=== PATIENT | male | born 1960 | race Caucasian/White ===

== ENCOUNTER 2021-11-18 07:06 | Emergency (ER) | payer OTHER, SELFPAY ==
[2021-11-18] VITALS (17 sets, daily range): BP systolic 103–132; BP diastolic 66–97; PULSE 75–128; RESP 18–28; TEMP 36.2–36.5; O2SAT 92–100; BMI 21.5
--- NOTE | 2021-11-18 07:19 | XR_ITS ---
WS: [id number] XR chest 1V portable [id number] REASON FOR EXAM: SOB, cough FINDINGS: There is nearly complete opacification of the left hemithorax. The mediastinal structures are shifted to the right indicating the opacification is pleural fluid and /or mass. The left mainstem bronchus is not readily identifiable. No history of recent thoracotomy with lung resection. XR/XR chest 1V portable [id number] IMPRESSION: Complete opacification of the left hemithorax with mass effect rather than atel ectasis. This indicates large volume of pleural fluid and/or mass. The left theo st was unremarkable 09/16/2017. 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
--- NOTE | 2021-11-18 07:20 | ED_ITS ---
Documented by User: LEOPOLDO Gilmore 11/18/21 13:59 HPI - SOB/Dyspnea General: Chief Complaint: Shortness of Breath/Dyspnea Stated Complaint: SOB Time Seen by Provider: 11/18/21 07:11 Source: patient and family Mode of arrival: ambulatory Limitations: no limitations History of Present Illness: HPI Narrative: Patient is a nice 61-year-old male who presents to ED today along with his for concerns of cough and shortness of breath. Patient states symptoms began approximately 3-4 weeks ago when he began having chest congestion and a productive cough. He states his symptoms never fully went away and is now having a dry non-productive cough. He is not having any fevers. No other URI symptoms. No sick contacts. Patient was seen at the walk-in clinic approximately 8 days ago and placed on prednisone and an albuterol inhaler but states this has not helped his symptoms. He has no underlying known lung problems. Patient is not a smoker. He states shortness of breath is present at rest but worse with any form of exertion. He is not really having any chest pain or chest discomfort. No hemoptysis. MD elicited complaint: shortness of breath and cough Onset (ago): week(s) Exacerbating factors: exertion Relieving factors: nothing Associated symptoms: Reports abdominal pain (intermittent; chronic x 25 years; no change today); Deny chest congestion, chest pain, dizziness, extremity pain, fever(s), hemoptysis, lightheadedness, nausea, orthopnea, palpitations, syncope or vomiting Related Data: Home oxygen amount: none Review of Systems Const: Denies: fever(s), chills, body aches, fatigue or malaise Eyes: Denies: change in vision or blurry vision ENMT: Denies: throat pain, odynophagia, ear or mastoid pain, nasal discharge, nasal congestion, post nasal drip or sinus pain Card: Reports: dyspnea on exertion; Denies: chest pain, palpitations, irregular heart rhythm, edema, swelling of feet/ankles, lightheadedness, syncope, pre-syncope, orthopnea, leg pain with e xertion or acrocyanosis Resp: Reports: dyspnea and non-productive cough; Denies: wheezing, hemoptysis or chest congestion GI: Reports: abdominal pain (intermittent; chronic x 25 years; no change today); Denies: nausea, vomiting or diarrhea : Denies: flank pain, dysuria or hematuria Musc: Denies: neck pain, back pain, extremity pain or joint pain Skin/Breast: Denies: rash Neuro: Denies: headache(s) or dizziness PFS ED PFSH: Medical History (Updated 11/18/21 @ 15:09 by Allen Booth DO) No significant past medical history Surgical History (Updated 11/18/21 @ 15:09 by Allen Booth DO) No significant past surgical history Social History Smoking and tobacco status: never smoked Alcohol intake: never Physical Exam Const: COMMON NORMALS: no acute distress, patient oriented x3, no limitations, alert and well nourished GENERAL APPEARANCE: cooperative ORIENTATION/CONSCIOUSNESS: Yes awake, Yes oriented to person, Yes oriented to place and Yes oriented to time HENMT: COMMON NORMALS: normocephalic, atraumatic, Normal nasal mucous membranes and turbinates present, moist oral mucous membranes and oropharynx normal HEAD & SCALP: normal to inspection, normocephalic and atraumatic FACE & SINUS: normal facial exam NOSE: Normal nasal mucous membranes and turbinates present Neck/C-Spine: COMMON NORMALS: full ROM and no lymphadenopathy GENERAL: Yes normal visual inspection, No anterior neck swelling and No submandibular swelling Chest: COMMONS NORMALS: normal inspection of the chest and normal palpation of entire chest wall Resp: COMMON NORMALS: normal respiratory effort AUSCULTATION: rhonchi and diminished lung sounds Cardio: COMMON NORMALS: regular rhythm RATE: tachycardic (mild ) RHYTHM: regular rhythm GI: COMMON NORMALS: Normal to inspection, nondistended, normoactive bowel sounds present and Soft to palpation PALPATION: Yes Soft to palpation : COMMON NORMALS: Yes no CVA tenderness BLADDER/KIDNEY EXAM: Yes no CVA tenderness Back/Pelvis: COMMON NORMALS: no CVA tenderness Extremity: COMMON NORMALS: normal to inspection, capillary refill normal, no joint enlargement, no clubbing, cyanosis or edema, no calf tenderness and no pedal edema Neuro: GURPREET COMA SCALE: document GCS findings Gurpreet coma scale total score: COMMON NORMALS: patient oriented x3 SENSORIUM/ORIENTATION: Yes alert, Yes oriented to person, Yes oriented to place and Yes oriented to time Skin: COMMON NORMALS: no rashes or lesions noted GENERAL SKIN EXAM: no rashes or lesions noted Course Vital Signs: Vital signs: Vital Signs Temperature 97.2 F L 11/18/21 13:16 Pulse Rate 81 11/18/21 14:41 Respiratory Rate 18 11/18/21 13:32 Blood Pressure 128/71 11/18/21 14:41 Pulse Oximetry 98 11/18/21 14:41 MDM - SOB/Dyspnea Medical Decision Making Care was transferred to Dr. Booth following results of his CXR due to the acuity of patient. Lab Data : 11/18/21 07:32 11/18/21 07:32 Labs/Radiology: Radiology Impressions Chest/Abdomen/Pelvis CT 11/18/21 08:43 IMPRESSION: Very large pleural effusion mass effect shifting the mediastinal structures to the right. Near complete atelectasis of the left lung with small amount of aerated lung in the left upper lobe. Abnormal pleura in the lower left hemithorax as above which is nonspecific and could be the result of the pleural effusion or the cause of the pleural effusion, neoplastic or inflammatory. IMPRESSION: No acute abdominal or abnormality. Laboratory Results WBC 7.4 10^3/uL (4.0-10.0) 11/18/21 07:32 RBC 4.32 10^6/uL (4.1-5.3) 11/18/21 07:32 Hgb 13.1 g/dL (11.7-16.6) 11/18/21 07:32 Hct 39.2 % (42.0-52.0) L 11/18/21 07:32 MCV 90.7 fl (80-94) 11/18/21 07:32 MCH 30.3 pg (28.0-34.0) 11/18/21 07:32 MCHC 33.4 g/dL (30.0-36.0) 11/18/21 07:32 RDW 11.9 % (12.1-15.1) L 11/18/21 07:32 Plt Count 402 10^3/cmm (130-400) H 11/18/21 07:32 MPV 9.0 fL (7.4-10.4) 11/18/21 07:32 Neut % (Auto) 70.6 % 11/18/21 07:32 Lymph % (Auto) 13.4 % 11/18/21 07:32 [place] % (Auto) 14.0 % 11/18/21 07:32 Eos % (Auto) 1.6 % 11/18/21 07:32 Baso % (Auto) 0.1 % 11/18/21 07:32 Neut # (Auto) 5.25 10^3/uL (1.8-7.7) 11/18/21 07:32 Lymph # (Auto) 1.0 10^3/uL (0.8-4.8) 11/18/21 07:32 [place] # (Auto) 1.0 10^3/uL (0.2-0.9) H 11/18/21 07:32 Eos # (Auto) 0.1 10^3/uL (0.0-0.8) 11/18/21 07:32 Baso # (Auto) 0.0 10^3/uL (0.0-0.1) 11/18/21 07:32 Nucleated RBC % (auto) 0 % 11/18/21 07:32 Nucleated RBCs # 0.0 /100WBC 11/18/21 07:32 PT 14.10 SECONDS (12.1-14.9) 11/18/21 07:38 INR 1.06 (0.8-1.2) 11/18/21 07:38 Specimen Type Arterial 11/18/21 07:54 Sample Site Brachial, left 11/18/21 07:54 ABG pH 7.49 (7.35-7.45) H 11/18/21 07:54 ABG pCO2 28.7 mmHg (35-45) L 11/18/21 07:54 ABG pO2 71.8 mmHg (80.0-100.0) L 11/18/21 07:54 ABG HCO3 22.0 mmol/L (22-26) 11/18/21 07:54 ABG O2 Saturation 95.2 11/18/21 07:54 ABG Base Excess -0.2 mmol/L (-2.0-2.0) 11/18/21 07:54 Magdaleno Test N/a 11/18/21 07:54 A-a O2 Gradient 5.4 mmHg (5-10) 11/18/21 07:54 Hematocrit 40.7 % (42-52) L 11/18/21 07:54 Hgb O2 Saturation 93.3 % (95-100) L 11/18/21 07:54 Carboxyhemoglobin 1.3 %THgb (0.4-20.1) 11/18/21 07:54 Methemoglobin 0.7 % (0.4-1.5) 11/18/21 07:54 Total Hemoglobin 13.3 g/dL (14-18) L 11/18/21 07:54 Sodium 134.0 mmol/L (131-143) 11/18/21 07:54 Potassium 4.0 mmol/L (3.5-5.0) 11/18/21 07:54 Glucose 106.0 mg/dL (70-115) 11/18/21 07:54 Ionized Calcium 1.2 mmol/L (1.1-1.4) 11/18/21 07:54 O2 Delivery Device Room air 11/18/21 07:54 FiO2 21.0 % 11/18/21 07:54 Data Analysis Assistant ID Ed 11/18/21 07:54 Sodium 133 mmol/L (136-145) L 11/18/21 07:32 Potassium 4.1 mmol/L (3.5-5.1) 11/18/21 07:32 Chloride 98 mmol/L (98-107) 11/18/21 07:32 Carbon Dioxide 20 mmol/L (22-29) L 11/18/21 07:32 Anion Gap 19.1 (5-19) H 11/18/21 07:32 BUN 20 mg/dL (8-23) 11/18/21 07:32 Creatinine 0.8 mg/dL (0.7-1.2) 11/18/21 07:32 GFR Calculation 98.0 mL/min (90-130) 11/18/21 07:32 Glucose 114 mg/dL (65-115) 11/18/21 07:32 Calculated Osmolality 279 mOsm/kg (285-295) L 11/18/21 07:32 Lactic Acid 1.9 mmol/L (0.5-2.2) 11/18/21 07:07 Calcium 8.8 mg/dL (8.5-10.5) 11/18/21 07:32 Total Bilirubin 0.5 mg/dL (0.15-1.2) 11/18/21 07:32 AST 14 U/L (0-40) 11/18/21 07:32 ALT 31 U/L (0-41) 11/18/21 07:32 Alkaline Phosphatase 104 IU/L (40-130) 11/18/21 07:32 Troponin T Baseline 11 ng/L (0-15) 11/18/21 07:32 Troponin T 120 Minute 10.48 ng/L (0-15) 11/18/21 09:45 Delta Troponin T -0.52 ABS# (0-10) L 11/18/21 09:45 Total Protein 6.5 g/dL (6.6-8.7) L 11/18/21 07:32 Albumin 3.7 g/dL (3.5-5.2) 11/18/21 07:32 Globulin 2.8 g/dL (1.3-4.6) 11/18/21 07:32 Procalcitonin 0.05 ng/mL (0-0.5) 11/18/21 07:32 Discharge Plan Discharge Patient Disposition: Home Clinical Impression: Pleural effusion on left Condition: Stable Prescriptions: No Action prednisone 10 mg tablet 30 mg PO DAILY 5 Days Qty: 15 0RF albuterol sulfate [Ventolin HFA] 90 mcg/actuation HFA aerosol inhaler 2 puff inhalation Q6H PRN (Reason: shortness of breath or wheezing) Qty: 8.5 0RF Discharge Orders: Discharge ED (Routine); Ordered 11/18/21 Ordered By: Allen Booth Referrals: Kyleigh Leone FNP [Primary Care Provider] - Patient Instructions: Opioid Safety Activity Restrictions/Additional Instructions: helpdesk manager will make arrangements for you to follow-up with Dr. Pastor in his office within the next few days. 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 Comprehensive Documented by User: Allen Booth DO 11/18/21 15:12 HPI - SOB/Dyspnea General: Chief Complaint: Shortness of Breath/Dyspnea Stated Complaint: SOB Time Seen by Provider: 11/18/21 07:11 [facility] ED PFSH: Medical History (Updated 11/18/21 @ 15:09 by Allen Booth DO) No significant past medical history Surgical History (Updated 11/18/21 @ 15:09 by Allen Booth DO) No significant past surgical history Social History Smoking and tobacco status: never smoked Alcohol intake: never Physical Exam Const: COMMON NORMALS: no acute distress GENERAL APPEARANCE: cooperative and comfortable ORIENTATION/CONSCIOUSNESS: Yes awake, Yes oriented to person, Yes oriented to place and Yes oriented to time HENMT: COMMON NORMALS: normocephalic and atraumatic HEAD & SCALP: normocephalic and atraumatic Eye: COMMON NORMALS: Equal, round and reactive pupils present, EOMs intact bilaterally, conjunctivae normal and no scleral icterus CONJUNCTIVA: Yes conjunctivae normal PUPIL: Yes Equal, round and reactive pupils present Neck/C-Spine: COMMON NORMALS: no lymphadenopathy and no JVD Lymph: LYMPHATIC: no lymphadenopathy noted and no lymphedema noted Resp: COMMON NORMALS: normal respiratory effort, No retractions and No use of accessory muscles AUSCULTATION: bronchial breath sounds on the left and other (Egophony noted on exam) PERCUSSION: dullness Upper: left, Mid: left and Lower: left Cardio: COMMON NORMALS: no JVD, regular rate, regular rhythm and No murmurs present (Cardio) RATE: regular rate RHYTHM: regular rhythm GI: COMMON NORMALS: Soft to palpation and No hepatosplenomegaly present AUSCULTATION: Yes normoactive bowel sounds PALPATION: Yes Soft to palpation, No Tenderness to palpation present (GI), No Guarding due to palpation present (GI) and Yes No hepatosplenomegaly present Extremity: COMMON NORMALS: normal to inspection, capillary refill normal, no clubbing, cyanosis or edema, no calf tenderness and no pedal edema Neuro: SENSORIUM/ORIENTATION: Yes oriented to person, Yes oriented to place and Yes oriented to time Skin: COMMON NORMALS: no rashes or lesions noted GENERAL SKIN EXAM: no rashes or lesions noted Course Vital Signs: Vital signs: Vital Signs Temperature 97.2 F L 11/18/21 13:16 Pulse Rate 81 11/18/21 14:41 Respiratory Rate 18 11/18/21 13:32 Blood Pressure 128/71 11/18/21 14:41 Pulse Oximetry 98 11/18/21 14:41 MDM - SOB/Dyspnea Medical Decision Making Care was transferred to Dr. Booth following results of his CXR due to the acuity of patient. Discussed with Dr. Velazco and 1100 cc removed by thoracentesis under ultrasound guidance by him in the emergency room. Patient tolerated the procedure well. He did have some coughing post film does not show any pneumothorax. Pleural fluid. From the left hemithorax was bloody in nature and sent for routine evaluation including cultures and cell counts. Remains a very large amount of fluid on the post thoracentesis film. Discussed with Dr. Turpin he will see the patient later this week may consider placement in outpatients of a pleural drain. Discussed with the patient to call his office and make appointment within the next 1 to 2 days. Medical Records I reviewed the patient's medical records. Lab Data I reviewed the patient's lab results. : 11/18/21 07:32 11/18/21 07:32 Labs/Radiology: Radiology Impressions Chest/Abdomen/Pelvis CT 11/18/21 08:43 IMPRESSION: Very large pleural effusion mass effect shifting the mediastinal structures to the right. Near complete atelectasis of the left lung with small amount of aerated lung in the left upper lobe. Abnormal pleura in the lower left hemithorax as above which is nonspecific and could be the result of the pleural effusion or the cause of the pleural effusion, neoplastic or inflammatory. IMPRESSION: No acute abdominal or abnormality. Laboratory Results WBC 7.4 10^3/uL (4.0-10.0) 11/18/21 07:32 RBC 4.32 10^6/uL (4.1-5.3) 11/18/21 07:32 Hgb 13.1 g/dL (11.7-16.6) 11/18/21 07:32 Hct 39.2 % (42.0-52.0) L 11/18/21 07:32 MCV 90.7 fl (80-94) 11/18/21 07:32 MCH 30.3 pg (28.0-34.0) 11/18/21 07:32 MCHC 33.4 g/dL (30.0-36.0) 11/18/21 07:32 RDW 11.9 % (12.1-15.1) L 11/18/21 07:32 Plt Count 402 10^3/cmm (130-400) H 11/18/21 07:32 MPV 9.0 fL (7.4-10.4) 11/18/21 07:32 Neut % (Auto) 70.6 % 11/18/21 07:32 Lymph % (Auto) 13.4 % 11/18/21 07:32 [place] % (Auto) 14.0 % 11/18/21 07:32 Eos % (Auto) 1.6 % 11/18/21 07:32 Baso % (Auto) 0.1 % 11/18/21 07:32 Neut # (Auto) 5.25 10^3/uL (1.8-7.7) 11/18/21 07:32 Lymph # (Auto) 1.0 10^3/uL (0.8-4.8) 11/18/21 07:32 [place] # (Auto) 1.0 10^3/uL (0.2-0.9) H 11/18/21 07:32 Eos # (Auto) 0.1 10^3/uL (0.0-0.8) 11/18/21 07:32 Baso # (Auto) 0.0 10^3/uL (0.0-0.1) 11/18/21 07:32 Nucleated RBC % (auto) 0 % 11/18/21 07: Nucleated RBCs # 0.0 /100WBC 11/18/21 07:32 PT 14.10 SECONDS (12.1-14.9) 11/18/21 07:38 INR 1.06 (0.8-1.2) 11/18/21 07:38 Specimen Type Arterial 11/18/21 07:54 Sample Site Brachial, left 11/18/21 07:54 ABG pH 7.49 (7.35-7.45) H 11/18/21 07:54 ABG pCO2 28.7 mmHg (35-45) L 11/18/21 07:54 ABG pO2 71.8 mmHg (80.0-100.0) L 11/18/21 07:54 ABG HCO3 22.0 mmol/L (22-26) 11/18/21 07:54 ABG O2 Saturation 95.2 11/18/21 07:54 ABG Base Excess -0.2 mmol/L (-2.0-2.0) 11/18/21 07:54 Magdaleno Test N/a 11/18/21 07:54 A-a O2 Gradient 5.4 mmHg (5-10) 11/18/21 07:54 Hematocrit 40.7 % (42-52) L 11/18/21 07:54 Hgb O2 Saturation 93.3 % (95-100) L 11/18/21 07:54 Carboxyhemoglobin 1.3 %THgb (0.4-20.1) 11/18/21 07:54 Methemoglobin 0.7 % (0.4-1.5) 11/18/21 07:54 Total Hemoglobin 13.3 g/dL (14-18) L 11/18/21 07:54 Sodium 134.0 mmol/L (131-143) 11/18/21 07:54 Potassium 4.0 mmol/L (3.5-5.0) 11/18/21 07:54 Glucose 106.0 mg/dL (70-115) 11/18/21 07:54 Ionized Calcium 1.2 mmol/L (1.1-1.4) 11/18/21 07:54 O2 Delivery Device Room air 11/18/21 07:54 FiO2 21.0 % 11/18/21 07:54 Data Analysis Assistant ID Ed 11/18/21 07:54 Sodium 133 mmol/L (136-145) L 11/18/21 07:32 Potassium 4.1 mmol/L (3.5-5.1) 11/18/21 07:32 Chloride 98 mmol/L (98-107) 11/18/21 07:32 Carbon Dioxide 20 mmol/L (22-29) L 11/18/21 07:32 Anion Gap 19.1 (5-19) H 11/18/21 07:32 BUN 20 mg/dL (8-23) 11/18/21 07:32 Creatinine 0.8 mg/dL (0.7-1.2) 11/18/21 07:32 GFR Calculation 98.0 mL/min (90-130) 11/18/21 07:32 Glucose 114 mg/dL (65-115) 11/18/21 07:32 Calculated Osmolality 279 mOsm/kg (285-295) L 11/18/21 07:32 Lactic Acid 1.9 mmol/L (0.5-2.2) 11/18/21 07:07 Calcium 8.8 mg/dL (8.5-10.5) 11/18/21 07:32 Total Bilirubin 0.5 mg/dL (0.15-1.2) 11/18/21 07:32 AST 14 U/L (0-40) 11/18/21 07:32 ALT 31 U/L (0-41) 11/18/21 07:32 Alkaline Phosphatase 104 IU/L (40-130) 11/18/21 07:32 Troponin T Baseline 11 ng/L (0-15) 11/18/21 07:32 Troponin T 120 Minute 10.48 ng/L (0-15) 11/18/21 09:45 Delta Troponin T -0.52 ABS# (0-10) L 11/18/21 09:45 Total Protein 6.5 g/dL (6.6-8.7) L 11/18/21 07:32 Albumin 3.7 g/dL (3.5-5.2) 11/18/21 07:32 Globulin 2.8 g/dL (1.3-4.6) 11/18/21 07:32 Procalcitonin 0.05 ng/mL (0-0.5) 11/18/21 07:32 Discharge Plan Discharge Patient Disposition: Home Clinical Impression: Pleural effusion on left Condition: Stable Prescriptions: No Action prednisone 10 mg tablet 30 mg PO DAILY 5 Days Qty: 15 0RF albuterol sulfate [Ventolin HFA] 90 mcg/actuation HFA aerosol inhaler 2 puff inhalation Q6H PRN (Reason: shortness of breath or wheezing) Qty: 8.5 0RF Discharge Orders: Discharge ED (Routine); Ordered 11/18/21 Ordered By: Allen Booth Referrals: Kyleigh Leone FNP [Primary Care Provider] - Patient Instructions: Opioid Safety Activity Restrictions/Additional Instructions: helpdesk manager will make arrangements for you to follow-up with Dr. Pastor in his office within the next few days. 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 Comprehensive
--- NOTE | 2021-11-18 07:42 | ECG_ITS ---
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 Measurements Intervals [place] Rate: 95 P: 61 NC: 129 QRS: 65 QRSD: 85 T: 47 QT: 334 QTc: 420 Interpretive Statements SINUS RHYTHM LOW QRS VOLTAGE IN PRECORDIAL LEADS [QRS DEFLECTION < 1.0 mV IN CHEST LEADS] Compared to ECG 09/16/2017 21:12:44 Low QRS voltage now present Electronically Signed On 11-18-2021 21:05:52 CDT by Douglas Willoughby M.D. [id number]
[2021-11-18 07:48] LABS: Basophils % 0.1 %; Eosinophils # 0.1 10^3/uL (0.0-0.8); Eosinophils % 1.6 %; Hematocrit 39.2 % (42.0-52.0); Hemoglobin 13.1 g/dL (11.7-16.6); Lymphocytes % 13.4 %; Mean Corpuscular HGB Conc 33.4 g/dL (30.0-36.0); Mean Corpuscular Hemoglobin 30.3 pg (28.0-34.0); Mean Corpuscular Volume 90.7 fl (80-94); Neutrophils # 5.25 10^3/uL (1.8-7.7); Neutrophils % 70.6 %; Nucleated Red Blood Cells % 0 %; Platelet Count 402 10^3/cmm (130-400); Red Blood Count 4.32 10^6/uL (4.1-5.3); Red Cell Distribution Width 11.9 % (12.1-15.1); White Blood Count 7.4 10^3/uL (4.0-10.0)
[2021-11-18 08:04] LABS: ABG PCO2 28.7 mmHg (35-45); ABG PH Result 7.49 (7.35-7.45); Alveolar-Arterial Oxygen Gradi 5.4 mmHg (5-10); Arterial Blood Gas Hematocrit 40.7 % (42-52); Base Excess ABG -0.2 mmol/L (-2.0-2.0); Blood Gas Sample Type Arterial; Carboxyhemoglobin 1.3 %THgb (0.4-20.1); HGB O2 Sat 93.3 % (95-100); Ionized Calcium Level - ABG 1.2 mmol/L (1.1-1.4); Methemoglobin 0.7 % (0.4-1.5); Oxygen Saturation ABG 95.2; PO2 ABG 71.8 mmHg (80.0-100.0); Total Hemoglobin 13.3 g/dL (14-18)
[2021-11-18 08:05] LABS: Blood Gas Operator Identificat ED; Blood Gas Sample Site Brachial, left; Oxygen Device ROOM AIR
[2021-11-18 08:07] LABS: Alanine Aminotransferase 31 U/L (0-41); Albumin Level 3.7 g/dL (3.5-5.2); Alkaline Phosphatase 104 IU/L (40-130); Anion Gap 19.1 (5-19); Aspartate Amino Transferase 14 U/L (0-40); Blood Urea Nitrogen 20 mg/dL (8-23); Calcium 8.8 mg/dL (8.5-10.5); Carbon Dioxide 20 mmol/L (22-29); Chloride 98 mmol/L (98-107); Globulin 2.8 g/dL (1.3-4.6); Glucose 114 mg/dL (65-115); Osmolality Calculated 279 mOsm/kg (285-295); Potassium 4.1 mmol/L (3.5-5.1); Sodium 133 mmol/L (136-145); Total Bilirubin 0.5 mg/dL (0.15-1.2); Total Protein 6.5 g/dL (6.6-8.7); Troponin(5th) Baseline 11 ng/L (0-15)
[2021-11-18 08:12] LABS: Lactic Sepsis W/Reflex 1.9 mmol/L (0.5-2.2)
[2021-11-18 08:14] LABS: Procalcitonin 0.05 ng/mL (0-0.5)
[2021-11-18] MEDS: ondansetron 2 mg/ML SDV 2 mL 4 MG IVP (08:21)
[2021-11-18] MEDS: morphine 4 mg/mL SDV 1 mL IVP (08:34)
[2021-11-18] MEDS: promethazine 25 mg/mL SDV 1 mL IM (08:43)
--- NOTE | 2021-11-18 08:43 | CT_ITS ---
WS: [id number] CT angio chest w abd pel w con REASON FOR EXAM: pleurel effusion, left chest mass, abd pain TECHNIQUE: Coronal and sagittal 2-D and MIP reformations. IV CONTRAST ADMINISTERED: 95 mL of Omnipaque 350 TOTAL EXAM DLP: 1309.[address] scans at [facility] use at least one of these dose optimization techniques: automat ed exposure control; mA and/or kV adjustment per patient size (includes targeted exams where dose is matched to clinical indication); or iterative reconstruction. FINDINGS: CHEST: Mediastinal structures are shifted significantly to the right. Thoracic aorta pulmonary arteries are unremarkable. No mediastinal adenopathy or mass identified. No hilar adenopathy or mass. Calcified granulomatous disease in the right hemithorax with a large calcified granuloma in the anter ior right upper lobe. The left lung is nearly completely collapsed with only a small portion of the right upper lobe contai arya air. The left mainstem bronchus and left upper and lower lobe bronchi are patent. No mass is rashel ntified in the collapsed lung. There is thickening and enhancement with subtle areas of nodularity in the posterior and medial pleur a in the lower left hemithorax. There is degenerative disc disease in the thoracic spine with disc space narrowing and anterior osteo phytic spurring. No focal vertebral body lesion. No rib lesions identified. ABDOMEN: Lucency along the portal veins compatible with lymphatic congestion, nonspecific but likely related t o increased thoracic duct pressure from the large left pleural effusion. No focal liver lesion. Splee n is unremarkable. Pancreas is unremarkable. No abnormality gallbladder. Kidneys and adrenal glands are within normal limits. No abdominal mass or adenopathy. No free fluid or focal fluid collection. No bowel abnormality. Normal appendix not identified however no findings of inflammation. No focal bony abnormality of the lumbar spine. Mild degenerative disc changes. PELVIS: No free fluid or focal fluid collection. No mass or adenopathy. Enlargement of the prostate gland with multiple ill-defined areas of enhancement in the central lower zone. No significant bony abnormality of the pelvis. CT/CT angio chest w abd pel w con IMPRESSION: Very large pleural effusion mass effect shifting the mediastinal structures to the right. Near complete atelectasis of the left lung with small amount of aera rasheeda lung in the left upper lobe. Abnormal pleura in the lower left hemithorax as above which is nonspecific and could be the result of the pleural effusion or the cause of the pleural effusio n, neoplastic or inflammatory. IMPRESSION: No acute abdominal or abnormality.
[2021-11-18] MEDS: iohexol 350 mg/mL 100 mL Btl IV (09:12)
--- NOTE | 2021-11-18 09:42 | ECG_ITS ---
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 Measurements Intervals [place] Rate: 77 P: 60 VA: 142 QRS: 65 QRSD: 89 T: 51 QT: 379 QTc: 429 Interpretive Statements SINUS RHYTHM LOW QRS VOLTAGE IN PRECORDIAL LEADS [QRS DEFLECTION < 1.0 mV IN CHEST LEADS] Compared to ECG 11/18/2021 06:54:10 No significant changes Electronically Signed On 11-18-2021 21:14:20 CDT by Douglas Willoughby M.D. [id number]
--- NOTE | 2021-11-18 09:59 | US_ITS ---
WS: [id number] ULTRASOUND-GUIDED THORACENTESIS CLINICAL INFORMATION: Large left pleurel effusion COMPARISON: None. PROCEDURE: Informed consent: The risks, benefits, and alternatives of the procedure were discussed with the willa ent. Verbal and written consent was obtained. Timeout: A timeout was performed to confirm the correct patient, procedure, and site. Site: LEFT Preparation: A suitable skin site was identified. The patient was prepped and draped in usual sterile fashion. Lidocaine 1% was used for local anesthesia. Catheter: 4 Spanish One-Step catheter. Fluid Volume: 1100 ml Color: Bloody dark red Fluid sent to the laboratory for requested diagnostic tests Complications: Portable radiograph demonstrates no evidence of pneumothorax. Mediastinal shift appear s improved. Improved aeration LEFT upper lobe US/US thoracentesis [id number] IMPRESSION: Uncomplicated ultrasound-guided thoracentesis.
[2021-11-18 10:19] LABS: Troponin 5 2HR 10.48 ng/L (0-15)
[2021-11-18 10:54] LABS: Troponin 5 2HR Delta -0.52 ABS# (0-10)
[2021-11-18 12:29] LABS: INR 1.06 (0.8-1.2)
[2021-11-18] MEDS: morphine 4 mg/mL SDV 1 mL 2 MG IVP (13:32)
--- NOTE | 2021-11-18 13:42 | ECG_ITS ---
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 Measurements Intervals [place] Rate: P: AR: QRS: QRSD: T: QT: QTc: Interpretive Statements SINUS RHYTHM Compared to ECG 11/18/2021 08:35:12 Sinus rhythm no longer present Electronically Signed On 11-18-2021 21:13:34 CDT by Douglas Willoughby M.D. [id number]
--- NOTE | 2021-11-18 14:24 | XR_ITS ---
WS: [id number] CHEST XRAY TECHNIQUE: Portable chest. CLINICAL INFORMATION: post thoracentesis COMPARISON: November 18, 2021 FINDINGS: Heart: Normal cardiac silhouette. Lungs: No pneumothorax post thoracentesis. Decrease in density of the large LEFT pleural effusion wit h improved aeration the LEFT upper lobe. Improved LEFT to RIGHT mediastinal shift. RIGHT lung is unch anged. Bones: Normal visualized bony structures. XR/XR chest 1V portable [id number] IMPRESSION: 1. Decreased density of the large LEFT pleural effusion post thoracentesis wit h improved aeration LEFT upper lobe. 2. No pneumothorax. 3. Improved LEFT RIGHT mediastinal shift.
[2021-11-18 15:10] LABS: Troponin 5 6HR 8.84 ng/L (0-15)
[2021-11-18 15:18] LABS: Body Fluid WBC 2463 /uL; Monocytes # Body Fluid 1.833
[2021-11-18 16:09] LABS: Troponin 5 6HR Delta -2.16 ng/L (0-12)
[2021-11-18 16:28] LABS: Albumin Body Fluid 3.5 g/dL; Amylase Body Fluid 471 U/L; Cholesterol Body Fluid 103 mg/dL (0-200); Fluid Alkaline Phos. 37 IU/L; LDH Body Fluid 651 U/L; Triglycerides Body Fluid 24 mg/dL (0-150); Uric Acid Body Fluid 5 mg/dL
[2021-11-18 16:33] LABS: Body Fluid Specific Gravity 1.015
[2021-11-18 17:09] LABS: Apprearance, Body Fluid BLOODY; Color, Body Fluid RED
--- NOTE | 2021-11-19 17:00 | DCPLANNER ---
Addendum entered by Preethi Thomas 12/05/21 09:12: Patient had a follow up appointment scheduled with Dr. Pastor at [facility] - patient did attend appointment. Original Note: barber or beauty shop manager had message to schedule a followup appointment for patient with Dr. Pastor, at [facility]. barber or beauty shop manager called [facility], spoke with Serina Busch, gave clinic patients information. A follow up appointment was scheduled for November at 12:[address] Pastor. barber or beauty shop manager called patient to confirm that he was aware of appointment.
[2021-11-20 00:49] LABS: Total Protein Pleural Fluid 4.6 g/dL
== END 2021-11-18 15:59 | disposition home or self-care (01) ==
PROVIDERS: Physician Assistant; Emergency Provider Family Medicine; PCP Nurse Practitioner
DX: J90 Pleural effusion, not elsewhere classified (principal)
CPT/HCPCS: 32555; 36600; 71045; 71275; 74177; 80051; 80053; 80500; 82042; 82150; 82330; 82465; 82805; 82945; 83605; 83615; 83986; 84075; 84145; 84157; 84315; 84478; 84484; 84560; 85025; 85610; 87015; 87040; 87070; 87075; 87102; 87116; 87205; 87206; 87801; 88108; 88305; 89050; 93005; 96372; 96374; 96375; 96376; 99284; J2270; J2405; J2550; Q9967

== ENCOUNTER 2021-11-19 20:06 | Inpatient (IN) | payer OTHER, SELFPAY ==
[2021-11-19 20:13] VITALS: BP 122/87; PULSE 125; RESP 18; TEMP 36.7; O2SAT 91; BMI 21.5
--- NOTE | 2021-11-19 20:15 | W.ED.SOB ---
HPI - SOB/Dyspnea General: Chief Complaint: Shortness of Breath/Dyspnea Stated Complaint: SOB\ Slight Chest Pain Time Seen by Provider: 11/19/21 20:14 History of Present Illness: HPI Narrative: Mr. Ramos is a 61-year-old gentleman without significant medical history with exception of recently discovered pleural effusion who presents emergency department due to shortness of breath. He began having symptoms a few weeks ago that were gradual in onset. He initially saw his PCP and was diagnosed with bronchitis and prescribed treatment however symptoms continued. He presented to the emergency department on 11/18 and had thoracentesis though no clear explanation for accumulation of fluid was noted. Approximately 1100 cc of fluid was drained and he initially had improvement. However, starting today he began to have more shortness of breath and decreased exercise tolerance. Additionally he has had fast heart rate. Denies infectious symptoms or other significant changes in health. Intensity of symptoms is moderate. Course has worsened. No other specific changes in health, exacerbating, or alleviating factors identified. Pertinent past history: other Onset (ago): hour(s) Timing: progressively worsening Exacerbating factors: lying flat and exertion Known history of: other Review of Systems General: Reports: 10 or more systems reviewed and unremarkable except in HPI and below PFSH ED PFSH: Medical History Pleural effusion on left Recurrent pleural effusion on left Surgical History No significant past surgical history Family History Mother Stroke Other CAD (coronary artery disease) Social History Smoking and tobacco status: never smoked Alcohol intake: never Lives independently: Yes Household members: spouse Marital status: Physical Exam Const: COMMON NORMALS: alert GENERAL APPEARANCE: cooperative and well developed HENMT: COMMON NORMALS: normocephalic and atraumatic HEAD & SCALP: normocephalic and atraumatic Eye: COMMON NORMALS: conjunctivae normal CONJUNCTIVA: Yes conjunctivae normal SCLERA: sclerae normal Neck/C-Spine: COMMON NORMALS: supple GENERAL: Yes trachea midline Resp: EFFORT & INSPECTION: Yes able to speak in complete sentences and Yes tachypneic AUSCULTATION: breath sounds absent on th left (base to mid) Cardio: COMMON NORMALS: regular rhythm RATE: tachycardic RHYTHM: regular rhythm GI: COMMON NORMALS: Soft to palpation PALPATION: Yes Soft to palpation and No Tenderness to palpation present (GI) PERCUSSION: normal to percussion Extremity: GENERAL: Yes normal exam except as noted and No edema Neuro: COMMON NORMALS: moves all extremities SENSORIUM/ORIENTATION: Yes alert and No Orientation impaired Psych: COMMON NORMALS: mental status grossly normal and Normal thought process present THOUGHT PROCESS: Normal thought process present Course ED course: - Patient was seen and evaluated by me at bedside - Patient placed on cardiac monitors, IV access obtained - Initial evaluation notable for exam as above - Labs and xrays personally interpreted by me - Fluids given - Labs notable for no leukocytosis, hemoglobin 9.7 which is decreased for baseline likely secondary to recent procedures. No acute electrolyte abnormalities explain symptoms - Imaging notable for large left effusion mildly more similar to prior. - Discussed case with pulmonology on-call. Based on provided history and physical examination of the patient I do not believe that the patient needs emergent ED performed thoracentesis however I also do not believe that the patient is satisfactory for outpatient follow-up as scheduled. Pulmonology recommends admission for further management with possible repeat IR versus pulmonology performed procedure. - Upon serial reexamination after treatment the patient was similar - Based on patient history, evaluation, labs, and imaging as interpreted the most likely cause of the patient's condition is recurrent large left effusion of uncertain etiology - The results of ED evaluation were discussed with the patient including plan for admission due to requirement for level of care not available if discharged to prevent significant worsening/deterioration. - Hospitalist service contacted and agreed with the patient. - Patient was admitted without further deterioration or significant events. Note: Click bubbles or prepopulated quinn in note writing are used for assistance with data collection and billing and are inherently more limited than narrative and other text portions of this note. Please use narrative for additional clinical history and defer to narrative/free test for any case of contradictory information. If information appears in only free text or click bubble it should be considered present or absent as reported. Please contact note typewriter assembly and parts inspector for clarifications of clinical information or contradictory information. MDM is a brief summary, contradictory or erroneous seeming information should be clarified and full note should be reviewed. Vital Signs: Vital signs: Vital Signs Temperature 98.2 F 11/23/21 14:01 Pulse Rate 83 11/23/21 14:01 Respiratory Rate 16 11/23/21 14:01 Blood Pressure 91/46 11/23/21 14:01 Pulse Oximetry 96 11/23/21 14:01 MDM - SOB/Dyspnea Medical Decision Making 61-year-old gentleman with recent diagnosis of pleural effusion status post 1100 cc drainage resenting with recurrence of initial presenting symptoms including shortness of breath and dyspnea with exertion with decreased exercise tolerance. Requiring 2 L of oxygen for oxygen saturation 89 to 90% on room air with significant worsening on exertion. No indication for thoracentesis in the emergency room. After discussion with pulmonology patient admitted for further management. Medical Records I reviewed the patient's medical records. Lab Data I reviewed the patient's lab results. : 11/23/21 04:05 11/23/21 04:05 Labs/Radiology: Radiology Impressions Chest CT 11/20/21 16:58 IMPRESSION: 1. Large left lower lobe pleural effusion decreased in volume since prior 2. Pleural base mass anteromedial aspect of the left upper lobe 3. Chest tube is present in the left lower left lung. 4. Calcified granulomas anterior right upper lobe and mediastinum. Abdomen CT 11/21/21 13:10 IMPRESSION: 1. Left lower lobe atelectasis versus infiltrate with a small left pneumothorax and pleural effusion in which a chest tube is seen, incompletely visualized. 2. Emphysematous changes. 3. Negative for acute inflammatory process in the abdomen and pelvis. Chest X-Ray 11/22/21 05:41 IMPRESSION: Improving small left pleural effusion with persistent increased interstitial markings and airspace opacities in the left lung. No pneumothorax. Laboratory Results WBC 9.4 10^3/uL (4.0-10.0) 11/19/21 20:38 RBC 3.92 10^6/uL (4.1-5.3) L 11/19/21 20:38 Hgb 12.1 g/dL (11.7-16.6) 11/19/21 20:38 Hct 36.3 % (42.0-52.0) L 11/19/21 20:38 MCV 92.6 fl (80-94) 11/19/21 20:38 MCH 30.9 pg (28.0-34.0) 11/19/21 20: MCHC 33.3 g/dL (30.0-36.0) 11/19/21 20: RDW 12.1 % (12.1-15.1) 11/19/21 20: Plt Count 375 10^3/cmm (130-400) 11/19/21 20: MPV 9.1 fL (7.4-10.4) 11/19/21: Neut % (Auto) 77.6 % 11/19/21 20: Lymph % (Auto) 9.9 % 11/19/21 20: [place] % (Auto) 11.6 % 11/19/21: Eos % (Auto) 0.6 % 11/19/21: Baso % (Auto) 0.1 % 11/19/21: Neut # (Auto) 7.25 10^3/uL (1.8-7.7) 11/19/21: Lymph # (Auto) 0.9 10^3/uL (0.8-4.8) 11/19/21 20: [place] # (Auto) 1.1 10^3/uL (0.2-0.9) H 11/19/21: Eos # (Auto) 0.1 10^3/uL (0.0-0.8) 11/19/21: Baso # (Auto) 0.0 10^3/uL (0.0-0.1) 11/19/21: Nucleated RBC % (auto) 0 % 11/19/21: Nucleated RBCs # 0.0 /100WBC 11/19/21 20: Sodium 134 mmol/L (136-145) L 11/19/21 20: Potassium 4.5 mmol/L (3.5-5.1) 11/19/21: Chloride 97 mmol/L (98-107) L 11/19/21: Carbon Dioxide 25 mmol/L (22-29) 11/19/21 20: Anion Gap 16.5 (5-19) 11/19/21 20: BUN 22 mg/dL (8-23) 11/19/21: Creatinine 1.0 mg/dL (0.7-1.2) 11/19/21 20:38 GFR Calculation 75.7 mL/min (90-130) L 11/19/21 20:38 Glucose 123 mg/dL (65-115) H 11/19/21 20:38 Calculated Osmolality 283 mOsm/kg (285-295) L 11/19/21 20:38 Calcium 9.0 mg/dL (8.5-10.5) 11/19/21 20:38 Total Bilirubin 0.5 mg/dL (0.15-1.2) 11/19/21 20:38 AST 17 U/L (0-40) 11/19/21 20:38 ALT 25 U/L (0-41) 11/19/21 20:38 Alkaline Phosphatase 93 IU/L (40-130) 11/19/21 20:38 Troponin T Baseline 16 ng/L (0-15) H 11/19/21 20:38 Troponin T 120 Minute 13.70 ng/L (0-15) 11/19/21 22:08 Delta Troponin T -2.30 ABS# (0-10) L 11/19/21 22:08 C-Reactive Protein 53.1 mg/L (0.0-4.9) H 11/19/21 20:38 NT-Pro-B Natriuret Pep 64 pg/mL (0-125) 11/19/21 20:38 Total Protein 5.8 g/dL (6.6-8.7) L 11/19/21 20:38 Albumin 3.9 g/dL (3.5-5.2) 11/19/21 20:38 Globulin 1.9 g/dL (1.3-4.6) 11/19/21 20:38 Procalcitonin 0.10 ng/mL (0-0.5) 11/19/21 20:38 EKG Data EKG 1: I personally reviewed and interpreted this EKG as follows: EKG Interpretation Date: 11/19/21 EKG interpretation time: 20:25 Interpretation: Twelve-lead EKG shows a regular rhythm at a rate of 120. MT interval 117, QRS duration 90, QTc 361. Normal axis. Interpretation: Sinus tachycardia. Discharge Plan Discharge Patient Disposition: Admitted As Inpatient Admit Provider: Gt Damian Clinical Impression: Pleural effusion on left, Hypoxemia, Tachycardia Condition: Stable Discharge Diet: Regular Discharge Activity: Resume usual activity Coding Level of Care Code ED Universal Grinder Operator for Papi Fwjimena Exam Comprehensive
--- NOTE | 2021-11-19 20:32 | ECG_ITS ---
[facility] Test Date: 2021-11-19 Pat Name: Shahab Ramos Department: Room: Gender: Male Corporate Development Intern: : 1960 Requested By: Edi Everett Order Number: [id number] Jean MD: Douglas Willoughby M.D. Measurements Intervals [place] Rate: 120 P: 63 OR: 117 QRS: 59 QRSD: 90 T: 52 QT: 289 QTc: 410 Interpretive Statements SINUS TACHYCARDIA WITH SHORT OR INTERVAL Compared to ECG 11/18/2021 12:33:58 Short OR interval now present Sinus rhythm no longer present Electronically Signed On 11-19-2021 22:20:14 CDT by Douglas Willoughby M.D. [id number]
--- NOTE | 2021-11-19 20:32 | XRR_ITS ---
PROCEDURE INFORMATION: Exam: XR Chest Exam date and time: 11/19/2021 8:32 PM Age: 61 years old Clinical indication: Shortness of breath; Additional info: SOB, tachycardia TECHNIQUE: Imaging protocol: XR of the chest. Views: 1 view. COMPARISON: CR XR chest 1V portable [id number] 11/18/2021 1:33 PM FINDINGS: Lungs: Please see pleural spaces section. Pleural spaces: Large left pleural effusion, similar to slightly increased from prior study. Some residual aeration of the left lung apex noted. No pneumothorax. Heart/Mediastinum: No cardiomegaly. Bones/joints: Unremarkable. XR/XR chest 1V portable [id number] IMPRESSION: Redemonstrated large left pleural effusion, similar to slightly increased from prior study. Some residual aeration of the left lung apex is noted.
[2021-11-19 20:48] LABS: Basophils % 0.1 %; Eosinophils # 0.1 10^3/uL (0.0-0.8); Eosinophils % 0.6 %; Hematocrit 36.3 % (42.0-52.0); Hemoglobin 12.1 g/dL (11.7-16.6); Lymphocytes # 0.9 10^3/uL (0.8-4.8); Lymphocytes % 9.9 %; Mean Corpuscular HGB Conc 33.3 g/dL (30.0-36.0); Mean Corpuscular Hemoglobin 30.9 pg (28.0-34.0); Mean Corpuscular Volume 92.6 fl (80-94); Mean Platelet Volume 9.1 fL (7.4-10.4); Monocytes # 1.1 10^3/uL (0.2-0.9); Monocytes % 11.6 %; Neutrophils # 7.25 10^3/uL (1.8-7.7); Neutrophils % 77.6 %; Nucleated Red Blood Cells % 0 %; Platelet Count 375 10^3/cmm (130-400); Red Blood Count 3.92 10^6/uL (4.1-5.3); Red Cell Distribution Width 12.1 % (12.1-15.1); White Blood Count 9.4 10^3/uL (4.0-10.0)
[2021-11-19 21:22] LABS: Troponin(5th) Baseline 16 ng/L (0-15)
[2021-11-19 21:32] LABS: NT Pro B Type Natriuretic Pept 64 pg/mL (0-125)
[2021-11-19 21:43] LABS: Alanine Aminotransferase 25 U/L (0-41); Albumin Level 3.9 g/dL (3.5-5.2); Alkaline Phosphatase 93 IU/L (40-130); Anion Gap 16.5 (5-19); Aspartate Amino Transferase 17 U/L (0-40); Blood Urea Nitrogen 22 mg/dL (8-23); C Reactive Protein 53.1 mg/L (0.0-4.9); Carbon Dioxide 25 mmol/L (22-29); Chloride 97 mmol/L (98-107); Globulin 1.9 g/dL (1.3-4.6); Glomerular Filtration Rate 75.7 mL/min (90-130); Glucose 123 mg/dL (65-115); Osmolality Calculated 283 mOsm/kg (285-295); Potassium 4.5 mmol/L (3.5-5.1); Sodium 134 mmol/L (136-145); Total Bilirubin 0.5 mg/dL (0.15-1.2); Total Protein 5.8 g/dL (6.6-8.7)
[2021-11-19] MEDS: lactated ringers 500 ML 999 ML IV (21:45)
[2021-11-19 22:21] VITALS: BP 111/80; PULSE 90; RESP 22; O2SAT 98
[2021-11-19 23:06] VITALS: BP 109/76; PULSE 104; RESP 34; O2SAT 96
[2021-11-19 23:15] VITALS: BP 109/76; PULSE 100; RESP 25; O2SAT 98
[2021-11-19 23:30] VITALS: BP 117/74; PULSE 105; RESP 26; O2SAT 97
[2021-11-19 23:41] VITALS: BMI 23.2
[2021-11-19 23:45] VITALS: BP 119/72; PULSE 94; RESP 24; O2SAT 97
[2021-11-20] VITALS (49 sets, daily range): BP systolic 86–111; BP diastolic 46–82; PULSE 69–96; RESP 17–36; TEMP 36.6–37.3; O2SAT 91–99
--- NOTE | 2021-11-20 00:14 | XRR_ITS ---
PROCEDURE INFORMATION: Exam: XR Chest Exam date and time: 11/20/2021 12:14 AM Age: 61 years old Clinical indication: Device placement; Patient HX: Check S/P left side chest tube. 2 liters of dark red colored fluid aspirated. ; Additional info: Chest tube placement TECHNIQUE: Imaging protocol: XR of the chest. Views: 1 view. COMPARISON: CR (CHEST, ) 11/19/2021 7:38 PM FINDINGS: Tubes, catheters and devices: Interval placement of left chest tube. Lungs: Slight increased aeration of the left upper lobe with significant decreased depression of the left hemithorax consistent with drainage of pleural fluid. Continued significant opacification of the left hemithorax consistent with large pleural fluid collection with possible associated atelectasis and or pneumonia and or mass. Pleural spaces: See Lungs finding. Heart/Mediastinum: Unremarkable. No cardiomegaly. Bones/joints: Moderate thoracic spondylosis. XR/XR chest 1V portable [id number] IMPRESSION: 1. Interval placement of left chest tube. 2. Slight increased aeration of the left upper lobe with significant decreased depression of the left hemithorax consistent with drainage of pleural fluid. 3. Continued significant opacification of the left hemithorax consistent with large pleural fluid collection with possible associated atelectasis and or pneumonia and or mass.
--- NOTE | 2021-11-20 00:31 | P.HP_ITS ---
Providers/Chief Complaint Admitting Physician: Gt Damian Primary Care Provider: Kyleigh Leone APN Chief Complaint: SOB\ Slight Chest Pain History of Present Illness Pleasant 61-year-old gentleman who underwent thoracentesis yesterday due to large left-sided pleural effusion with removal of 1100 mL of bloody dark red fluid, after initially presenting due to several weeks of shortness of breath, cough (for several months, initially several days of yellow productive sputum, then no longer productive, cough sometimes triggered by deep inspiration), left side back pain, epigastric and left upper quadrant pain. Chemistries, Gram stain and culture and cytology were obtained from the fluid. pH 8, WBC 2463, RBC 266, LDH 651, albumin 3.5, serum albumin 3.9, amylase 471, cholesterol 103, triglycerides 24. He returned to ER today again due to persistence of dyspnea, dyspnea with exertion and transfers. On reevaluation with x-ray demonstrated again to have large left pleural effusion similar to slightly increased from prior study. Gram stain from 11/18 with many RBC, rare WBC, no organisms. No pathology report so far, but cytology sample noted as received. Review of Systems Const: Denies: fever(s), chills, body aches or malaise Eyes: Denies: change in vision or eye redness ENMT: Denies: throat pain, oral sores or ear or mastoid pain Card: Reports: chest pain; Denies: edema, pre-syncope or dyspnea on exertion Resp: Reports: dyspnea, non-productive cough and pain on inspiration; Denies: productive cough, change in phlegm color or hemoptysis GI: Reports: abdominal pain (chronic upper and LUQ); Denies: nausea, vomiting, diarrhea, constipation, hematochezia or melena : Denies: flank pain, difficulty urinating, urinary frequency or hematuria Musc: Denies: back pain, joint swelling or joint redness Skin/Breast: Denies: rash, sores or new lesions Neuro: Denies: headache(s), numbness in extremities, weakness in extremities, dizziness, confusion or seizure-like activity Endo: Denies: polyuria or polydipsia Roberto/Lymph: Denies: easy bleeding or purpura All/Imm: Denies: urticaria, throat swelling or tongue swelling Medications/Allergies Home Medications Medication Instructions Recorded Confirmed Last Taken Type calcium cmb 1 tab PO DAILY 11/19/21 11/19/21 Unknown History [id number] 120 mg-1,000 unit-10 mg tablet (Vitamin D-3 with Aloe) Allergies Allergy/AdvReac Type Severity Reaction Status Date / Time No Known Allergies Allergy Verified 11/19/21 20:39 PFSH Acute PFSH: Medical History (Updated 11/20/21 @ 00:35 by Gt Damian MD) Pleural effusion on left Recurrent pleural effusion on left Surgical History No significant past surgical history Family History (Updated 11/20/21 @ 00:36 by Gt Damian MD) Mother Stroke Other CAD (coronary artery disease) Social History Smoking and tobacco status: never smoked Alcohol intake: never Substance/Drug Use: never Lives independently: Yes Household members: spouse Marital status: Vitals/I&O/Wt Last Vital Signs Temp 98.1 F 11/19/21 20:13 Pulse 90 11/19/21 22:21 Resp 22 H 11/19/21 22:21 BP 111/80 11/19/21 22:21 Pulse Ox 98 11/19/21 22:21 Weight last 48 hrs Weight 73.346 kg Weight 68.039 kg Physical Exam Narrative: at bedside Const: COMMON NORMALS: patient oriented x3 and alert ORIENTATION/CONSCIOUSNESS: Yes awake HENMT: COMMON NORMALS: oropharynx normal Neck/C-Spine: COMMON NORMALS: no JVD Resp: COMMON NORMALS: normal respiratory effort and clear to auscultation bilaterally AUSCULTATION: breath sounds absent on th left (lower-mid lung) Cardio: COMMON NORMALS: no JVD, regular rhythm, S1 normal heart sound present, S2 normal heart sound present and No murmurs present (Cardio) RHYTHM: regular rhythm HEART SOUNDS: S1 normal heart sound present and S2 normal heart sound present GI: COMMON NORMALS: Normal to inspection, nondistended, normoactive bowel sounds present, Soft to palpation and non-tender PALPATION: Yes Soft to palpation Extremity: COMMON NORMALS: no joint enlargement and no pedal edema Neuro: COMMON NORMALS: patient oriented x3 and moves all extremities Skin: COMMON NORMALS: no rashes or lesions noted GENERAL SKIN EXAM: no rashes or lesions noted Data : 11/19/21 20:38 11/19/21 20:38 A&P Assessment and plan (1) Recurrent pleural effusion on left: Recurrent large left pleural effusion, similar to slightly larger compared to yesterday at which time had 1100 mL of bloody dark red fluid removed. No suggestion of empyema. No signs of sepsis. Keeps having pleuritic discomfort, dry cough, left lower back, left upper quadrant pain. Getting easily dyspneic with transfers and exertion. Concern for possible mild mediastinal shift on imaging. Started on 2 L nasal cannula oxygen in ER. Due to his symptoms and recurrence of effusion is being currently assessed by pulmonology with consideration possible placement of pigtail catheter for gradual drainage of effusion. Gram stain from yesterday without organisms, with large amount of RBC, some WBC. Elevated LDH, no suggestion of empyema otherwise. I do not see protein, but albumin gradient less than 1.2. Cytology had been requested, noted as received. Pending. Monitor oxygenation and hemodynamics. Follow-up any additional pulmonary re commendations. For now empiric vanc + zosyn until cultures back. Status: Acute Attestations Medical Necessity Statement*: Admission of over 2 midnights is antipitated for assessment and management of recurrent large pleural effusion of unclear etiology with respiratory symptoms, need for oxygen, concern for mediastinal shift. Coding Level of Care Code Acute Coil Connector for Papi Barrios Diagnoses Recurrent pleural effusion on left J90
--- NOTE | 2021-11-20 00:41 | PM.ACPR ---
Procedure/Consent Time out: Time Out Performed: Yes Consent: Additional Consent Information: taken from patient and placed in chart Procedure Narrative: Name of the procedure: Left-sided chest tube placement under ultrasound guidance and thoracentesis Indication: large left pleural effusion Hemothorax Manager English(s): Ten Escobarr Consent: Signed by patient.? Placed in chart Anesthesia: 15 cc 1% lidocaine without epinephrine Description of the procedure: An ultrasound was performed and a moderate to large left-sided pleural effusion was identified.? A safe fluid pocket was identified with the ultrasound guidance and marked.? The skin, subcutaneous tissue and the pleura was anesthetized with 1% lidocaine.? Needle was advanced till flash back was noted.? 10 cc dark bloody fluid was noted.? Using Seldinger technique the chest tube was put in. The chest tube was secured with suture and transparent dressing.? 2000 cc of dark bloody-colored fluid was obtained. Samples were not sent today as they were sent yesterday by IR Complications: None. Ultrasound guidance used: Yes EBL: 5-10 cc Complications: None; patient tolerated procedure well PCXR: Placement of a small left chest tube at base of left pleural space with improvement of basilar left hemothorax Acute Procedures Epistaxis Control: Time out performed: Yes
--- NOTE | 2021-11-20 01:05 | PC.NURSE ---
2309 Pt received from ER placed on bedside monitor 2310 Dr. Merrill at bedside US in use Inserted 14 arabic Chest tube to Left lobe tolerated well drained 2liters of bloody fluid labeled sent to lab Pt tolerated procedure well CT clamped dsg placed per Dr. Merrill 2330 CXR done reviewed at bedside per Dr. Merrill will not connect to H2O seal will keep clamped tonight reasses tomorrow and connect to drain 2345 at bedside updated on condition all questions answered
[2021-11-20 01:12] LABS: Body Fluid Polynuclear #Cells 1.454; Body Fluid WBC 3028 /uL; Monocytes # Body Fluid 1.574
[2021-11-20 01:15] LABS: Apprearance, Body Fluid BLOODY; Color, Body Fluid RED
[2021-11-20 01:20] LABS: Hematocrit Body Fluid 10.1 %
[2021-11-20 01:21] LABS: PATH Referral YES
[2021-11-20 01:25] LABS: Albumin Body Fluid 3.5 g/dL; Creatinine Body Fluid 0.95 (0.7-1.2)
[2021-11-20 01:26] LABS: LDH Pleural Fluid 662 U/L; Total Protein Pleural Fluid 4.7 g/dL; Triglycerides, Pleural Fluid 29 mg/dL
[2021-11-20] MEDS: piperacillin-tazobactam 3.375 GM in sodium chloride 0.9% (plus) 50 ML IV ×3 (02:08→18:42)
[2021-11-20 03:48] LABS: Troponin 5 6HR 15.04 ng/L (0-15)
[2021-11-20 03:58] LABS: Troponin 5 6HR Delta -0.96 ng/L (0-12)
[2021-11-20] MEDS: vancomycin 1,250 MG/250 ML PIGGYBACK 250 MG IV ×2 (06:02→17:32)
--- NOTE | 2021-11-20 08:10 | P.PN_ITS ---
Subjective Subjective: Patient was seen and examined this morning, shortness of breath has slightly improved, LT pigtail catheter In place, is complaining of slight pain at the site of pigtail insertion when he moves. Currently saturating well on 2 L oxygen through nasal cannula. His other vitals and labs have been reviewed. Medications: Medication Review Details: Generic Name Dose Route Start Last Admin Trade Name Rishabh PRN Reason Stop Dose Admin Piperacillin Sod/T azobactam 50 mls @ 12.5 mls /hr 11/20/21 02:00 11/20/21 14:20 Sod 3.375 gm/ So dium Chloride IV Infused Q8H [facility] Infusion Protocol Vancomycin/PEG/NAD A/Lysine/Water 1,250 mg in 250 m ls @ 250 mls/hr 11/20/21 06:00 11/20/21 07:21 Vancocin IV Infused Q12H [facility] Infusion Vitals/I&O/Wt Last Vital Signs Temp 98.8 F 11/20/21 04:00 Pulse 70 11/20/21 05:58 Resp 20 H 11/20/21 04:00 BP 91/50 11/20/21 04:00 Pulse Ox 95 11/20/21 02:15 11/19/21 11/20/21 11/20/21 22:59 06:59 14:59 Intake Total 670 / 670 250 / 250 Output Total 0 / 0 Balance 670 / 670 250 / 250 Weight last 48 hrs Weight 73.028 kg Weight 73.346 kg Weight 68.039 kg Physical Exam Const: COMMON NORMALS: patient oriented x3 HENMT: COMMON NORMALS: normocephalic and atraumatic HEAD & SCALP: normocephalic and atraumatic Chest: CHEST: Yes Symmetrical chest wall rise Resp: EFFORT & INSPECTION: Yes symmetric chest movement OTHER: Diminished air entry in the left lung field, rt lung field is clear Cardio: COMMON NORMALS: regular rate, regular rhythm, S1 normal heart sound present, S2 normal heart sound present, No gallops present (Cardio), No murmurs present (Cardio), No rub (Cardio) and Peripheral pulses 2+ throughout RATE: regular rate RHYTHM: regular rhythm HEART SOUNDS: S1 normal heart sound present and S2 normal heart sound present PERIPHERAL PULSES: Peripheral pulses 2+ throughout GI: COMMON NORMALS: Normal to inspection, nondistended, normoactive bowel sounds present, Soft to palpation, non-tender, No hepatosplenomegaly present and no masses AUSCULTATION: Yes normoactive bowel sounds PALPATION: Yes Soft to palpation and Yes No hepatosplenomegaly present RECTAL EXAM: Yes deferred Extremity: COMMON NORMALS: no clubbing, cyanosis or edema and no pedal edema Neuro: COMMON NORMALS: patient oriented x3 Data : 11/19/21 20:38 11/19/21 20:38 A&P Assessment and plan (1) Recurrent pleural effusion on left: 61 year old male with no significant past medical history came to emergency room on 11/19 for worsening dyspnea.? #Large left pleural effusion: Status post thoracentesis on 11/18 : With removal of 1100 cc bloody dark red exudative fluid . Lymphocytic predominance, pleural fluid: Analysis: pH 8, WBC 2463 RBC 266 , LDH : 651 , albumin 3.5, amylase; 3.9 , cholesterol 103 triglyceride: 24. Pleural fluid cytology: Consistent with chronic inflammation. Patient came back on with worsening shortness of breath, worsening left- sided effusion S/p placement of 14 Irish pigtail catheter by supervisor laboratory animal facility. S/p 2 LS hemorrhagic effusion. Pathology will do cell block on the repeat sample. Currently patient has been connected to underwater seal and has drained additional 2ls since morning. Serial chest x-ray has shown decreasing left lung pleural effusion. Patient is currently empirically on vancomycin and Zosyn. Repeat CT chest: Pleural base mass anteromedial aspect of the left upper lobe.Large left lower lobe pleural effusion decreased in volume since prior.Calcified granulomas anterior right upper lobe and mediastinum.. Status: Acute Attestations Medical Necessity Statement*: Patient is to be in hospital for management of symptomatic left-sided large pleural effusion. Time Spent in Patient Care: Greater than 35 minutes (>than 50% of time spe nt in counselling and/or direct pt care on unit) . Critical Care Time: 40 Other Attestations: The high probability of a clinically significant, sudden or life threatening deterioration of the patient's [] system(s) required my full and direct attention, intervention and personal management. The critical care time is as shown. This time is in addition to time spent performing any reported procedures but includes the following: [x] Data and vital sign review and interpretation [x] Patient assessment, examination and intervention [x] Documentation [x] Medication orders and management Coding Level of Care Code Acute Project Designer for Chg Fwd Exam Detailed Diagnoses Recurrent pleural effusion on left J90
--- NOTE | 2021-11-20 11:21 | PC.NURSE ---
Orders to place CT to suction. [place] container changed prior to placing on suction. 20cm suction in place at this time. 6333 dark red sanguinous output in old chamber. Pt tolerated well. Instructed to call staff if pain noted. Pt verbalizes understanding. Will monitor.
--- NOTE | 2021-11-20 12:09 | PC.CHAP ---
Pastoral Care Encounter/Spiritual Assessment Type of Contact [] Declined tax credit leasing consultant visit [] Patient/Family/Request visit [] Outpatient visit [] Follow-up visit [] Physician referral [] Code/Alert [x] Routine visit [] Staff referral [] Actively dying [] Patient sleeping [] Family support [] [] Out of room [] Palliative care [] [] Receiving care in room [] Pre-surgical visit [] Trauma [] Long length of stay [x] ICU visit [] Other: Relational/Emotional Strength [] Patient feels connected with others/family/visitors/staff [] Distress [] Loneliness/isolation [] Abandonment Spirituality of Patient [] Person of Jamila [] Attends Hinduism of their Jamila [] Believes in Prayer [] Reads Bible or Jainism materials [] There are Spiritual issues to be addressed Licensed Practical Nurse Instructor Interventions [x] Prayer [x] Active listening [x] Non-anxious presence [x] Spiritual/emotional support [] Crisis/trauma care [] Spiritual counseling [] Bereavement support [] Provided bereavement packet [] Provided Bible/devotional materials [] Provided toy/stuffed animal, coloring book to patient or family member [] Provided Communion [] Anointing/[place] [] Salvation [x] Completed spiritual assessment [] Other: Impact on Illness or Injury [] Angry [] Fearful [] Anxious [] Often cries [] Exhaustion [] Unable to work [] Unable to attend zoroastrianism [] Unable to walk/stand [] Unable to read [] Unable to drive [] Unable to eat/drink [] Unable to sleep [] Unable to be with family [] Patient intubated [] Other: Summary very gentle man.. feeling much better today... Time spent with patient 5 min
--- NOTE | 2021-11-20 12:45 | PM.CONSULT ---
Providers/Reason For Consult Consulting Physician/Specialty*: Ten Merrill MD / Pulmonary Critical Care Reason for Consult*: Large left pleural effusion with mediastinal shift towards the right Requesting Physician: Edi Everett MD Attending Physician: Davidson Long MD Primary Care Provider: Kyleigh Leone APN History of Present Illness History of Present Illness Shahab Ramos is a 61 year old male with no significant past medical history came to emergency room on 11/19 for worsening dyspnea. Yesterday 11/18 he came to emergency room for dyspnea started few weeks ago, gradual in onset, worsening and has seen his PCP on 11/10/2021, diagnosed with bronchitis and received antibiotics but they did not help. Chest x-ray 11/18/[address] showed complete opacification of left hemithorax with mass-effect rather than atelectasis (previous available chest x-ray 09/16/2017 was unremarkable) he underwent thoracentesis about 1100 cc bloody fluid was tapped which was lymphocyte predominant exudate. Cytology reported chronic inflammation and no malignancy identified. Post thoracentesis chest x-ray showed improvement in left upper lobe aeration with significant residual left pleural effusion but as patient felt good and so was discharged home with follow-up appointment in 3 days at pulmonary clinic with me. But patient return to emergency room the next day on 11/19/2021 as he felt that his breathing is getting worse. In the emergency room he was on 2 L nasal cannula saturating 98%, not in acute respiratory distress but definitely uncomfortable. Imaging showed slight worsening of left pleural effusion. I was consulted for large left pleural effusion and worsening dyspnea. I placed a 14 Serbian pigtail and drained 2 L dark maroon-colored fluid went to suction bottles and sent for cell block, fluid analysis, cultures. Connected to underwater seal and collected additional 2285 dark red sanguinous blood. Repeat chest x-ray showed decreasing volume of left pleural effusion and interstitial densities seen throughout the left lung. Patient reported a significant improvement in his dyspnea. Patient denied any history of smoking or family history of lung cancer. Denied any fevers, chills, leg swelling Review of Systems General: Reports: 10 or more systems reviewed and unremarkable except in HPI and below Medications/Allergies Home Medications Medication Instructions Recorded Confirmed Last Taken Type calcium cmb 1 tab PO DAILY 11/19/21 11/19/21 Unknown History [id number] 120 mg-1,000 unit-10 mg tablet (Vitamin D-3 with Aloe) Allergies Allergy/AdvReac Type Severity Reaction Status Date / Time No Known Allergies Allergy Verified 11/19/21 20:39 Current Medications Generic Name Dose Route Start Last Admin Trade Name Rishabh PRN Reason Stop Dose Admin Piperacillin Sod/Tazobactam 50 mls @ 12.5 mls/hr 11/20/21 02:00 11/20/21 09:41 Sod 3.375 gm/ Sodium Chloride IV 12.5 mls/hr Q8H [facility] Administration Protocol Vancomycin/PEG/NADA/Lysine/Water 1,250 mg in 250 mls @ 250 mls/hr 11/20/21 06:00 11/20/21 07:21 Vancocin IV Infused Q12H [facility] Infusion PFSH Acute PFSH: Medical History Pleural effusion on left Recurrent pleural effusion on left Surgical History No significant past surgical history Family History Mother Stroke Other CAD (coronary artery disease) Social History Smoking and tobacco status: never smoked Alcohol intake: never Lives independently: Yes Household members: spouse Marital status: Vitals/I&O/Wt Last Vital Signs Temp 97.8 F 11/20/21 08:00 Pulse 90 11/20/21 12:00 Resp 26 H 11/20/21 12:00 BP 90/46 11/20/21 12:00 Pulse Ox 94 11/20/21 09:00 11/19/21 11/20/21 11/20/21 22:59 06:59 14:59 Intake Total 670 / 670 490 / 490 Output Total 0 / 0 Balance 670 / 670 490 / 490 Weight last 48 hrs Weight 161 lb Weight 161 lb 11.2 oz Weight 150 lb Physical Exam Narrative: General: alert, NAD HEENT: conj clear, EOMI, PERRL, mmm, Neck: supple, no meningismus Heme: no cervical LAP Pulmonary: Significantly reduced breath sounds on left side, right side normal breath sounds Cardiovascular: rrr, nl s1s2, no mrg Abdomen: soft, nt, nd, no r/g, bs+ Extremities: pulses +, no edema, no c/c : no CVA tenderness Skin: intact, no rash MSK: no back or neck pain Neurologic: grossly intact Data : 11/19/21 20:38 11/19/21 20:38 Other Labs: Radiology Impressions Chest X-Ray 11/20/21 13:34 IMPRESSION: 1. Left lung pleural effusion showing decreased volume since prior. 2. Chest tube is seen in the left lower lobe. 3. Interstitial densities seen throughout the left lung. 4. The right lung is clear Laboratory Results WBC 9.4 10^3/uL (4.0-10.0) 11/19/21 20:38 RBC 3.92 10^6/uL (4.1-5.3) L 11/19/21 20:38 Hgb 12.1 g/dL (11.7-16.6) 11/19/21 20:38 Hct 36.3 % (42.0-52.0) L 11/19/21 20:38 MCV 92.6 fl (80-94) 11/19/21 20:38 MCH 30.9 pg (28.0-34.0) 11/19/21 20:38 MCHC 33.3 g/dL (30.0-36.0) 11/19/21 20:38 RDW 12.1 % (12.1-15.1) 11/19/21 20:38 Plt Count 375 10^3/cmm (130-400) 11/19/21 20:38 MPV 9.1 fL (7.4-10.4) 11/19/21 20:38 Neut % (Auto) 77.6 % 11/19/21 20:38 Lymph % (Auto) 9.9 % 11/19/21 20:38 [place] % (Auto) 11.6 % 11/19/21 20:38 Eos % (Auto) 0.6 % 11/19/21 20:38 Baso % (Auto) 0.1 % 11/19/21 20:38 Neut # (Auto) 7.25 10^3/uL (1.8-7.7) 11/19/21 20:38 Lymph # (Auto) 0.9 10^3/uL (0.8-4.8) 11/19/21 20:38 [place] # (Auto) 1.1 10^3/uL (0.2-0.9) H 11/19/21 20:38 Eos # (Auto) 0.1 10^3/uL (0.0-0.8) 11/19/21 20:38 Baso # (Auto) 0.0 10^3/uL (0.0-0.1) 11/19/21 20:38 Nucleated RBC % (auto) 0 % 11/19/21 20:38 Nucleated RBCs # 0.0 /100WBC 11/19/21 20:38 Differential Comment Yes 11/19/21 23:30 Sodium 134 mmol/L (136-145) L 11/19/21 20:38 Potassium 4.5 mmol/L (3.5-5.1) 11/19/21 20:38 Chloride 97 mmol/L (98-107) L 11/19/21 20:38 Carbon Dioxide 25 mmol/L (22-29) 11/19/21 20:38 Anion Gap 16.5 (5-19) 11/19/21 20:38 BUN 22 mg/dL (8-23) 11/19/21 20:38 Creatinine 1.0 mg/dL (0.7-1.2) 11/19/21 20:38 GFR Calculation 75.7 mL/min (90-130) L 11/19/21 20:38 Glucose 123 mg/dL (65-115) H 11/19/21 20:38 Calculated Osmolality 283 mOsm/kg (285-295) L 11/19/21 20:38 Calcium 9.0 mg/dL (8.5-10.5) 11/19/21 20:38 Total Bilirubin 0.5 mg/dL (0.15-1.2) 11/19/21 20:38 AST 17 U/L (0-40) 11/19/21 20:38 ALT 25 U/L (0-41) 11/19/21 20:38 Alkaline Phosphatase 93 IU/L (40-130) 11/19/21 20:38 Troponin T Baseline 16 ng/L (0-15) H 11/19/21 20:38 Troponin T 120 Minute 13.70 ng/L (0-15) 11/19/21 22:08 Delta Troponin T -2.30 ABS# (0-10) L 11/19/21 22:08 Troponin T Hi Sens 6Hr 15.04 ng/L (0-15) H 11/20/21 02:27 Troponin T Hi Sens 6Hr Delta -0.96 ng/L (0-12) L 11/20/21 02:27 C-Reactive Protein 53.1 mg/L (0.0-4.9) H 11/19/21 20:38 NT-Pro-B Natriuret Pep 64 pg/mL (0-125) 11/19/21 20:38 Total Protein 5.8 g/dL (6.6-8.7) L 11/19/21 20:38 Albumin 3.9 g/dL (3.5-5.2) 11/19/21 20:38 Globulin 1.9 g/dL (1.3-4.6) 11/19/21 20:38 Procalcitonin 0.10 ng/mL (0-0.5) 11/19/21 20:38 Fluid Color Red 11/19/21 23:30 Fluid Appearance Bloody 11/19/21 23:30 Fluid WBC 3028 /uL 11/19/21 23:30 Fluid RBC 1056.000 10^3/uL 11/19/21 23:30 Fluid Hematocrit 10.1 % 11/19/21 23:30 Fld Polynuclear WBCs # 1.454 11/19/21 23:30 Fld Polynuclear WBCs % 48.000 % 11/19/21 23:30 Fl Mononucl WBCs #(Auto) 1.574 11/19/21 23:30 Fl Mononuclear % Auto 52.000 % 11/19/21 23:30 Fluid Albumin 3.5 g/dL 11/19/21 23:30 Fluid Creatinine 0.95 (0.7-1.2) 11/19/21 23:30 Pleural pH 8.00 (6.5-7.5) H 11/19/21 23:30 Pleural Total Protein 4.7 g/dL 11/19/21 23:30 Pleural LDH 662 U/L 11/19/21 23:30 Pleural Glucose 4.0 mg/dL 11/19/21 23:30 Pleural Amylase 438.0 U/L 11/19/21 23:30 Pleural Triglycerides 29 mg/dL 11/19/21 23:30 Micro: Microbiology 11/19/21 23:30 Gram Stain - Final Pleural Fluid A&P Assessment and plan (1) Recurrent pleural effusion on left: Status: Acute Plan #Large left pleural effusion with mediastinal shift to the right -Denied any history of trauma or anticoagulation; denied history of smoking -S/p thoracentesis 11/18/2021-1100 cc bloody dark red fluid removed;-lymphocytic predominant exudative fluid; pH 8, WBC 2463, RBC 266, LDH 651, albumin 3.5, serum albumin 3.9, amylase 471, cholesterol 103, triglycerides 24; cytology reported chronic inflammation -Return to hospital 11/19/2021 night-s/p 14 Serbian pigtail and drained-2000 cc bloody dark red fluid-48% neutrophils-cultures pending;Requested pathology to do cell block on the latest sample and check for malignancy -Continue vancomycin/Zosyn until final cultures are available as hemothorax can be source of infection -Today 11/20/2021-connected to underwater seal and drained additional 2285 cc bloody fluid (total~5.5 L over 3 days)-chest x-ray showed decreased left lung pleural effusion but interstitial densities seen throughout the left lung -Also I will obtain CT chest (now that we drain close to 5.5 L over 3 days and left lung expanded) to check for any suspicious underlying malignancy -I will follow up after CT chest to check for trapped lung or other lesions and will instill TPA accordingly decide on discontinuation of pigtail thereafter Medical condition explained to the patient and his at bedside. They verbalized understanding and agreed with the plan and plan of care Recommendations conveyed to hospitalist, RN, RT taking care of the patient Consult Attestations Medical Necessity Statement: Large left pleural effusion s/p pigtail insertion Time Spent in Patient Care: Greater than 35 minutes (>than 50% of time spent in counselling and/or direct pt care on unit). Critical Care Time: The high probability of a clinically significant, sudden or life threatening deterioration of the patient's [pulmonary] system(s) required my full and direct attention, intervention and personal management. The critical care time is as shown. This time is in addition to time spent performing any reported procedures but includes the following: [x] Data and vital sign review and interpretation [x] Patient assessment, examination and intervention [x] Documentation [x] Medication orders and management Critical Care Time (min): 70 Coding Level of Care Code New Pt Acute Mess Cook for Chg Fwd Patient Type New History Comprehensive Exam Comprehensive Medical Decision Making High Complexity Diagnoses Recurrent pleural effusion on left J90 Time Spent (min) 70
--- NOTE | 2021-11-20 13:34 | XRR_ITS ---
PROCEDURE INFORMATION: Exam: XR Chest Exam date and time: 11/20/2021 1:34 PM Age: 61 years old Clinical indication: Device placement; Chest tube TECHNIQUE: Imaging protocol: XR of the chest. Views: 1 view. COMPARISON: CR (CHEST, ) 11/20/2021 12:19 AM FINDINGS: Tubes, catheters and devices: A pigtail catheter chest tube is seen in the left lower lobe. Lungs: Interstitial densities seen throughout the left lung with sparing of the left lung apex. Pleural spaces: Decreased volume is seen in left lung pleural effusion. No pneumothorax. Heart/Mediastinum: Unremarkable. No cardiomegaly. Bones/joints: Unremarkable. XR/XR chest 1V portable [id number] IMPRESSION: 1. Left lung pleural effusion showing decreased volume since prior. 2. Chest tube is seen in the left lower lobe. 3. Interstitial densities seen throughout the left lung. 4. The right lung is clear
--- NOTE | 2021-11-20 16:58 | CTR_ITS ---
PROCEDURE INFORMATION: Exam: CT Chest Without Contrast; Diagnostic Exam date and time: 11/20/2021 4:58 PM Age: 61 years old Clinical indication: Shortness of breath; Prior surgery; Additional info: Post thoracentesis to assess underlying left lung pathology TECHNIQUE: Imaging protocol: Diagnostic computed tomography of the chest without contrast. Radiation optimization: All CT scans at this facility use at least one of these dose optimization techniques: automated exposure control; mA and/or kV adjustment per patient size (includes targeted exams where dose is matched to clinical indication); or iterative reconstruction. COMPARISON: CT angio chest w abd pel w con 11/18/2021 9:14 AM RADIATION DOSE METRICS: Total DLP (mGy-cm): 456.01 FINDINGS: Tubes, catheters and devices: A chest tube is in place in the left lower lobe. Lungs: The right lung is now well expanded. The left upper lobe shows a mass lesion in the medial aspect of the left lung apex measuring 16 mm x 27 mm. This finding was obscured by effusion on prior exam and may reflect a pleural based mass lesion. There is a calcified granuloma in the anterior aspect of the right upper lobe measuring 8 mm. The previously seen hyperexpansion of the left lung has now decreased. Pleural spaces: Unremarkable. No pneumothorax. There is a large left lower lobe pleural effusion. The volume of the effusion has decreased significantly since prior examination. Heart: There was a previous midline shift of the heart toward the right side. This has now reduced. No cardiomegaly. No pericardial effusion. Aorta: Unremarkable. No aortic aneurysm. Lymph nodes: Calcified lymph nodes are seen in the precarinal region and in the right hilum . These nodes it measures 7 mm and 3 mm respectively. No enlarged lymph nodes. 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 No acute fracture. Soft tissues: Unremarkable. CT/CT chest wo con [id number] IMPRESSION: 1. Large left lower lobe pleural effusion decreased in volume since prior 2. Pleural base mass anteromedial aspect of the left upper lobe 3. Chest tube is present in the left lower left lung. 4. Calcified granulomas anterior right upper lobe and mediastinum.
--- NOTE | 2021-11-20 18:36 | PC.NURSE ---
PT resting in bed. CT clamped at this time. Spoke with Dr. Merrill, will put orders in for TPA to be instilled and then clamped for 2 hours then connected to 20cm suction. Pt doing well, breathing easy. Will monitor.
[2021-11-20] MEDS: acetaminophen 325 mg Tablet 650 MG PO (20:02)
[2021-11-20] MEDS: morphine 4 mg/mL SDV 1 mL 2 MG IVP (22:05)
[2021-11-21] VITALS (69 sets, daily range): BP systolic 64–131; BP diastolic 36–81; PULSE 55–93; RESP 15–35; TEMP 35.9–38.8; O2SAT 91–100
[2021-11-21] MEDS: sodium chloride 0.9% 500 ML 999 ML IV ×2 (01:27→04:18)
[2021-11-21] MEDS: piperacillin-tazobactam 3.375 GM in sodium chloride 0.9% (plus) 50 ML IV ×3 (01:31→17:29)
[2021-11-21 01:38] LABS: Basophils % 0.1 %; Eosinophils # 0.2 10^3/uL (0.0-0.8); Eosinophils % 2.2 %; Hematocrit 29.9 % (42.0-52.0); Hemoglobin 9.7 g/dL (11.7-16.6); Lymphocytes # 1.2 10^3/uL (0.8-4.8); Lymphocytes % 14.1 %; Mean Corpuscular HGB Conc 32.4 g/dL (30.0-36.0); Mean Corpuscular Hemoglobin 30.2 pg (28.0-34.0); Mean Corpuscular Volume 93.1 fl (80-94); Mean Platelet Volume 9.2 fL (7.4-10.4); Monocytes # 0.9 10^3/uL (0.2-0.9); Monocytes % 9.8 %; Neutrophils # 6.39 10^3/uL (1.8-7.7); Neutrophils % 73.3 %; Nucleated Red Blood Cells % 0 %; Platelet Count 283 10^3/cmm (130-400); Red Blood Count 3.21 10^6/uL (4.1-5.3); White Blood Count 8.7 10^3/uL (4.0-10.0)
[2021-11-21 01:57] LABS: Alanine Aminotransferase 18 U/L (0-41); Albumin Level 2.9 g/dL (3.5-5.2); Alkaline Phosphatase 75 IU/L (40-130); Anion Gap 12.3 (5-19); Aspartate Amino Transferase 10 U/L (0-40); Blood Urea Nitrogen 16 mg/dL (8-23); Calcium 7.9 mg/dL (8.5-10.5); Carbon Dioxide 26 mmol/L (22-29); Chloride 102 mmol/L (98-107); Creatinine Clr Calc Pharmacy 87.8839; Globulin 1.3 g/dL (1.3-4.6); Glomerular Filtration Rate 85.5 mL/min (90-130); Glucose 142 mg/dL (65-115); Osmolality Calculated 286 mOsm/kg (285-295); Potassium 4.3 mmol/L (3.5-5.1); Sodium 136 mmol/L (136-145); Total Bilirubin 0.4 mg/dL (0.15-1.2); Total Protein 4.2 g/dL (6.6-8.7)
[2021-11-21 02:03] LABS: Thyroid Stimulating Hormone 4.26 uIU/mL (0.27-4.20)
[2021-11-21] MEDS: vancomycin 1,250 MG/250 ML PIGGYBACK 250 MG IV ×2 (05:13→17:18)
[2021-11-21] MEDS: morphine 4 mg/mL SDV 1 mL 2 MG IVP ×2 (05:30→13:21)
[2021-11-21 05:35] LABS: Hemoglobin 9.1 g/dL (11.7-16.6)
--- NOTE | 2021-11-21 06:43 | PC.NURSE ---
0615 Dr. Medel at bedside updated on current labs Pt Alert oriented Levophed gtt at 6 mcg/min see orders [id number] Reported off to oncoming shifts VSS stable on Levophed 6mcg/min
--- NOTE | 2021-11-21 07:06 | W.PM.EVENTAC ---
Event Note Event Note: Bloody output noted from pigtail catheter, with 1690 mL output charted, bloody in appearance. Rechecked hemoglobin, first decreased down to 9.7, and currently down to 9.1. Overnight also became hypotensive, gave him x2 500 mL boluses and he was started on Levophed. Requesting 1 unit PRBC transfusion for him, and have requested follow-up hemoglobin levels q4h. Overnight noted also spiked fever 101.9. Requested blood culture. He is already on empiric antibiotics with Zosyn, vancomycin. Continue. Pleural fluid cultures pending.
--- NOTE | 2021-11-21 07:15 | XR_ITS ---
WS: [id number] XR chest 1V portable [id number] REASON FOR EXAM: left pneumothorax FINDINGS: Small bore chest tube overlies the left lower lateral chest. Large amount of pleural fluid has been r emoved however residual pleural fluid in atelectasis remain in the left lower hemithorax. No pneumoth orax. The right chest remains clear. The chest is stable compared to the previous examination 11/20/2021 1:44 PM. XR/XR chest 1V portable [id number] IMPRESSION: Stable abnormal chest as above.
[2021-11-21] MEDS: ondansetron 2 mg/ML SDV 2 mL 4 MG IVP ×2 (08:55→12:29)
[2021-11-21 09:19] LABS: Carcinoembryonic Antigen 23.6 ng/mL (0.0-4.7)
[2021-11-21 09:20] LABS: Cancer Antigen 19 9 1.07 U/mL (0-35); Prostate Specific Antigen Scr 2.25 ng/mL (0-4)
[2021-11-21 10:18] LABS: Tumor Marker Alpha Fetoprotein 3.7 ng/mL (0-8.3)
--- NOTE | 2021-11-21 10:33 | PC.NURSE ---
See vital sign flowsheet for TAR
[2021-11-21] MEDS: sodium chloride 0.9% 250 ML 125 ML IV (12:32)
--- NOTE | 2021-11-21 13:10 | CTR_ITS ---
PROCEDURE INFORMATION: Exam: CT Abdomen With Contrast Exam date and time: 11/21/2021 1:40 PM Age: 61 years old Clinical indication: Abdominal tenderness; Additional info: Abdominal pain TECHNIQUE: Imaging protocol: Computed tomography images of the abdomen with intravenous contrast. Radiation optimization: All CT scans at this facility use at least one of these dose optimization techniques: automated exposure control; mA and/or kV adjustment per patient size (includes targeted exams where dose is matched to clinical indication); or iterative reconstruction. Contrast material: OMNI 300; Contrast volume: 95 ml; Contrast route: INTRAVENOUS (IV); COMPARISON: CT angio chest w abd pel w con 11/18/2021 9:14 AM RADIATION DOSE METRICS: Total DLP (mGy-cm): 468.1 FINDINGS: Lungs: Emphysematous changes. Pleural space: Left lower lobe atelectasis versus infiltrate with a small left pneumothorax and pleural effusion in which a chest tube is seen, incompletely visualized. Liver: Normal. No mass. Gallbladder and bile ducts: Normal. No calcified stones. No ductal dilation. Pancreas: Normal. No ductal dilation. Spleen: Normal. No splenomegaly. Adrenals: Normal. No mass. Kidneys and ureters: Normal. No hydronephrosis. Stomach and bowel: Visualized stomach and bowel are unremarkable. No obstruction. No mucosal thickening. Intraperitoneal space: Unremarkable. No free air. No significant fluid collection. Lymph nodes: Unremarkable. No enlarged lymph nodes. Vasculature: Unremarkable. No abdominal aortic aneurysm. Bones/joints: Unremarkable. No acute fracture. No dislocation. Soft tissues: Unremarkable. CT/CT abdomen w con* [id number] IMPRESSION: 1. Left lower lobe atelectasis versus infiltrate with a small left pneumothorax and pleural effusion in which a chest tube is seen, incompletely visualized. 2. Emphysematous changes. 3. Negative for acute inflammatory process in the abdomen and pelvis.
[2021-11-21] MEDS: iohexol 300 mg/mL 100 mL Btl IV (13:44)
[2021-11-21 14:27] LABS: Basophils % 0.2 %; Eosinophils % 0.2 %; Hemoglobin 10.5 g/dL (11.7-16.6); Lymphocytes # 0.4 10^3/uL (0.8-4.8); Lymphocytes % 4.3 %; Mean Corpuscular HGB Conc 32.8 g/dL (30.0-36.0); Mean Corpuscular Hemoglobin 30.9 pg (28.0-34.0); Mean Corpuscular Volume 94.1 fl (80-94); Mean Platelet Volume 9.5 fL (7.4-10.4); Monocytes # 0.7 10^3/uL (0.2-0.9); Monocytes % 7.6 %; Neutrophils # 7.97 10^3/uL (1.8-7.7); Neutrophils % 87.4 %; Nucleated Red Blood Cells % 0 %; Platelet Count 282 10^3/cmm (130-400); Red Cell Distribution Width 12.1 % (12.1-15.1); White Blood Count 9.1 10^3/uL (4.0-10.0)
--- NOTE | 2021-11-21 16:10 | P.PN_ITS ---
Subjective Subjective: Patient was seen and examined this morning, overnight patient was febrile, hypotensive , requiring 1 unit PRBC transfusion , fluid boluses, as well as transiently on Levophed. S/P 1 dose intrapleural TPA-drained Today he was complaining of severe epigastric abdominal pain, he has history of epigastric abdominal pain for a long time in the, but today it was slightly worse, not relieved by sitting on the side of the bed. He says that he usually gets this kind of pain when he is constipated. CT abdomen and pelvis with contrast: Showed no acute abdominal pathology. Medications: Medication Review Details: Generic Name Dose Route Start Last Admin Trade Name Freq PRN Reason Stop Dose Admin Piperacillin Sod/T azobactam 50 mls @ 12.5 mls /hr 11/20/21 02:00 11/20/21 14:20 Sod 3.375 gm/ So dium Chloride IV Infused Q8H [facility] Infusion Protocol Vancomycin/PEG/NAD A/Lysine/Water 1,250 mg in 250 m ls @ 250 mls/hr 11/20/21 06:00 11/20/21 07:21 Vancocin IV Infused Q12H [facility] Infusion Vitals/I&O/Wt Last Vital Signs Temp 98.1 F 11/21/21 11:34 Pulse 77 11/21/21 16:00 Resp 16 11/21/21 16:00 BP 102/68 11/21/21 16:00 Pulse Ox 97 11/21/21 16:00 11/21/21 11/21/21 11/21/21 06:59 14:59 22:59 Intake Total 1650 / 3310 1226.963 / 1226.963 Output Total 890 / 3015 [birth year] Balance 760 / 295 1226.963 / 1226.963 -1960 / -733.037 Weight last 48 hrs Weight 72.575 kg Weight 73.028 kg Weight 73.346 kg Weight 68.039 kg Physical Exam Const: COMMON NORMALS: patient oriented x3 HENMT: COMMON NORMALS: normocephalic and atraumatic HEAD & SCALP: normocephalic and atraumatic Chest: CHEST: Yes Symmetrical chest wall rise Resp: COMMON NORMALS: normal respiratory effort, No retractions, No use of accessory muscles and clear to auscultation bilaterally EFFORT & INSPECTION: Yes symmetric chest movement AUSCULTATION: clear to auscultation bilaterally OTHER: Diminished air entry in the left lung field, rt lung field is clear Cardio: COMMON NORMALS: regular rate, regular rhythm, S1 normal heart sound present, S2 normal heart sound present, No gallops present (Cardio), No murmurs present (Cardio), No rub (Cardio) and Peripheral pulses 2+ throughout RATE: regular rate RHYTHM: regular rhythm HEART SOUNDS: S1 normal heart sound present and S2 normal heart sound present PERIPHERAL PULSES: Peripheral pulses 2+ throughout GI: COMMON NORMALS: Normal to inspection, nondistended, normoactive bowel sounds present, Soft to palpation, non-tender, No hepatosplenomegaly present and no masses AUSCULTATION: Yes normoactive bowel sounds PALPATION: Yes Soft t o palpation and Yes No hepatosplenomegaly present RECTAL EXAM: Yes deferred Extremity: COMMON NORMALS: no clubbing, cyanosis or edema and no pedal edema Neuro: COMMON NORMALS: patient oriented x3 Data : 11/21/21 17:40 11/21/21 01:15 Micro: Microbiology 11/19/21 23:30 Gram Stain - Final Pleural Fluid Body Fluid Culture - Preliminary 11/21/21 05:27 Blood Culture - Preliminary Blood SPECIMEN COLLECTED 11/21/21 05:26 Blood Culture - Preliminary Blood SPECIMEN COLLECTED A&P Assessment and plan (1) Recurrent pleural effusion on left: 61 year old male with no significant past medical history came to emergency room on 11/19 for worsening dyspnea.? #Large left pleural effusion: Status post thoracentesis on 11/18 : With removal of 1100 cc bloody dark red exudative fluid . Lymphocytic predominance, pleural fluid: Analysis: pH 8, WBC 2463 RBC 266 , LDH : 651 , albumin 3.5, amylase; 3.9 , cholesterol 103 triglyceride: 24. Pleural fluid cytology: Large hyperchromatic atypical cells identified with prominent nucleoli. Pathology will do cell block on the repeat sample. Patient came back on with worsening shortness of breath, worsening left- sided effusion S/p placement of 14 Bengali pigtail catheter by commercial or institutional cleaner. S/p 10 LS hemorrhagic effusion. Currently patient has been connected to underwater seal. Serial chest x-ray has shown decreasing left lung pleural effusion. Patient is currently empirically on vancomycin and Zosyn. Repeat CT chest: Pleural base mass anteromedial aspect of the left upper lobe.Large left lower lobe pleural effusion decreased in volume since prior.Calcified granulomas anterior right upper lobe and mediastinum. #Shock likely hypovolemic shock due to blood loss, possibly complicated by sepsis due to pneumonia. Overnight patient was febrile: With T-max of 101.9 Follow blood culture Pleural fluid culture S/p 1 unit PRBC overnight, Transiently on Levophed. S/p IV fluid bolus. Currently maintaining MAP greater than 65 Continue empirically Vanco and Zosyn Monitor H&H # Pleural base mass anteromedial aspect of the left upper lobe. Likely mesothelioma: Patient denies any asbestos exposure, in the past Age appropriate malignancy screening Recent colonoscopy in the past has been normal Pulmonary follow-up as an outpatient CEA: 23..6 #Chronic epigastric abdominal pain: Possible gastritis, possible constipation CT abdomen with contrast : No acute intra-abdominal pathology Currently on Protonix and laxatives #Enlargement of the prostate gland with multiple ill-defined areas of enhancement in the central lower zone. PSA is normal # Small left pneumothorax: Likely trapped lung. Patient is currently saturating well on minimal supplemental oxygen requirement. Pigtail catheter in place We will continue to monitor for now #CODE STATUS: Full code #DVT prophylaxis: On SCDs Status: Acute Attestations Medical Necessity Statement*: Patient is to be in hospital for management of above defined problems. Time Spent in Patient Care: Greater than 35 minutes (>than 50% of time spent in counselling and/or direct pt care on unit) . Critical Care Time: 40 Other Attestations: The high probability of a clinically significant, sudden or life threatening deterioration of the patient's [] system(s) required my full and direct attention, intervention and personal management. The critical care time is as shown. This time is in addition to time spent performing any reported procedures but includes the following: [x] Data and vital sign review and interpretation [x] Patient assessment, examination and intervention [x] Documentation [x] Medication orders and management Coding Level of Care Code Acute Mechanic for Papi Fwd Exam Detailed Diagnoses Recurrent pleural effusion on left J90
--- NOTE | 2021-11-21 16:17 | PM.PN ---
Subjective Subjective: -Patient seen at bedside today morning -Complaining of epigastric pain on and off which has been there for several years but has been worse since yesterday and relieved by nausea and vomiting -Reported that his appetite has gone down and lost about 5 pounds months and yesterday was the first day he had a decent meal (although he ate 50% of his breakfast and 25% of his lunch) -Yesterday evening received 10 cc TPA and after that overnight about 1800 cc dark red fluid and since morning about 1900 cc dark red color fluid; no air bubbles noted in the chamber -Blood pressure dropped requiring Levophed and hemoglobin dropped from 12 on admission to 9 and received 1 unit transfusion-posttransfusion Hb 10.5 -CT abdomen pelvis was performed to evaluate for abdominal pain-we did not show any acute inflammatory process -Given left pleural-based mass on CT chest-when asked history about exposure to asbestos, patient reported entire life-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; reported doing colonoscopy as part of his healthcare check a few years ago which was negative - -Other labs and imaging reviewed Medications: Medication Review Details: Generic Name Dose Route Start Last Admin Trade Name Freq PRN Reason Stop Dose Admin Piperacillin Sod/T azobactam 50 mls @ 12.5 mls /hr 11/20/21 02:00 11/20/21 14:20 Sod 3.375 gm/ So dium Chloride IV Infused Q8H [facility] Infusion Protocol Vancomycin/PEG/NAD A/Lysine/Water 1,250 mg in 250 m ls @ 250 mls/hr 11/20/21 06:00 11/20/21 07:21 Vancocin IV Infused Q12H [facility] Infusion Vitals/I&O/Wt Last Vital Signs Temp 98.1 F 11/21/21 11:34 Pulse 77 11/21/21 16:00 Resp 16 11/21/21 16:00 BP 102/68 11/21/21 16:00 Pulse Ox 97 11/21/21 16:00 11/21/21 11/21/21 11/21/21 06:59 14:59 22:59 Intake Total 1650 / 3310 1226.963 / 1226.963 Output Total 890 / 3015 1961 / 1961 Balance 760 / 295 1226.963 / 1226.963 -1960 / -733.037 Weight last 48 hrs Weight 160 lb Weight 161 lb Weight 161 lb 11.2 oz Weight 150 lb Physical Exam Narrative: General: alert, NAD HEENT: conj clear, EOMI, PERRL, mmm, Neck: supple, no meningismus Heme: no cervical LAP Pulmonary: Improving breath sounds on left side, right side normal breath sounds Cardiovascular: rrr, nl s1s2, no mrg Abdomen: Epigastric tenderness soft, nt, nd, no r/g, bs+ Extremities: pulses +, no edema, no c/c : no CVA tenderness Skin: intact, no rash MSK: no back or neck pain Neurologic: grossly intact Data : 11/21/21 14:06 11/21/21 01:15 Other Labs: Radiology Impressions Chest CT 11/20/21 16:58 IMPRESSION: 1. Large left lower lobe pleural effusion decreased in volume since prior 2. Pleural base mass anteromedial aspect of the left upper lobe 3. Chest tube is present in the left lower left lung. 4. Calcified granulomas anterior right upper lobe and mediastinum. Chest X-Ray 11/21/21 07:15 IMPRESSION: Stable abnormal chest as above. Abdomen CT 11/21/21 13:10 IMPRESSION: 1. Left lower lobe atelectasis versus infiltrate with a small left pneumothorax and pleural effusion in which a chest tube is seen, incompletely visualized. 2. Emphysematous changes. 3. Negative for acute inflammatory process in the abdomen and pelvis. Laboratory Results WBC 9.1 10^3/uL (4.0-10.0) 11/21/21 14:06 RBC 3.40 10^6/uL (4.1-5.3) L 11/21/21 14:06 Hgb 10.5 g/dL (11.7-16.6) L 11/21/21 14:06 Hgb Cancelled 11/21/21 14:06 Hct 32.0 % (42.0-52.0) L 11/21/21 14:06 MCV 94.1 fl (80-94) H 11/21/21 14:06 MCH 30.9 pg (28.0-34.0) 11/21/21 14:06 MCHC 32.8 g/dL (30.0-36.0) 11/21/21 14:06 RDW 12.1 % (12.1-15.1) 11/21/21 14:06 Plt Count 282 10^3/cmm (130-400) 11/21/21 14:06 MPV 9.5 fL (7.4-10.4) 11/21/21 14:06 Neut % (Auto) 87.4 % 11/21/21 14:06 Lymph % (Auto) 4.3 % 11/21/21 14:06 Sullivan % (Auto) 7.6 % 11/21/21 14:06 Eos % (Auto) 0.2 % 11/21/21 14:06 Baso % (Auto) 0.2 % 11/21/21 14:06 Neut # (Auto) 7.97 10^3/uL (1.8-7.7) H 11/21/21 14:06 Lymph # (Auto) 0.4 10^3/uL (0.8-4.8) L 11/21/21 14:06 Sullivan # (Auto) 0.7 10^3/uL (0.2-0.9) 11/21/21 14:06 Eos # (Auto) 0.0 10^3/uL (0.0-0.8) 11/21/21 14:06 Baso # (Auto) 0.0 10^3/uL (0.0-0.1) 11/21/21 14:06 Nucleated RBC % (auto) 0 % 11/21/21 14:06 Nucleated RBCs # 0.0 /100WBC 11/21/21 14:06 Differential Comment Yes 11/19/21 23:30 Sodium 136 mmol/L (136-145) 11/21/21 01:15 Potassium 4.3 mmol/L (3.5-5.1) 11/21/21 01:15 Chloride 102 mmol/L (98-107) 11/21/21 01:15 Carbon Dioxide 26 mmol/L (22-29) 11/21/21 01:15 Anion Gap 12.3 (5-19) 11/21/21 01:15 BUN 16 mg/dL (8-23) 11/21/21 01:15 Creatinine 0.9 mg/dL (0.7-1.2) 11/21/21 01:15 GFR Calculation 85.5 mL/min (90-130) L 11/21/21 01:15 Glucose 142 mg/dL (65-115) H 11/21/21 01:15 Calculated Osmolality 286 mOsm/kg (285-295) 11/21/21 01:15 Calcium 7.9 mg/dL (8.5-10.5) L 11/21/21 01:15 Total Bilirubin 0.4 mg/dL (0.15-1.2) 11/21/21 01:15 AST 10 U/L (0-40) 11/21/21 01:15 ALT 18 U/L (0-41) 11/21/21 01:15 Alkaline Phosphatase 75 IU/L (40-130) 11/21/21 01:15 Troponin T Baseline 16 ng/L (0-15) H 11/19/21 20:38 Troponin T 120 Minute 13.70 ng/L (0-15) 11/19/21 22:08 Delta Troponin T -2.30 ABS# (0-10) L 11/19/21 22:08 Troponin T Hi Sens 6Hr 15.04 ng/L (0-15) H 11/20/21 02:27 Troponin T Hi Sens 6Hr Delta -0.96 ng/L (0-12) L 11/20/21 02:27 C-Reactive Protein 53.1 mg/L (0.0-4.9) H 11/19/21 20:38 NT-Pro-B Natriuret Pep 64 pg/mL (0-125) 11/19/21 20:38 Total Protein 4.2 g/dL (6.6-8.7) L 11/21/21 01:15 Albumin 2.9 g/dL (3.5-5.2) L 11/21/21 01:15 Globulin 1.3 g/dL (1.3-4.6) 11/21/21 01:15 Tumor Marker AFP 3.7 ng/mL (0-8.3) 11/21/21 01:15 Carcinoembryonic Ag 23.6 ng/mL (0.0-4.7) H 11/21/21 01:15 CA 19-9 Antigen 1.07 U/mL (0-35) 11/21/21 01:15 PSA Screen 2.25 ng/mL (0-4) 11/21/21 01:15 Procalcitonin 0.10 ng/mL (0-0.5) 11/19/21 20:38 TSH 4.26 uIU/mL (0.27-4.20) H 11/21/21 01:15 Fluid Color Red 11/19/21 23:30 Fluid Appearance Bloody 11/19/21 23:30 Fluid WBC 3028 /uL 11/19/21 23:30 Fluid RBC 1056.000 10^3/uL 11/19/21 23:30 Fluid Hematocrit 10.1 % 11/19/21 23:30 Fld Polynuclear WBCs # 1.454 11/19/21 23:30 Fld Polynuclear WBCs % 48.000 % 11/19/21 23:30 Fl Mononucl WBCs #(Auto) 1.574 11/19/21 23:30 Fl Mononuclear % Auto 52.000 % 11/19/21 23:30 Fluid Albumin 3.5 g/dL 11/19/21 23:30 Fluid Creatinine 0.95 (0.7-1.2) 11/19/21 23:30 Pleural pH 8.00 (6.5-7.5) H 11/19/21 23:30 Pleural Total Protein 4.7 g/dL 11/19/21 23:30 Pleural LDH 662 U/L 11/19/21 23:30 Pleural Glucose 4.0 mg/dL 11/19/21 23:30 Pleural Amylase 438.0 U/L 11/19/21 23:30 Pleural Triglycerides 29 mg/dL 11/19/21 23:30 Blood Type O Positive 11/21/21 01:20 Rho(D) Type Positive 11/21/21 01:20 Antibody Screen Negative 11/21/21 01:20 Crossmatch See Detail 11/21/21 01:20 Micro: Microbiology 11/19/21 23:30 Gram Stain - Final Pleural Fluid Body Fluid Culture - Preliminary 11/21/21 05:27 Blood Culture - Preliminary Blood SPECIMEN COLLECTED 11/21/21 05:26 Blood Culture - Preliminary Blood SPECIMEN COLLECTED A&P Assessment and plan (1) Recurrent pleural effusion on left: Status: Acute Plan #Large left pleural effusion with mediastinal shift to the right -Denied any history of trauma or anticoagulation; denied history of smoking -S/p thoracentesis 11/18/2021-1100 cc bloody dark red fluid removed;-lymphocytic predominant exudative fluid; pH 8, WBC 2463, RBC 266, LDH 651, albumin 3.5, serum albumin 3.9, amylase 471, cholesterol 103, triglycerides 24; cytology reported chronic inflammation -Return to hospital 11/19/2021 night-s/p 14 [place] pigtail and drained-2000 cc bloody dark red fluid-48% neutrophils-cultures pending; -Cytology reported large hyperchromatic atypical cells with prominent nucleoli-requested pathology to do cell block -Continue vancomycin/Zosyn until final cultures are available as hemothorax can be source of infection -After draining close to 5.5 L over 3 days - CT chest 11/20/2021 showed large left lower lobe pleural effusion decreased in volume and a pleural-based mass anterior medial aspect of left upper lobe and suspected lung malignancy; also previous imaging reported enlargement of prostate gland with multiple ill-defined areas of enhancement and central lower zone-sent for tumor markers AFP/CEA/CA 19-9/PSA -Patient denied any significant exposure to asbestos, 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 #Epigastric pain/nausea/vomiting-possible gastritis vs nausea due to malignancy -CT abdomen pelvis no acute inflammatory process -Currently on Zofran 4 mg--daily 8 hours-changed to every 6 hour as needed -Started on IV pantoprazole every 12 hours -Another reason pigtail might be irritating diaphragm-I am planning to take it out in the next 12 to 24 hours Medical condition explained to the patient his and son at bedside. Also informed them about atypical cells in pleural fluid and awaiting more studies from pathology to rule in/rule out malignancy. Also explained pleural fluid can be recurrent in case of malignancy and may eventually need a Pleurx catheter/drain. They verbalized understanding and agreed with the plan and plan of care. Recommendations conveyed to hospitalist, RN, RT taking care of the patient Attestations Medical Necessity Statement*: Currently requiring Levophed 2 mics and patient with large left pleural effusion s/p L placement and drainage of pleural effusion. May need to observe at least overnight in ICU Time Spent in Patient Care: Greater than 35 minutes (>than 50% of time spent in counselling and/or direct pt care on unit). Including extensive bedside discussion about medical condition, prognosis, implanted patient, and her son. Bedside ultrasound examination Critical Care Time: The high probability of a clinically significant, sudden or life threatening deterioration of the patient's [pulmonary, GI] system(s) required my full and direct attention, intervention and personal management. The critical care time is as shown. 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
[2021-11-21] MEDS: sennosides-docusate Tablet 1 TAB PO (17:18)
[2021-11-21] MEDS: pantoprazole 40 mg SDV IVP (17:18)
[2021-11-21 17:46] LABS: Hemoglobin 11.8 g/dL (11.7-16.6)
--- NOTE | 2021-11-21 18:10 | PC.NURSE ---
Pt resting in bed at this time. CT to water seal only at this time. Spurgeon chamber changed twice today. Output has slowed tremendously. Levophed at 2mcg per order. Pt teaching r/t labs, test results and medications given. Pt and verbalize understanding. Message left for case management to contact r/t insurance question. No other issues noted. VSS. Will monitor.
[2021-11-21 18:40] LABS: Vancomycin Trough 9.9 ug/mL (10-15)
--- NOTE | 2021-11-21 19:01 | PC.NURSE ---
Pt. laying in bed, complaining of nausea. No other needs expressed at this time. Pt. has left lateral/posterior chest tube to water seal. No air leak noted draining serosangiounous fluid.
[2021-11-22] VITALS (33 sets, daily range): BP systolic 78–144; BP diastolic 46–66; PULSE 69–103; RESP 15–26; TEMP 36.1–37.1; O2SAT 94–99
[2021-11-22] MEDS: piperacillin-tazobactam 3.375 GM in sodium chloride 0.9% (plus) 50 ML IV ×3 (02:21→18:06)
[2021-11-22 04:54] LABS: Basophils % 0.2 %; Eosinophils # 0.2 10^3/uL (0.0-0.8); Eosinophils % 1.8 %; Hematocrit 26.2 % (42.0-52.0); Hemoglobin 8.8 g/dL (11.7-16.6); Lymphocytes # 0.8 10^3/uL (0.8-4.8); Lymphocytes % 9.6 %; Mean Corpuscular HGB Conc 33.6 g/dL (30.0-36.0); Mean Corpuscular Hemoglobin 30.6 pg (28.0-34.0); Mean Platelet Volume 9.7 fL (7.4-10.4); Monocytes # 0.9 10^3/uL (0.2-0.9); Monocytes % 10.3 %; Neutrophils # 6.81 10^3/uL (1.8-7.7); Neutrophils % 77.9 %; Nucleated Red Blood Cells % 0 %; Platelet Count 253 10^3/cmm (130-400); Red Blood Count 2.88 10^6/uL (4.1-5.3); Red Cell Distribution Width 12.4 % (12.1-15.1); White Blood Count 8.8 10^3/uL (4.0-10.0)
[2021-11-22] MEDS: vancomycin 1,500 MG/300 ML PIGGYBACK 200 MG IV ×2 (05:05→18:05)
[2021-11-22] MEDS: pantoprazole 40 mg SDV IVP ×2 (05:05→18:06)
[2021-11-22 05:17] LABS: Anion Gap 9.8 (5-19); Blood Urea Nitrogen 16 mg/dL (8-23); Calcium 7.7 mg/dL (8.5-10.5); Carbon Dioxide 26 mmol/L (22-29); Chloride 102 mmol/L (98-107); Glomerular Filtration Rate 114.3 mL/min (90-130); Glucose 109 mg/dL (65-115); Osmolality Calculated 280 mOsm/kg (285-295); Potassium 3.8 mmol/L (3.5-5.1); Sodium 134 mmol/L (136-145)
--- NOTE | 2021-11-22 05:40 | ECG_ITS ---
[facility] Test Date: 2021-11-22 Pat Name: Shahab Ramos Department: Room: [facility] Gender: Male Functional Director: : 1960 Requested By: [employer] Order Number: [id number] Jean MD: Douglas Willoughby M.D. Measurements Intervals [place] Rate: 82 P: 78 HI: 144 QRS: 74 QRSD: 89 T: 64 QT: 371 QTc: 435 Interpretive Statements SINUS RHYTHM Compared to ECG 11/19/2021 20:23:48 Sinus tachycardia no longer present Short HI interval no longer present Electronically Signed On 11-22-2021 20:12:32 CDT by Douglas Willoughby M.D. [email or web address]
--- NOTE | 2021-11-22 05:41 | XRR_ITS ---
PROCEDURE INFORMATION: Exam: XR Chest Exam date and time: 11/22/2021 6:06 AM Age: 61 years old Clinical indication: Device placement; Chest tube; Additional info: Follow up for chest tube TECHNIQUE: Imaging protocol: XR of the chest. Views: 1 view. COMPARISON: CR XR chest 1V portable [id number] 11/21/2021 7:24 AM FINDINGS: Tubes, catheters and devices: Left-sided chest tube remains in satisfactory position. Lungs: See Pleural spaces finding. Pleural spaces: Improving small left pleural effusion. Persistent increased interstitial markings and hazy airspace opacities in the left lung. The right lung is clear. No pneumothorax. Heart/Mediastinum: Stable cardiomediastinal silhouette. Bones/joints: Unremarkable. XR/XR chest 1V [id number] IMPRESSION: Improving small left pleural effusion with persistent increased interstitial markings and airspace opacities in the left lung. No pneumothorax.
[2021-11-22] MEDS: sennosides-docusate Tablet 1 TAB PO ×2 (08:32→18:06)
--- NOTE | 2021-11-22 09:43 | PC.NURSE ---
Dr Merrill removed Chest Tube at 0930. Procedure was uneventful. Nurse will continue to monitor.
--- NOTE | 2021-11-22 10:22 | PC.CHAP ---
Pastoral Care Encounter/Spiritual Assessment Type of Contact [] Declined fish stringer assembler visit [] Patient/Family/Request visit [] Outpatient visit [] Follow-up visit [] Physician referral [] Code/Alert [x] Routine visit [] Staff referral [] Actively dying [] Patient sleeping [] Family support [] [] Out of room [] Palliative care [] [] Receiving care in room [] Pre-surgical visit [] Trauma [] Long length of stay [x] ICU visit [] Other: Relational/Emotional Strength [] Patient feels connected with others/family/visitors/staff [] Distress [] Loneliness/isolation [] Abandonment Spirituality of Patient [] Person of Jamila [] Attends Holiness of their Jamila [] Believes in Prayer [] Reads Bible or Druze materials [] There are Spiritual issues to be addressed Retreader Interventions [x] Prayer [x] Active listening [x] Non-anxious presence [x] Spiritual/emotional support [] Crisis/trauma care [] Spiritual counseling [] Bereavement support [] Provided bereavement packet [] Provided Bible/devotional materials [] Provided toy/stuffed animal, coloring book to patient or family member [] Provided Communion [] Anointing/[place] [] Salvation [x] Completed spiritual assessment [] Other: Impact on Illness or Injury [] Angry [] Fearful [] Anxious [] Often cries [] Exhaustion [] Unable to work [] Unable to attend muslim [] Unable to walk/stand [] Unable to read [] Unable to drive [] Unable to eat/drink [] Unable to sleep [] Unable to be with family [] Patient intubated [] Other: Summary patient eating... enjoying food... hadn't had a appetite.. feeling much stronger Time spent with patient 10 min
--- NOTE | 2021-11-22 11:20 | PC.NURSE ---
NUrse continues to monitor patient post Chest tube removal. Vitals are within normal limits. Breath sounds remain unchanged since the morning, before chest tube removed. Lung sounds clear on right side, diminished on left.
[2021-11-22 11:24] LABS: Basophils % 0.1 %; Eosinophils # 0.2 10^3/uL (0.0-0.8); Eosinophils % 2.6 %; Hematocrit 25.8 % (42.0-52.0); Hemoglobin 8.8 g/dL (11.7-16.6); Lymphocytes # 0.7 10^3/uL (0.8-4.8); Lymphocytes % 7.6 %; Mean Corpuscular HGB Conc 34.1 g/dL (30.0-36.0); Mean Corpuscular Hemoglobin 31.2 pg (28.0-34.0); Mean Corpuscular Volume 91.5 fl (80-94); Mean Platelet Volume 9.5 fL (7.4-10.4); Monocytes # 0.8 10^3/uL (0.2-0.9); Monocytes % 9.5 %; Neutrophils # 6.82 10^3/uL (1.8-7.7); Neutrophils % 79.8 %; Nucleated Red Blood Cells % 0 %; Platelet Count 248 10^3/cmm (130-400); Red Blood Count 2.82 10^6/uL (4.1-5.3); Red Cell Distribution Width 12.6 % (12.1-15.1); White Blood Count 8.5 10^3/uL (4.0-10.0)
--- NOTE | 2021-11-22 15:34 | PM.PN ---
Subjective Subjective: -Patient seen at bedside today morning - reported sleeping better yesterday night in so many years - denied nausea/vomiting/epigastric pain -Chest x ray today Improving small left pleural effusion with persistent increased interstitial markings and airspace opacities in the left lung. No pneumothorax. -Left pigtail output 140 cc in the last 20 hours-remove the pigtail -This appears to be hemorrhagic effusion-it is more likely to get reaccumulated and he may need [place] drain in the near future -Off Levophed for > 12 hours and plan is to move out of ICU - HB dropped to 8.8 - repeat H & H today afternoon to monitor. - Others labs and imaging reviewed Medications: Medication Review Details: Generic Name Dose Route Start Last Admin Trade Name Freq PRN Reason Stop Dose Admin Piperacillin Sod/T azobactam 50 mls @ 12.5 mls /hr 11/20/21 02:00 11/20/21 14:20 Sod 3.375 gm/ So dium Chloride IV Infused Q8H [facility] Infusion Protocol Vancomycin/PEG/NAD A/Lysine/Water 1,250 mg in 250 m ls @ 250 mls/hr 11/20/21 06:00 11/20/21 07:21 Vancocin IV Infused Q12H [facility] Infusion Vitals/I&O/Wt Last Vital Signs Temp 98.4 F 11/22/21 13:00 Pulse 98 11/22/21 13:30 Resp 22 H 11/22/21 13:30 BP 86/51 11/22/21 13:30 Pulse Ox 97 11/22/21 13:00 11/22/21 11/22/21 11/22/21 06:59 14:59 22:59 Intake Total 1391.667 / 1391.667 Output Total 200 / 2613 600 / 600 Balance -200 / -1045.667 791.667 / 791.667 Weight last 48 hrs Weight 147 lb Weight 160 lb Physical Exam Narrative: General: alert, NAD HEENT: conj clear, EOMI, PERRL, mmm, Neck: supple, no meningismus Heme: no cervical LAP Pulmonary: Improving breath sounds on left side, right side normal breath sounds Cardiovascular: rrr, nl s1s2, no mrg Abdomen: soft, nt, nd, no r/g, bs+ Extremities: pulses +, no edema, no c/c : no CVA tenderness Skin: intact, no rash MSK: no back or neck pain Neurologic: grossly intact Data : 11/22/21 10:57 11/22/21 04:09 Other Labs: Radiology Impressions Chest CT 11/20/21 16:58 IMPRESSION: 1. Large left lower lobe pleural effusion decreased in volume since prior 2. Pleural base mass anteromedial aspect of the left upper lobe 3. Chest tube is present in the left lower left lung. 4. Calcified granulomas anterior right upper lobe and mediastinum. Abdomen CT 11/21/21 13:10 IMPRESSION: 1. Left lower lobe atelectasis versus infiltrate with a small left pneumothorax and pleural effusion in which a chest tube is seen, incompletely visualized. 2. Emphysematous changes. 3. Negative for acute inflammatory process in the abdomen and pelvis. Chest X-Ray 11/22/21 05:41 IMPRESSION: Improving small left pleural effusion with persistent increased interstitial markings and airspace opacities in the left lung. No pneumothorax. Laboratory Results WBC 8.5 10^3/uL (4.0-10.0) 11/22/21 10:57 RBC 2.82 10^6/uL (4.1-5.3) L 11/22/21 10:57 Hgb 8.8 g/dL (11.7-16.6) L 11/22/21 10:57 Hct 25.8 % (42.0-52.0) L 11/22/21 10:57 MCV 91.5 fl (80-94) 11/22/21 10:57 MCH 31.2 pg (28.0-34.0) 11/22/21 10:57 MCHC 34.1 g/dL (30.0-36.0) 11/22/21 10:57 RDW 12.6 % (12.1-15.1) 11/22/21 10:57 Plt Count 248 10^3/cmm (130-400) 11/22/21 10:57 MPV 9.5 fL (7.4-10.4) 11/22/21 10:57 Neut % (Auto) 79.8 % 11/22/21 10:57 Lymph % (Auto) 7.6 % 11/22/21 10:57 [place] % (Auto) 9.5 % 11/22/21 10:57 Eos % (Auto) 2.6 % 11/22/21 10:57 Baso % (Auto) 0.1 % 11/22/21 10:57 Neut # (Auto) 6.82 10^3/uL (1.8-7.7) 11/22/21 10:57 Lymph # (Auto) 0.7 10^3/uL (0.8-4.8) L 11/22/21 10:57 [place] # (Auto) 0.8 10^3/uL (0.2-0.9) 11/22/21 10:57 Eos # (Auto) 0.2 10^3/uL (0.0-0.8) 11/22/21 10:57 Baso # (Auto) 0.0 10^3/uL (0.0-0.1) 11/22/21 10:57 Nucleated RBC % (auto) 0 % 11/22/21 10:57 Nucleated RBCs # 0.0 /100WBC 11/22/21 10:57 Differential Comment Yes 11/19/21 23:30 Sodium 134 mmol/L (136-145) L 11/22/21 04:09 Potassium 3.8 mmol/L (3.5-5.1) 11/22/21 04:09 Chloride 102 mmol/L (98-107) 11/22/21 04:09 Carbon Dioxide 26 mmol/L (22-29) 11/22/21 04:09 Anion Gap 9.8 (5-19) 11/22/21 04:09 BUN 16 mg/dL (8-23) 11/22/21 04:09 Creatinine 0.7 mg/dL (0.7-1.2) 11/22/21 04:09 GFR Calculation 114.3 mL/min (90-130) 11/22/21 04:09 Glucose 109 mg/dL (65-115) 11/22/21 04:09 Calculated Osmolality 280 mOsm/kg (285-295) L 11/22/21 04:09 Calcium 7.7 mg/dL (8.5-10.5) L 11/22/21 04:09 Total Bilirubin 0.4 mg/dL (0.15-1.2) 11/21/21 01:15 AST 10 U/L (0-40) 11/21/21 01:15 ALT 18 U/L (0-41) 11/21/21 01:15 Alkaline Phosphatase 75 IU/L (40-130) 11/21/21 01:15 Troponin T Baseline 16 ng/L (0-15) H 11/19/21 20:38 Troponin T 120 Minute 13.70 ng/L (0-15) 11/19/21 22:08 Delta Troponin T -2.30 ABS# (0-10) L 11/19/21 22:08 Troponin T Hi Sens 6Hr 15.04 ng/L (0-15) H 11/20/21 02:27 Troponin T Hi Sens 6Hr Delta -0.96 ng/L (0-12) L 11/20/21 02:27 C-Reactive Protein 53.1 mg/L (0.0-4.9) H 11/19/21 20:38 NT-Pro-B Natriuret Pep 64 pg/mL (0-125) 11/19/21 20:38 Total Protein 4.2 g/dL (6.6-8.7) L 11/21/21 01:15 Albumin 2.9 g/dL (3.5-5.2) L 11/21/21 01:15 Globulin 1.3 g/dL (1.3-4.6) 11/21/21 01:15 Tumor Marker AFP 3.7 ng/mL (0-8.3) 11/21/21 01:15 Carcinoembryonic Ag 23.6 ng/mL (0.0-4.7) H 11/21/21 01:15 CA 19-9 Antigen 1.07 U/mL (0-35) 11/21/21 01:15 PSA Screen 2.25 ng/mL (0-4) 11/21/21 01:15 Procalcitonin 0.10 ng/mL (0-0.5) 11/19/21 20:38 TSH 4.26 uIU/mL (0.27-4.20) H 11/21/21 01:15 Fluid Color Red 11/19/21 23:30 Fluid Appearance Bloody 11/19/21 23:30 Fluid WBC 3028 /uL 11/19/21 23:30 Fluid RBC 1056.000 10^3/uL 11/19/21 23:30 Fluid Hematocrit 10.1 % 11/19/21 23:30 Fld Polynuclear WBCs # 1.454 11/19/21 23:30 Fld Polynuclear WBCs % 48.000 % 11/19/21 23:30 Fl Mononucl WBCs #(Auto) 1.574 11/19/21 23:30 Fl Mononuclear % Auto 52.000 % 11/19/21 23:30 Fluid Albumin 3.5 g/dL 11/19/21 23:30 Fluid Creatinine 0.95 (0.7-1.2) 11/19/21 23:30 Pleural pH 8.00 (6.5-7.5) H 11/19/21 23:30 Pleural Total Protein 4.7 g/dL 11/19/21 23:30 Pleural LDH 662 U/L 11/19/21 23:30 Pleural Glucose 4.0 mg/dL 11/19/21 23:30 Pleural Amylase 438.0 U/L 11/19/21 23:30 Pleural Triglycerides 29 mg/dL 11/19/21 23:30 Vancomycin Trough 9.9 ug/mL (10-15) L 11/21/21 17:40 Blood Type O Positive 11/21/21 01:20 Rho(D) Type Positive 11/21/21 01:20 Antibody Screen Negative 11/21/21 01:20 Crossmatch See Detail 11/21/21 01:20 Micro: Microbiology 11/19/21 23:30 Gram Stain - Final Pleural Fluid Body Fluid Culture - Preliminary 11/21/21 05:27 Blood Culture - Preliminary Blood NEGATIVE TO DATE 11/21/21 05:26 Blood Culture - Preliminary Blood NEGATIVE TO DATE A&P Assessment and plan (1) Recurrent pleural effusion on left: Status: Acute Plan #Large left pleural effusion with mediastinal shift to the right -Denied any history of trauma or anticoagulation; denied history of smoking -S/p thoracentesis 11/18/2021-1100 cc bloody dark red fluid removed;-lymphocytic predominant exudative fluid; pH 8, WBC 2463, RBC 266, LDH 651, albumin 3.5, serum albumin 3.9, amylase 471, cholesterol 103, triglycerides 24; cytology reported chronic inflammation -Return to hospital 11/19/2021 night-s/p 14 [place] pigtail and drained-2000 cc bloody dark red fluid-48% neutrophils-cultures pending; -Cytology reported large hyperchromatic atypical cells with prominent nucleoli-requested pathology to do cell block -Continue vancomycin/Zosyn until final cultures are available as hemothorax can be source of infection -After draining close to 5.5 L over 3 days - CT chest 11/20/2021 showed large left lower lobe pleural effusion decreased in volume and a pleural-based mass anterior medial aspect of left upper lobe and suspected lung malignancy; also previous imaging reported enlargement of prostate gland with multiple ill-defined areas of enhancement and central lower zone ; PSA within normal limits -Patient denied any significant exposure to asbestos, 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 No pneumothorax. -Left pigtail output 140 cc in the last 20 hours-removed the pigtail -This appears to be hemorrhagic effusion-it is more likely to get reaccumulated and he may need [place] drain in the near future - HB dropped from 12 to 9 and received 1 unit prbc yesterday - hb improved to 11 and again dropped to 8.8; - However pt denied any melena (no BM yet) or active bleeding and he is hemodynamically stable and off levophed for < 12 hr - repeat H & H today afternoon to monitor if it is dropping he may need transfusion to keep h&H > 7/21 and EGD to look for GI sources. #Epigastric pain/nausea/vomiting- improvement with PPI - suspect PUD -CT abdomen pelvis no acute inflammatory process -Currently on Zofran 4 mg--daily 8 hours-changed to every 6 hour as needed -IV pantoprazole every 12 hours -can change to PO on discharge and continue atleast for 14 days and if symptoms recur - need EGD to assess for PUD and Hpylori -Also His CEA is elevated 23.6; AFP Normal and Ca-19-9 normal.He may need repeat colonoscopy Medical condition explained to the patient his and son at bedside. Also informed them about atypical cells in pleural fluid and awaiting more studies from pathology to rule in/rule out malignancy. Also explained pleural fluid can be recurrent in case of malignancy and may eventually need a Pleurx catheter/drain. They verbalized understanding and agreed with the plan and plan of care. Recommendations conveyed to hospitalist, RN, RT taking care of the patient Attestations Medical Necessity Statement*: Currently requiring Levophed 2 mics and patient with large left pleural effusion s/p L placement and drainage of pleural effusion. May need to observe at least overnight in ICU Time Spent in Patient Care: Greater than 35 minutes (>than 50% of time spent in counselling and/or direct pt care on unit). Including extensive bedside discussion about medical condition, prognosis, implanted patient, and her son. Bedside ultrasound examination Critical Care Time: The high probability of a clinically significant, sudden or life threatening deterioration of the patient's [pulmonary, GI] system(s) required my full and direct attention, intervention and personal management. The critical care time is as shown. 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
--- NOTE | 2021-11-22 15:58 | PC.NURSE ---
NUrse transferred patient to [facility] surge room 277-1. Patient report given to and patient received by Fiordaliza MOORE. Belongings sent wiht patient included Clothing, boots, wallet, cellphone, box attacher, and a duffelbag.
--- NOTE | 2021-11-22 19:47 | P.PN_ITS ---
Subjective Subjective: Patient was seen and examined this morning, no acute events overnight, H&H has remained stable. Blood pressure is slightly soft, otherwise he is hemodynamically stable. His other vitals and labs have been reviewed Medications: Medication Review Details: Generic Name Dose Route Start Last Admin Trade Name Rishabh PRN Reason Stop Dose Admin Piperacillin Sod/T azobactam 50 mls @ 12.5 mls /hr 11/20/21 02:00 11/20/21 14:20 Sod 3.375 gm/ So dium Chloride IV Infused Q8H [facility] Infusion Protocol Vancomycin/PEG/NAD A/Lysine/Water 1,250 mg in 250 m ls @ 250 mls/hr 11/20/21 06:00 11/20/21 07:21 Vancocin IV Infused Q12H [facility] Infusion Vitals/I&O/Wt Last Vital Signs Temp 98.5 F 11/22/21 15:42 Pulse 90 11/22/21 15:42 Resp 18 11/22/21 15:42 BP 110/65 11/22/21 15:42 Pulse Ox 97 11/22/21 15:42 11/22/21 11/22/21 11/22/21 06:59 14:59 22:59 Intake Total 1391.667 / 1391.667 410 / 1801.667 Output Total 200 / 2613 600 / 600 Balance -200 / -1045.667 791.667 / 791.667 410 / 1201.667 Weight last 48 hrs Weight 66.678 kg Weight 72.575 kg Physical Exam Const: COMMON NORMALS: patient oriented x3 HENMT: COMMON NORMALS: normocephalic and atraumatic HEAD & SCALP: normocephalic and atraumatic Chest: CHEST: Yes Symmetrical chest wall rise Resp: COMMON NORMALS: normal respiratory effort, No retractions, No use of accessory muscles and clear to auscultation bilaterally EFFORT & INSPECTION: Yes symmetric chest movement AUSCULTATION: clear to auscultation bilaterally OTHER: Diminished air entry in the left lung field, rt lung field is clear Cardio: COMMON NORMALS: regular rate, regular rhythm, S1 normal heart sound present, S2 normal heart sound present, No gallops present (Cardio), No murmurs present (Cardio), No rub (Cardio) and Peripheral pulses 2+ throughout RATE: regular rate RHYTHM: regular rhythm HEART SOUNDS: S1 normal heart sound present and S2 normal heart sound present PERIPHERAL PULSES: Peripheral pulses 2+ throughout GI: COMMON NORMALS: Normal to inspection, nondistended, normoactive bowel sounds present, Soft to palpation, non-tender, No hepatosplenomegaly present and no masses AUSCULTATION: Yes normoactive bowel sounds PALPATION: Yes Soft to palpation and Yes No hepatosplenomegaly present RECTAL EXAM: Yes deferred Extremity: COMMON NORMALS: no clubbing, cyanosis or edema and no pedal edema Neuro: COMMON NORMALS: patient oriented x3 Data : 11/22/21 10:57 11/22/21 04:09 Micro: Microbiology 11/19/21 23:30 Gram Stain - Final Pleural Fluid Body Fluid Culture - Preliminary 11/21/21 05:27 Blood Culture - Preliminary Blood NEGATIVE TO DATE 11/21/21 05:26 Blood Culture - Preliminary Blood NEGATIVE TO DATE A&P Assessment and plan (1) Recurrent pleural effusion on left: 61 year old male with no significant past medical history came to emergency room on 11/19 for worsening dyspnea.? #Large left pleural effusion: Status post thoracentesis on 11/18 : With removal of 1100 cc bloody dark red exudative fluid . Lymphocytic predominance, pleural fluid: Analysis: pH 8, WBC 2463 RBC 266 , LDH : 651 , albumin 3.5, amylase; 3.9 , cholesterol 103 triglyceride: 24. Pleural fluid cytology: Large hyperchromatic atypical cells identified with prominent nucleoli. Pathology will do cell block on the repeat sample. 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 S/p 10 LS hemorrhagic effusion. Currently patient has been connected to underwater seal. Serial chest x-ray has shown decreasing left lung pleural effusion. Patient is currently empirically on vancomycin and Zosyn. Repeat CT chest: Pleural base mass anteromedial aspect of the left upper lobe.Large left lower lobe pleural effusion decreased in volume since prior.Calcified granulomas anterior right upper lobe and mediastinum. #Shock likely hypovolemic shock due to blood loss, possibly complicated by sepsi s due to pneumonia. Overnight patient was febrile: With T-max of 101.9 Follow up blood culture:NTD Pleural fluid culture: S/p 1 unit PRBC overnight, Transiently on Levophed. S/p IV fluid bolus. Currently maintaining MAP greater than 65 Continue empirically Vanco and Zosyn Monitor H&H # Pleural base mass anteromedial aspect of the left upper lobe. Likely mesothelioma: Patient denies any asbestos exposure, in the past Age appropriate malignancy screening Recent colonoscopy in the past has been normal Pulmonary follow-up as an outpatient CEA: 23..6 #Chronic epigastric abdominal pain: Possible gastritis, possible constipation CT abdomen with contrast : No acute intra-abdominal pathology Currently on Protonix and laxatives #Enlargement of the prostate gland with multiple ill-defined areas of enhancement in the central lower zone. PSA is normal # Small left pneumothorax: Likely trapped lung. Patient is currently saturating well on minimal supplemental oxygen requirement. Pigtail catheter in place We will continue to monitor for now #CODE STATUS: Full code #DVT prophylaxis: On SCDs Status: Acute Attestations Medical Necessity Statement*: Patient is to be in hospital for management of above-defined problems Coding Level of Care Code Acute [employer] for Papi Barrios Diagnoses Recurrent pleural effusion on left J90
[2021-11-23] VITALS: BP 100/52; PULSE 88; RESP 16; TEMP 36.9; O2SAT 96
[2021-11-23 03:57] VITALS: BP 86/59; PULSE 85; RESP 16; TEMP 36.7; O2SAT 95
[2021-11-23] MEDS: pantoprazole 40 mg SDV IVP (04:14)
[2021-11-23 04:20] LABS: Basophils % 0.2 %; Eosinophils # 0.3 10^3/uL (0.0-0.8); Eosinophils % 3.2 %; Hematocrit 25.1 % (42.0-52.0); Hemoglobin 8.3 g/dL (11.7-16.6); Lymphocytes # 0.7 10^3/uL (0.8-4.8); Lymphocytes % 9.2 %; Mean Corpuscular HGB Conc 33.1 g/dL (30.0-36.0); Mean Corpuscular Hemoglobin 30.1 pg (28.0-34.0); Mean Corpuscular Volume 90.9 fl (80-94); Mean Platelet Volume 9.1 fL (7.4-10.4); Monocytes # 0.8 10^3/uL (0.2-0.9); Monocytes % 10.2 %; Neutrophils # 6.14 10^3/uL (1.8-7.7); Neutrophils % 76.8 %; Nucleated Red Blood Cells % 0 %; Platelet Count 235 10^3/cmm (130-400); Red Blood Count 2.76 10^6/uL (4.1-5.3); Red Cell Distribution Width 12.4 % (12.1-15.1)
[2021-11-23 04:40] LABS: Anion Gap 10.2 (5-19); Blood Urea Nitrogen 13 mg/dL (8-23); Calcium 7.8 mg/dL (8.5-10.5); Carbon Dioxide 27 mmol/L (22-29); Chloride 104 mmol/L (98-107); Glucose 104 mg/dL (65-115); Osmolality Calculated 284 mOsm/kg (285-295); Potassium 4.2 mmol/L (3.5-5.1); Sodium 137 mmol/L (136-145)
[2021-11-23 08:14] VITALS: PULSE 71; RESP 16; O2SAT 96
[2021-11-23 08:22] VITALS: BP 91/47; PULSE 98; RESP 18; TEMP 36.7; O2SAT 95
[2021-11-23] MEDS: sennosides-docusate Tablet 1 TAB PO (09:10)
--- NOTE | 2021-11-23 10:07 | P.DS_ITS ---
Discharge Providers Date of Admission: 11/19/21 22:09 Date of Discharge: November 23, 2021 Attending Provider at Admission: Gt Damian Attending Provider at Discharge: Davidson Long MD Primary Care Provider: Kyleigh Leone APN Diagnoses at Discharge Discharge Diagnosis (1) Recurrent pleural effusion on left: Status: Acute Reason for Visit Reason for Visit: SOB\ Slight Chest Pain Hospital Course Hospital Course HPI : Gt Damian MD Pleasant 61-year-old gentleman who underwent thoracentesis yesterday due to large left-sided pleural effusion with removal of 1100 mL of bloody dark red fluid, after initially presenting due to several weeks of shortness of breath, cough (for several months, initially several days of yellow productive sputum, then no longer productive, cough sometimes triggered by deep inspiration), left side back pain, epigastric and left upper quadrant pain.? Chemistries, Gram stain and culture and cytology were obtained from the fluid. pH 8, WBC 2463, RBC 266, LDH 651, albumin 3.5, serum albumin 3.9, amylase 471, cholesterol 103, triglycerides 24. He returned to ER today again due to persistence of dyspnea, dyspnea with exertion and transfers.? On reevaluation with x-ray demonstrated again to have large left pleural effusion similar to slightly increased from prior study. Gram stain from 11/18 with many RBC, rare WBC, no organisms. Hospital course: He was admitted for the management of symptomatic recurrent left pleural effusion with mediastinal shift to the right: During the hospital stay patient underwent thoracentesis with pigtail placement: With removal of close to 10 Ls hemorrhagic exudative pleural effusion,Cytology report: large hyperchromatic atypical cells with prominent nucleoli.Pleural fluid analysis: pH 8, WBC 2463 RBC 266 , LDH : 651 , albumin 3.5, amylase; 3.9 , cholesterol 103 triglyceride: 24. Repeat CT chest during the hospital stay has shown Pleural base mass anteromedial aspect of the left upper lobe. 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 During the hospital stay patient was also in hypovolemic shock secondary to blood loss, with drop in H&H, less likely sepsis secondary pneumonia. Patient required 1 unit PRBC transfusion, fluid boluses, transiently was on Levophed, he was empirically also kept on broad-spectrum antibiotics,cultures were negative, pleural fluid Gram stain and cultures negative, mycobacterial culture so far negative, fungal culture pending. Patient has a history of chronic epigastric abdominal pain: Likely secondary to gastritis: Responded well to Protonix. Has been discharged on p.o. Protonix. CT abdomen with contrast done during the hospital stay, has failed to show any acute intra-abdominal pathology, showed small left pneumothorax managed conservatively. CT abdomen and pelvis also showed Enlargement of the prostate gland with multiple ill-defined areas of enhancement in the central lower zone.PSA is normal. Patient has also undergone colonoscopy: Few years back and was normal.Patient will continue to follow pulmonary medicine as an outpatient for further work-up of pleural-based mass. At the time of discharge his H&H was stable. The blood pressure is slightly on the softer side, he has been advised to monitor the blood pressure closely at home, he has been educated on the signs and symptoms of Hypovolemic shock secondary to blood loss. So for the patient has responded well to above medical management And is being discharged in stable condition to home. Physical Exam Const: COMMON NORMALS: patient oriented x3 HENMT: COMMON NORMALS: normocephalic and atraumatic HEAD & SCALP: normocephalic and atraumatic Chest: CHEST: Yes Symmetrical chest wall rise Resp: COMMON NORMALS: normal respiratory effort, No retractions, No use of accessory muscles and clear to auscultation bilaterally EFFORT & INSPECTION: Yes symmetric chest movement AUSCULTATION: clear to auscultation bilaterally OTHER: Diminished air entry in the left lung field, rt lung field is clear Cardio: COMMON NORMALS: regular rate, regular rhythm, S1 normal heart sound present, S2 normal heart sound present, No gallops present (Cardio), No murmurs present (Cardio), No rub (Cardio) and Peripheral pulses 2+ throughout RATE: regular rate RHYTHM: regular rhythm HEART SOUNDS: S1 normal heart sound present and S2 normal heart sound present PERIPHERAL PULSES: Peripheral pulses 2+ throughout GI: COMMON NORMALS: Normal to inspection, nondistended, normoactive bowel sounds present, Soft to palpation, non-tender, No hepatosplenomegaly present and no masses AUSCULTATION: Yes normoactive bowel sounds PALPATION: Yes Soft to palpation and Yes No hepatosplenomegaly present RECTAL EXAM: Yes deferred Extremity: COMMON NORMALS: no clubbing, cyanosis or edema and no pedal edema Neuro: COMMON NORMALS: patient oriented x3 Discharge Data Studies Completed and Pending Completed Studies During Hospitalization Category Date Time Status CT abdomen w con* [id number] Routine Cat Scan 11/21/21 13:[address] chest wo con [id number] Routine Cat Scan 11/20/21 16:58 Completed XR chest 1V [id number] Routine Exams 11/22/21 05:41 Completed XR chest 1V portable [id number] Routine Exams 11/21/21 07:15 Completed XR chest 1V portable [id number] Stat Exams 11/20/21 00:14 Completed XR chest 1V portable [id number] Stat Exams 11/20/21 13:34 Completed XR chest 1V portable [id number] Urgent Exams 11/19/21 20:32 Completed Pending at discharge Category Date Time Status Blood Culture Stat Lab 11/21/21 05:27 Results Body Fluid Culture & GS Routine Lab 11/20/21 00:42 Results Mycobacteria, Culture w/Fluor Routine Lab 11/20/21 00:42 Received PRBC [Leukocyte Reduced RBC] Routine Lab 11/21/21 01:20 Results Type and Screen Routine Lab 11/21/21 01:20 Results Cytology [PTH] Routine Pth 11/20/21 00:42 Received Radiology Impressions Chest CT 11/20/21 16:58 IMPRESSION: 1. Large left lower lobe pleural effusion decreased in volume since prior 2. Pleural base mass anteromedial aspect of the left upper lobe 3. Chest tube is present in the left lower left lung. 4. Calcified granulomas anterior right upper lobe and mediastinum. Abdomen CT 11/21/21 13:10 IMPRESSION: 1. Left lower lobe atelectasis versus infiltrate with a small left pneumothorax and pleural effusion in which a chest tube is seen, incompletely visualized. 2. Emphysematous changes. 3. Negative for acute inflammatory process in the abdomen and pelvis. Chest X-Ray 11/22/21 05:41 IMPRESSION: Improving small left pleural effusion with persistent increased interstitial markings and airspace opacities in the left lung. No pneumothorax. Laboratory Results WBC 8.0 10^3/uL (4.0-10.0) 11/23/21 04:05 RBC 2.76 10^6/uL (4.1-5.3) L 11/23/21 04:05 Hgb 8.3 g/dL (11.7-16.6) L 11/23/21 04:05 Hct 25.1 % (42.0-52.0) L 11/23/21 04:05 MCV 90.9 fl (80-94) 11/23/21 04:05 MCH 30.1 pg (28.0-34.0) 11/23/21 04:05 MCHC 33.1 g/dL (30.0-36.0) 11/23/21 04:05 RDW 12.4 % (12.1-15.1) 11/23/21 04:05 Plt Count 235 10^3/cmm (130-400) 11/23/21 04:05 MPV 9.1 fL (7.4-10.4) 11/23/21 04:05 Neut % (Auto) 76.8 % 11/23/21 04:05 Lymph % (Auto) 9.2 % 11/23/21 04:05 [place] % (Auto) 10.2 % 11/23/21 04:05 Eos % (Auto) 3.2 % 11/23/21 04:05 Baso % (Auto) 0.2 % 11/23/21 04:05 Neut # (Auto) 6.14 10^3/uL (1.8-7.7) 11/23/21 04:05 Lymph # (Auto) 0.7 10^3/uL (0.8-4.8) L 11/23/21 04:05 [place] # (Auto) 0.8 10^3/uL (0.2-0.9) 11/23/21 04:05 Eos # (Auto) 0.3 10^3/uL (0.0-0.8) 11/23/21 04:05 Baso # (Auto) 0.0 10^3/uL (0.0-0.1) 11/23/21 04:05 Nucleated RBC % (auto) 0 % 11/23/21 04:05 Nucleated RBCs # 0.0 /100WBC 11/23/21 04:05 Differential Comment Yes 11/19/21 23:30 Sodium 137 mmol/L (136-145) 11/23/21 04:05 Potassium 4.2 mmol/L (3.5-5.1) 11/23/21 04:05 Chloride 104 mmol/L (98-107) 11/23/21 04:05 Carbon Dioxide 27 mmol/L (22-29) 11/23/21 04:05 Anion Gap 10.2 (5-19) 11/23/21 04:05 BUN 13 mg/dL (8-23) 11/23/21 04:05 Creatinine 0.8 mg/dL (0.7-1.2) 11/23/21 04:05 GFR Calculation 98.0 mL/min (90-130) 11/23/21 04:05 Glucose 104 mg/dL (65-115) 11/23/21 04:05 Calculated Osmolality 284 mOsm/kg (285-295) L 11/23/21 04:05 Calcium 7.8 mg/dL (8.5-10.5) L 11/23/21 04:05 Total Bilirubin 0.4 mg/dL (0.15-1.2) 11/21/21 01:15 AST 10 U/L (0-40) 11/21/21 01:15 ALT 18 U/L (0-41) 11/21/21 01:15 Alkaline Phosphatase 75 IU/L (40-130) 11/21/21 01:15 Troponin T Baseline 16 ng/L (0-15) H 11/19/21 20:38 Troponin T 120 Minute 13.70 ng/L (0-15) 11/19/21 22:08 Delta Troponin T -2.30 ABS# (0-10) L 11/19/21 22:08 Troponin T Hi Sens 6Hr 15.04 ng/L (0-15) H 11/20/21 02:27 Troponin T Hi Sens 6Hr Delta -0.96 ng/L (0-12) L 11/20/21 02:27 C-Reactive Protein 53.1 mg/L (0.0-4.9) H 11/19/21 20:38 NT-Pro-B Natriuret Pep 64 pg/mL (0-125) 11/19/21 20:38 Total Protein 4.2 g/dL (6.6-8.7) L 11/21/21 01:15 Albumin 2.9 g/dL (3.5-5.2) L 11/21/21 01:15 Globulin 1.3 g/dL (1.3-4.6) 11/21/21 01:15 Tumor Marker AFP 3.7 ng/mL (0-8.3) 11/21/21 01:15 Carcinoembryonic Ag 23.6 ng/mL (0.0-4.7) H 11/21/21 01:15 CA 19-9 Antigen 1.07 U/mL (0-35) 11/21/21 01:15 PSA Screen 2.25 ng/mL (0-4) 11/21/21 01:15 Procalcitonin 0.10 ng/mL (0-0.5) 11/19/21 20:38 TSH 4.26 uIU/mL (0.27-4.20) H 11/21/21 01:15 Fluid Color Red 11/19/21 23:30 Fluid Appearance Bloody 11/19/21 23:30 Fluid WBC 3028 /uL 11/19/21 23:30 Fluid RBC 1056.000 10^3/uL 11/19/21 23:30 Fluid Hematocrit 10.1 % 11/19/21 23:30 Fld Polynuclear WBCs # 1.454 11/19/21 23:30 Fld Polynuclear WBCs % 48.000 % 11/19/21 23:30 Fl Mononucl WBCs #(Auto) 1.574 11/19/21 23:30 Fl Mononuclear % Auto 52.000 % 11/19/21 23:30 Fluid Albumin 3.5 g/dL 11/19/21 23:30 Fluid Creatinine 0.95 (0.7-1.2) 11/19/21 23:30 Pleural pH 8.00 (6.5-7.5) H 11/19/21 23:30 Pleural Total Protein 4.7 g/dL 11/19/21 23:30 Pleural LDH 662 U/L 11/19/21 23:30 Pleural Glucose 4.0 mg/dL 11/19/21 23:30 Pleural Amylase 438.0 U/L 11/19/21 23:30 Pleural Triglycerides 29 mg/dL 11/19/21 23:30 Vancomycin Trough 9.9 ug/mL (10-15) L 11/21/21 17:40 Blood Type O Positive 11/21/21 01:20 Rho(D) Type Positive 11/21/21 01:20 Antibody Screen Negative 11/21/21 01:20 Crossmatch See Detail 11/21/21 01:20 Vitals Last Vital Signs Temp 98.0 F 11/23/21 08:22 Pulse 98 11/23/21 08:22 Resp 18 11/23/21 08:22 BP 91/47 11/23/21 08:22 Pulse Ox 95 11/23/21 08:22 Discharge Plan Discharge Patient Disposition: Home Condition: Stable Prescriptions: New Stool Softener-Laxative 8.6-50 mg Tablet 1 tab PO BID 30 Days Qty: 60 1RF Protonix 40 mg tablet,delayed release (DR/EC) 40 mg PO BID 30 Days Qty: 60 3RF Continued Vitamin D-3 with Aloe 120-1,000-10 mg-unit-mg Tablet 1 tab PO DAILY 0RF Discharge Orders: Discharge Order (Routine); Ordered 11/23/21 Ordered By: Davidson Long Referrals: Ten Merrill MD [Physician] - 1 week (should call thursday11/25/21 with appointment ) Kyleigh Leone FNP [Primary Care Provider] - 2 weeks (should call thursday11/25/21 with appointment ) Discharge Diet: Regular Discharge Activity: Resume usual activity Patient Instructions: Laxative, Stool Softeners (By mouth), Pantoprazole (By mouth), Pleural Effusion (GEN), Hypoxia (GEN), Opioid Safety Discharge Attestations Time Spent in Discharge Care*: greater than 30 min Specific Discharge Activities: educating patient, educating and/or supporting family/caregiver, discussing with pcp/other providers, discussing with transplant case manager/social workers/dc planners, documenting/other paperwork and evaluating patient/reviewing data Status at Discharge: Cognitive status at discharge: cognitively intact , Behavioral status at discharge: cooperative , Functional status at discharge: independent ambulation , Overall status at discharge: patient is back to baseline Quality Metrics Clinical Quality Measures [ No reported AMI, CVA or VTE this stay] Coding Level of Care Code Acute Chg FW DC note Diagnoses Recurrent pleural effusion on left J90
[2021-11-23 11:53] VITALS: BP 91/46; PULSE 83; RESP 16; TEMP 36.8; O2SAT 96
[2021-11-23 14:01] VITALS: BP 91/46; PULSE 83; RESP 16; TEMP 36.8; O2SAT 96
[2021-11-29 12:13] LABS: Miscellaneous Test See Scanned Lab Rpt
== END 2021-11-23 14:00 | disposition home or self-care (01) | DRG 186 ==
LOC: ER 22:08 → MEDSURG 22:26 → ICU 22:51 → MEDSURG 11-22 15:05
PROVIDERS: Internal Medicine Pulmonary Disease; Admitting Provider Internal Medicine; Emergency Provider Emergency Medicine; PCP Nurse Practitioner; Visit Provider Internal Medicine
DX: J90 Pleural effusion, not elsewhere classified (principal); R57.1 Hypovolemic shock; J93.9 Pneumothorax, unspecified; R04.89 Hemorrhage from other sites in respiratory passages; R71.0 Precipitous drop in hematocrit; R84.6 Abnormal cytological findings in specimens from respiratory organs and thorax; K29.70 Gastritis, unspecified, without bleeding; R09.02 Hypoxemia; I95.9 Hypotension, unspecified; R50.9 Fever, unspecified; R91.8 Other nonspecific abnormal finding of lung field; N40.0 Benign prostatic hyperplasia without lower urinary tract symptoms
CPT/HCPCS: 36415; 36430; 71045; 71250; 74160; 80048; 80053; 80202; 80500; 82042; 82105; 82150; 82378; 82570; 82945; 83615; 83880; 83986; 84145; 84157; 84443; 84478; 84484; 85014; 85018; 85025; 86140; 86301; 86850; 86900; 86920; 87015; 87040; 87070; 87075; 87116; 87205; 87206; 87801; 88108; 88305; 88342; 89050; 93005; 94660; 94664; 99285; C9113; G0103; J2270; J2405; J2543; J2997; J3370; J7040; J7050; P9016; Q9967

== ENCOUNTER 2021-11-24 09:54 | Emergency (ER) | payer OTHER, SELFPAY ==
[2021-11-24 09:57] VITALS: BP 105/60; PULSE 83; RESP 16; TEMP 36.7; O2SAT 97; BMI 21.2
--- NOTE | 2021-11-24 10:32 | ED_ITS ---
HPI - General Adult General: Chief complaint: General Medical Stated complaint: Low B/P Time Seen by Provider: 11/24/21 10:06 History of Present Illness: 61-year-old male concerned about low blood pressure readings this morning (108/56). He was just discharged from the hospital yesterday after being admitted for a large pleural effusion. He was placed on levophed infusion temporarily during admission to maintain his blood pressures. He is not sure what his baseline blood pressure is, so he does not know what is normal versus too low for him. He initially felt well,but after taking his blood pressure and seeing that it was low, he started to feel light headed. No diaphresis, nauseaa, dyspnea, chest pain. He now feels normal. No fever. Review of Systems General: Reports: 10 or more systems reviewed and unremarkable except in HPI and below PFSH ED PFSH: Medical History Hypoxemia Pleural effusion on left Recurrent pleural effusion on left Tachycardia Surgical History No significant past surgical history Family History Mother Stroke Other CAD (coronary artery disease) Social History Smoking and tobacco status: never smoked Alcohol intake: never Lives independently: Yes Household members: spouse Marital status: Physical Exam Const: COMMON NORMALS: no acute distress, average body habitus, patient oriented x3, no limitations, healthy appearing, alert and well nourished Eye: GENERAL EYE: appearance normal, both eyes and all related structures ALIGNMENT: Yes alignment normal Neck/C-Spine: GENERAL: Yes normal visual inspection and Yes trachea midline Resp: COMMON NORMALS: normal respiratory effort and No use of accessory mu scles EFFORT & INSPECTION: Yes able to speak in complete sentences AUSCULTATION: diminished lung sounds on the left Cardio: COMMON NORMALS: regular rate and regular rhythm RATE: regular rate RHYTHM: regular rhythm GI: COMMON NORMALS: Soft to palpation PALPATION: Yes Soft to palpation and No Tenderness to palpation present (GI) Extremity: NARRATIVE EXTREMITY EXAM: Warm and well-perfused. Neuro: COMMON NORMALS: patient oriented x3 SENSORIUM/ORIENTATION: Yes alert Skin: COMMON NORMALS: no rashes or lesions noted, no wounds, turgor normal and no jaundice GENERAL SKIN EXAM: no rashes or lesions noted and turgor normal Course Vital Signs: Vital signs: Vital Signs Temperature 98.1 F 11/24/21 10:46 Pulse Rate 89 11/24/21 10:59 Respiratory Rate 16 11/24/21 10:46 Blood Pressure 105/63 11/24/21 10:59 Pulse Oximetry 97 11/24/21 10:46 [facility] - General Adult Medical Decision Making Well-appearing 61-year-old with concerns about his blood pressure. Looking back on his records, it seems like his baseline systolic blood pressure ranges between 105-120, so his current pressures are not abnormal for him. He did not have any orthostatic changes, and feels well. Xray shows stable L sided effusion. Return precautions discussed. No further workup needed at this time. Medical Records I reviewed the patient's medical records. Lab Data Radiology Impressions Chest X-Ray 11/24/21 10:42 IMPRESSION: 1. Small left pleural effusion increased from 11/22/2021. 2. No change in left pulmonary infiltrates. Discharge Plan Discharge Patient Disposition: Home Clinical Impression: Feared condition not demonstrated Condition: Stable Prescriptions: No Action Vitamin D-3 with Aloe 120-1,000-10 mg-unit-mg Tablet 1 tab PO DAILY 0RF sennosides-docusate sodium [Stool Softener-Laxative] 8.6-50 mg Tablet 1 tab PO BID 30 Days Qty: 60 1RF pantoprazole [Protonix] 40 mg tablet,delayed release (DR/EC) 40 mg PO BID 30 Days Qty: 60 3RF Discharge Orders: Discharge ED (Routine); Ordered 11/24/21 Ordered By: Milka Landry Referrals: Kyleigh Leone FNP [Primary Care Provider] - Discharge Diet: Usual diet Discharge Activity: Resume usual activity Activity Restrictions/Additional Instructions: Follow-up as scheduled with your specialist appointments next week. Return immediately to the ER if you develop a fever, dizziness, fainting, difficulty breathing, or any other concerning symptoms. Coding Level of Care Code ED Manhole Stripper for Papi Fwjimena Exam Detailed
--- NOTE | 2021-11-24 10:42 | XRR_ITS ---
PROCEDURE INFORMATION: Exam: XR Chest Exam date and time: 11/24/2021 9:45 AM Age: 61 years old Clinical indication: Condition or disease; Lung condition and disease; Pleural effusion; Other: Not specified; Additional info: Followup pleural effusion TECHNIQUE: Imaging protocol: XR of the chest. Views: 1 view. COMPARISON: CR XR chest 1V [id number] 11/22/2021 6:06 AM FINDINGS: Tubes, catheters and devices: Left chest tube is no longer identified. Lungs: There is calcified granuloma in the right upper lobe. There are calcified right hilar lymph nodes in keeping with old granulomatous disease. Visualized portions of the right lung are clear. Hazy opacities and interstitial densities in the left lower lobe not significantly changed. Pleural spaces: There is a moderate left pleural effusion which is partly loculated within the fissure. Left pleural effusion is larger than the previous examination. Heart/Mediastinum: Unremarkable. No cardiomegaly. Bones/joints: Unremarkable. XR/XR chest 1V portable [id number] IMPRESSION: 1. Small left pleural effusion increased from 11/22/2021. 2. No change in left pulmonary infiltrates.
[2021-11-24 10:46] VITALS: BP 105/60; PULSE 83; RESP 16; TEMP 36.7; O2SAT 97
[2021-11-24 10:59] VITALS: BP 105/63; BP 107/63; BP 112/75; PULSE 84; PULSE 89; PULSE 93
== END 2021-11-24 11:58 | disposition home or self-care (01) ==
PROVIDERS: Emergency Provider Family Medicine; PCP Nurse Practitioner
DX: Z03.89 Encounter for observation for other suspected diseases and conditions ruled out (principal)
CPT/HCPCS: 71045; 99282

== ENCOUNTER 2021-11-28 09:56 | Outpatient (CLI) | payer OTHER, SELFPAY ==
--- NOTE | 2021-11-28 14:47 | ONC CON_ITS ---
Dr. Kang New Patient Note Patient: Shahab Ramos Unit #: [id number]: 1960 Dicatated By: Enio Kang M.D.Date of Visit: Nov 28, 2021 Onc MED New Patient/Consult Referring Physician: Ten Merrill Chief Complaint: Suspected lung cancer. History of Present Illness: This is a 61-year-old man with left pleural effusion and CT evidence of left upper lobe pulmonary nodule, suspicious for lung cancer. He has been in good general health. He had presented earlier this month with shortness of breath and cough. He was treated initially for bronchitis, but have not improvement. He was then seen in the emergency room and found on chest x-ray to have left pleural effusion. His CT scans of the chest, abdomen, and pelvis on 11/18/2021 showed nearly completely collapsed left lung in association with a very large pleural effusion. There were no acute findings in the abdomen/pelvis. He underwent ultrasound-guided thoracentesis with removal of 1100 mL of bloody fluid. The initial pleural fluid cytology was negative. He subsequently was admitted to the hospital for recurrence of the effusion, requiring chest tube placement. His clinical course was complicated by hypovolemic shock, presumably due to blood loss. He required PRBC transfusion. His repeat chest CT on 11/20/2021 still showed evidence of large left lower lobe pleural effusion. Also noted was a pleural-based mass in the anteromedial aspect of the left upper lobe measuring 1.6 x 2.7 cm. The repeat pleural fluid cytology showed large hyperchromatic atypical cells which were suspicious for malignancy. He is seen now for further management. He has been feeling much better since discharge from the hospital. He still has some shortness of breath, but his breathing has improved, and he is having less cough now. His energy/activity tolerance are improving. His ECOG score is 1. His appetite had been down for a couple of weeks, but that also is getting better. His weight had dropped 10 to 15 pounds, but he is beginning to regain some of that. He has not had fever. He had chills and sweating one night. He has not had sore mouth or throat. He has not been having chest pain. He was having constipation, but bowels are now regular again. He has no other GI or complaints. He has no significant joint or bone pain. He does not complain of headache or dizziness, and he has no focal neurologic symptoms. Past Medical History: He has no prior ongoing medical illnesses. Past Surgical History: He has had no prior surgeries. Medications: Cholecalciferol (125 mcg ) Capsule Oral daily, Kidney (950 mg) Tablet Oral daily, Selenium (30 mcg) Tablet Oral daily, Zinc (200 mg) Tablet Oral daily Allergies: No Known Allergies. Social History: Mr. Ramos is . 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 He is not aware of having any asbestos exposure. He is a non-smoker. He does not drink alcohol. Family History: His father had heart disease and stroke. He age 79. Mother at age 78 with complications of diabetes. Five siblings are in good health. Review Of Symptoms: Constitutional - His energy/activity tolerance are improving. He is doing light work. His appetite was down for at least 2 weeks, but it is getting better now. His weight dropped 10 to 15 pounds, but he is beginning to regain some of that. He has not had any documented fever. He did have some chills and sweating one night. ECOG score is 1, Eyes - No change in vision, ENMT - No hearing loss or tinnitus. No sinus congestion/drainage. No mouth sores. No sore throat or difficulty swallowing, Hematologic/Lymphatic - No abnormal bruising or bleeding, Respiratory - He still has some shortness of breath, but his breathing is getting better. He has had nonproductive cough, but less now than it had been. No pleuritic pain or hemoptysis, Cardiovascular - No angina pain. No palpitations. He has recently developed some mild swelling, Gastrointestinal - No nausea or vomiting. No heartburn or acid reflux. He had constipation, with bowel function is regular now. No blood in the stool or black stools, Genitourinary (M) - No dysuria or hematuria. No urinary frequency. No urgency or incontinence, Musculoskeletal - No joint or bone pain, Integumentary - No skin rash or other skin changes, Neurologic - No headache or dizziness. No numbness or tingling. No other focal neurologic symptoms, Psychiatric - No anxiety or depression. He was having difficulty sleeping, but that has improved. Vital Signs: Performed on Nov 28, 2021 10:44: 3, 0, 22.41, 1.88 sq.m, 70 in, 98 %, 88 /min, 16 /min, 114/74 mm(hg), 98.1 F (LOW), and 156.2 lbs (HIGH). Physical Examination: Constitutional - He looks pretty good generally, Eyes - Sclerae nonicteric. Conjunctivae clear, ENMT - No lesions noted in the oral cavity, Neck - No mass or thyromegaly, Hematologic/Lymphatic - No cervical, clavicular, or axillary adenopathy, Respiratory - Lungs are clear with good air movement bilaterally, Cardiovascular - Lungs sound clear but with diminished air movement on the left. There is good air movement on the right, Abdomen - Soft and non-tender. Liver and spleen are not enlarged. There is no abdominal mass or ascites noted and there is no inguinal adenopathy, Back/Spine - No spine or CVA tenderness noted, Extremities - Mild lower extremity edema. Pedal pulses are palpable bilaterally, Integumentary - No rashes. No suspicious skin lesions noted, Neurologic - No focal neurologic deficits noted. Lab/Imaging: His laboratory studies on 11/21/2021 included CBC showing hemoglobin 11.8 g, white blood cell count 9100, and platelet count 282,000. Comprehensive metabolic profile showed normal renal function with BUN 16 and creatinine 0.9 mg/dL. Bilirubin and liver enzymes were normal. Albumin was low at 2.9 g/dL. TSH was slightly elevated at 4.26 ???IU/mL. His CEA was elevated at 23.6 ng/mL. As of 11/23/2021 the hemoglobin had dropped 8.3 g. Problem List: 1. Patient with left pleural effusion and left upper lobe pulmonary nodule, suspicious for lung cancer. 2. He has moderately severe anemia. Problems Addressed with this Encounter and Plan: 1. Patient with left pleural effusion and left upper lobe pulmonary nodule, suspicious for lung cancer. His pleural fluid cytology was suspicious, but not unequivocal for malignancy. The CT findings and images were reviewed with the patient, and we discussed the clinical implications. We discussed the fact that the probability is very high that he has lung cancer, in which case it will be inoperable and incurable. The diagnosis will need to be confirmed with biopsy, as will be imperative to get a complete pathologic analysis to direct treatment. As such, I will talk to Dr. Merrill about scheduling bronchoscopy, as it appears unlikely to me that the lesion will be accessible for CT directed needle biopsy. In the meantime, I also will schedule him for staging PET/CT. 2. He has moderately severe anemia. This was thought to perhaps be due to blood loss, as he had suffered hypovolemic shock following chest tube placement. He did require PRBC transfusion. He will be scheduled for additional laboratory studies, and he will have further evaluation as indicated. Signed By: Enio Kang M.D. <<Signature on File>>
== END 2021-11-28 09:57 | disposition home or self-care (01) ==
LOC: ONCMED 09:59
PROVIDERS: PCP Nurse Practitioner; Visit Provider Internal Medicine Medical Oncology
DX: J90 Pleural effusion, not elsewhere classified (principal); R91.8 Other nonspecific abnormal finding of lung field; D64.9 Anemia, unspecified; Z79.899 Other long term (current) drug therapy
CPT/HCPCS: 99205

== ENCOUNTER 2021-12-02 09:24 | Outpatient (CLI) | payer OTHER, SELFPAY ==
[2021-12-02 10:17] LABS: Basophils % 0.2 %; Eosinophils # 0.3 10^3/uL (0.0-0.8); Eosinophils % 4.9 %; Hematocrit 29.1 % (42.0-52.0); Hemoglobin 9.3 g/dL (11.7-16.6); Lymphocytes # 0.7 10^3/uL (0.8-4.8); Lymphocytes % 12.8 %; Mean Corpuscular Hemoglobin 31.1 pg (28.0-34.0); Mean Corpuscular Volume 97.3 fl (80-94); Mean Platelet Volume 8.8 fL (7.4-10.4); Monocytes # 0.5 10^3/uL (0.2-0.9); Monocytes % 9.8 %; Neutrophils # 3.67 10^3/uL (1.8-7.7); Neutrophils % 72.1 %; Nucleated Red Blood Cells % 0 %; Platelet Count 422 10^3/cmm (130-400); Red Blood Count 2.99 10^6/uL (4.1-5.3); Red Cell Distribution Width 13.4 % (12.1-15.1); Reticulocyte % 2.6 % (0.5-2.0); White Blood Count 5.1 10^3/uL (4.0-10.0)
[2021-12-02 11:18] LABS: Alanine Aminotransferase 15 U/L (0-41); Albumin Level 3.2 g/dL (3.5-5.2); Alkaline Phosphatase 93 IU/L (40-130); Anion Gap 12.2 (5-19); Aspartate Amino Transferase 11 U/L (0-40); Blood Urea Nitrogen 12 mg/dL (8-23); Calcium 8.6 mg/dL (8.5-10.5); Carbon Dioxide 26 mmol/L (22-29); Chloride 105 mmol/L (98-107); Globulin 2.7 g/dL (1.3-4.6); Glomerular Filtration Rate 114.3 mL/min (90-130); Glucose 100 mg/dL (65-115); Iron 32 ug/dL (59-158); Lactate Dehydrogenase 206 U/L (135-225); Osmolality Calculated 288 mOsm/kg (285-295); Percent Saturation 14.9 % (20-50); Potassium 4.2 mmol/L (3.5-5.1); Sodium 139 mmol/L (136-145); Thyroid Stimulating Hormone 2.16 uIU/mL (0.27-4.20); Total Bilirubin 0.2 mg/dL (0.15-1.2); Total Iron Binding Capacity 214 mcg/dl; Total Protein 5.9 g/dL (6.6-8.7); Unsaturated Iron Binding 182 ug/dL (112-347); Vitamin B12 314 pg/mL (232-1245)
== END 2021-12-02 09:25 | disposition home or self-care (01) ==
LOC: ONCMED 09:28
PROVIDERS: PCP Nurse Practitioner; Visit Provider Internal Medicine Medical Oncology
DX: C34.12 Malignant neoplasm of upper lobe, left bronchus or lung (principal); J91.0 Malignant pleural effusion; D64.9 Anemia, unspecified; Z79.899 Other long term (current) drug therapy
CPT/HCPCS: 36415; 80053; 82607; 83010; 83540; 83550; 83615; 84443; 85025; 85045

== ENCOUNTER → 2021-12-03 15:45 | Outpatient (BNVA) | payer OTHER, SELFPAY | PROVIDERS: PCP Nurse Practitioner; Visit Provider Internal Medicine Pulmonary Disease | DX: Z09 Encounter for follow-up examination after completed treatment for conditions other than malignant neoplasm (principal); J90 Pleural effusion, not elsewhere classified; C34.90 Malignant neoplasm of unspecified part of unspecified bronchus or lung | CPT/HCPCS: 71046 ==

== ENCOUNTER 2021-12-19 08:06 | Outpatient (CLI) | payer OTHER, SELFPAY ==
--- NOTE | 2021-12-20 06:57 | ONC FU_ITS ---
Dr. Kang Patient Follow-Up Note Patient: Shahab Ramos Unit #: [id number]: 1960 Dicatated By: Enio Kang M.D.Date of Visit:Dec 19, 2021 Onc Med Follow-up/Prog Note Chief Complaint: Lung cancer. 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 By clinical evaluation his disease is stage IVB (T2a, N3, M1c). He had presented in November 2021 with shortness of breath and cough. He was treated initially for bronchitis, but with no improvement. He was then seen in the emergency room and found on chest x-ray to have left pleural effusion. His CT scans of the chest, abdomen, and pelvis on 11/18/2021 showed nearly completely collapsed left lung in association with a very large pleural effusion. There were no acute findings in the abdomen/pelvis. He underwent ultrasound-guided thoracentesis with removal of 1100 mL of bloody fluid. The initial pleural fluid cytology was negative. He subsequently was admitted to the hospital for recurrence of the effusion, requiring chest tube placement. His clinical course was complicated by hypovolemic shock, presumably due to blood loss. He required PRBC transfusion. His repeat chest CT on 11/20/2021 still showed evidence of large left lower lobe pleural effusion. Also noted was a pleural-based mass in the anteromedial aspect of the left upper lobe measuring 1.6 x 2.7 cm. The repeat pleural fluid cytology showed large hyperchromatic atypical cells which were ultimately determined to be positive for malignancy and consistent with adenocarcinoma. By IHC the tumor cells were positive for CK7, Napsin-A, Raulito-EP4, and RITA. There were negative for TTF-1. They were found to be negative for P-L1 expression with TPS < 1%. His staging PET/CT on 12/17/2021 showed an FDG avid left upper lobe mass measuring 3.5 x 2.4 cm, SUV 12.1, consistent with primary malignancy. There was diffuse thickening and increased FDG uptake along the left visceral pleura with maximum SUV 6.9 compatible with pleural metastasis. There were FDG positive lymph nodes in the subcarinal area with SUV 6.8 and in the right perihilar area with SUV 7.7. Also noted was a left pleuritic lymph node measuring 0.8 x 0.6 cm with SUV 3.7 and an additional left periaortic/perirenal lymph node measuring 1.0 x 0.7 cm with SUV 4.4, which were concerning for metastatic disease. His past medical history is otherwise unremarkable. He had no prior medical illnesses or surgeries. He is a non-smoker. He is seen for a follow-up visit. He says he is feeling better now than he had been. He has some fatigue, but he has active throughout the day. His appetite also is better. He does not have fever. He sometimes has sweating at night. He has had a little sinus drainage recently. He has not had sore mouth or throat. He does have some cough and he is short of breath with activity. He occasionally has chest pain at night. He currently has no GI or complaints. He has had some lower back discomfort. He has no other joint or bone pain. He does not complain of headache or dizziness, and he has no focal neurologic symptoms. Medications: Cholecalciferol (125 mcg ) Capsule Oral daily, Ferrous Sulfate 1 Tablet (of 325 (65 fe) mg) Oral daily, Kidney (950 mg) Tablet Oral daily, Selenium (30 mcg) Tablet Oral daily, Vitamin C 1 Tablet Oral daily, Zinc (200 mg) Tablet Oral daily Allergies: No Known Allergies. Vital Signs: Performed on Dec 19, 2021 08:14 Height - 70.00 in Weight - 150.8 lbs (LOW) BSA - 1.85 sq.m BMI - 21.64 Temperature - 97.6 F (LOW) Pulse - 91 /min Respiration - 16 /min BP - 16/72 mm(hg) (LOW) O2 Sat - 95 % (LOW) Pain - 0 Fatigue - 4 Physical Examination: Constitutional - He looks pretty good generally, Eyes - Sclerae nonicteric. Conjunctivae clear, ENMT - No lesions noted in the oral cavity, Hematologic/Lymphatic - No cervical, clavicular, or axillary adenopathy, Respiratory - Lungs sound clear but with diminished air movement at the left base, Cardiovascular - Heart rhythm is regular. There is no murmur, gallop, or rub noted, Abdomen - Soft. Liver and spleen are not enlarged. There is no abdominal mass or ascites noted and there is no inguinal adenopathy, Extremities - No edema, Neurologic - No focal neurologic deficits noted. Lab/Imaging: Test performed on Dec 02, 2021 09:51 Iron 32 mcg/dL LDH (Total) 206 U/L Sodium 139 mmol/L TSH 2.16 uIU/mL Vitamin B12 314 pg/mL Iron Binding Capacity (TIBC) 214 mcg/dl Potassium 4.2 mmol/L % Iron Saturation 14.9 % Chloride 105 mmol/L CO2 26 mmol/L UIBC 182 mcg/dL Anion Gap 12.2 BUN 12 mg/dL Creatinine 0.7 mg/dL Cr Clearance (Est) 109.6500 mL/min eGFR 114.3 mL/min Glucose 100 mg/dL Osmolality - Calculated 288 mOsm/kg Calcium 8.6 mg/dL Protein, Total 5.9 g/dL Albumin 3.2 g/dL Globulin 2.7 g/dL Bilirubin, Total 0.2 mg/dL ALT (SGPT) 15 U/L AST (SGOT) 11 U/L Alkaline Phosphatase 93 IU/L Retic Count % 2.6 % WBC 5.1 10 3/uL RBC 2.99 10 6/uL HGB 9.3 g/dL HCT 29.1 % MCV 97.3 fl MCH 31.1 pg MCHC 32.0 g/dL RDW 13.4 % Platelet Count 422 10 3/cmm MPV 8.8 fL Neutrophils 3.67 10 3/uL Lymphocytes 0.7 10 3/uL Monocytes 0.5 10 3/uL Eosinophils 0.3 10 3/uL Basophils 0.0 10 3/uL Neutrophil % 72.1 % Lymphocyte % 12.8 % Monocyte % 9.8 % Eosinophil % 4.9 % Basophils % 0.2 % NRBC % 0 % Problem List: 1. Adenocarcinoma involving the upper lobe of the left lung, by clinical evaluation stage IVB (T2a, N3, M1c). 2. Moderately severe anemia. Problems Addressed with this Encounter and Plan: 1. Patient with adenocarcinoma involving the upper lobe of the left lung presenting with malignant pleural effusion. PET/CT showed FDG avid left upper lobe mass, consistent with primary malignancy. There was associated left pleural involvement, involvement of subcarinal and right hilar lymph nodes, and suspected involvement in 2 left periaortic lymph nodes, thus stage IVB (T2a, N3, M1c). His pleural fluid cytology was positive for adenocarcinoma. The PD-L1 expression was negative with TPS < 1%. The cytology results and the PET/CT findings were reviewed with the patient, and we discussed the clinical implications. He has non-small cell lung cancer with documented malignant pleural effusion and with suspected metastatic involvement in nonregional lymph nodes, thus stage IVB. He is advised that his disease is an operable and incurable, and with this pattern of involvement it will not be amenable to radiation. The recommended systemic therapy will depend on results of a next generation sequencing study, which will be done by liquid biopsy. In the absence of a targetable mutation, the recommended treatment will be combined chemotherapy/immunotherapy with carboplatin/pemetrexed in combination with pembrolizumab. To that end, I am going to arrange for surgical consultation in preparation for placement of Port-A-Cath venous access device. I will plan to see him again when the next generation sequencing results are available. 2. He has moderately severe anemia. This was thought to perhaps be due to blood loss, as he had suffered hypovolemic shock following chest tube placement. He did require PRBC transfusion. He will be monitored and transfused again as needed. Signed By: Enio Kang M.D. <<Signature on File>>
== END 2021-12-19 08:07 | disposition home or self-care (01) ==
LOC: ONCMED 08:08
PROVIDERS: PCP Nurse Practitioner; Visit Provider Internal Medicine Medical Oncology
DX: C34.12 Malignant neoplasm of upper lobe, left bronchus or lung (principal); C77.1 Secondary and unspecified malignant neoplasm of intrathoracic lymph nodes; D64.9 Anemia, unspecified
CPT/HCPCS: 36415; 99215

== ENCOUNTER 2022-01-02 08:39 | Day surgery (SDC) | payer OTHER, SELFPAY ==
[2022-01-01 15:07] VITALS: BMI 22.4
--- NOTE | 2022-01-02 | SCC_ITS ---
Procedure done: 1. Placement of PowerPort in the right internal jugular vein 2. Fluoroscopic guidance and interpretation for placement of catheter 3. Ultrasound guidance to access the right internal jugular vein 28.7 seconds of fluoroscopic guidance, for a cumulative dose of 4.44 mGy, was provided to Dr. Costa by the radiology department. C-arm images of the chest were saved for the patient's permanent record. [facility] CENTERStoney
--- NOTE | 2022-01-02 08:51 | P.HP_ITS ---
Same Day Surgery H&P Indication for Procedure/HPI DATE OF PROCEDURE: January 02, 2022 CHIEF COMPLAINT/INDICATIONFOR SURGICAL PROCEDURE: port placement PREOP DIAGNOSIS: lung ca PLANNED PROCEDURE: Operation Date: 01/02/22 10:15 Proposed Procedures p Portacath Placement 78232/lung cancer X34.90(Not Applicable) - Jay Costa MD Medications/Allergies* Home Medications Medication Instructions Recorded Confirmed Type calcium cmb 1 tab PO DAILY 11/19/21 01/01/22 History no.[id number]-aloe 120 mg-1,000 unit-10 mg tablet (Vitamin D-3 with Aloe) pantoprazole 40 mg tablet,delayed 40 mg PO BID PRN 01/01/22 01/01/22 History release (Protonix) Allergies/Adverse Reactions Allergy/AdvReac Type Severity Reaction Status Date / Time No Known Allergies Allergy Verified 01/01/22 15:05 Pertinent History/Comorbid Conditions* Medical History (Updated 12/31/21 @ 09:27 by Jay Costa MD) Adenocarcinoma of lung, stage 4 Surgical History (Updated 12/31/21 @ 09:27 by Jay Costa MD) History of colonoscopy 2013 History of esophagogastroduodenoscopy (EGD) 2013 Family History (Updated 11/20/21 @ 00:36 by Gt Damian MD) CAD (coronary artery disease) Stroke Mother Social History Smoking and tobacco status: never smoked Alcohol intake: never Lives independently: Yes Household members: spouse Marital status: Pertinent Exam Findings alert, oriented x 3 and regular rate & rhythm Recommendations Surgery/Procedure today Coding Level of Care Code Acute Chemical Process Analyst for Chg Sophie
--- NOTE | 2022-01-02 09:06 | ANES.PREANE2 ---
Pre-Anesthetic Assessment Height/Weight: Height 1.78 m Weight 70.76 kg Preop Diagnosis: lung ca Operation Date: 01/02/22 10:15 Proposed Procedures p Portacath Placement 27770/lung cancer X34.90(Not Applicable) - Jay Costa MD Familial anesthetic complications: none Was Beta Wayne taken within 24 hours: N/A Was Clonidine taken within 24 hours: N/A Last intake: Intake Last Liquid Date 01/01/22 Last Liquid Time 18:00 Last Solid Date 01/01/22 Last Solid Time 18:00 Social No alcohol and No tobacco Exam alert, oriented x 3, clear to auscultation bilaterally and regular rate & rhythm Airway Submandibular: within normal limits Cervical ROM: within normal limits Mallampati: Class I Dentition: chipped Comments: Comments: missing multiple teeth History/ROS No significant complaints Pulmonary Lung cancer SOB with 100 yards walking Pleural effusion CV/HEM None reported None reported Hepatic None reported GI None reported Metabolic None reported Musc/skel None reported Neuropsych None reported Anesthetic Plan ASA status: 3 Anesthesia: Anesthesia Evaluation and General Other: I discussed with the patient risks, goals, and benefits of MAC and general anesthesia. We discussed spectrum of MAC anesthesia including conversion to general as well as possibility of recall of intraoperative stimuli including discomfort/pain. Patient agrees to proceed with MAC. Risk of > 500 ml blood loss (7ml/kg in children): No Medications/Allergies Home Medications Medication Instructions Recorded Confirmed Last Taken Type calcium cmb 1 tab PO DAILY 11/19/21 01/01/22 Unknown History no.[id number]-aloe 120 mg-1,000 unit-10 mg tablet (Vitamin D-3 with Aloe) pantoprazole 40 mg tablet,delayed 40 mg PO BID PRN 01/01/22 01/01/22 Unknown History release (Protonix) Allergies Allergy/AdvReac Type Severity Reaction Status Date / Time No Known Allergies Allergy Verified 01/02/22 09:02 [facility] Anesthesia Medical History Adenocarcinoma of lung, stage 4 Surgical History History of colonoscopy 2013 History of esophagogastroduodenoscopy (EGD) 2013 Family History Mother Stroke Other CAD (coronary artery disease) Social History Smoking and tobacco status: never smoked Alcohol intake: never Lives independently: Yes Household members: spouse Marital status: Data Anesthesia Cardiac Studies: No Data to Display
[2022-01-02] MEDS: sodium chloride 0.9% 1,000 ML 30 ML IV (09:15)
--- NOTE | 2022-01-02 09:21 | SC_ITS ---
WS: [id number] C-ARM RADIOGRAPHS CHEST; 3 IMAGES HISTORY: Port placement. COMPARISON: None available. Intraoperative imaging during RIGHT subclavian Port-A-Cath placement. SC/C-arm FL for CVA 61231 IMPRESSION: Intraoperative imaging during RIGHT subclavian Port-A-Cath placement.
[2022-01-02] MEDS: lidocaine 2% INJ 20 mL 15 ML INJECTION (09:40)
[2022-01-02] MEDS: heparin, porcine 1,000 unit/mL INJ 10 mL 6000 UNIT IRRIGATION (09:43)
--- NOTE | 2022-01-02 09:54 | P.OP_ITS ---
Operative Report Date of procedure: January 02, 2022 Pre-op diagnosis: Lung cancer requiring central venous access for chemotherapy Post-op diagnosis: same Procedure done: 1. Placement of PowerPort in the right internal jugular vein 2. Fluoroscopic guidance and interpretation for placement of catheter 3. Ultrasound guidance to access the right internal jugular vein Pathology: none sent Surgeon: Jay Costa Anesthesia: MAC Condition: stable Disposition: PACU Procedure: The patient was taken to the Operating Room and the chest and neck bilaterally were prepped and draped in a sterile manner after the antibiotic had been administered and shoulder rolls had been placed. An ultrasound of the right internal jugular vein revealed patent flow, no thrombus. 2% lidocaine with 0.25% Marcaine was infiltrated at the side at the site of the planned around right internal jugular vein. An introducer needle was then used to access the right internal jugular vein and after withdrawing blood syringe was removed and a guidewire passed under fluoroscopy into the superior vena cava. The site of the planned port was then marked on the chest and a 15 blade was used to make a 3 cm skin incision this was extended into the subcutaneous tissue using electrocautery and a subcutaneous pocket over the pectoralis fascia was created 2-0 Vicryl suture was used to suture the port to the pectoral fascia in the po cket on 3 sides. The catheter, after having been flushed with hep saline, was attached to the tunneler and a tunnel created between the port site and the internal jugular vein entry site. Under fluoroscopy the dilator sheath was passed over the guidewire into the proximal superior vena cava. The inner dilator was removed and the sheath left behind and the catheter was introduced through the peel-away sheath with the tip in the superior vena cava. The peel-away sheath was removed. The proximal end of the catheter was cut to the right size and was attached to the port. Using a Madrid needle the port was accessed, it withdrew blood easily and flushed easily. A final 5cc of heparin was used to flush the PowerPort. The subcutaneous tissue was approximated using interrupted 3-0 Vicryl sutures and the skin at the introducer site and the port site was closed using subcuticular running 4-0 Monocryl sutures. Surgical glue was applied and the patient was stable throughout the procedure. Fluoroscopic guidance and interpretation was performed for introduction of the guidewire in the right internal jugular vein, passage of dilator and placement of catheter tip in the distal superior vena cava
[2022-01-02 10:01] VITALS: BP 87/59; PULSE 76; RESP 15; TEMP 36.9; O2SAT 99
[2022-01-02 10:05] VITALS: BP 92/60; PULSE 67; RESP 20; O2SAT 97
--- NOTE | 2022-01-02 10:08 | SUR.PHASEI ---
1000 PT TO PACU AWAKE ALERT VERBALLY DENIES PAIN AND NAUSEA, HOB AT 40 DEGREES, DRESSING TO RT NECK AND SUPCLAVIAN AREA D/I IV TO RT WRIST #18 WITH NS 400ML UP AT KVO RATE PER GRAVITY, , PT ID BRACELET TO LT WRIST ,PT ID'D WITH 2 IDENTIFIERS, BILAT SCDS ON .
[2022-01-02 10:26] VITALS: BP 93/62; PULSE 69; RESP 16; TEMP 36.2; O2SAT 97
[2022-01-02 10:58] VITALS: BP 103/66; PULSE 75; RESP 16; TEMP 36.1; O2SAT 98
--- NOTE | 2022-01-02 12:19 | ANE.PACU2 ---
Inpatient post-anesthesia follow up: Airway intact: Yes Vital signs: Temperature 97.0 F Pulse Rate 75 Respiratory Rate 16 Blood Pressure 103/66 Pulse Oximetry 98 Oxygen Delivery Me thod Room Air Oxygen Flow Rate Fraction of Inspir ed Oxygen Hydration adequate: Yes Nausea and vomiting: No Pain level: 1 Mental status: Baseline
== END 2022-01-02 11:06 | disposition home or self-care (01) ==
PROVIDERS: PCP Nurse Practitioner; Visit Provider Surgery
PROC: (CPT 36561; principal; 2022-01-02 10:05)
DX: C34.90 Malignant neoplasm of unspecified part of unspecified bronchus or lung (principal); Z82.49 Family history of ischemic heart disease and other diseases of the circulatory system; Z82.3 Family history of stroke
CPT/HCPCS: 36561; 76937; 76000; 77001; C1788; J0690; J1644; J2704; J3010; J3490; J7030

== ENCOUNTER 2022-01-15 16:16 | Oncology outpatient (recurring) (ONCR) | payer OTHER, SELFPAY | END 2022-02-04 23:59 | disposition home or self-care (01) | PROVIDERS: PCP Nurse Practitioner; Visit Provider Nurse Practitioner Family | DX: Z53.9 Procedure and treatment not carried out, unspecified reason (principal) ==

== ENCOUNTER → 2022-01-21 11:59 | Outpatient (BNVA) | payer OTHER, SELFPAY | PROVIDERS: PCP Nurse Practitioner; Visit Provider Internal Medicine Pulmonary Disease | DX: J90 Pleural effusion, not elsewhere classified (principal); C34.90 Malignant neoplasm of unspecified part of unspecified bronchus or lung; J22 Unspecified acute lower respiratory infection | CPT/HCPCS: 71046 ==

== ENCOUNTER 2022-01-28 18:30 | Inpatient (IN) | payer OTHER, SELFPAY ==
--- NOTE | 2022-01-28 18:32 | ECG_ITS ---
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 Measurements Intervals [place] Rate: 92 P: 82 SC: 145 QRS: 77 QRSD: 96 T: 66 QT: 328 QTc: 406 Interpretive Statements SINUS RHYTHM Compared to ECG 11/22/2021 05:48:56 No significant changes Electronically Signed On 01-29-2022 22:03:00 CDT by Princess Patel M.D. [id number]
--- NOTE | 2022-01-28 18:32 | XRR_ITS ---
PROCEDURE INFORMATION: Exam: XR Chest Exam date and time: 01/28/2022 8:00 PM Age: 61 years old Clinical indication: Chest wall pain; Prior surgery; Surgery date: 6+ months; Surgery type: Port; Additional info: Cp TECHNIQUE: Imaging protocol: XR of the chest. Views: 1 view. COMPARISON: CR XR chest 2V* [id number] 01/21/2022 12:58 PM FINDINGS: Tubes, catheters and devices: Right-sided Port-A-Cath. Lungs: Small to moderate left pleural effusion with patchy left lung airspace opacities, somewhat more prominent compared to prior exam. Pleural spaces: See Lungs finding. Heart/Mediastinum: Unremarkable. No cardiomegaly. Bones/joints: Unremarkable. XR/XR chest 1V portable [id number] IMPRESSION: Small to moderate left pleural effusion with patchy left lung airspace opacities, somewhat more prominent compared to prior exam.
[2022-01-28 18:57] VITALS: BP 116/68; PULSE 92; RESP 22; TEMP 36.6; O2SAT 94
--- NOTE | 2022-01-28 19:16 | W.ED.CHESTPA ---
HPI - Chest Pain General: Chief Complaint: Chest Pain Stated Complaint: CP Time Seen by Provider: 01/28/22 19:06 Source: patient Mode of arrival: ambulatory Limitations: no limitations History of Present Illness: 61-year-old male recently diagnosed with cancer did have a pleural effusion was drained little over a month ago. He states that he had seen pulmonology and last week had a pneumonia has been having a cough states he just finished his antibiotic. He states he been having some very sharp left-sided chest pain especially when he coughs over the last he states really 3 weeks but is worsened over the last 2 to 3 days. He states it is worse with palpation improved with rest denies any vomiting or diarrhea denies any abdominal pain. Denies any fevers. Associated symptoms: Deny abdominal pain, dyspnea, fever(s), nausea or vomiting Review of Systems Const: Denies: fever(s), chills, body aches or change in appetite Eyes: Denies: blurry vision or eye discomfort ENMT: Denies: throat pain or dental pain Card: Reports: chest pain Resp: Denies: dyspnea GI: Denies: abdominal pain, nausea, vomiting or diarrhea : Denies: dysuria Musc: Denies: neck pain or back pain Skin/Breast: Denies: rash Neuro: Denies: headache(s) Psych: Denies: depression Roberto/Lymph: Denies: easy bruising All/Imm: Denies: urticaria PFSH ED PFSH: Medical History Adenocarcinoma of lung, stage 4 Surgical History History of colonoscopy 2013 History of esophagogastroduodenoscopy (EGD) 2014 Port-A-Cath in place (01/02/22) Family History Mother Stroke Other CAD (coronary artery disease) Social History Smoking and tobacco status: never smoked Alcohol intake: never Lives independently: Yes Household members: spouse Marital status: Physical Exam Const: COMMON NORMALS: no acute distress, patient oriented x3 and healthy appearing HENMT: COMMON NORMALS: normocephalic and atraumatic HEAD & SCALP: normocephalic and atraumatic Eye: COMMON NORMALS: Equal, round and reactive pupils present and EOMs intact bilaterally PUPIL: Yes Equal, round and reactive pupils present Neck/C-Spine: COMMON NORMALS: full ROM and supple Chest: COMMONS NORMALS: normal inspection of the chest OTHER: point tender over left chest reproduces pain Resp: COMMON NORMALS: normal respiratory effort, No retractions, No use of accessory muscles and clear to auscultation bilaterally AUSCULTATION: clear to auscultation bilaterally Cardio: COMMON NORMALS: regular rate, regular rhythm and No murmurs present (Cardio) RATE: regular rate RHYTHM: regular rhythm GI: COMMON NORMALS: Normal to inspection, nondistended, normoactive bowel sounds present, Soft to palpation, non-tender and no masses PALPATION: Yes Soft to palpation Extremity: COMMON NORMALS: normal to inspection and full ROM Neuro: COMMON NORMALS: patient oriented x3, moves all extremities and no focal motor deficits Psych: COMMON NORMALS: mental status grossly normal, Normal thought process present and cooperative THOUGHT PROCESS: Normal thought process present Skin: COMMON NORMALS: no rashes or lesions noted and no wounds GENERAL SKIN EXAM: no rashes or lesions noted Course Vital Signs: Vital signs: Vital Signs Temperature 97.9 F 01/28/22 18:57 Pulse Rate 75 01/28/22 19:31 Respiratory Rate 18 01/28/22 19:31 Blood Pressure 104/64 01/28/22 19:31 Pulse Oximetry 94 01/28/22 19:31 MDM - Chest Pain Medical Decision Making Patient presents for chest pain is likely muscle skeletal in nature he does have a worsening pneumonia and pleural effusion on his x-ray. Will admit as he has failed outpatient antibiotics. I spoke to hospitalist will admit. Lab Data : 01/28/22 19:29 01/28/22 19:29 Radiology Impressions Chest X-Ray 01/28/22 18:32 IMPRESSION: Small to moderate left pleural effusion with patchy left lung airspace opacities, somewhat more prominent compared to prior exam. Laboratory Results WBC 8.0 10^3/uL (4.0-10.0) 01/28/22 19:29 RBC 4.36 10^6/uL (4.1-5.3) 01/28/22 19:29 Hgb 11.7 g/dL (11.7-16.6) 01/28/22: Hct 37.3 % (42.0-52.0) L 01/28/22: MCV 85.6 fl (80-94) 01/28/22: MCH 26.8 pg (28.0-34.0) L 01/28/22 MCHC 31.4 g/dL (30.0-36.0) 01/28/22: RDW 12.8 % (12.1-15.1) 01/28/22: Plt Count 511 10^3/cmm (130-400) H 01/28/22 MPV 8.8 fL (7.4-10.4) 01/28/22 Neut % (Auto) 77.4 % 01/28/22: Lymph % (Auto) 9.3 % 01/28/22: Leon % (Auto) 8.5 % 01/28/22: Eos % (Auto) 4.6 % 01/28/22 Baso % (Auto) 0.1 % 01/28/22 Neut # (Auto) 6.17 10^3/uL (1.8-7.7) 01/28/22 Lymph # (Auto) 0.7 10^3/uL (0.8-4.8) L 01/28/22 Leon # (Auto) 0.7 10^3/uL (0.2-0.9) 01/28/22 Eos # (Auto) 0.4 10^3/uL (0.0-0.8) 01/28/22 Baso # (Auto) 0.0 10^3/uL (0.0-0.1) 01/28/22 Nucleated RBC % (auto) 0 % 01/28/22 Nucleated RBCs # 0.0 /100WBC 01/28/22 Sodium 136 mmol/L (136-145) 01/28/22: Potassium 4.1 mmol/L (3.5-5.1) 05/24/22 19:29 Chloride 99 mmol/L (98-107) 01/28/22 19:29 Carbon Dioxide 27 mmol/L (22-29) 01/28/22 19:29 Anion Gap 14.1 (5-19) 01/28/22 19:29 BUN 15 mg/dL (8-23) 01/28/22 19:29 Creatinine 0.8 mg/dL (0.7-1.2) 01/28/22 19:29 GFR Calculation 98.0 mL/min (90-130) 01/28/22 19:29 Glucose 97 mg/dL (65-115) 01/28/22 19:29 Calculated Osmolality 283 mOsm/kg (285-295) L 01/28/22 19:29 Calcium 9.5 mg/dL (8.5-10.5) 01/28/22 19:29 Total Bilirubin 0.2 mg/dL (0.15-1.2) 01/28/22 19:29 AST 17 U/L (0-40) 01/28/22 19:29 ALT 17 U/L (0-41) 01/28/22 19:29 Alkaline Phosphatase 115 IU/L (40-130) 01/28/22 19:29 Troponin T Baseline 8 ng/L (0-15) 01/28/22 19:29 Total Protein 7.1 g/dL (6.6-8.7) 01/28/22 19:29 Albumin 3.7 g/dL (3.5-5.2) 01/28/22 19:29 Globulin 3.4 g/dL (1.3-4.6) 01/28/22 19:29 EKG Data EKG 1: I personally reviewed and interpreted this EKG as follows: EKG interpretation date: 01/28/22 EKG interpretation time: 18:59 Interpretation: nsr hr [address] or t wave abnormalities qrs 96 qtc 377 Discharge Plan Discharge Condition: Stable Prescriptions: No Action levofloxacin 500 mg tablet 500 mg PO DAILY Qty: 7 0RF osimertinib 80 mg tablet 80 mg PO DAILY Qty: 30 0RF Vitamin D-3 with Aloe 120-1,000-10 mg-unit-mg Tablet 1 tab PO DAILY 0RF pantoprazole [Protonix] 40 mg tablet,delayed release (DR/EC) 40 mg PO BID PRN (Reason: Gastric Reflux) 0RF docusate sodium [Colace] 100 mg capsule 100 mg PO BID Qty: 30 0RF Tagrisso 80 mg Tablet 80 mg PO DAILY Qty: 28 0RF vitamin K 1 mg/0.5 mL Solution 1 mg PO DAILY 0RF Referrals: Kyleigh Leone FNP [Primary Care Provider] - Coding Level of Care Code ED Production Stage Manager for Chg Fwd Exam Comprehensive
[2022-01-28 19:31] VITALS: BP 104/64; PULSE 75; RESP 18; O2SAT 94
[2022-01-28 19:50] LABS: Basophils % 0.1 %; Eosinophils # 0.4 10^3/uL (0.0-0.8); Eosinophils % 4.6 %; Hematocrit 37.3 % (42.0-52.0); Hemoglobin 11.7 g/dL (11.7-16.6); Lymphocytes # 0.7 10^3/uL (0.8-4.8); Lymphocytes % 9.3 %; Mean Corpuscular HGB Conc 31.4 g/dL (30.0-36.0); Mean Corpuscular Hemoglobin 26.8 pg (28.0-34.0); Mean Corpuscular Volume 85.6 fl (80-94); Mean Platelet Volume 8.8 fL (7.4-10.4); Monocytes # 0.7 10^3/uL (0.2-0.9); Monocytes % 8.5 %; Neutrophils # 6.17 10^3/uL (1.8-7.7); Neutrophils % 77.4 %; Nucleated Red Blood Cells % 0 %; Platelet Count 511 10^3/cmm (130-400); Red Blood Count 4.36 10^6/uL (4.1-5.3); Red Cell Distribution Width 12.8 % (12.1-15.1)
[2022-01-28 19:54] LABS: Alanine Aminotransferase 17 U/L (0-41); Albumin Level 3.7 g/dL (3.5-5.2); Alkaline Phosphatase 115 IU/L (40-130); Anion Gap 14.1 (5-19); Aspartate Amino Transferase 17 U/L (0-40); Blood Urea Nitrogen 15 mg/dL (8-23); Calcium 9.5 mg/dL (8.5-10.5); Carbon Dioxide 27 mmol/L (22-29); Chloride 99 mmol/L (98-107); Globulin 3.4 g/dL (1.3-4.6); Glucose 97 mg/dL (65-115); Osmolality Calculated 283 mOsm/kg (285-295); Potassium 4.1 mmol/L (3.5-5.1); Sodium 136 mmol/L (136-145); Total Bilirubin 0.2 mg/dL (0.15-1.2); Total Protein 7.1 g/dL (6.6-8.7)
[2022-01-28 19:56] LABS: Troponin(5th) Baseline 8 ng/L (0-15)
--- NOTE | 2022-01-28 20:32 | ECG_ITS ---
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 Measurements Intervals [place] Rate: 88 P: 75 [place]: 128 QRS: 81 QRSD: 91 T: 74 QT: 344 QTc: 417 Interpretive Statements SINUS RHYTHM Compared to ECG 01/29/2022 00:26:48 No significant changes Electronically Signed On 01-29-2022 22:09:53 CDT by Princess Patel M.D. [id number]
[2022-01-28] MEDS: cefTRIAXone 1,000 MG in sodium chloride 0.9% (plus) 50 ML 100 MG IV (20:41)
--- NOTE | 2022-01-28 21:06 | PM.HP ---
Providers/Chief Complaint Primary Care Provider: Kyleigh Leone APN Chief Complaint: CP History of Present Illness The patient is a 61-year-old male with stage IV lung adenocarcinoma who presents with chief complaint of left-sided chest pain which started approximately 3 days prior to hospitalization.? He states it was of gradual onset and this been intermittent since that time.? He denies radiation of the pain.? He describes as sharp.? As worst is rated 8 out of 10.? Currently rates 3 out of 10.? He did not take any medication for the pain at home.? He admits to cough which is nonproductive as well as chronic intermittent dyspnea.? He denies fever, rigors, nausea, vomiting, lightheaded, dizziness, diaphoresis, palpitations, sense of rapid heartbeat, sensation of irregular heartbeat, peripheral edema.? He presents for further evaluation Review of Systems General: Reports: 10 or more systems reviewed and unremarkable except in HPI and below Medications/Allergies Home Medications Medication Instructions Recorded Confirmed Last Taken Type calcium cmb 1 tab PO DAILY 11/19/21 01/28/22 01/28/22 History no.5-[id number]-[id number]-J54-aloe 120 mg-1,000 unit-10 mg tablet (Vitamin D-3 with Aloe) pantoprazole 40 mg tablet,delayed 40 mg PO BID PRN 01/01/22 01/28/22 01/27/22 History release (Protonix) docusate sodium 100 mg capsule 100 mg PO BID #30 cap 01/02/22 01/28/22 Unknown Rx (Colace) osimertinib 80 mg tablet 80 mg PO DAILY #30 tab 01/15/22 01/28/22 Unknown Rx levofloxacin 500 mg tablet 500 mg PO DAILY #7 tab 01/21/22 01/28/22 01/28/22 Rx osimertinib 80 mg tablet (Tagrisso) 80 mg PO DAILY #28 tab 01/22/22 01/28/22 Unknown Rx phytonadione (vitamin K1) 1 mg/0.5 1 mg PO DAILY 01/28/22 01/28/22 Unknown History mL injection solution (vitamin K) Allergies Allergy/AdvReac Type Severity Reaction Status Date / Time No Known Allergies Allergy Verified 01/28/22 19:27 PFSH Acute PFSH: Medical History Adenocarcinoma of lung, stage 4 Surgical History History of colonoscopy 2013 History of esophagogastroduodenoscopy (EGD) 2013 Port-A-Cath in place (01/02/22) Family History Mother Stroke Other CAD (coronary artery disease) Social History Smoking and tobacco status: never smoked Alcohol intake: never Lives independently: Yes Household members: spouse Marital status: Vitals/I&O/Wt Last Vital Signs Temp 97.9 F 01/28/22 18:57 Pulse 75 01/28/22 19:31 Resp 18 01/28/22 19:31 BP 104/64 01/28/22 19:31 Pulse Ox 94 01/28/22 19:31 Physical Exam Narrative: General: -Alert -No acute distress -No dyspnea -No tachypnea Head: -Atraumatic -Normocephalic Eyes: -Pupils equally round and reactive to light and accommodation -Extraocular muscles intact Neurological: -Cranial nerves II-XII intact Neck: -No jugular venous distention -No thyromegaly -No cervical lymphadenopathy Heart: -Regular rate -Regular rhythm -No murmurs -No gallops -No rubs Lungs: -No wheeze -No rhonchi -No rales ? Abdomen: -Normal bowel sounds in all four quadrants -No rebound -No guarding -No tenderness Extremities: -2/4 pulse in all four extremities -No clubbing -No cyanosis -No edema -No calf tenderness present bilaterally -Negative Thaddeus?s sign bilaterally Musculoskeletal: -5/5 bilateral upper extremity strength -5/5 bilateral lower extremity strength -Sensorium of bilateral upper extremities are equal and intact -Sensorium of bilateral lower extremities are equal and intact ? Additional Details / Additional Findings / Exceptions / Miscellaneous: Data : 01/28/22 19:29 01/28/22 19:29 A&P Assessment and plan (1) LRTI (lower respiratory tract infection): Status: Acute Plan pneumonia, likely postobstructive due to stage IV lung adenocarcinoma. Azithromycin 500 Mill grams IV daily plus Rocephin 1 g IV daily Stage IV lung adenocarcinoma. The patient does not undergo chemotherapy or radiation therapy or surgical intervention. Outpatient follow-up with hematology/oncology upon discharge Small to moderate left pleural effusion with prior history of pleural effusion. Patient is neither too dyspneic nor tachypnea and is oxygenating adequately. Consideration may be given to consulting interventional radiology for thoracocentesis Constipation Thrombocytosis. We will monitor platelet count intermittently History of iron deficiency Hypothyroidism COPD, not O2 dependent GERD Degenerative disc disease DVT Proflex is. Bilateral SCD Attestations Medical Necessity Statement*: the patient's anticipate length of stay is greater than 2 midnights for his treatment of his pneumonia given his history of lung cancer Coding Level of Care Code Acute Workplace Relations Adviser for [facility] Sophie Diagnoses LRTI (lower respiratory tract infection) J22
[2022-01-28] MEDS: azithromycin 500 MG in sodium chloride 0.9% 250 ML 250 MG IV (21:12)
[2022-01-28 21:28] VITALS: BP 119/71; PULSE 89; RESP 20; O2SAT 93
[2022-01-28 21:41] VITALS: BP 108/68; PULSE 91; RESP 20; O2SAT 93
[2022-01-28 22:06] LABS: Troponin 5 2HR 6.97 ng/L (0-15)
[2022-01-28 22:11] VITALS: BP 123/68; PULSE 95; RESP 22; TEMP 37.3; O2SAT 94
[2022-01-28 22:24] LABS: Troponin 5 2HR Delta -1.03 ABS# (0-10)
[2022-01-29] VITALS (8 sets, daily range): BP systolic 85–102; BP diastolic 51–59; PULSE 70–96; RESP 16–28; TEMP 36.9–37.6; O2SAT 91–94
--- NOTE | 2022-01-29 00:32 | ECG_ITS ---
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 Measurements Intervals [place] Rate: 96 P: 76 [place]: 144 QRS: 75 QRSD: 93 T: 66 QT: 327 QTc: 414 Interpretive Statements SINUS RHYTHM Compared to ECG 01/28/2022 18:59:59 No significant changes Electronically Signed On 01-29-2022 22:10:13 CDT by Princess Patel M.D. [id number]
[2022-01-29 02:14] LABS: Troponin 5 6HR 8.34 ng/L (0-15)
[2022-01-29 02:18] LABS: Troponin 5 6HR Delta 0.34 ng/L (0-12)
[2022-01-29 08:58] LABS: C Reactive Protein 50.7 mg/L (0.0-4.9)
[2022-01-29 09:05] LABS: Procalcitonin 0.04 ng/mL (0-0.5)
--- NOTE | 2022-01-29 09:14 | PM.PN ---
Subjective Subjective: Patient reports continued cough. Describes as non-productive. Reports improving chest muscle soreness which he attributes to the cough. Reports overall, he is starting to feel better. Endorses good appetite. Denies fevers, chills, peripheral edema, nausea, or abd pains. Medications: Reviewed: Yes Vitals/I&O/Wt Last Vital Signs Temp 98.9 F 01/29/22 08:00 Pulse 89 01/29/22 08:00 Resp 18 01/29/22 08:00 BP 96/53 01/29/22 08:00 Pulse Ox 91 01/29/22 08:00 01/28/22 01/29/22 01/29/22 22:59 06:59 14:59 Intake Total 50 / 50 450 / 500 Output Total 525 / 525 Balance 50 / 50 -75 / -25 Weight last 48 hrs Weight 63.758 kg Physical Exam Narrative: General: Patient is awake. Appears fatigued. Head: Normocephalic. Atraumatic. EOM intact. Neck: No JVD. Cardiovascular: RRR. No gallops. No murmurs. No peripheral edema. Lungs: Breath sounds are diminished in left lower lung zones. Rhonchi present in left lung. Right lung with adequate air movement. No crackles. No use of accessory muscles, no wheezing. Skin: No jaundice. No rashes. Abdomen: Normal bowel sounds, abdomen soft and nontender. Genito Urinary: Genital exam not performed since complaints not related. Rectal: Rectal exam not performed since no symptoms indicated blood loss. Extremeties: No cyanosis or clubbing. Musculoskeletal: Normal range of motion, no swollen or erythematous joints. Neurological: Moves all 4 extremities. No myoclonus. Data : 01/28/22 19:29 01/28/22 19:29 Micro: Microbiology 01/28/22 21:21 Blood Culture - Preliminary Blood SPECIMEN COLLECTED 01/28/22 21:19 Blood Culture - Preliminary Blood SPECIMEN COLLECTED A&P Assessment and plan (1) Pneumonia: -Suspected post-obstructive pneumonia 2/2 known malignancy -Status post PO levofloxacin as outpatient -Continue ceftriaxone -Continue azithromycin -Pulmonary toilet Status: Acute (2) Adenocarcinoma of lung, stage 4: -Immunocompromised -Keep follow up with medical oncology, Dr Kang and pulmonary medicine Status: Acute (3) Pleural effusion, left: -Recurrent malignant effusion -May consider repeat thoracentesis pending clinical course Status: Acute (4) Chest pain: -MSK-associated -Analgesics as needed Status: Acute (5) Thrombocytosis: -Monitor CBC Status: Acute (6) Constipation: Status: Acute (7) GERD (gastroesophageal reflux disease): Status: Acute Plan DVT ppx: Lovenox Attestations Medical Necessity Statement*: Patient failed outpatient PO antibiotics for his post-obstructive pneumonia, requires ongoing hospitalization with expectation for stay to cross two midnight for continued IV antibiotics. Coding Level of Care Code Acute Factory Expert for [facility] Fwd Diagnoses Pneumonia J18.9 Adenocarcinoma of lung, stage 4 C34.90 Pleural effusion, left J90 Chest pain R07.9 Thrombocytosis D75.839 Constipation K59.00 GERD (gastroesophageal reflux disease) K21.9
[2022-01-29] MEDS: cefTRIAXone 1,000 MG in sodium chloride 0.9% (plus) 50 ML 100 MG IV (09:17)
--- NOTE | 2022-01-29 10:14 | PC.CHAP ---
Pastoral Care Encounter/Spiritual Assessment Type of Contact [] Declined bobbin disker visit [] Patient/Family/Request visit [] Outpatient visit [] Follow-up visit [] Physician referral [] Code/Alert [x] Routine visit [] Staff referral [] Actively dying [] Patient sleeping [] Family support [] [] Out of room [] Palliative care [] [] Receiving care in room [] Pre-surgical visit [] Trauma [] Long length of stay [] ICU visit [] Other: Relational/Emotional Strength [x] Patient feels connected with others/family/visitors/staff [] Distress [] Loneliness/isolation [] Abandonment Spirituality of Patient [x] Person of Jamila [] Attends Temple of their Jamila [x] Believes in Prayer [] Reads Bible or Adventism materials [] There are Spiritual issues to be addressed Conference Concierge Interventions [x] Prayer []x Active listening [x] Non-anxious presence x [] Spiritual/emotional support []x Crisis/trauma care [] Spiritual counseling [] Bereavement support [] Provided bereavement packet [] Provided Bible/devotional materials [] Provided toy/stuffed animal, coloring book to patient or family member [] Provided Communion [] Anointing/[place] [] Salvation [x] Completed spiritual assessment [] Other: Impact on Illness or Injury [] Angry [] Fearful [] Anxious [] Often cries [] Exhaustion [] Unable to work [] Unable to attend oriental orthodox [] Unable to walk/stand [] Unable to read [] Unable to drive [] Unable to eat/drink [] Unable to sleep [] Unable to be with family [] Patient intubated [] Other: Summary Time spent with patient 5 min
[2022-01-29] MEDS: azithromycin 500 MG in sodium chloride 0.9% 250 ML 250 MG IV (22:05)
[2022-01-29] MEDS: enoxaparin 40 mg/0.4 mL Syringe SUBCUT (22:06)
[2022-01-30] VITALS: BP 91/47; PULSE 84; RESP 18; TEMP 37.6; O2SAT 97
--- NOTE | 2022-01-30 02:16 | PC.NURSE ---
patient stated hes urinated 4xs and not having any trouble going.
[2022-01-30 04:00] VITALS: BP 90/46; PULSE 78; RESP 15; TEMP 37; O2SAT 97
[2022-01-30 08:00] VITALS: BP 96/60; PULSE 86; RESP 16; TEMP 36.8; O2SAT 90
--- NOTE | 2022-01-30 08:14 | PC.NURSE ---
Notified Dr. Powell of BP 96/60 this am
[2022-01-30] MEDS: cefTRIAXone 1,000 MG in sodium chloride 0.9% (plus) 50 ML 100 MG IV (08:58)
--- NOTE | 2022-01-30 09:47 | PM.DCS ---
Discharge Providers Date of Admission: 01/28/22 20:41 Date of Discharge: January 30, 2022 Attending Provider at Admission: Galen Degroot DO Attending Provider at Discharge: Mitchell Powell MD Primary Care Provider: Kyleigh Leone APN Diagnoses at Discharge Discharge Diagnosis (1) Pneumonia: Status: Acute (2) Adenocarcinoma of lung, stage 4: Status: Acute (3) Pleural effusion, left: Status: Acute (4) Chest pain: Status: Acute (5) Thrombocytosis: Status: Acute (6) Constipation: Status: Acute (7) GERD (gastroesophageal reflux disease): Status: Acute Reason for Visit Reason for Visit: CP Hospital Course Hospital Course Shahab Ramos is a 61-year-old male with recently diagnosed stage IV adenocarcinoma of the lung with recurrent malignant left-sided pleural effusion who presented with left-sided pleurisy, found to have postobstructive pneumonia and recurrent left-sided malignant pleural effusion. Patient had been on oral levofloxacin per pulmonary as outpatient but failed p.o. therapy. He was treated with IV antibiotics with ceftriaxone and azithromycin with significant improvement in symptomatology. At discharge, patient transition to cefdinir to complete 14 days of therapy, as well as a Z-Cecil. He is to keep his follow-up with medical oncology and pulmonary medicine. Physical Exam Narrative: General: Patient is awake and alert. No acute distress. Head: Normocephalic. Atraumatic. EOM intact. Neck: No JVD. Cardiovascular: RRR. No gallops. No murmurs. No peripheral edema. Lungs: Breath sounds diminished in left base. No use of accessory muscles, no crackles or wheezes. Skin: No jaundice. No rashes. Abdomen: Normal bowel sounds, abdomen soft and nontender. Genito Urinary: Genital exam not performed since complaints not related. Rectal: Rectal exam not performed since no symptoms indicated blood loss. Extremeties: No cyanosis or clubbing. Musculoskeletal: 5/5 strength, normal range of motion, no swollen or erythematous joints. Neurological: Moves all 4 extremities. No myoclonus. Discharge Data Studies Completed and Pending Completed Studies During Hospitalization Category Date Time Status XR chest 1V portable [id number] Stat Exams 01/28/22 18:32 Completed Pending at discharge Category Date Time Status Blood Culture Stat Lab 01/28/22 21:21 Results Radiology Impressions Chest X-Ray 01/28/22 18:32 IMPRESSION: Small to moderate left pleural effusion with patchy left lung airspace opacities, somewhat more prominent compared to prior exam. Laboratory Results WBC 8.0 10^3/uL (4.0-10.0) 01/28/22 19: RBC 4.36 10^6/uL (4.1-5.3) 01/28/22: Hgb 11.7 g/dL (11.7-16.6) 01/28/22: Hct 37.3 % (42.0-52.0) L 01/28/22: MCV 85.6 fl (80-94) 01/28/22: MCH 26.8 pg (28.0-34.0) L 01/28/22: MCHC 31.4 g/dL (30.0-36.0) 01/28/22: RDW 12.8 % (12.1-15.1) 01/28/22: Plt Count 511 10^3/cmm (130-400) H 01/28/22: MPV 8.8 fL (7.4-10.4) 01/28/22: Neut % (Auto) 77.4 % 01/28/22: Lymph % (Auto) 9.3 % 01/28/22: [place] % (Auto) 8.5 % 01/28/22: Eos % (Auto) 4.6 % 01/28/22: Baso % (Auto) 0.1 % 01/28/22: Neut # (Auto) 6.17 10^3/uL (1.8-7.7) 01/28/22: Lymph # (Auto) 0.7 10^3/uL (0.8-4.8) L 01/28/22: [place] # (Auto) 0.7 10^3/uL (0.2-0.9) 01/28/22: Eos # (Auto) 0.4 10^3/uL (0.0-0.8) 01/28/22: Baso # (Auto) 0.0 10^3/uL (0.0-0.1) 01/28/22 19: Nucleated RBC % (auto) 0 % 01/28/22 19: Nucleated RBCs # 0.0 /100WBC 01/28/22 19: Sodium 136 mmol/L (136-145) 01/28/22 19: Potassium 4.1 mmol/L (3.5-5.1) 01/28/22 19: Chloride 99 mmol/L (98-107) 01/28/22: Carbon Dioxide 27 mmol/L (22-29) 01/28/22: Anion Gap 14.1 (5-19) 01/28/22: BUN 15 mg/dL (8-23) 01/28/22: Creatinine 0.8 mg/dL (0.7-1.2) 01/28/22: GFR Calculation 98.0 mL/min (90-130) 01/28/22: Glucose 97 mg/dL (65-115) 01/28/22: Calculated Osmolality 283 mOsm/kg (285-295) L 01/28/22: Calcium 9.5 mg/dL (8.5-10.5) 01/28/22: Total Bilirubin 0.2 mg/dL (0.15-1.2) 01/28/22: AST 17 U/L (0-40) 01/28/22: ALT 17 U/L (0-41) 01/28/22: Alkaline Phosphatase 115 IU/L (40-130) 01/28/22: Troponin T Baseline 8 ng/L (0-15) 01/28/22 19: Troponin T 120 Minute 6.97 ng/L (0-15) 01/28/22 21:19 Delta Troponin T -1.03 ABS# (0-10) L 01/28/22 21:19 Troponin T Hi Sens 6Hr 8.34 ng/L (0-15) 01/29/22 00:53 Troponin T Hi Sens 6Hr Delta 0.34 ng/L (0-12) 01/29/22 00:53 C-Reactive Protein 50.7 mg/L (0.0-4.9) H 01/29/22 00:53 Total Protein 7.1 g/dL (6.6-8.7) 01/28/22 19:29 Albumin 3.7 g/dL (3.5-5.2) 01/28/22 19:29 Globulin 3.4 g/dL (1.3-4.6) 01/28/22 19:29 Procalcitonin 0.04 ng/mL (0-0.5) 01/29/22 00:53 Vitals Last Vital Signs Temp 98.2 F 01/30/22 08:00 Pulse 86 01/30/22 08:00 Resp 16 01/30/22 08:00 BP 96/60 01/30/22 08:00 Pulse Ox 90 01/30/22 08:00 Discharge Plan Discharge Patient Disposition: Home Condition: Stable Prescriptions: New cefdinir 300 mg capsule 300 mg PO BID 12 Days Qty: 24 0RF azithromycin 250 mg tablet See Rx Instructions .ROUTE .COMPLEX Qty: 6 0RF Rx Instructions: For 250 mg dose pack: take 500 mg today (day 1), then 250 mg for 4 days (days 2-5) Continued osimertinib 80 mg tablet 80 mg PO DAILY Qty: 30 0RF Vitamin D-3 with Aloe 120-1,000-10 mg-unit-mg Tablet 1 tab PO DAILY 0RF pantoprazole [Protonix] 40 mg tablet,delayed release (DR/EC) 40 mg PO BID PRN (Reason: Gastric Reflux) 0RF docusate sodium [Colace] 100 mg capsule 100 mg PO BID Qty: 30 0RF Tagrisso 80 mg Tablet 80 mg PO DAILY Qty: 28 0RF vitamin K 1 mg/0.5 mL Solution 1 mg PO DAILY 0RF Discontinued levofloxacin 500 mg tablet 500 mg PO DAILY Qty: 7 0RF Discharge Orders: Discharge Order (Routine); Ordered 01/30/22 Ordered By: Mitchell Powell Referrals: Igor Howard DO [Physician] - 02/06/22 9:30 am (You have an appointment to establish primary care with Dr. Howard on February 06 at 09:30.) Discharge Diet: Regular Discharge Activity: Resume usual activity Patient Instructions: Opioid Safety Discharge Attestations Time Spent in Discharge Care*: greater than 30 min Status at Discharge: Cognitive status at discharge: cognitively intact, Behavioral status at discharge: cooperative, Quality Metrics Clinical Quality Measures [ No reported AMI, CVA or VTE this stay] Coding Level of Care Code Acute Chg FW DC note Diagnoses Pneumonia J18.9 Adenocarcinoma of lung, stage 4 C34.90 Pleural effusion, left J90 Chest pain R07.9 Thrombocytosis D75.839 Constipation K59.00 GERD (gastroesophageal reflux disease) K21.9
--- NOTE | 2022-01-30 11:25 | PC.NURSE ---
Discussed discharge, follow up appointments and medications with patient. Verbalized understanding.
[2022-01-30 13:34] VITALS: BP 96/60; PULSE 86; RESP 16; TEMP 36.8; O2SAT 90
== END 2022-01-30 13:15 | disposition home or self-care (01) | DRG 194 ==
LOC: ER 20:39 → MEDSURG 21:40
PROVIDERS: Admitting Provider Internal Medicine; Emergency Provider Emergency Medicine; PCP Family Medicine; Visit Provider Internal Medicine
DX: J18.9 Pneumonia, unspecified organism (principal); J44.0 Chronic obstructive pulmonary disease with (acute) lower respiratory infection; C34.90 Malignant neoplasm of unspecified part of unspecified bronchus or lung; J91.0 Malignant pleural effusion; D84.9 Immunodeficiency, unspecified; K59.00 Constipation, unspecified; D75.839 Thrombocytosis, unspecified; E03.9 Hypothyroidism, unspecified; K21.9 Gastro-esophageal reflux disease without esophagitis
CPT/HCPCS: 36415; 71045; 80053; 84145; 84484; 85025; 86140; 87040; 87449; 93005; 96365; 96367; 96372; 99285; J0456; J0696; J1650; J7050

== ENCOUNTER 2022-02-28 03:15 | Emergency (ER) | payer OTHER, SELFPAY ==
--- NOTE | 2022-02-28 03:16 | ECG_ITS ---
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 Measurements Intervals [place] Rate: 83 P: 72 MN: 122 QRS: 72 QRSD: 96 T: 71 QT: 360 QTc: 425 Interpretive Statements SINUS RHYTHM Compared to ECG 01/29/2022 02:30:27 No significant changes Electronically Signed On 02-28-2022 22:53:05 CDT by Princess Patel M.D. [email or web address]
--- NOTE | 2022-02-28 03:16 | XRR_ITS ---
PROCEDURE INFORMATION: Exam: XR Chest Exam date and time: 02/28/2022 3:19 AM Age: 61 years old Clinical indication: Chest pressure; Prior surgery; Surgery type: Chest port; Patient HX: C/O chest pain. History of stage iv lung cancer. ; Additional info: Cp TECHNIQUE: Imaging protocol: Radiologic exam of the chest. Views: 1 view. COMPARISON: CR (CHEST, ) 01/28/2022 8:00 PM FINDINGS: Tubes, catheters and devices: MediPort catheter is placed via the right internal jugular vein with its tip at the level of the superior vena cava. Lungs: Volume loss is seen within the left hemithorax. Pleural thickening and/or pleural fluid is seen within the left lower hemithorax. Superimposed patchy and strandy opacities are seen in the left lower lobe likely representing atelectasis versus parenchymal or pleural scarring. Soft tissue densities seen in the left apical region medially may represent atelectasis although an underlying mass cannot be excluded. Pleural spaces: See Lungs finding. Heart/Mediastinum: Unremarkable. No cardiomegaly. Bones/joints: Unremarkable. XR/XR chest 1V portable [id number] IMPRESSION: 1. There are findings similar to those present 01/28/2022. Probable left pleural effusion versus pleural thickening with superimposed strandy and patchy opacities in the left hemithorax compatible with atelectasis versus i parenchymal and pleural scarring. 2. Left apical density may represent atelectasis although an underlying mass cannot be excluded.
--- NOTE | 2022-02-28 03:21 | CTR_ITS ---
PROCEDURE INFORMATION: Exam: CT Abdomen And Pelvis Without Contrast Exam date and time: 02/28/2022 3:40 AM Age: 61 years old Clinical indication: Abdominal pain; Prior surgery; Surgery type: Chest port; Patient HX: C/O epigastric pain. History of stage iv lung cancer. ; Additional info: Abd pain TECHNIQUE: Imaging protocol: Computed tomography of the abdomen and pelvis without contrast. Radiation optimization: All CT scans at this facility use at least one of these dose optimization techniques: automated exposure control; mA and/or kV adjustment per patient size (includes targeted exams where dose is matched to clinical indication); or iterative reconstruction. COMPARISON: CT abdomen w con* [id number] 11/21/2021 1:40 PM RADIATION DOSE METRICS: Total DLP (mGy-cm): 547 FINDINGS: Lungs: There are small pulmonary nodularity seen in the right lung base, the largest measuring approximately 4 mm. There is pleural thickening seen in the left lung base with atelectasis versus infiltrates seen in the left lung base. Heart: There is a small pericardial effusion. Liver: Normal. No mass. Gallbladder and bile ducts: Normal. No calcified stones. No ductal dilation. Pancreas: Normal. No ductal dilation. Spleen: Calcifications are seen in the spleen compatible with calcified granulomas. Adrenal glands: Normal. No mass. Kidneys and ureters: Normal. No hydronephrosis. Stomach and bowel: Moderate stool is present within the ascending and transverse colon. Appendix: No evidence of appendicitis. Intraperitoneal space: Low-attenuation fluid is seen in the upper quadrants and within the right pericolic gutter and within pelvis compatible with some ascites. Vasculature: Unremarkable. No abdominal aortic aneurysm. Lymph nodes: Unremarkable. No enlarged lymph nodes. Urinary bladder: Unremarkable as visualized. Reproductive: Unremarkable as visualized. Bones/joints: Unremarkable. No acute fracture. Soft tissues: Unremarkable. CT/CT abdomen pelvis wo con [id number] IMPRESSION: 1. Fluid is seen within the upper quadrants of the abdomen, the right pericolic gutter and within the pelvis compatible with cysts a small volume of ascites. 2. Moderate stool seen in the ascending and transverse colon 3. Small pericardial effusion 4. Pleural thickening in the left lung base with superimposed atelectasis versus infiltrates. 5. Small pulmonary nodularities in the right lung base, the largest measuring 4 mm. Fleischner Society follow up recommendations for incidental nodules are not indicated. Follow up per the patient's medical condition.
--- NOTE | 2022-02-28 03:23 | ED_ITS ---
HPI - Chest Pain General: Chief Complaint: Chest Pain Stated Complaint: cp Time Seen by Provider: 02/28/22 03:16 Source: patient Mode of arrival: ambulatory Limitations: no limitations History of Present Illness: 61-year-old male has a history of stage IV lung cancer. He states he been having some upper abdominal pain over the last 1 to 2 weeks but states that at midnight he had an episode of some chest pain and then again at 2 AM. States it was a sharp pain across his chest. He states he still has abdominal pain that has not changed. He denies any shortness of breath. He states his chest pain is actually resolved he is currently pain-free no cough no fever. Associated symptoms: Reports abdominal pain; Deny dyspnea or fever(s) Review of Systems Const: Denies: fever(s), chills, body aches or change in appetite Eyes: Denies: blurry vision or eye discomfort ENMT: Denies: throat pain or dental pain Card: Reports: chest pain Resp: Denies: dyspnea GI: Reports: abdominal pain : Denies: dysuria Musc: Denies: neck pain or back pain Skin/Breast: Denies: rash Neuro: Denies: headache(s) Psych: Denies: depression Roberto/Lymph: Denies: easy bruising All/Imm: Denies: urticaria PFSH ED PFSH: Medical History Adenocarcinoma of lung, stage 4 Surgical History History of colonoscopy 2013 History of esophagogastroduodenoscopy (EGD) 2014 Port-A-Cath in place (01/02/22) Family History Mother Stroke Other CAD (coronary artery disease) Social History Smoking and tobacco status: never smoked Alcohol intake: never Lives independently: Yes Household members: spouse Marital status: Physical Exam Const: COMMON NORMALS: no acute distress, patient oriented x3 and healthy appe aring HENMT: COMMON NORMALS: normocephalic and atraumatic HEAD & SCALP: normocephalic and atraumatic Eye: COMMON NORMALS: Equal, round and reactive pupils present and EOMs intact bilaterally PUPIL: Yes Equal, round and reactive pupils present Neck/C-Spine: COMMON NORMALS: full ROM and supple Chest: COMMONS NORMALS: normal inspection of the chest and normal palpation of entire chest wall Resp: COMMON NORMALS: normal respiratory effort, No retractions, No use of accessory muscles and clear to auscultation bilaterally AUSCULTATION: clear to auscultation bilaterally Cardio: COMMON NORMALS: regular rate, regular rhythm and No murmurs present (Cardio) RATE: regular rate RHYTHM: regular rhythm GI: COMMON NORMALS: Normal to inspection, nondistended, normoactive bowel sounds present, Soft to palpation and no masses PALPATION: Yes Soft to palpation OTHER: epigastric tenderness Extremity: COMMON NORMALS: normal to inspection and full ROM Neuro: COMMON NORMALS: patient oriented x3, moves all extremities and no focal motor deficits Psych: COMMON NORMALS: mental status grossly normal, Normal thought process present and cooperative THOUGHT PROCESS: Normal thought process present Skin: COMMON NORMALS: no rashes or lesions noted and no wounds GENERAL SKIN EXAM: no rashes or lesions noted Course Vital Signs: Vital signs: Vital Signs Temperature 98.1 F 02/28/22 03:29 Pulse Rate 86 02/28/22 03:29 Respiratory Rate 18 02/28/22 03:29 Blood Pressure 106/72 02/28/22 03:29 Pulse Oximetry 95 02/28/22 03:29 MDM - Chest Pain Medical Decision Making Patient presents for chest pains likely due to his lung mass. He has no signs of cardiac cause his troponin here is negative he has been pain-free here he is stable for discharge he is to follow-up with his oncologist return if worsening he understands agrees to plan. Lab Data : 02/28/22 03:30 02/28/22 03:30 Radiology Impressions Chest X-Ray 02/28/22 03:16 IMPRESSION: 1. There are findings similar to those present 01/28/2022. Probable left pleural effusion versus pleural thickening with superimposed strandy and patchy opacities in the left hemithorax compatible with atelectasis versus i parenchymal and pleural scarring. 2. Left apical density may represent atelectasis although an underlying mass cannot be excluded. Abdomen/Pelvis CT 02/28/22 03:21 IMPRESSION: 1. Fluid is seen within the upper quadrants of the abdomen, the right pericolic gutter and within the pelvis compatible with cysts a small volume of ascites. 2. Moderate stool seen in the ascending and transverse colon 3. Small pericardial effusion 4. Pleural thickening in the left lung base with superimposed atelectasis versus infiltrates. 5. Small pulmonary nodularities in the right lung base, the largest measuring 4 mm. Fleischner Society follow up recommendations for incidental nodules are not indicated. Follow up per the patient's medical condition. Laboratory Results WBC 6.1 10^3/uL (4.0-10.0) 02/28/22 03:30 RBC 4.65 10^6/uL (4.1-5.3) 02/28/22 03:30 Hgb 12.1 g/dL (11.7-16.6) 02/28/22 03:30 Hct 37.4 % (42.0-52.0) L 02/28/22 03:30 MCV 80.4 fl (80-94) 02/28/22 03:30 MCH 26.0 pg (28.0-34.0) L 02/28/22 03:30 MCHC 32.4 g/dL (30.0-36.0) 02/28/22 03:30 RDW 15.6 % (12.1-15.1) H 02/28/22 03:30 Plt Count 314 10^3/cmm (130-400) 02/28/22 03:30 MPV 9.0 fL (7.4-10.4) 02/28/22 03:30 Neut % (Auto) 64.2 % 02/28/22 03:30 Lymph % (Auto) 14.7 % 02/28/22 03:30 [place] % (Auto) 13.4 % 02/28/22 03:30 Eos % (Auto) 7.5 % 02/28/22 03:30 Baso % (Auto) 0.2 % 02/28/22 03:30 Neut # (Auto) 3.93 10^3/uL (1.8-7.7) 02/28/22 03:30 Lymph # (Auto) 0.9 10^3/uL (0.8-4.8) 02/28/22 03:30 [place] # (Auto) 0.8 10^3/uL (0.2-0.9) 02/28/22 03:30 Eos # (Auto) 0.5 10^3/uL (0.0-0.8) 02/28/22 03:30 Baso # (Auto) 0.0 10^3/uL (0.0-0.1) 02/28/22 03:30 Nucleated RBC % (auto) 0 % 02/28/22 03:30 Nucleated RBCs # 0.0 /100WBC 02/28/22 03:30 PT 14.60 SECONDS (12.1-14.9) 02/28/22 03:30 INR 1.10 (0.8-1.2) 02/28/22 03:30 Sodium 138 mmol/L (136-145) 02/28/22 03:30 Potassium 4.2 mmol/L (3.5-5.1) 02/28/22 03:30 Chloride 101 mmol/L (98-107) 02/28/22 03:30 Carbon Dioxide 26 mmol/L (22-29) 02/28/22 03:30 Anion Gap 15.2 (5-19) 02/28/22 03:30 BUN 18 mg/dL (8-23) 02/28/22 03:30 Creatinine 0.8 mg/dL (0.7-1.2) 02/28/22 03:30 GFR Calculation 98.0 mL/min (90-130) 02/28/22 03:30 Glucose 103 mg/dL (65-115) 02/28/22 03:30 Calculated Osmolality 288 mOsm/kg (285-295) 02/28/22 03:30 Calcium 9.5 mg/dL (8.5-10.5) 02/28/22 03:30 Total Bilirubin 0.3 mg/dL (0.15-1.2) 02/28/22 03:30 AST 16 U/L (0-40) 02/28/22 03:30 ALT 15 U/L (0-41) 02/28/22 03:30 Alkaline Phosphatase 116 IU/L (40-130) 02/28/22 03:30 Troponin T Baseline 8 ng/L (0-15) 02/28/22 03:30 Total Protein 6.9 g/dL (6.6-8.7) 02/28/22 03:30 Albumin 3.9 g/dL (3.5-5.2) 02/28/22 03:30 Globulin 3.0 g/dL (1.3-4.6) 02/28/22 03:30 Lipase 18 U/L (13-60) 02/28/22 03:30 EKG Data EKG 1: I personally reviewed and interpreted this EKG as follows: EKG interpretation date: 02/28/22 EKG interpretation time: 03:26 Interpretation: nsr hr [address] or t wave abnormalities qrs 96 qtc 400 Discharge Plan Discharge Patient Disposition: Home Clinical Impression: Chest pain, Lung mass, Abdominal pain Condition: Stable Prescriptions: No Action osimertinib 80 mg tablet 80 mg PO DAILY Qty: 30 0RF Vitamin D-3 with Aloe 120-1,000-10 mg-unit-mg Tablet 1 tab PO DAILY 0RF pantoprazole [Protonix] 40 mg tablet,delayed release (DR/EC) 40 mg PO BID PRN (Reason: Gastric Reflux) 0RF docusate sodium [Colace] 100 mg capsule 100 mg PO BID Qty: 30 0RF Tagrisso 80 mg Tablet 80 mg PO DAILY Qty: 28 0RF vitamin K 1 mg/0.5 mL Solution 1 mg PO DAILY 0RF Discharge Orders: Discharge ED (Routine); Ordered 02/28/22 Ordered By: Margret Acosta Referrals: Igor Howard DO [Primary Care Provider] - 1-3 days Discharge Diet: Advance as tolerated Discharge Activity: Resume usual activity Patient Instructions: Chest Pain (ED), Abdominal Pain (ED) Coding Level of Care Code ED Silo Tender for Chg Fwd Exam Comprehensive
[2022-02-28 03:29] VITALS: BP 106/72; PULSE 86; RESP 18; TEMP 36.7; O2SAT 95; BMI 21.4
[2022-02-28 03:38] LABS: Basophils % 0.2 %; Eosinophils # 0.5 10^3/uL (0.0-0.8); Eosinophils % 7.5 %; Hematocrit 37.4 % (42.0-52.0); Hemoglobin 12.1 g/dL (11.7-16.6); Lymphocytes # 0.9 10^3/uL (0.8-4.8); Lymphocytes % 14.7 %; Mean Corpuscular HGB Conc 32.4 g/dL (30.0-36.0); Mean Corpuscular Volume 80.4 fl (80-94); Monocytes # 0.8 10^3/uL (0.2-0.9); Monocytes % 13.4 %; Neutrophils # 3.93 10^3/uL (1.8-7.7); Neutrophils % 64.2 %; Nucleated Red Blood Cells % 0 %; Platelet Count 314 10^3/cmm (130-400); Red Blood Count 4.65 10^6/uL (4.1-5.3); Red Cell Distribution Width 15.6 % (12.1-15.1); White Blood Count 6.1 10^3/uL (4.0-10.0)
[2022-02-28 03:59] LABS: Alanine Aminotransferase 15 U/L (0-41); Albumin Level 3.9 g/dL (3.5-5.2); Alkaline Phosphatase 116 IU/L (40-130); Anion Gap 15.2 (5-19); Aspartate Amino Transferase 16 U/L (0-40); Blood Urea Nitrogen 18 mg/dL (8-23); Calcium 9.5 mg/dL (8.5-10.5); Carbon Dioxide 26 mmol/L (22-29); Chloride 101 mmol/L (98-107); Glucose 103 mg/dL (65-115); Lipase 18 U/L (13-60); Osmolality Calculated 288 mOsm/kg (285-295); Potassium 4.2 mmol/L (3.5-5.1); Sodium 138 mmol/L (136-145); Total Bilirubin 0.3 mg/dL (0.15-1.2); Total Protein 6.9 g/dL (6.6-8.7)
[2022-02-28 04:00] VITALS: BP 93/60; PULSE 74; O2SAT 94
[2022-02-28 04:01] LABS: Troponin(5th) Baseline 8 ng/L (0-15)
[2022-02-28 04:30] VITALS: BP 96/65
[2022-02-28 05:00] VITALS: BP 100/69; PULSE 67; O2SAT 96
[2022-02-28 05:30] VITALS: BP 96/70; PULSE 71; O2SAT 91
== END 2022-02-28 05:45 | disposition home or self-care (01) ==
PROVIDERS: Emergency Provider Emergency Medicine; PCP Family Medicine
DX: R07.9 Chest pain, unspecified (principal); R91.8 Other nonspecific abnormal finding of lung field; R10.9 Unspecified abdominal pain; Z85.118 Personal history of other malignant neoplasm of bronchus and lung
CPT/HCPCS: 71045; 74176; 80053; 83690; 84484; 85025; 85610; 93005; 99284

== ENCOUNTER 2022-03-25 23:53 | Emergency (ER) | payer OTHER, SELFPAY ==
[2022-03-26] VITALS (12 sets, daily range): BP systolic 89–113; BP diastolic 52–71; PULSE 69–99; RESP 16–18; TEMP 36.7; O2SAT 85–96; BMI 20.5
--- NOTE | 2022-03-26 01:27 | ED_ITS ---
Documented by User: Edi Everett MD 04/07/22 21:36 HPI - Abdominal Pain General: Chief Complaint: Abdominal Pain Stated Complaint: abd & back pain Time Seen by Provider: 03/26/22 01:19 History of Present Illness: Mr. Ramos is a 61-year-old gentleman with significant past medical history of stage IV lung cancer who presents to the emergency department due to abdominal pain. He reports a few day history of left upper quadrant abdominal pain which is episodic in nature. At worst intensity is severe however it mostly persists as mild. He denies specific known provoking factors and it does not appear to be food related. He has associated generalized malaise but no measured fevers. No other specific changes in health, exacerbating, or alleviating factors identified. Of note the patient had transthoracic needle biopsy approximately 1 week ago. He has been on antibiotics since that time in the outpatient setting. He took about 10 days of Tagrisso however this made him significantly jittery and he did not tolerate it well. Onset (ago): day(s) Pain Consistency: intermittent Location: LUQ Severity: moderate Quality: stabbing and aching Exacerbating factors: nothing Relieving factors: nothing Review of Systems General: Reports: 10 or more systems reviewed and unremarkable except in HPI and below PFSH ED PFSH: Medical History (Updated 04/02/22 @ 07:26 by Enio Kang MD) Anemia COPD (chronic obstructive pulmonary disease) Non-small cell lung cancer Surgical History (Updated 04/02/22 @ 07:09 by Enio Kang MD) History of chest tube placement History of colonoscopy 2013 History of esophagogastroduodenoscopy (EGD) 2014 Port-A-Cath in place (01/02/22) Family History (Updated 04/01/22 @ 10:21 by Herminia Poon LPN) Mother Stroke Diabetes Other CAD (coronary artery disease) Hypertension Denies family history of Clotting disorder Dementia Hyperlipidemia Psychiatric illness Chronic kidney disease (CKD) Suicide Anesthesia complication Bleeding disorder Lung disease Cancer Social History Smoking and tobacco status: never smoked Alcohol intake: never Lives independently: Yes Household members: spouse Marital status: Physical Exam Const: COMMON NORMALS: alert GENERAL APPEARANCE: cooperative, well developed and ill appearing HENMT: COMMON NORMALS: normocephalic and atraumatic HEAD & SCALP: normocephalic and atraumatic Eye: COMMON NORMALS: conjunctivae normal CONJUNCTIVA: Yes conjunctivae norm al SCLERA: sclerae normal Neck/C-Spine: COMMON NORMALS: supple GENERAL: Yes trachea midline Resp: EFFORT & INSPECTION: Yes able to speak in complete sentences AUSCULTATION: rhonchi and diminished lung sounds bilateral in the lower lung quinn Cardio: COMMON NORMALS: regular rate and regular rhythm RATE: regular rate RHYTHM: regular rhythm GI: COMMON NORMALS: Soft to palpation PALPATION: Yes Soft to palpation, Yes Tenderness to palpation present (GI), No Guarding due to palpation present (GI), No Rigid due to palpation and No Rebound tenderness present Extremity: GENERAL: Yes normal exam except as noted and No edema Neuro: COMMON NORMALS: moves all extremities SENSORIUM/ORIENTATION: Yes alert and No Orientation impaired Psych: COMMON NORMALS: mental status grossly normal and Normal thought process present THOUGHT PROCESS: Normal thought process present Course ED course: - Patient was seen and evaluated by me at bedside - Patient placed on cardiac monitors, IV access obtained - Initial evaluation notable for exam as above. Ill-appearing. - Labs personally interpreted by me - Fluids, analgesia, and antiemetic given - Labs notable for minimal leukocytosis, normal hemoglobin. Metabolic panel with evidence of dehydration. - Imaging notable for pleural effusions, worsening cancer, likely necrotizing pneumonia. He abdomen pelvis with increased mild abdominal pelvic ascites. There is moderate gas and fecal material in the cecum and ascending colon. Mild gas and fecal material in the transverse colon. - Antibiotics ordered - Reevaluation discussed with patient - Patient care handed off to morning ED physician Dr. Booth pending accepting facility as we do not have bed availability. Note: Click bubbles or prepopulated quinn in note writing are used for assistance with data collection and billing and are inherently more limited than narrative and other text portions of this note. Please use narrative for additional clinical history and defer to narrative/free test for any case of contradictory information. If information appears in only free text or click bubble it should be considered present or absent as reported. Please contact note play writer for clarifications of clinical information or contradictory information. MDM is a brief summary, contradictory or erroneous seeming information should be clarified and full note should be reviewed. Vital Signs: Vital signs: Vital Signs Temperature 98.1 F 03/26/22 07:41 Pulse Rate 69 07/20/22 13:37 Respiratory Rate 16 03/26/22 13:37 Blood Pressure 101/66 03/26/22 13:37 Pulse Oximetry 93 03/26/22 13:37 Oxygen Delivery Me thod 03/26/22 10:23 Oxygen Flow Rate 3 03/26/22 10:47 MDM - Abdominal Pain Medical Decision Making 61-year-old gentleman with history of known lung cancer presenting with abdominal pain. The cause of abdominal pain possibly related to constipation however patient noted to have worsening pulmonary metastatic disease also possible necrotizing pneumonia. Given this finding the patient requires inpatient treatment. Antibiotics ordered. We have no bed availability and therefore we will look to transfer patient. Medical Records I reviewed the patient's medical records. Lab Data I reviewed the patient's lab results. : 03/26/22 01:35 03/26/22 01:35 Labs/Radiology: Radiology Impressions Abdomen/Pelvis CT 03/26/22 02:30 IMPRESSION: 1. Unchanged left lower lobe consolidation with increased central dilated bronchi and suspected small areas of cavitation. This may represent necrotizing pneumonia. Associated small loculated appearing left pleural effusion. Some enhancement of the left pleura. Empyema cannot be excluded. Chest CT may be performed for further assessment. 2. Interval development of a medium-sized right pleural effusion with some right lower lobe compressive atelectasis. 3. Unchanged small to medium sized pericardial effusion. 4. Increased mild abdominal and moderate pelvic ascites. No free air. Moderate gas and fecal material in the cecum and ascending colon. Mild gas and fecal material in the transverse colon. ADDENDUM: 03/26/22 0508 Given the patient's history of lung cancer, the left lower lobe consolidation with increased central dilated bronchi and suspected areas of cavitation, may represent worsening postobstructive necrotizing pneumonia. Lung malignancy involving the left lower lobe cannot be excluded. Associated loculated appearing small left pleural effusion with some enhancement of the left pleural. Empyema cannot be excluded. Chest CT may be performed for complete evaluation. The findings were directly discussed via telephone conference at 5:04 AM CDT on 03/26/2022 with Edi Everett. The findings were acknowledged and understood. Chest CT 03/26/22 05:02 IMPRESSION: 1. Interval development of increased small to medium-sized right pleural effusion. Associated mild right lower lobe atelectasis. Multiple new scattered right upper lobe, right middle lobe and right lower lobe 1-4 mm nodules (greater than 20). This may represent interval development of right lung metastatic disease. 2. Increased volume loss in the left hemithorax. Interval development of numerous aerated left upper lobe and left lower lobe 1 to 5 mm nodules. This represents worsened intrapulmonary left lung metastatic disease. Interval development of irregular pleural soft tissue thickening, most prominent in the paramediastinal region and the fissural region. This is suggestive of pleural metastatic disease. Interval development of increased consolidation of the inferior lingula and left lower lobes with some left lower lobe central bronchiectasis and small cavitation. This may be related to postobstructive pneumonitis. Small loculated appearing left pleural effusion. 3. Increased small to medium-sized pericardial effusion. Overall these findings represent worsened lung malignancy. Laboratory Results WBC 10.1 10^3/uL (4.0-10.0) H 03/26/22 01:35 RBC 4.79 10^6/uL (4.1-5.3) 03/26/22 01:35 Hgb 12.4 g/dL (11.7-16.6) 03/26/22 01:35 Hct 38.5 % (42.0-52.0) L 03/26/22 01:35 MCV 80.4 fl (80-94) 03/26/22 01:35 MCH 25.9 pg (28.0-34.0) L 03/26/22 01:35 MCHC 32.2 g/dL (30.0-36.0) 03/26/22 01:35 RDW 17.2 % (12.1-15.1) H 03/26/22 01:35 Plt Count 588 10^3/cmm (130-400) H 03/26/22 01:35 MPV 8.3 fL (7.4-10.4) 03/26/22 01:35 Neut % (Auto) 74.6 % 03/26/22 01:35 Lymph % (Auto) 8.0 % 03/26/22 01:35 [place] % (Auto) 10.7 % 03/26/22 01:35 Eos % (Auto) 6.0 % 03/26/22 01:35 Baso % (Auto) 0.4 % 03/26/22 01:35 Neut # (Auto) 7.56 10^3/uL (1.8-7.7) 03/26/22 01:35 Lymph # (Auto) 0.8 10^3/uL (0.8-4.8) 03/26/22 01:35 [place] # (Auto) 1.1 10^3/uL (0.2-0.9) H 03/26/22 01:35 Eos # (Auto) 0.6 10^3/uL (0.0-0.8) 03/26/22 01:35 Baso # (Auto) 0.0 10^3/uL (0.0-0.1) 03/26/22 01:35 Nucleated RBC % (auto) 0 % 03/26/22 01:35 Nucleated RBCs # 0.0 /100WBC 03/26/22 01:35 Sodium 130 mmol/L (136-145) L 03/26/22 01:35 Potassium 5.0 mmol/L (3.5-5.1) 03/26/22 01:35 Chloride 94 mmol/L (98-107) L 03/26/22 01:35 Carbon Dioxide 29 mmol/L (22-29) 03/26/22 01:35 Anion Gap 12.0 (5-19) 03/26/22 01:35 BUN 22 mg/dL (8-23) 03/26/22 01:35 Creatinine 1.0 mg/dL (0.7-1.2) 03/26/22 01:35 GFR Calculation 75.7 mL/min (90-130) L 03/26/22 01:35 Glucose 100 mg/dL (65-115) 03/26/22 01:35 Calculated Osmolality 273 mOsm/kg (285-295) L 03/26/22 01:35 Lactate 1.4 mmol/L (0.5-2.2) 03/26/22 01:35 Calcium 12.0 mg/dL (8.5-10.5) H 03/26/22 01:35 Total Bilirubin 0.4 mg/dL (0.15-1.2) 03/26/22 01:35 AST 11 U/L (0-40) 03/26/22 01:35 ALT 16 U/L (0-41) 03/26/22 01:35 Alkaline Phosphatase 140 IU/L (40-130) H 03/26/22 01:35 Total Protein 6.5 g/dL (6.6-8.7) L 03/26/22 01:35 Albumin 3.5 g/dL (3.5-5.2) 03/26/22 01:35 Globulin 3.0 g/dL (1.3-4.6) 03/26/22 01:35 Lipase 9 U/L (13-60) L 03/26/22 01:35 Urine Color Yellow (Yellow) 03/26/22 01:57 Urine Appearance Clear (CLEAR) 03/26/22 01:57 Urine pH 5 (5-7) 03/26/22 01:57 Ur Specific [place] 1.030 (1.005-1.030) 03/26/22 01:57 Urine Protein Neg (Negative) 03/26/22 01:57 Urine Glucose (UA) Norm (Normal) 03/26/22 01:57 Urine Ketones 1+ (Negative) H 03/26/22 01:57 Urine Blood Neg (Negative) 03/26/22 01:57 Urine Nitrate Negative (Negative) 03/26/22 01:57 Urine Bilirubin Neg (Negative) 03/26/22 01:57 Urine Urobilinogen Norm mg/dL (Negative) 03/26/22 01:57 Ur Leukocyte Esterase Negative (Negative) 03/26/22 01:57 Critical Care Time Critical Care Time: Critical Care Time: Yes Total Critical Care Time: 35 Attestation: Due to a high probability of clinically significant, possibly life threatening deterioration, the patient required my highest level of attention and preparedness to intervene emergently and I personally spent this critical care time directly and personally managing the patient. This critical care time included obtaining a history; examining the patient; pulse oximetry; ordering and review of laboratory and imaging studies; arranging urgent treatment with development of a management plan; evaluation of patient's response to treatment; frequent reassessment; and, discussions with other providers as applicable. It was exclusive of separately billable procedures. Primary system is [email or web address] Discharge Plan Discharge Patient Disposition: Home Clinical Impression: Adenocarcinoma of lung, stage 4, Pleural effusion, left, Pneumonia Condition: Stable Prescriptions: New prednisone 20 mg tablet 20 mg PO TID Qty: 15 0RF Rx Instructions: 1 p.o. 3 times daily x3 days, 1 p.o. twice daily x2 days, 1 p.o. daily x2 d ays albuterol sulfate 90 mcg/actuation HFA aerosol inhaler 2 inh INHALATION Q4H PRN (Reason: shortness of breath or wheezing) Qty: 18 0RF albuterol sulfate 2.5 mg /3 mL (0.083 %) solution for nebulization 2.5 mg inhalation Q4H PRN (Reason: shortness of breath or wheezing) Qty: 90 0RF ondansetron HCl 4 mg tablet 4 mg PO Q6H PRN (Reason: nausea and vomiting) Qty: 20 0RF No Action hydrocodone-acetaminophen 7.5-325 mg tablet 1 tab PO Q8H PRN (Reason: pain, severe) 10 Days Qty: 30 0RF Rx Instructions: Follow-up with Dr. Delgado in the next 10 days. Tagrisso 40 mg tablet 40 mg PO DAILY Qty: 28 0RF aspirin 325 mg Tablet 325 mg PO .3-4 TIMES A WEEK Vitamin D3 125 mcg (5,000 unit) Tablet 125 mcg PO DAILY vitamin K2 100 mcg capsule 100 mcg PO DAILY PRN Discharge Orders: Discharge ED (Routine); Ordered 03/26/22 Ordered By: Allen Booth Other Ambulatory Orders: DME: Nebulizer with Neb Kit (Order) Location: None Selected Ordered By: Allen Booth DME: Oxygen (Order) Location: None Selected Ordered By: Allen Booth Referrals: Igor Howard DO [Primary Care Provider] - Discharge Diet: Usual diet Discharge Activity: Increase activity as tolerated Patient Instructions: Opioid Safety Activity Restrictions/Additional Instructions: Follow-up with your primary care doctor within the next 3 days. Sign Out Sign Out Data: Patient Sign Out occurred on 03/26/22 at 07:22. Patient's care was discussed, and care was transferred from to Allen Booth DO. Coding Level of Care Code ED [employer] Manager for Chg Fwd Exam Comprehensive Documented by User: Allen Booth DO 03/26/22 13:56 HPI - Abdominal Pain General: Chief Complaint: Abdominal Pain Stated Complaint: abd & back pain Time Seen by Provider: 03/26/22 01:19 [facility] ED PFSH: Medical History (Updated 04/02/22 @ 07:26 by Enio Kang MD) Anemia COPD (chronic obstructive pulmonary disease) Non-small cell lung cancer Surgical History (Updated 04/02/22 @ 07:09 by Enio Kang MD) History of chest tube placement History of colonoscopy 2013 History of esophagogastroduodenoscopy (EGD) 2013 Port-A-Cath in place (01/02/22) Family History (Updated 04/01/22 @ 10:21 by Herminia Poon LPN) Mother Stroke Diabetes Other CAD (coronary artery disease) Hypertension Denies family history of Clotting disorder Dementia Hyperlipidemia Psychiatric illness Chronic kidney disease (CKD) Suicide Anesthesia complication Bleeding disorder Lung disease Cancer Social History Smoking and tobacco status: never smoked Alcohol intake: never Lives independently: Yes Household members: spouse Marital status: Course Vital Signs: Vital signs: Vital Signs Temperature 98.1 F 03/26/22 07:41 Pulse Rate 69 03/26/22 13:37 Respiratory Rate 16 03/26/22 13:37 Blood Pressure 101/66 03/26/22 13:37 Pulse Oximetry 93 03/26/22 13:37 Oxygen Delivery Me thod 03/26/22 10:23 Oxygen Flow Rate 3 03/26/22 10:47 MDM - Abdominal Pain Medical Decision Making 61-year-old gentleman with history of known lung cancer presenting with abdominal pain. The cause of abdominal pain possibly related to constipation however patient noted to have worsening pulmonary metastatic disease also possible necrotizing pneumonia. Given this finding the patient requires inpatient treatment. Antibiotics ordered. We have no bed availability and therefore we will look to transfer patient. Arrangements have been made. Transfer the patient to ICU bed in [place] however patient did not want to go there. He elected instead to leave and wanted to be discharged home he was discharged home on Levaquin 750 daily albuterol nebulizers and prednisone. Also gave him antiemetics to use as needed follow-up with his primary care doctor his oncologist in the next few days. Any worsening or change symptoms encouraged to return to the emergency room. Lab Data : 03/26/22 01:35 03/26/22 01:35 Labs/Radiology: Radiology Impressions Abdomen/Pelvis CT 03/26/22 02:30 IMPRESSION: 1. Unchanged left lower lobe consolidation with increased central dilated bronchi and suspected small areas of cavitation. This may represent necrotizing pneumonia. Associated small loculated appearing left pleural effusion. Some enhancement of the left pleura. Empyema cannot be excluded. Chest CT may be performed for further assessment. 2. Interval development of a medium-sized right pleural effusion with some right lower lobe compressive atelectasis. 3. Unchanged small to medium sized pericardial effusion. 4. Increased mild abdominal and moderate pelvic ascites. No free air. Moderate gas and fecal material in the cecum and ascending colon. Mild gas and fecal material in the transverse colon. ADDENDUM: 03/26/22 [id number] Given the patient's history of lung cancer, the left lower lobe consolidation with increased central dilated bronchi and suspected areas of cavitation, may represent worsening postobstructive necrotizing pneumonia. Lung malignancy involving the left lower lobe cannot be excluded. Associated loculated appearing small left pleural effusion with some enhancement of the left pleural. Empyema cannot be excluded. Chest CT may be performed for complete evaluation. The findings were directly discussed via telephone conference at 5:04 AM CDT on 03/26/2022 with Edi Everett. The findings were acknowledged and understood. Chest CT 03/26/22 05:02 IMPRESSION: 1. Interval development of increased small to medium-sized right pleural effusion. Associated mild right lower lobe atelectasis. Multiple new scattered right upper lobe, right middle lobe and right lower lobe 1-4 mm nodules (greater than 20). This may represent interval development of right lung metastatic disease. 2. Increased volume loss in the left hemithorax. Interval development of numerous aerated left upper lobe and left lower lobe 1 to 5 mm nodules. This represents worsened intrapulmonary left lung metastatic disease. Interval development of irregular pleural soft tissue thickening, most prominent in the paramediastinal region and the fissural region. This is suggestive of pleural metastatic disease. Interval development of increased consolidation of the inferior lingula and left lower lobes with some left lower lobe central bronchiectasis and small cavitation. This may be related to postobstructive pneumonitis. Small loculated appearing left pleural effusion. 3. Increased small to medium-sized pericardial effusion. Overall these findings represent worsened lung malignancy. Laboratory Results WBC 10.1 10^3/uL (4.0-10.0) H 03/26/22 01:35 RBC 4.79 10^6/uL (4.1-5.3) 03/26/22 01:35 Hgb 12.4 g/dL (11.7-16.6) 03/26/22 01:35 Hct 38.5 % (42.0-52.0) L 03/26/22 01:35 MCV 80.4 fl (80-94) 03/26/22 01:35 MCH 25.9 pg (28.0-34.0) L 03/26/22 01:35 MCHC 32.2 g/dL (30.0-36.0) 03/26/22 01:35 RDW 17.2 % (12.1-15.1) H 03/26/22 01:35 Plt Count 588 10^3/cmm (130-400) H 03/26/22 01:35 MPV 8.3 fL (7.4-10.4) 03/26/22 01:35 Neut % (Auto) 74.6 % 03/26/22 01:35 Lymph % (Auto) 8.0 % 03/26/22 01:35 [place] % (Auto) 10.7 % 03/26/22 01:35 Eos % (Auto) 6.0 % 03/26/22 01:35 Baso % (Auto) 0.4 % 03/26/22 01:35 Neut # (Auto) 7.56 10^3/uL (1.8-7.7) 03/26/22 01:35 Lymph # (Auto) 0.8 10^3/uL (0.8-4.8) 03/26/22 01:35 [place] # (Auto) 1.1 10^3/uL (0.2-0.9) H 03/26/22 01:35 Eos # (Auto) 0.6 10^3/uL (0.0-0.8) 03/26/22 01:35 Baso # (Auto) 0.0 10^3/uL (0.0-0.1) 03/26/22 01:35 Nucleated RBC % (auto) 0 % 03/26/22 01:35 Nucleated RBCs # 0.0 /100WBC 03/26/22 01:35 Sodium 130 mmol/L (136-145) L 03/26/22 01:35 Potassium 5.0 mmol/L (3.5-5.1) 03/26/22 01:35 Chloride 94 mmol/L (98-107) L 03/26/22 01:35 Carbon Dioxide 29 mmol/L (22-29) 03/26/22 01:35 Anion Gap 12.0 (5-19) 03/26/22 01:35 BUN 22 mg/dL (8-23) 03/26/22 01:35 Creatinine 1.0 mg/dL (0.7-1.2) 03/26/22 01:35 GFR Calculation 75.7 mL/min (90-130) L 03/26/22 01:35 Glucose 100 mg/dL (65-115) 03/26/22 01:35 Calculated Osmolality 273 mOsm/kg (285-295) L 03/26/22 01:35 Lactate 1.4 mmol/L (0.5-2.2) 03/26/22 01:35 Calcium 12.0 mg/dL (8.5-10.5) H 03/26/22 01:35 Total Bilirubin 0.4 mg/dL (0.15-1.2) 03/26/22 01:35 AST 11 U/L (0-40) 03/26/22 01:35 ALT 16 U/L (0-41) 03/26/22 01:35 Alkaline Phosphatase 140 IU/L (40-130) H 03/26/22 01:35 Total Protein 6.5 g/dL (6.6-8.7) L 03/26/22 01:35 Albumin 3.5 g/dL (3.5-5.2) 03/26/22 01:35 Globulin 3.0 g/dL (1.3-4.6) 03/26/22 01:35 Lipase 9 U/L (13-60) L 03/26/22 01:35 Urine Color Yellow (Yellow) 03/26/22 01:57 Urine Appearance Clear (CLEAR) 03/26/22 01:57 Urine pH 5 (5-7) 03/26/22 01:57 Ur Specific [place] 1.030 (1.005-1.030) 03/26/22 01:57 Urine Protein Neg (Negative) 03/26/22 01:57 Urine Glucose (UA) Norm (Normal) 03/26/22 01:57 Urine Ketones 1+ (Negative) H 03/26/22 01:57 Urine Blood Neg (Negative) 03/26/22 01:57 Urine Nitrate Negative (Negative) 03/26/22 01:57 Urine Bilirubin Neg (Negative) 03/26/22 01:57 Urine Urobilinogen Norm mg/dL (Negative) 03/26/22 01:57 Ur Leukocyte Esterase Negative (Negative) 03/26/22 01:57 Discharge Plan Discharge Patient Disposition: Home Clinical Impression: Adenocarcinoma of lung, stage 4, Pleural effusion, left, Pneumonia Condition: Stable Prescriptions: New prednisone 20 mg tablet 20 mg PO TID Qty: 15 0RF Rx Instructions: 1 p.o. 3 times daily x3 days, 1 p.o. twice daily x2 days, 1 p.o. daily x2 days albuterol sulfate 90 mcg/actuation HFA aerosol inhaler 2 inh INHALATION Q4H PRN (Reason: shortness of breath or wheezing) Qty: 18 0RF albuterol sulfate 2.5 mg /3 mL (0.083 %) solution for nebulization 2.5 mg inhalation Q4H PRN (Reason: shortness of breath or wheezing) Qty: 90 0RF ondansetron HCl 4 mg tablet 4 mg PO Q6H PRN (Reason: nausea and vomiting) Qty: 20 0RF No Action hydrocodone-acetaminophen 7.5-325 mg tablet 1 tab PO Q8H PRN (Reason: pain, severe) 10 Days Qty: 30 0RF Rx Instructions: Follow-up with Dr. Delgado in the next 10 days. Tagrisso 40 mg tablet 40 mg PO DAILY Qty: 28 0RF aspirin 325 mg Tablet 325 mg PO .3-4 TIMES A WEEK Vitamin D3 125 mcg (5,000 unit) Tablet 125 mcg PO DAILY vitamin K2 100 mcg capsule 100 mcg PO DAILY PRN Discharge Orders: Discharge ED (Routine); Ordered 03/26/22 Ordered By: Allen Booth Other Ambulatory Orders: DME: Nebulizer with Neb Kit (Order) Location: None Selected Ordered By: Allen Booth DME: Oxygen (Order) Location: None Selected Ordered By: Allen Booth Referrals: Igor Howard DO [Primary Care Provider] - Discharge Diet: Usual diet Discharge Activity: Increase activity as tolerated Patient Instructions: Opioid Safety Activity Restrictions/Additional Instructions: Follow-up with your primary care doctor within the next 3 days. Sign Out Sign Out Data: Patient Sign Out occurred on 03/26/22 at 07:22. Patient's care was discussed, and care was transferred from to Allen oBoth DO. Coding Level of Care Code ED [employer] for Chg Fwd Exam Comprehensive
[2022-03-26 01:43] LABS: Basophils % 0.4 %; Eosinophils # 0.6 10^3/uL (0.0-0.8); Hematocrit 38.5 % (42.0-52.0); Hemoglobin 12.4 g/dL (11.7-16.6); Lymphocytes # 0.8 10^3/uL (0.8-4.8); Mean Corpuscular HGB Conc 32.2 g/dL (30.0-36.0); Mean Corpuscular Hemoglobin 25.9 pg (28.0-34.0); Mean Corpuscular Volume 80.4 fl (80-94); Mean Platelet Volume 8.3 fL (7.4-10.4); Monocytes # 1.1 10^3/uL (0.2-0.9); Monocytes % 10.7 %; Neutrophils # 7.56 10^3/uL (1.8-7.7); Neutrophils % 74.6 %; Nucleated Red Blood Cells % 0 %; Platelet Count 588 10^3/cmm (130-400); Red Blood Count 4.79 10^6/uL (4.1-5.3); Red Cell Distribution Width 17.2 % (12.1-15.1); White Blood Count 10.1 10^3/uL (4.0-10.0)
[2022-03-26 02:03] LABS: Lactate (Lactic Acid level) 1.4 mmol/L (0.5-2.2)
[2022-03-26 02:04] LABS: Alanine Aminotransferase 16 U/L (0-41); Albumin Level 3.5 g/dL (3.5-5.2); Alkaline Phosphatase 140 IU/L (40-130); Aspartate Amino Transferase 11 U/L (0-40); Blood Urea Nitrogen 22 mg/dL (8-23); Carbon Dioxide 29 mmol/L (22-29); Chloride 94 mmol/L (98-107); Glomerular Filtration Rate 75.7 mL/min (90-130); Glucose 100 mg/dL (65-115); Lipase 9 U/L (13-60); Osmolality Calculated 273 mOsm/kg (285-295); Sodium 130 mmol/L (136-145); Total Bilirubin 0.4 mg/dL (0.15-1.2); Total Protein 6.5 g/dL (6.6-8.7)
[2022-03-26 02:05] LABS: Add Urine Microscopic? NO; Charge for UA Resulting for Rev
[2022-03-26 02:09] LABS: Bilirubin Urine Neg (Negative); Blood Urine Neg (Negative); Glucose Urine UA Norm (Normal); Ketones Urine 1+ (Negative); Leukocyte Esterase Urine Negative (Negative); Nitrate Urine Negative (Negative); Protein Urine Neg (Negative); Urine Appearance Clear (CLEAR); Urine Color Yellow (Yellow); Urobilinogen Urine Norm (Negative); pH Urine 5 (5-7)
--- NOTE | 2022-03-26 02:30 | CTR_ITS ---
PROCEDURE INFORMATION: Exam: CT Abdomen And Pelvis With Contrast Exam date and time: 03/26/2022 3:32 AM Age: 61 years old Clinical indication: Abdominal pain; Localized; Left upper quadrant (luq); Prior surgery; Surgery type: Chest port; Patient HX: C/O luq pain with nausea. History of metastatic lung cancer. ; Additional info: Luq abdominal pain, HX lung cancer TECHNIQUE: Imaging protocol: Computed tomography of the abdomen and pelvis with contrast. Radiation optimization: All CT scans at this facility use at least one of these dose optimization techniques: automated exposure control; mA and/or kV adjustment per patient size (includes targeted exams where dose is matched to clinical indication); or iterative reconstruction. Contrast material: OMNI 350; Contrast volume: 95 ml; Contrast route: INTRAVENOUS (IV); COMPARISON: CT abdomen pelvis wo con [id number] 02/28/2022 3:40 AM RADIATION DOSE METRICS: Total DLP (mGy-cm): 816.53 FINDINGS: Pleural spaces: Interval development of a medium-sized right pleural effusion with some right lower lobe compressive atelectasis. Unchanged left lower lobe consolidation with increased central dilated bronchi and suspected small areas of cavitation. This may represent necrotizing pneumonia. Associated small loculated appearing left pleural effusion. Some enhancement of the left pleura. Empyema cannot be excluded. Unchanged small to medium sized pericardial effusion. Liver: Normal. No mass. Gallbladder and bile ducts: Mildly distended gallbladder is seen. No calcified stones. No biliary ductal dilatation. Pancreas: Normal. No ductal dilation. Spleen: The spleen shows normal enhancement. A few punctate calcified granulomas are seen. No mass. Adrenal glands: Normal. No mass. Kidneys and ureters: Normal. No hydronephrosis. Stomach and bowel: The noncontrast opacified stomach is not well distended with relative moderate gastric fold prominence. The noncontrast opacified small bowel loops appear unremarkable. Horizontally oriented cecum is seen in the right pelvis region with moderate gas and fecal material. [id number] gas and fecal material is seen in the ascending and transverse colon. The descending colon, sigmoid colon and rectum are not well distended, limiting assessment. Appendix: No evidence of appendicitis. Intraperitoneal space: There is increased mild abdominal and moderate pelvic ascites seen. No pneumoperitoneum is seen. Vasculature: No abdominal aortic aneurysm. IVC and portal venous structures are unremarkable. Lymph nodes: No enlarged lymph nodes. Urinary bladder: Unremarkable as visualized. Reproductive: Moderately enlarged heterogeneous attenuation prostate is seen with some punctate calcifications. Bones/joints: No acute osseous abnormality seen. Small degenerative osteophytes of the lumbar spine are seen. Soft tissues: Unremarkable. CT/CT abdomen pelvis w con* [id number] IMPRESSION: 1. Unchanged left lower lobe consolidation with increased central dilated bronchi and suspected small areas of cavitation. This may represent necrotizing pneumonia. Associated small loculated appearing left pleural effusion. Some enhancement of the left pleura. Empyema cannot be excluded. Chest CT may be performed for further assessment. 2. Interval development of a medium-sized right pleural effusion with some right lower lobe compressive atelectasis. 3. Unchanged small to medium sized pericardial effusion. 4. Increased mild abdominal and moderate pelvic ascites. No free air. Moderate gas and fecal material in the cecum and ascending colon. Mild gas and fecal material in the transverse colon.
[2022-03-26] MEDS: sodium chloride 0.9% 500 ML 999 ML IV (02:45)
[2022-03-26] MEDS: morphine 4 mg/mL SDV 1 mL IVP (02:47)
[2022-03-26] MEDS: ondansetron 2 mg/ML SDV 2 mL 4 MG IVP ×2 (02:47→07:32)
[2022-03-26] MEDS: iohexol 350 mg/mL 100 mL Btl IV (03:40)
--- NOTE | 2022-03-26 05:02 | CTR_ITS ---
PROCEDURE INFORMATION: Exam: CT Chest Without Contrast; Diagnostic Exam date and time: 03/26/2022 5:16 AM Age: 61 years old Clinical indication: Other: Abnormal CT; Prior surgery; Surgery type: Chest port; Patient HX: Worsening progression of lung field noted on abd CT performed on 03/26/2022. History of lung cancer. ; Additional info: Eval worsening appearance noted on CT abd/pelvis TECHNIQUE: Imaging protocol: Diagnostic computed tomography of the chest without contrast. Radiation optimization: All CT scans at this facility use at least one of these dose optimization techniques: automated exposure control; mA and/or kV adjustment per patient size (includes targeted exams where dose is matched to clinical indication); or iterative reconstruction. COMPARISON: CT chest wo con [id number] 11/20/2021 5:24 PM RADIATION DOSE METRICS: Total DLP (mGy-cm): 587.95 FINDINGS: Tubes, catheters and devices: Right internal jugular Port-A-Cath is seen with tip at the cavoatrial junction. Trachea: The airway appears unremarkable. Lungs: Interval development of increased small to medium-sized right pleural effusion. Associated mild right lower lobe atelectasis. Multiple new scattered right upper lobe, right middle lobe and right lower lobe 1-4 mm nodules are seen (greater than 20). This may represent interval development of right lung metastatic disease. Increased volume loss in the left hemithorax. Interval development of numerous aerated left upper lobe and left lower lobe 1 to 5 mm nodules. Interval development of irregular pleural soft tissue thickening, most prominent in the paramediastinal region and the fissural region. This is suggestive of pleural metastatic disease. Interval development of increased consolidation of the inferior lingula and left lower lobes with some left lower lobe central bronchiectasis and small cavitation. Small loculated appearing left pleural effusion is seen. Overall these findings represent worsened lung malignancy. Pleural spaces: No pneumothorax. Heart: Increased small to medium-sized pericardial effusion. The heart size is normal. No coronary arterial atherosclerotic vascular calcifications. Mediastinal space: There is mild shift of the mediastinum towards the right. Lymph nodes: Unchanged calcified right hilar and paratracheal lymph nodes are seen, representing old granulomatous disease. Vasculature: No aortic aneurysm. Bones/joints: Mild kyphotic curvature of the thoracic spine is seen. Small degenerative osteophytes and mild to moderate degenerative disc disease changes are seen throughout the thoracic spine. Soft tissues: Unremarkable. CT/CT chest wo con [id number] IMPRESSION: 1. Interval development of increased small to medium-sized right pleural effusion. Associated mild right lower lobe atelectasis. Multiple new scattered right upper lobe, right middle lobe and right lower lobe 1-4 mm nodules (greater than 20). This may represent interval development of right lung metastatic disease. 2. Increased volume loss in the left hemithorax. Interval development of numerous aerated left upper lobe and left lower lobe 1 to 5 mm nodules. This represents worsened intrapulmonary left lung metastatic disease. Interval development of irregular pleural soft tissue thickening, most prominent in the paramediastinal region and the fissural region. This is suggestive of pleural metastatic disease. Interval development of increased consolidation of the inferior lingula and left lower lobes with some left lower lobe central bronchiectasis and small cavitation. This may be related to postobstructive pneumonitis. Small loculated appearing left pleural effusion. 3. Increased small to medium-sized pericardial effusion. Overall these findings represent worsened lung malignancy.
--- NOTE | 2022-03-26 07:13 | PC.PHAR ---
PT STATES HE TAKES CARE OF HIS OWN MEDICATIONS-PT STATES HE WENT TO [facility] AND HASNT RESTARTED TAKING THE ASPIRIN,VITAMIN K AND VITAMIN D3-STATES STOP TAKING ABOUT 10 DAYS AGO-PT STATES HE HASNT TAKEN TAGRISSO FOR A MONTH STATES IT MADE HIM OVERSTIMULATED-PT STATES HE FINISHED AZITHROMYCIN (EXT SHOWS LAST FILLED 03/14/22 3D/S) AND CEFDINIR 300MG BID (EXT SHOWS LAST FILLED 03/14/22 5D/S) ON Thursday03/21/22 PT STATES [facility] SENT HIM HOME WITH SOME-PT STATES HE HAD AN ALBUTEROL INHALER BUT STATES HE NO LONGER USES IT-NOTES ARE MADE IN THE PHARMACY COMMENTS
[2022-03-26] MEDS: cefepime 2,000 MG in sodium chloride 0.9% (plus) 50 ML 100 MG IV (07:40)
[2022-03-26] MEDS: clindamycin 600 MG/50 ML PREMIX 100 MG IV (08:43)
[2022-03-26] MEDS: vancomycin 1,500 MG/300 ML PIGGYBACK 200 MG IV (09:34)
== END 2022-03-26 13:40 | disposition home or self-care (01) ==
PROVIDERS: Emergency Medicine; Emergency Provider Family Medicine; PCP Family Medicine
DX: C34.90 Malignant neoplasm of unspecified part of unspecified bronchus or lung (principal); J90 Pleural effusion, not elsewhere classified; J44.0 Chronic obstructive pulmonary disease with (acute) lower respiratory infection; J18.9 Pneumonia, unspecified organism; Z79.82 Long term (current) use of aspirin
CPT/HCPCS: 71250; 74177; 80053; 81003; 83605; 83690; 85025; 87040; 96365; 96367; 96375; 99285; J0692; J2270; J2405; J3370; J3490; J7040; Q9967

== ENCOUNTER 2022-04-01 10:06 | Oncology outpatient (recurring) (ONCR) | payer OTHER, SELFPAY ==
[2022-04-01 11:36] LABS: Basophils % 0.1 %; Eosinophils # 0.4 10^3/uL (0.0-0.8); Eosinophils % 3.4 %; Hemoglobin 10.3 g/dL (11.7-16.6); Lymphocytes # 0.4 10^3/uL (0.8-4.8); Mean Corpuscular HGB Conc 31.2 g/dL (30.0-36.0); Mean Corpuscular Hemoglobin 25.7 pg (28.0-34.0); Mean Corpuscular Volume 82.3 fl (80-94); Mean Platelet Volume 8.8 fL (7.4-10.4); Monocytes # 1.2 10^3/uL (0.2-0.9); Monocytes % 10.5 %; Neutrophils # 9.64 10^3/uL (1.8-7.7); Neutrophils % 82.7 %; Nucleated Red Blood Cells % 0 %; Platelet Count 438 10^3/cmm (130-400); Red Blood Count 4.01 10^6/uL (4.1-5.3); Red Cell Distribution Width 18.2 % (12.1-15.1); White Blood Count 11.7 10^3/uL (4.0-10.0)
[2022-04-01 11:51] LABS: Alanine Aminotransferase 19 U/L (0-41); Albumin Level 2.8 g/dL (3.5-5.2); Alkaline Phosphatase 148 IU/L (40-130); Aspartate Amino Transferase 18 U/L (0-40); Blood Urea Nitrogen 23 mg/dL (8-23); Calcium 9.4 mg/dL (8.5-10.5); Carbon Dioxide 27 mmol/L (22-29); Chloride 94 mmol/L (98-107); Globulin 2.8 g/dL (1.3-4.6); Glomerular Filtration Rate 114.3 mL/min (90-130); Glucose 203 mg/dL (65-115); Osmolality Calculated 281 mOsm/kg (285-295); Sodium 131 mmol/L (136-145); Total Bilirubin 0.4 mg/dL (0.15-1.2); Total Protein 5.6 g/dL (6.6-8.7)
[2022-04-01 13:20] LABS: Iron 11 ug/dL (59-158); Percent Saturation 6.3 % (20-50); Total Iron Binding Capacity 173 mcg/dl; Unsaturated Iron Binding 162 ug/dL (112-347)
== END 2022-04-06 23:59 | disposition home or self-care (01) ==
PROVIDERS: PCP Family Medicine; Visit Provider Internal Medicine Medical Oncology
DX: C34.12 Malignant neoplasm of upper lobe, left bronchus or lung (principal); D64.9 Anemia, unspecified; Z79.811 Long term (current) use of aromatase inhibitors; R63.4 Abnormal weight loss; R63.0 Anorexia; D50.9 Iron deficiency anemia, unspecified; K59.00 Constipation, unspecified
CPT/HCPCS: 36591; 80053; 83540; 83550; 85025; 99215

== ENCOUNTER 2022-04-02 16:33 | Outpatient (CLI) | payer OTHER, SELFPAY ==
[2022-04-02 23:17] LABS: Occult Blood Stool Negative (Negative)
== END 2022-04-02 16:34 | disposition home or self-care (01) ==
PROVIDERS: PCP Family Medicine; Visit Provider Internal Medicine Medical Oncology
DX: D50.9 Iron deficiency anemia, unspecified (principal)
CPT/HCPCS: 82270

== ENCOUNTER 2022-04-11 10:58 | Day surgery (SDC) | payer OTHER, SELFPAY ==
[2022-04-11 08:23] VITALS: BMI 21.9
[2022-04-11 11:09] VITALS: BP 113/67; PULSE 107; RESP 20; TEMP 36.6; O2SAT 90
--- NOTE | 2022-04-11 12:37 | XR_ITS ---
WS: [id number] Portable AP upright chest, 04/11/2022 Clinical Data: POST THORACENTESIS Comparison: Portable chest, 02/28/2022. Findings: There is a small right pleural effusion but no right pneumothorax is seen. The opacificatio n of the left lung with volume loss remains the same. The heart and mediastinum are shifted from righ t to left. The right Port-A-Cath remains in the same position. XR/XR chest 1V portable [id number] Impression: 1. All right pleural effusion but no pneumothorax from a thoracentesis is seen. 2. No change in opacification and volume loss of left lung.
[2022-04-11 13:00] VITALS: BP 107/76; PULSE 99; RESP 28; O2SAT 96
--- NOTE | 2022-04-11 13:18 | P.PCN_ITS ---
Outpatient Procedures Thoracentesis Consent signed and on chart: Yes Time Out Performed: Yes Procedure: therapeutic thoracentesis Location: Right Local anesthetic used: lidocaine 1% Bedside ultrasound used: yes, pleural effusion confirmed and location marked Preparation: 10 blade used to make margarita in skin Amount of fluid obtained (mL): 1,850 Fluid: cloudy Post Procedure Exam: awake, alert, normal BP, normal HR and normal SpO2 Post-procedure chest x-ray ordered: Yes Estimated blood loss (mL): 5 Patient Tolerated Procedure: well and no complications Procedure Note: Pulmonary & Critical Care Medicine Procedure - Ultrasound guided Thoracentesis Procedure: Ultrasound guided Thoracentesis Indication: Pleural effusion 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 A time out was performed. My hands were washed immediately prior to the procedure. I wore a surgical cap, mask with protective eyewear, sterile gown and sterile gloves throughout the procedure. The patient was placed in appropriate position, area of interest was sterilized with chlorhexidine skin prep and draped in a sterile manner. 1% lidocaine was used to anesthesize the skin, subcutaneous tissue, superior aspect of the rib periosteum and parietal pleura. A finder needle was then introduced over the superior aspect of the rib to locate the pleural fluid;5 cc blood- tinged straw colored fluid was aspirated. A 10-blade scalpel was used to margarita the skin at the insertion site. The Spiw-w-Apmzhoda needle was then introduced through the skin incision into the pleural space using negative aspiration pressure and the red colormetric indicator to confirm appropriate positioning of the needle. The thoracentesis catheter was then threaded without difficulty. 1850.CC Blood-tinged straw-colored fluid was removed without difficulty. The catheter was then removed. No immediate complications were noted during the procedure. The fluid will be sent for studies. Estimated blood loss is 5 - 10 CC. Ultrasound guidance used: Yes. EBL: 5-10 cc Complications: None CXR: A post-procedure chest x-ray did not show pneumothorax.
[2022-04-11 14:05] LABS: Body Fluid Polynuclear #Cells 0.168; Body Fluid WBC 2594 /uL; Monocytes # Body Fluid 2.426
[2022-04-11 14:14] LABS: Apprearance, Body Fluid CLOUDY; Body Fluid Specific Gravity 1.005; Color, Body Fluid SLIGHT PINK
[2022-04-11 14:38] LABS: Albumin Body Fluid 1.8 g/dL; Amylase Body Fluid 143 U/L; Cholesterol Body Fluid 62 mg/dL (0-200); LDH Body Fluid 545 U/L; Total Protein Pleural Fluid 3.1 g/dL; Triglycerides Body Fluid 21 mg/dL (0-150); Uric Acid Body Fluid 7 mg/dL
[2022-04-11 16:50] LABS: Cyto Order Verification Order Verified
== END 2022-04-11 13:40 | disposition home or self-care (01) ==
PROVIDERS: PCP Family Medicine; Visit Provider Internal Medicine Pulmonary Disease
PROC: (CPT 32554; principal; 2022-04-11 12:00)
DX: J90 Pleural effusion, not elsewhere classified (principal)
CPT/HCPCS: 32554; 71045; 80503; 82042; 82150; 82465; 82945; 83615; 83986; 84157; 84315; 84478; 84560; 87015; 87070; 87075; 87102; 87116; 87205; 87206; 87801; 88108; 89050

== ENCOUNTER 2022-05-06 10:08 | Day surgery (SDC) | payer OTHER, SELFPAY ==
[2022-05-06 10:23] VITALS: BMI 20.7
[2022-05-06 10:43] VITALS: BP 108/74; PULSE 96; RESP 20; TEMP 36.3; O2SAT 93
--- NOTE | 2022-05-06 11:19 | XR_ITS ---
WS: [id number] Exam: XR chest 1V portable [id number] Date/Time of Exam: 05/06/2022 11:41 AM Reason For Exam: post thoracentesis R pleural effusion Comparison 04/11/2022. The lungs are fully inflated. No pneumothorax is seen. Improving infiltrates throughout the left lung . Bibasal pleural effusions also slightly improved. There is focal infiltrate in the right lower lobe . Heart size is normal. A right sided port is in place and probably ends in the region of the cavoatr ial junction. Bony structures are intact. XR/XR chest 1V portable [id number] IMPRESSION: 1. No pneumothorax. 2. Improved infiltrates in the left lung since previous study. There is also fo silvino infiltrate in the right lower lobe. 2. Bibasal pleural effusions showing some improvement.
[2022-05-06 11:28] VITALS: BP 96/64; PULSE 90; RESP 20; TEMP 36.3; O2SAT 96
--- NOTE | 2022-05-06 11:28 | PM.OUTPTPROC ---
Outpatient Procedures Thoracentesis Consent signed and on chart: Yes Time Out Performed: Yes Procedure: therapeutic thoracentesis Location: Right Local anesthetic used: lidocaine 1% (5 cc) Bedside ultrasound used: yes, pleural effusion confirmed and location marked Preparation: sterile prep and drape and 10 blade used to make margarita in skin Amount of fluid obtained (mL): 2,000 Fluid: bloody (hemorrhagic ) and sent to lab for analysis (cultures and fluid analysis) Size of needle used: 6 Post Procedure Exam: awake, alert, normal BP, normal HR and normal SpO2 Post-procedure chest x-ray ordered: Yes Estimated blood loss (mL): 5 Patient Tolerated Procedure: well and no complications Procedure Note: Pulmonary & Critical Care Medicine Procedure - Ultrasound guided therapeutic thoracentesis Procedure: Ultrasound guided Thoracentesis Indication: Large right recurrent malignant pleural effusion Meters Superintendent(s): Ten Escobarr [facility] Consent: Signed and placed in chart Anesthesia: 5 cc 1% lidocaine without epinephrine Description: Large right pleural effusion was localized using ultrasound guidance and the appropriate site was marked accordingly. A time out was performed. My hands were washed immediately prior to the procedure. I wore a surgical cap, mask with protective eyewear, sterile gown and sterile gloves throughout the procedure. The patient was placed in appropriate position, area of interest was sterilized with chlorhexidine skin prep and draped in a sterile manner. 1% lidocaine was used to anesthesize the skin, subcutaneous tissue, superior aspect of the rib periosteum and parietal pleura. A finder needle was then introduced over the superior aspect of the rib to locate the pleural fluid; 5 cc hemorrhagic colored fluid was aspirated. A 10-blade scalpel was used to margarita the skin at the insertion site. The 6 Irish oktu-d-Ifdrqsfa needle was then introduced through the skin incision into the pleural space using negative aspiration pressure and the red colormetric indicator to confirm appropriate positioning of the needle. The thoracentesis catheter was then threaded without difficulty. 2000 CC hemorrhagic colored fluid was removed without difficulty. The catheter was then removed. No immediate complications were noted during the procedure. The fluid will be sent for studies. Ultrasound guidance used: Yes. EBL: 5-10 cc Complications: None PCXR: A post-procedure chest x-ray did not show pneumothorax.
[2022-05-06 11:48] VITALS: BP 94/66; PULSE 87; RESP 18; TEMP 36.3; O2SAT 93
[2022-05-06 12:07] LABS: Cyto Order Verification Order Verified
[2022-05-06 12:15] LABS: Mononuclear %, Pleural Fluid 79 %; Mononuclear, Pleural Fluid # 0.637 10^3/uL; Polynuclear Cells, Pleural # 0.175 10^3/uL; Polynuclear Cells, Pleural % 22 %
[2022-05-06 12:17] LABS: Color, Pleural Fluid Red (Pale Yellow); Right Pleural Fluid Right Lung
[2022-05-06 12:18] LABS: Appearance, Pleural Fluid BLOODY (CLEAR); PATH Referral YES
== END 2022-05-06 12:13 | disposition home or self-care (01) ==
LOC: GILAB 10:13
PROVIDERS: PCP Family Medicine; Visit Provider Internal Medicine Pulmonary Disease
PROC: (CPT 32554; principal; 2022-05-06 11:00)
DX: C80.1 Malignant (primary) neoplasm, unspecified (principal); J91.0 Malignant pleural effusion
CPT/HCPCS: 32554; 71045; 80503; 87070; 87075; 87205; 89050

== ENCOUNTER 2022-05-06 14:30 | Oncology outpatient (recurring) (ONCR) | payer OTHER, SELFPAY ==
[2022-04-23 12:23] LABS: Basophils % 0.4 %; Eosinophils # 0.3 10^3/uL (0.0-0.8); Eosinophils % 4.6 %; Hematocrit 33.5 % (42.0-52.0); Hemoglobin 10.4 g/dL (11.7-16.6); Lymphocytes # 0.4 10^3/uL (0.8-4.8); Mean Corpuscular Hemoglobin 26.5 pg (28.0-34.0); Mean Corpuscular Volume 85.5 fl (80-94); Mean Platelet Volume 9.2 fL (7.4-10.4); Monocytes # 0.4 10^3/uL (0.2-0.9); Monocytes % 7.6 %; Neutrophils # 4.28 10^3/uL (1.8-7.7); Neutrophils % 79.2 %; Nucleated Red Blood Cells % 0 %; Platelet Count 253 10^3/cmm (130-400); Red Blood Count 3.92 10^6/uL (4.1-5.3); Red Cell Distribution Width 18.1 % (12.1-15.1); White Blood Count 5.4 10^3/uL (4.0-10.0)
[2022-04-23 12:40] LABS: Alanine Aminotransferase 26 U/L (0-41); Albumin Level 2.5 g/dL (3.5-5.2); Alkaline Phosphatase 180 U/L (40-130); Anion Gap 12.5 (5-19); Aspartate Amino Transferase 15 U/L (0-40); Blood Urea Nitrogen 17 mg/dL (8-23); Calcium 8.3 mg/dL (8.5-10.5); Carbon Dioxide 26 mmol/L (22-29); Chloride 100 mmol/L (98-107); Globulin 3.1 g/dL (1.3-4.6); Glucose 156 mg/dL (65-115); Osmolality Calculated 283 mOsm/kg (285-295); Potassium 4.5 mmol/L (3.5-5.1); Sodium 134 mmol/L (136-145); Total Bilirubin 0.2 mg/dL (0.15-1.2); Total Protein 5.6 g/dL (6.6-8.7)
[2022-05-06 14:37] VITALS: BP 115/73; PULSE 91; RESP 16; TEMP 36.9; O2SAT 90
[2022-05-06] MEDS: sodium chloride 0.9% (100 ml) 100 ML 75 ML (14:54)
[2022-05-06] MEDS: ferric carboxy (IVPB) 750 MG in sodium chloride 0.9% (100 ml) 100 ML 345 MG IV (14:55)
[2022-05-06 15:31] VITALS: PULSE 87; RESP 16; TEMP 36.6; O2SAT 98
== END 2022-05-07 23:59 | disposition home or self-care (01) ==
PROVIDERS: PCP Family Medicine; Visit Provider Internal Medicine Medical Oncology
DX: C34.12 Malignant neoplasm of upper lobe, left bronchus or lung (principal); D50.9 Iron deficiency anemia, unspecified; Z79.899 Other long term (current) drug therapy
CPT/HCPCS: 36591; 80053; 85025; 96365; J1439

== ENCOUNTER 2022-05-08 12:54 | Outpatient (CLI) | payer OTHER, SELFPAY ==
--- NOTE | 2022-05-08 13:01 | XR_ITS ---
WS: [id number] Exam: XR chest 2V* [id number] Date/Time of Exam: 05/08/2022 1:01 PM Reason For Exam: cough - post thoracentesis Comparison 05/06/2022. Slight increasing infiltrates in the right lower lung zone since prior study. Infiltrates in the left lung show no change. Bilateral pleural effusions unchanged. No pneumothorax. Heart size is normal. F ocal infiltrate in the left upper lobe is unchanged. Right-sided port probably ends near the cavoatri al junction. Bony structures are intact. XR/XR chest 2V* [id number] IMPRESSION: 1. Slight increase in the right basal infiltrate since prior study. 2. Infiltrates in the left lung showing very little change. 3. Unchanged bilateral pleural effusions.
== END 2022-05-08 12:55 | disposition home or self-care (01) ==
PROVIDERS: PCP Family Medicine; Visit Provider Internal Medicine Pulmonary Disease
DX: R05.9 Cough, unspecified (principal); C34.12 Malignant neoplasm of upper lobe, left bronchus or lung; J90 Pleural effusion, not elsewhere classified; R91.8 Other nonspecific abnormal finding of lung field
CPT/HCPCS: 71046

== ENCOUNTER 2022-05-16 20:48 | Inpatient (IN) | payer OTHER, SELFPAY ==
[2022-05-16 20:50] VITALS: BP 111/68; PULSE 109; RESP 40; O2SAT 85; BMI 16.2
--- NOTE | 2022-05-16 20:50 | PC.NURSE ---
patient direct bed to ed 5 at 2049 with o2 saturation 65% room air, no use of home o2 reports hx of end stage lung ca with active chemo. 4l nasal cannula placed by RT at 2050, increased o2 saturation to 85%. 100% NRB initiated at 2054, increased o2 saturation to 96%. RT titrated o2 down to 4l nasal cannula with patient at rest, o2% maintained at 93%. gcs 15 maintained throughout this time. lung sounds clear with exception of mild cough.
--- NOTE | 2022-05-16 21:04 | XRR_ITS ---
PROCEDURE INFORMATION: Exam: XR Chest Exam date and time: 05/16/2022 9:24 PM Age: 62 years old Clinical indication: Shortness of breath; Additional info: SOB TECHNIQUE: Imaging protocol: Radiologic exam of the chest. Views: 1 view. COMPARISON: CR XR chest 1V portable [id number] 05/06/2022 11:44 AM FINDINGS: Tubes, catheters and devices: There is a right chest port with the line tip appropriately positioned in the lower SVC near the cavoatrial junction. Lungs: ill-defined opacity throughout the left lung, greatest at the base. Minimal opacity at the right lung base. Pleural spaces: The left lateral costophrenic sulcus is blunted. The right lateral costophrenic sulcus is blunted. No pneumothorax. Heart/Mediastinum: Leftward mediastinal shift. Cardiomediastinal contours are obscured. Bones/joints: Bones are unremarkable. XR/XR chest 1V portable [id number] IMPRESSION: 1. No change compared to 05/06/2022. 2. Bilateral pleural effusions, greater on the right. 3. Volume loss and nonspecific opacity in the left lung.
--- NOTE | 2022-05-16 21:04 | W.ED.SOB ---
HPI - SOB/Dyspnea General: Chief Complaint: Shortness of Breath/Dyspnea Stated Complaint: sob Time Seen by Provider: 05/16/22 21:03 History of Present Illness: HPI Narrative: Mr. Ramos is a 62-year-old gentleman with history of metastatic lung cancer and recurrent malignant pleural effusions presenting to the emergency department with shortness of breath. He reports symptoms have been worse for the past few days after initially being improved by thoracentesis on 05/06. He does not typically wear oxygen at home but noted today that his oxygen levels was in the 60s and correlated worsening shortness of breath with exertion. Intensity symptoms is now severe. Course has worsened. Denies associated infectious symptoms. No other specific changes in health, exacerbating, or alleviating factors identified. Onset (ago): day(s) Context: other Exacerbating factors: lying flat and exertion Known history of: other Review of Systems General: Reports: 10 or more systems reviewed and unremarkable except in HPI and below PFSH ED PFSH: Medical History Anemia COPD (chronic obstructive pulmonary disease) Non-small cell lung cancer Surgical History History of chest tube placement History of colonoscopy 2013 History of esophagogastroduodenoscopy (EGD) 2014 Port-A-Cath in place (01/02/22) Family History Mother Stroke Diabetes Other CAD (coronary artery disease) Hypertension Denies family history of Clotting disorder Dementia Hyperlipidemia Psychiatric illness Chronic kidney disease (CKD) Suicide Anesthesia complication Bleeding disorder Lung disease Cancer Social History Smoking and tobacco status: never smoked Alcohol intake: never Lives independently: Yes Household members: spouse Marital status: Physical Exam Const: COMMON NORMALS: alert GENERAL APPEARANCE: cooperative, well developed and ill appearing HENMT: COMMON NORMALS: normocephalic and atraumatic HEAD & SCALP: normocephalic and atraumatic Eye: COMMON NORMALS: conjunctivae normal CONJUNCTIVA: Yes conjunctivae normal SCLERA: sclerae normal Neck/C-Spine: COMMON NORMALS: supple GENERAL: Yes trachea midline Resp: EFFORT & INSPECTION: Yes tachypneic AUSCULTATION: diminished lung sounds on the left in the lower lung quinn Cardio: COMMON NORMALS: regular rate and regular rhythm RATE: regular rate RHYTHM: regular rhythm GI: COMMON NORMALS: Soft to palpation PALPATION: Yes Soft to palpation and No Tenderness to palpation present (GI) Extremity: GENERAL: Yes normal exam except as noted and No edema Neuro: COMMON NORMALS: moves all extremities SENSORIUM/ORIENTATION: Yes alert and No Orientation impaired Psych: COMMON NORMALS: mental status grossly normal and Normal thought process present THOUGHT PROCESS: Normal thought process present Course ED course: - Patient was seen and evaluated by me at bedside - Patient placed on cardiac monitors, IV access obtained - Initial evaluation notable for exam as above. Greater than normal oxygen requirement. - Labs and xrays personally interpreted by me. EKG shows sinus tachycardia with occasional PVC, no STEMI. -RT treatment ordered - Labs notable for no leukocytosis, normal hemoglobin. Metabolic end without acute derangement. - Imaging notable for bilateral pleural effusions noted on the right - Upon serial reexamination after treatment the patient was only mildly improved - Based on patient history, evaluation, and testing as interpreted the most likely cause of the patient's condition is recurrent malignant pleural effusion - The results of ED evaluation were discussed with the patient including plan for admission due to requirement for level of care not available if discharged to prevent significant worsening/deterioration. - Admitting service was contacted and Dr Thornton with the hospital service agreed to admit the patient - Patient was admitted without further deterioration or significant events. Note: Click bubbles or prepopulated quinn in note writing are used for assistance with data collection and billing and are inherently more limited than narrative and other text portions of this note. Please use narrative for additional clinical history and defer to narrative/free test for any case of contradictory information. If information appears in only free text or click bubble it should be considered present or absent as reported. Please contact note automobile service writer for clarifications of clinical information or contradictory information. MDM is a brief summary, contradictory or erroneous seeming information should be clarified and full note should be reviewed. Vital Signs: Vital signs: Vital Signs Temperature 98.2 F 05/22/22 11:53 Pulse Rate 78 05/22/22 11:53 Respiratory Rate 16 05/22/22 11:53 Blood Pressure 101/60 05/22/22 11:53 Pulse Oximetry 93 05/22/22 11:53 Oxygen Delivery Me thod 05/22/22 11:53 Oxygen Flow Rate 2 05/22/22 04:00 MDM - SOB/Dyspnea Medical Decision Making 62-year-old gentleman presenting with shortness of breath in the context of known lung cancer and malignant effusions. Admitted for further management given worsening oxygen requirement and recurrence of effusions. Medical Records I reviewed the patient's medical records. Lab Data I reviewed the patient's lab results. : 05/22/22 01:57 05/22/22 01:57 Labs/Radiology: Radiology Impressions Chest CTA 05/17/22 00:04 IMPRESSION: 1. Right pulmonary embolism. Moderate clot burden. 2. No sign of right ventricular strain. 3. Subpleural mass in the left upper lung consistent with a malignant neoplasm. 4. Extensive left pleural thickening with fibrothorax and volume loss. Possible pleural metastases. 5. Large loculated right pleural effusion. 6. Ascites. 7. Suspect metastases in the thoracic spine. ADDENDUM: 05/17/22 0130 THIS REPORT CONTAINS FINDINGS THAT MAY BE CRITICAL TO PATIENT CARE. The findings were verbally communicated via telephone conference with FANNY THORNTON at 1:28 AM CDT on 05/17/2022. The findings were acknowledged and understood. Venous Duplex 05/17/22 00:04 IMPRESSION: 1. Nonocclusive deep venous thrombosis of the right common femoral, profundus femoris, femoral vein and popliteal vein regions, as noted above. 2. Nonocclusive deep venous thrombosis of the visualized left peroneal and posterior tibial veins. Chest X-Ray 05/21/22 07:12 IMPRESSION: Stable abnormal chest. Laboratory Results WBC 4.4 10^3/uL (4.0-10.0) 05/18/22 04:55 RBC 3.83 10^6/uL (4.1-5.3) L 05/18/22 04:55 Hgb 10.5 g/dL (11.7-16.6) L 05/18/22 04:55 Hct 34.1 % (42.0-52.0) L 05/18/22 04:55 MCV 89.0 fl (80-94) 05/18/22 04:55 MCH 27.4 pg (28.0-34.0) L 05/18/22 04:55 MCHC 30.8 g/dL (30.0-36.0) 05/18/22 04:55 RDW 17.9 % (12.1-15.1) H 05/18/22 04:55 Plt Count 171 10^3/cmm (130-400) 05/18/22 04:55 MPV 9.7 fL (7.4-10.4) 05/18/22 04:55 Neut % (Auto) 66.5 % 05/18/22 04:55 Lymph % (Auto) 15.2 % 05/18/22 04:55 [place] % (Auto) 11.8 % 05/18/22 04:55 Eos % (Auto) 6.1 % 05/18/22 04:55 Baso % (Auto) 0.2 % 05/18/22 04:55 Neut # (Auto) 2.92 10^3/uL (1.8-7.7) 05/18/22 04:55 Lymph # (Auto) 0.7 10^3/uL (0.8-4.8) L 05/18/22 04:55 [place] # (Auto) 0.5 10^3/uL (0.2-0.9) 05/18/22 04:55 Eos # (Auto) 0.3 10^3/uL (0.0-0.8) 05/18/22 04:55 Baso # (Auto) 0.0 10^3/uL (0.0-0.1) 05/18/22 04:55 Nucleated RBC % (auto) 0 % 05/18/22 04:55 Nucleated RBCs # 0.0 /100WBC 05/18/22 04:55 APTT 54.8 SECONDS (23.9-36.7) H 05/18/22 11:00 Specimen Type Arterial 05/17/22 04:49 Sample Site Radial, right 05/17/22 04:49 ABG pH 7.44 (7.35-7.45) 05/17/22 04:49 ABG pCO2 40.7 mmHg (35-45) 05/17/22 04:49 ABG pO2 60.3 mmHg (80.0-100.0) L 05/17/22 04:49 ABG HCO3 27.3 mmol/L (22-26) H 05/17/22 04:49 ABG Base Excess 2.8 mmol/L (-2.0-2.0) H 05/17/22 04:49 [place] Test Pos 05/17/22 04:49 Hematocrit 34.2 % (42-52) L 05/17/22 04:49 O2 Delivery Device Nc 05/17/22 04:49 O2 Liters/Min 5.0 % 05/17/22 04:49 Fermentation Scientist ID Monro 05/17/22 04:49 Sodium 137 mmol/L (136-145) 05/18/22 04:55 Potassium 4.4 mmol/L (3.5-5.1) 05/18/22 04:55 Chloride 102 mmol/L (98-107) 05/18/22 04:55 Carbon Dioxide 29 mmol/L (22-29) 05/18/22 04:55 Anion Gap 10.4 (5-19) 05/18/22 04:55 BUN 12 mg/dL (8-23) 05/18/22 04:55 Creatinine 0.6 mg/dL (0.7-1.2) L 05/18/22 04:55 GFR Calculation 136.1 mL/min (90-130) H 05/18/22 04:55 Glucose 114 mg/dL (65-115) 05/18/22 04:55 Calculated Osmolality 285 mOsm/kg (285-295) 05/18/22 04:55 Calcium 7.9 mg/dL (8.5-10.5) L 05/18/22 04:55 Magnesium 1.9 mg/dL (1.7-2.3) 05/17/22 02:20 Total Bilirubin 0.2 mg/dL (0.15-1.2) 05/18/22 04:55 AST 19 U/L (0-40) 05/18/22 04:55 ALT 16 U/L (0-41) 05/18/22 04:55 Alkaline Phosphatase 132 U/L (40-130) H 05/18/22 04:55 Lactate Dehydrogenase 281 U/L (135-225) H 05/17/22 02:20 Troponin T Baseline 16 ng/L (0-15) H 05/16/22 20:50 Troponin T 120 Minute 16.48 ng/L (0-15) H 05/16/22 22:58 Delta Troponin T 0.48 ABS# (0-10) 05/16/22 22:58 Troponin T Hi Sens 6Hr 17.78 ng/L (0-15) H 05/17/22 02:20 Troponin T Hi Sens 6Hr Delta 1.78 ng/L (0-12) 05/17/22 02:20 C-Reactive Protein 13.1 mg/L (0.0-4.9) H 05/17/22 02:20 NT-Pro-B Natriuret Pep 154 pg/mL (0-125) H 05/16/22 20:50 Total Protein 5.1 g/dL (6.6-8.7) L 05/18/22 04:55 Albumin 2.5 g/dL (3.5-5.2) L 05/18/22 04:55 Globulin 2.6 g/dL (1.3-4.6) 05/18/22 04:55 Procalcitonin 0.07 ng/mL (0-0.5) 05/16/22 22:58 Discharge Plan Discharge Patient Disposition: Placed in Observation Admit Provider: Fanny Thornton Clinical Impression: Malignant pleural effusion, Acute respiratory failure with hypoxia Discharge Diet: Cardiac Discharge Activity: Increase activity as tolerated and Oxygen as instructed Coding Level of Care Code ED Construction Ironworker for Papi Fwd Exam Comprehensive
--- NOTE | 2022-05-16 21:18 | ECG_ITS ---
[facility] Test Date: 2022-05-16 Pat Name: Shahab Ramos Department: Room: Gender: Male Milieu Manager: : 1960 Requested By: Edi Everett Order Number: [id number] Jean MD: Douglas Willoughby M.D. Measurements Intervals [place] Rate: 100 P: 94 AK: 135 QRS: 85 QRSD: 91 T: 68 QT: 326 QTc: 421 Interpretive Statements SINUS TACHYCARDIA WITH OCCASIONAL SUPRAVENTRICULAR PREMATURE COMPLEXES Compared to ECG 02/28/2022 03:26:27 Sinus rhythm no longer present Electronically Signed On 05-18-2022 13:22:50 CDT by Douglas Willoughby M.D. [email or web address] centerRed Hawk Interactivepeoples [email or web address].Domain [email or web address]/store/[id number]
[2022-05-16 21:26] LABS: Basophils % 0.2 %; Eosinophils # 0.2 10^3/uL (0.0-0.8); Eosinophils % 4.3 %; Hematocrit 42.4 % (42.0-52.0); Hemoglobin 13.2 g/dL (11.7-16.6); Lymphocytes # 0.8 10^3/uL (0.8-4.8); Lymphocytes % 16.9 %; Mean Corpuscular HGB Conc 31.1 g/dL (30.0-36.0); Mean Corpuscular Hemoglobin 27.8 pg (28.0-34.0); Mean Corpuscular Volume 89.5 fl (80-94); Mean Platelet Volume 9.4 fL (7.4-10.4); Monocytes # 0.6 10^3/uL (0.2-0.9); Monocytes % 11.6 %; Neutrophils # 3.27 10^3/uL (1.8-7.7); Neutrophils % 66.8 %; Nucleated Red Blood Cells % 0 %; Platelet Count 220 10^3/cmm (130-400); Red Blood Count 4.74 10^6/uL (4.1-5.3); Red Cell Distribution Width 17.9 % (12.1-15.1); White Blood Count 4.9 10^3/uL (4.0-10.0)
[2022-05-16 21:39] VITALS: BP 107/64; PULSE 66; RESP 36; O2SAT 96
[2022-05-16 21:41] LABS: Troponin(5th) Baseline 16 ng/L (0-15)
[2022-05-16 21:50] LABS: Alanine Aminotransferase 19 U/L (0-41); Albumin Level 3.2 g/dL (3.5-5.2); Alkaline Phosphatase 162 U/L (40-130); Anion Gap 14.3 (5-19); Aspartate Amino Transferase 18 U/L (0-40); Blood Urea Nitrogen 15 mg/dL (8-23); Calcium 8.9 mg/dL (8.5-10.5); Carbon Dioxide 27 mmol/L (22-29); Chloride 100 mmol/L (98-107); Creatinine Clr Calc Pharmacy 72.7637; Globulin 3.4 g/dL (1.3-4.6); Glomerular Filtration Rate 97.6 mL/min (90-130); Glucose 100 mg/dL (65-115); NT Pro B Type Natriuretic Pept 154 pg/mL (0-125); Osmolality Calculated 285 mOsm/kg (285-295); Potassium 4.3 mmol/L (3.5-5.1); Sodium 137 mmol/L (136-145); Total Bilirubin 0.2 mg/dL (0.15-1.2); Total Protein 6.6 g/dL (6.6-8.7)
[2022-05-16 22:00] VITALS: BP 107/64; PULSE 99; RESP 26; O2SAT 95
--- NOTE | 2022-05-16 22:59 | PC.NURSE ---
blood drawn per protocol for repeat troponin and sent to lab.
[2022-05-16 23:27] VITALS: BP 105/74; PULSE 84; RESP 30; O2SAT 94
[2022-05-16 23:30] LABS: Troponin 5 2HR 16.48 ng/L (0-15); Troponin 5 2HR Delta 0.48 ABS# (0-10)
--- NOTE | 2022-05-16 23:34 | PM.HP ---
Providers/Chief Complaint Primary Care Provider: Igor Howard DO Chief Complaint: sob History of Present Illness Shahab Ramos is a 62 year old male who has history of stage IV lung adenocarcinoma, recurrent pleural effusion recent one was done on 05/[address] Merrill about 2000 mL was drained presents today with chief complaint of shortness of breath and hypoxia Patient is stating that even before his thoracentesis he was experiencing cough which has not improved at all, the reason he decided to come to the hospital today as severe hypoxia which is noted when he was short of breath at home, he was saturating 64% on room air and his heart rate was high, recently he was put on Lasix which he stopped taking after noticing rash around his ankle and groin area, patient is stating that his feet and legs are less swollen because he keeps them elevated. He has not noticed any chest pain, nausea, vomiting or diarrhea. He has been experiencing recurrent bouts of cough that is making his quality of life pretty miserable. Pathology report 05/06 showed positive for malignancy adenocarcinoma In the ER he is requiring 4 to 5 L of nasal cannula oxygen supplementation to keep his O2 sats above 92% No active chest pain Extremely malnourished and cachectic 3+ pitting edema of lower legs No active respiratory stress is at the bedside No signs of pneumonia Chest x-ray shows right-sided pleural effusion He is showing signs of tachycardia, sinus tachycardia Troponins elevated but trending down Check D-dimer, will request CTA chest and venous Doppler Kindly read pulmonary and oncology notes for further details Review of Systems Const: Reports: chills, change in appetite, change in weight, fatigue, malaise and night sweats Eyes: Denies: change in vision ENMT: Denies: throat pain Card: Reports: swelling of feet/ankles, dyspnea on exertion and orthopnea; Denies: chest pain Resp: Reports: dyspnea and productive cough GI: Denies: abdominal pain : Denies: flank pain Musc: Denies: neck pain Skin/Breast: Reports: lesions Neuro: Denies: headache(s) Psych: Denies: anxiety Endo: Denies: polyuria Roberto/Lymph: Denies: easy bruising All/Imm: Denies: urticaria Medications/Allergies Home Medications Medication Instructions Recorded Confirmed Last Taken Type albuterol sulfate 2.5 mg (3 mL) inhalation Q4H PRN 03/26/22 05/06/22 05/05/22 Rx shortness of breath or wheezing #90 mL albuterol sulfate 90 mcg/actuation 2 inh inhalation Q4H PRN shortness 03/26/22 05/06/22 05/05/22 Rx aerosol inhaler of breath or wheezing #18 grams ondansetron HCl 4 mg tablet 4 mg PO Q6H PRN nausea and 03/26/22 05/06/22 05/05/22 Rx vomiting #20 tabs hydrocodone 7.5 mg-acetaminophen 1 tab PO Q8H PRN pain, severe 10 03/28/22 05/06/22 05/05/22 Rx 325 mg tablet days #30 tabs osimertinib 40 mg tablet (Tagrisso) 40 mg PO DAILY #28 tabs 04/03/22 05/06/22 05/05/22 Rx codeine 6.3 mg-guaifenesin 100 5 ml PO Q6H PRN allergy symptoms 04/10/22 05/06/22 05/05/22 Rx mg/5 mL oral liquid #473 mL prednisone 10 mg tablet 10 mg PO DAILY #30 tabs 04/23/22 05/06/22 05/05/22 Rx amoxicillin 500 mg-potassium 1 tab PO BID #20 tabs 05/08/22 Unknown Rx clavulanate 125 mg tablet (Augmentin) benzonatate 100 mg capsule 100 mg PO TID PRN cough #30 caps 05/08/22 Unknown Rx dextromethorphan polistirex 30 10 ml PO Q12H #89 mL 05/08/22 Unknown Rx mg/5 mL oral susp ext.release 12hr (Robitussin ER) Allergies Allergy/AdvReac Type Severity Reaction Status Date / Time furosemide [From Lasix] Allergy ALGY-Rash Verified 05/06/22 10:26 PFSH Acute PFSH: Medical History Anemia COPD (chronic obstructive pulmonary disease) Non-small cell lung cancer Surgical History History of chest tube placement History of colonoscopy 2013 History of esophagogastroduodenoscopy (EGD) 2013 Port-A-Cath in place (01/02/22) Family History Mother Stroke Diabetes Other CAD (coronary artery disease) Hypertension Denies family history of Clotting disorder Dementia Hyperlipidemia Psychiatric illness Chronic kidney disease (CKD) Suicide Anesthesia complication Bleeding disorder Lung disease Cancer Social History Smoking and tobacco status: never smoked Alcohol intake: never Lives independently: Yes Household members: spouse Marital status: Vitals/I&O/Wt Last Vital Signs Pulse 84 05/16/22 23:27 Resp 30 H 05/16/22 23:27 BP 105/74 05/16/22 23:27 Pulse Ox 94 05/16/22 23:27 O2 Del Method 05/16/22 23:27 O2 Flow Rate 4 05/16/22 23:27 Weight last 48 hrs Weight 54.431 kg Physical Exam Narrative: Cachectic malnourished male Currently on 5 L nasal cannula Bilateral breath sounds diminished on right as compared to left No significant wheezing noted Cachectic, malnourished EOMI, PERRLA Awake and alert Nonfocal neuro exam S1, S2 sinus tachycardia Abdomen soft 3+ pitting edema of legs, pedal edema positive Pleasant and cooperative No active signs of cellulitis Data : 05/16/22 20:50 05/16/22 20:50 Micro: Microbiology 05/16/22 21:15 Blood Culture - Preliminary Blood SPECIMEN COLLECTED 05/16/22 21:20 Blood Culture - Preliminary Blood SPECIMEN COLLECTED A&P Assessment and plan (1) Malignant pleural effusion: Status: Acute (2) Acute respiratory failure with hypoxia: Status: Acute (3) Cough: Status: Acute (4) Pleural effusion, right: Status: Acute (5) Iron deficiency anemia: Status: Acute (6) Primary adenocarcinoma of upper lobe of left lung: Status: Acute (7) COPD (chronic obstructive pulmonary disease): Status: Acute (8) Port-A-Cath in place: Status: Acute Plan Acute hypoxia secondary to Recurrent malignant pleural effusion Might be a candidate for Pleurx catheter and pleurodesis Professor Of Theatre Dr. Sutton is construction secretary over the weekend, currently consult him in the morning, there is no urgency for consultation overnight I will put him on DuoNeb every 4 as needed at budesonide Check LDH He is tachycardic as well, will request venous Doppler and CTA chest rule out thromboembolic phenomenon Holding DVT prophylaxis for now in anticipation of thoracentesis in the morning Patient is full code Cardiac diet Bilateral lower extremity edema, I do not have his echo to comment on ejection fraction, clinically he looks cachectic, malnourished his albumin is mildly low, patient is endorsing poor appetite and weight loss Troponin trending down I will request echo for the morning His BNP is 154 Positive ascites, no signs abdominal pain no signs of IVC or portal venous obstruction on previous imaging I will put him on Bumex and watch closely if he develop any rash in case of any development of rash ethacrynic acid can be used for diuresis Attestations Medical Necessity Statement*: Anticipating discharge within 48 hours will need thoracentesis Pleurx or pleurodesis for recurrent pleural effusion Time Spent in Patient Care: 40 Coding Level of Care Code Acute Financial Services Counselor for Chg Fwd Diagnoses Malignant pleural effusion J91.0 Acute respiratory failure with hypoxia J96.01 Cough R05.9 Pleural effusion, right J90 Iron deficiency anemia D50.9 Primary adenocarcinoma of upper lobe of left lung C34.12 COPD (chronic obstructive pulmonary disease) J44.9 Port-A-Cath in place Z95.828
--- NOTE | 2022-05-16 23:36 | ECG_ITS ---
[facility] Test Date: 2022-05-16 Pat Name: Shahab Ramos Department: Room: Gender: Male Associate Designer: : 1960 Requested By: Edi Everett Order Number: [id number] Jean MD: Douglas Willoughby M.D. Measurements Intervals [place] Rate: 90 P: DC: QRS: 87 QRSD: 100 T: 75 QT: 349 QTc: 428 Interpretive Statements SINUS RHYTHM WITH PREMATURE ATRIAL COMPLEXES Compared to ECG 05/16/2022 21:28:47 Sinus tachycardia no longer present Electronically Signed On 05-18-2022 13:31:41 CDT by Douglas Willoughby M.D. [email or web address] regional medical centerRF Arraysharrison community hospitalLifeServe Innovations/store/OM/[id number]
[2022-05-16 23:54] VITALS: BP 104/78; PULSE 96; RESP 30; O2SAT 93
[2022-05-17] VITALS (9 sets, daily range): BP systolic 109–119; BP diastolic 69–77; PULSE 72–93; RESP 17–31; TEMP 36.6–36.8; O2SAT 87–97; BMI 20.1
--- NOTE | 2022-05-17 00:04 | USR_ITS ---
PROCEDURE INFORMATION: Exam: US Duplex Lower Extremity Veins, Bilateral Exam date and time: 05/17/2022 1:25 AM Age: 62 years old Clinical indication: Swelling (edema) of limb; Lower extremity, bilateral; Additional info: Leg swelling, patient being admitted @0048 TECHNIQUE: Imaging protocol: Real-time Duplex ultrasound of the bilateral extremities with 2-D tobias scale, color Doppler flow and spectral waveform analysis with image documentation. Complete exam focused on the bilateral lower extremity veins. COMPARISON: CT abdomen pelvis w con* [id number] 03/26/2022 3:32 AM FINDINGS: Right deep veins: Some echogenic intraluminal nonocclusive material is seen in the common femoral, profundus femoris vein, femoral vein, and popliteal vein regions. There is decreased color Doppler blood flow and decreased compressibility. This is consistent with deep venous thrombosis. The visualized right peroneal and posterior tibial veins shows no intraluminal echogenic material with normal color Doppler blood flow. Right superficial veins: Saphenofemoral junction is patent without thrombus. Left deep veins: The common femoral, femoral, and popliteal are patent without thrombus. Normal Doppler waveforms. Normal compressibility. The visualized left peroneal and posterior tibial veins show some intraluminal echogenic nonocclusive material. There is decreased compressibility of the veins. This is consistent with nonocclusive deep venous thrombosis. Left superficial veins: Saphenofemoral junction is patent without thrombus. Soft tissues: Unremarkable. US/[place] [id number] IMPRESSION: 1. Nonocclusive deep venous thrombosis of the right common femoral, profundus femoris, femoral vein and popliteal vein regions, as noted above. 2. Nonocclusive deep venous thrombosis of the visualized left peroneal and posterior tibial veins.
--- NOTE | 2022-05-17 00:04 | CTR_ITS ---
PROCEDURE INFORMATION: Exam: CTA Chest With Contrast Exam date and time: 05/17/2022 12:40 AM Age: 62 years old Clinical indication: Condition or disease; Lung condition and disease; Other: Lung CA; Additional info: Tachycardia, hypoxia TECHNIQUE: Imaging protocol: Computed tomographic angiography of the chest with contrast. 3D rendering (Not supervised by radiologist): MIP and/or 3D reconstructed images were created by the technologist. Radiation optimization: All CT scans at this facility use at least one of these dose optimization techniques: automated exposure control; mA and/or kV adjustment per patient size (includes targeted exams where dose is matched to clinical indication); or iterative reconstruction. Contrast material: OMNIPAQUE 350; Contrast volume: 80 ml; Contrast route: INTRAVENOUS (IV); COMPARISON: CT angio chest w abd pel w con 11/18/2021 9:14 AM RADIATION DOSE METRICS: Total DLP (mGy-cm): 197.45 FINDINGS: Tubes, catheters and devices: There is a right chest port with the line tip appropriately positioned in the lower SVC near the cavoatrial junction. Pulmonary arteries: There are extensive right-sided pulmonary arterial filling defects with occlusive thrombus in the central segmental and lobar arteries of the right upper, middle and lower lobes. Left pulmonary arteries are patent. Aorta: The aorta is unremarkable. There is no aneurysm. Lungs: There is a benign calcified granuloma in the right upper lobe. Compressive atelectasis in the right lower lobe. 3 cm subpleural mass in the medial left lung apex consistent with a malignant neoplasm. There is partial atelectasis of the left lung. There is diffuse subpleural opacity in the left lung. There is bronchial wall thickening in the left lower lobe. Pleural spaces: Large loculated right pleural effusion. Diffuse pleural thickening and volume loss in the left hemithorax. Heart: Heart size is normal. There is no pericardial effusion. Heart RV/LV ratio: RV/LV ratio is normal (0.9) Lymph nodes: Enlarged right hilar lymph node measures 2.3 x 1.9 cm. Intraperitoneal space: Ascites is visible in the upper abdomen. Bones/joints: There are small scattered sclerotic foci throughout the thoracic vertebral bodies. No acute fracture. Soft tissues: The extrathoracic soft tissues are unremarkable. CT/CT angio chest PE protcl [id number] IMPRESSION: 1. Right pulmonary embolism. Moderate clot burden. 2. No sign of right ventricular strain. 3. Subpleural mass in the left upper lung consistent with a malignant neoplasm. 4. Extensive left pleural thickening with fibrothorax and volume loss. Possible pleural metastases. 5. Large loculated right pleural effusion. 6. Ascites. 7. Suspect metastases in the thoracic spine.
--- NOTE | 2022-05-17 00:28 | PC.NURSE ---
attempted report at this time, med surg states that receiving nurse Deya is unavailable and will call back for report.
[2022-05-17 00:29] LABS: Procalcitonin 0.07 ng/mL (0-0.5)
[2022-05-17] MEDS: iohexol 350 mg/mL 100 mL Btl 80 ML IV (00:42)
--- NOTE | 2022-05-17 01:28 | PC.NURSE ---
While calling report to Deya on Med surg, CTA results loaded into Lab[facility]. CTA noted occlusive right PE with moderate burden. supervisor boiler repair notified, dr berger called at [phone] to notify of results.
[2022-05-17 02:47] LABS: Troponin 5 6HR 17.78 ng/L (0-15)
--- NOTE | 2022-05-17 02:52 | PC.PHAR ---
Pharmacokinetic dosing service Date: 05/17/22 Time: 300 Objective: Patient: Shahab Ramos Floor: 266-1 Age: 62 yo Serum creatinine: 0.8 mg/dL Height: 70.0 Inches Weight (kg): 63.588 Diagnosis: Relevant medical/social history: Cultures and sensitivities: Other labs: Assessment: IBW (kg): 73.00 Dosing wt(kg): 63.588 Estimated Creatinine clearance (ml/min): 85.0 CRCL method: Cockcroft and Gault using ibw(default). Drug selected: Vancomycin Loading dose (mg): 0 Vd (liters): 57.2 (factor used: 0.9 L/kg) Sukumar (hr-1): 0.075 Half life (hrs): 9.24 Recommended dose: 1000 mg Interval: 12 hrs Infusion time (hrs): 1.5 Predicted peak (mcg/mL): 27.9 Predicted trough (mcg/mL): 12.69 Total body weight is being used for vancomycin dosing. Renal function is stable [ ] /unstable [ ] Recommendations: Give Vancomycin 1000 mg q 12 hrs with an expected Cpeak of 27.9 mcg/ml and an expected Ctrough of 12.69 mcg/ml Renal dosing of other antibiotics (review renal dosing of other medications and list guidelines here): Thank you for the consult, will continue to follow. Signature: Michelle Todd [facility]
[2022-05-17 02:53] LABS: Troponin 5 6HR Delta 1.78 ng/L (0-12)
[2022-05-17 03:04] LABS: Basophils % 0.3 %; Eosinophils # 0.2 10^3/uL (0.0-0.8); Hematocrit 35.7 % (42.0-52.0); Lymphocytes # 0.6 10^3/uL (0.8-4.8); Lymphocytes % 15.6 %; Mean Corpuscular HGB Conc 30.8 g/dL (30.0-36.0); Mean Corpuscular Hemoglobin 27.6 pg (28.0-34.0); Mean Corpuscular Volume 89.7 fl (80-94); Mean Platelet Volume 9.8 fL (7.4-10.4); Monocytes # 0.5 10^3/uL (0.2-0.9); Monocytes % 12.5 %; Neutrophils # 2.39 10^3/uL (1.8-7.7); Neutrophils % 66.3 %; Nucleated Red Blood Cells % 0 %; Platelet Count 182 10^3/cmm (130-400); Red Blood Count 3.98 10^6/uL (4.1-5.3); Red Cell Distribution Width 17.9 % (12.1-15.1); White Blood Count 3.6 10^3/uL (4.0-10.0)
[2022-05-17 03:19] LABS: Blood Urea Nitrogen 13 mg/dL (8-23); C Reactive Protein 13.1 mg/L (0.0-4.9); Calcium 8.3 mg/dL (8.5-10.5); Carbon Dioxide 25 mmol/L (22-29); Chloride 102 mmol/L (98-107); Glomerular Filtration Rate 113.9 mL/min (90-130); Glucose 87 mg/dL (65-115); Magnesium 1.9 mg/dL (1.7-2.3); Osmolality Calculated 281 mOsm/kg (285-295); Sodium 136 mmol/L (136-145)
[2022-05-17 03:20] LABS: Anion Gap 13.9 (5-19); Lactate Dehydrogenase 281 U/L (135-225); Potassium 4.9 mmol/L (3.5-5.1)
[2022-05-17] MEDS: heparin drip 25,000 UNIT/500 ML PREMIX 18 UNIT IV (04:13)
[2022-05-17] MEDS: vancomycin 1,000 MG in sodium chloride 0.9% 250 ML 250 MG IV (04:13)
[2022-05-17] MEDS: heparin 5,000 unit/mL INJ 1 mL IV ×2 (04:13→22:57)
--- NOTE | 2022-05-17 04:27 | ECG_ITS ---
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 Measurements Intervals [place] Rate: 86 P: 100 NH: 140 QRS: 81 QRSD: 106 T: 61 QT: 355 QTc: 425 Interpretive Statements SINUS RHYTHM Compared to ECG 05/16/2022 23:36:24 Atrial fibrillation no longer present Electronically Signed On 05-18-2022 13:30:33 CDT by Douglas Willoughby M.D. [id number]
[2022-05-17 04:39] LABS: Partial Thromboplastin Time 36.9 SECONDS (23.9-36.7)
[2022-05-17 04:48] LABS: ABG PCO2 40.7 mmHg (35-45); ABG PH Result 7.44 (7.35-7.45); Arterial Blood Gas Hematocrit 34.2 % (42-52); Base Excess ABG 2.8 mmol/L (-2.0-2.0); Blood Gas Allen Test Pos; Blood Gas Sample Type Arterial; HCO3 ABG 27.3 mmol/L (22-26); PO2 ABG 60.3 mmHg (80.0-100.0)
[2022-05-17 04:49] LABS: Blood Gas Operator Identificat MONRO; Blood Gas Sample Site Radial, right; Oxygen Device NC
[2022-05-17] MEDS: cefepime 1,000 MG in sodium chloride 0.9% (plus) 50 ML 100 MG IV (05:20)
[2022-05-17] MEDS: ipratropium-albuterol 3 mL Neb INHALATION (08:32)
[2022-05-17] MEDS: sennosides-docusate Tablet 1 TAB PO (09:03)
[2022-05-17] MEDS: bumetanide 1 mg Tablet PO (09:03)
[2022-05-17 10:44] LABS: Partial Thromboplastin Time 71.6 SECONDS (23.9-36.7)
--- NOTE | 2022-05-17 15:42 | P.PN_ITS ---
Subjective Subjective: Overnight labs and H&P reviewed. CT of the chest revealed right- sided PE with moderate clot burden. He has been initiated on heparin drip. Saturating 92% on supplemental 4 L/min oxygen. Also noted to have bilateral DVT. Medications: Reviewed: Yes Vitals/I&O/Wt Last Vital Signs Temp 98.3 F 05/17/22 11:29 Pulse 72 05/17/22 11:29 Resp 18 05/17/22 11:29 BP 119/75 05/17/22 11:29 Pulse Ox 92 05/17/22 11:29 O2 Del Method 05/17/22 11:29 O2 Flow Rate 3 05/17/22 11:29 05/17/22 05/17/22 05/17/22 06:59 14:59 22:59 Intake Total 660 / 660 240 / 240 Output Total 200 / 200 1300 / 1300 Balance 460 / 460 -1060 / -1060 Weight last 48 hrs Weight 63.588 kg Weight 65.907 kg Weight 63.588 kg Weight 54.431 kg Physical Exam Narrative: General: No acute distress, AO x3 HEENT: PERRLA, pupils bilaterally equal and reactive, pallors not present Chest: Normal vesicular breath sounds, no added sounds, equal good air entry bilaterally CVS: S1-S2 regular, no murmurs, no tachycardia, no gallops, no rubs Abdomen: Soft, nontender, no organomegaly, bowel sounds present Neuro: No focal deficits, no facial deformity, AO x3, power 5/5 in all limbs Extremities: Bilateral lower extremity pitting edema Data : 05/17/22 02:20 05/17/22 02:20 Micro: Microbiology 05/16/22 21:15 Blood Culture - Preliminary Blood SPECIMEN COLLECTED 05/16/22 21:20 Blood Culture - Preliminary Blood SPECIMEN COLLECTED A&P Assessment and plan (1) Pulmonary embolism: CTA shows right pulmonary embolism with moderate clot burden. Started on heparin infusion. Plan for thoracentesis on Thursday, will continue heparin infusion until then and thereafter transition to p.o. Eliquis at discharge. Check echocardiogram to evaluate for right heart strain. Lower extremity edema, concern for right heart failure, current continue Bumex 1 mg p.o. daily. Patient reports allergy to Lasix. Status: Acute (2) DVT (deep venous thrombosis): Bilateral lower extremity pitting edema. Lower extremity Doppler positive for DVT. L On heparin drip as above. Status: Acute (3) Malignant pleural effusion: This has been followed closely as outpatient by Dr. Merrill. Case is discussed with his outpatient agile java developer. It appears there was plan for possibility of Pleurx catheter placement., However now patient has initiated his chemotherapy and expected that his effusion will resolve with continuous chemotherapy regimen. Therefore for now we will plan for a therapeutic thoracentesis without Pleurx catheter. Effusion is noted to be loculated, not currently recommended to attempt to break loculations given high chance of hemorrhage. Status: Acute (4) Acute respiratory failure with hypoxia: Multifactorial, related to PE and known adenocarcinoma of the lung and large pleural effusions. Status: Acute (5) Primary adenocarcinoma of upper lobe of left lung: Status: Acute Plan Plan to continue anticoagulation over the weekend, thoracentesis on Thursday, followed by transition to oral anticoagulation. Attestations Medical Necessity Statement*: Continued admission for anticoagulation with heparin, transition to oral anticoagulation once thoracentesis is performed, this will likely be done on Thursday. Coding Level of Care Code Acute Rn Neonatal Icu for Chg Fwd Diagnoses Pulmonary embolism I26.99 DVT (deep venous thrombosis) I82.409 Malignant pleural effusion J91.0 Acute respiratory failure with hypoxia J96.01 Primary adenocarcinoma of upper lobe of left lung C34.12
--- NOTE | 2022-05-17 15:43 | USCV_ITS ---
Gradymartin Shahab Age: 62 Gender: M : 1960 Exam Date: 05/17/2022 16:26 Ordering Phys: Leanne Topete MD Technologist: JUSTIN [place] [facility] [place]: EVALUATE FOR RIGHT HEAST STRAIN BP: 119 / 75 HR: 86 Rhythm: Sinus Technical Quality: Adequate MEASUREMENTS (Male / Female) Normal Values 2D ECHO LV Diastolic Diameter PLAX 4.5 cm 4.2 - 5.9 / 3.9 - 5.3 cm LV Systolic Diameter PLAX 3.3 cm IVS Diastolic Thickness 1.1 cm 0.6 - 1.0 / 0.6 - 0.9 cm IVS Systolic Thickness 1.6 cm LVPW Diastolic Thickness 1.1 cm 0.6 - 1.0 / 0.6 - 0.9 cm LVPW Systolic Thickness 1.8 cm LVOT Diameter 2.0 cm LV Ejection Fraction 2D Teich 54.5 % LV Ejection Fraction MOD 2C 66.8 % LV Ejection Fraction 2C AL 66.6 % LA Diameter 3.2 cm LA Width 3.6 cm LA Height 3.3 cm RA Width 3.7 cm RA Height 4.0 cm Aorta at Sinotubular Diameter 2.0 cm IVC Diameter 1.1 cm M-MODE Aortic Annulus Diameter 2.5 cm LA Ao Ratio MM 1.1 MV E Point Septal Separation 0.4 cm DOPPLER AV Peak Velocity 139.7 cm/s LVOT Peak Velocity 132.0 cm/s AV Area Cont Eq vti 3.1 cm squared AV Area Cont Eq pk 3.0 cm squared MV Peak Velocity 89.0 cm/s MV Area PHT 3.7 cm squared Mitral E to A Ratio 0.7 MV E' Velocity 34.0 cm/s Mitral E to MV E' Ratio 4.7 Mitral E to LV E' Lateral Ratio 4.5 Mitral E to LV E' Septal Ratio 4.9 TR Peak Velocity 324.0 cm/s TR Peak Gradient 42.0 mmHg TR Mean Velocity 305.3 cm/s TR Mean Gradient 40.3 mmHg TR Velocity Time Integral 114.5 cm TV Peak E Velocity 68.0 cm/s Right Atrial Pressure 3.0 mmHg Pulmonary Artery Systolic Pressu 45.0 mmHg PV Peak Velocity 94.0 cm/s RV Acceleration Time 0.1 s RV Ejection Time 0.3 s RV AcT/ET 0.3 FINDINGS Left Ventricle Left ventricle is normal in size. LV systolic function is normal with EF of 55 to 60%. No regional wall motion abnormalities are seen. Grade 1 diastolic dysfunction Right Ventricle RV is normal in size and function Right Atrium Normal in size Left Atrium Normal in size Mitral Valve Structurally normal mitral valve. Mild mitral regurgitation Aortic Valve Aortic valve is thickened. No significant stenosis or regurgitation Tricuspid Valve Mild tricuspid regurgitation. RVSP is 55-60 mmHg. This is consistent with moderate pulmonary hypertension Pulmonic Valve Mild pulmonic regurgitation Pericardium Small pericardial effusion is seen. Pleural effusion is also noted Aorta Normal in size IVC CONCLUSIONS LV systolic function is normal with EF of 55 to 60% Grade 1 diastolic dysfunction. Mild mitral regurgitation. Mild tricuspid regurgitation. Moderate pulmonary hypertension. Small sized pericardial effusion is seen. Pleural effusion is also noted. No comparison studies are available Douglas Willoughby MD (Electronically Signed) Final Date: 18 May 2022 11:52 S
[2022-05-17 17:01] LABS: Partial Thromboplastin Time 56.7 SECONDS (23.9-36.7)
[2022-05-18] VITALS (9 sets, daily range): BP systolic 100–109; BP diastolic 65–73; PULSE 66–92; RESP 16–19; TEMP 36.4–37.3; O2SAT 88–97
[2022-05-18 05:11] LABS: Basophils % 0.2 %; Eosinophils # 0.3 10^3/uL (0.0-0.8); Eosinophils % 6.1 %; Hematocrit 34.1 % (42.0-52.0); Hemoglobin 10.5 g/dL (11.7-16.6); Lymphocytes # 0.7 10^3/uL (0.8-4.8); Lymphocytes % 15.2 %; Mean Corpuscular HGB Conc 30.8 g/dL (30.0-36.0); Mean Corpuscular Hemoglobin 27.4 pg (28.0-34.0); Mean Platelet Volume 9.7 fL (7.4-10.4); Monocytes # 0.5 10^3/uL (0.2-0.9); Monocytes % 11.8 %; Neutrophils # 2.92 10^3/uL (1.8-7.7); Neutrophils % 66.5 %; Nucleated Red Blood Cells % 0 %; Platelet Count 171 10^3/cmm (130-400); Red Blood Count 3.83 10^6/uL (4.1-5.3); Red Cell Distribution Width 17.9 % (12.1-15.1); White Blood Count 4.4 10^3/uL (4.0-10.0)
[2022-05-18 05:46] LABS: Alanine Aminotransferase 16 U/L (0-41); Albumin Level 2.5 g/dL (3.5-5.2); Alkaline Phosphatase 132 U/L (40-130); Anion Gap 10.4 (5-19); Aspartate Amino Transferase 19 U/L (0-40); Blood Urea Nitrogen 12 mg/dL (8-23); Calcium 7.9 mg/dL (8.5-10.5); Carbon Dioxide 29 mmol/L (22-29); Chloride 102 mmol/L (98-107); Globulin 2.6 g/dL (1.3-4.6); Glomerular Filtration Rate 136.1 mL/min (90-130); Glucose 114 mg/dL (65-115); Osmolality Calculated 285 mOsm/kg (285-295); Potassium 4.4 mmol/L (3.5-5.1); Sodium 137 mmol/L (136-145); Total Bilirubin 0.2 mg/dL (0.15-1.2); Total Protein 5.1 g/dL (6.6-8.7)
[2022-05-18] MEDS: heparin drip 25,000 UNIT/500 ML PREMIX 19 UNIT IV (06:43)
[2022-05-18] MEDS: bumetanide 1 mg Tablet PO (08:27)
[2022-05-18] MEDS: sennosides-docusate Tablet 1 TAB PO (08:27)
--- NOTE | 2022-05-18 11:03 | P.PN_ITS ---
Subjective Subjective: No acute interim events. Patient states he feels his breathing is improving. Saturating 90% on supplemental 3 L/min. Had 1 bowel movement earlier today. Nonbloody. Hemoglobin stable at 10.5. Lower extremity pitting edema appears improved compared to yesterday. Medications: Reviewed: Yes Vitals/I&O/Wt Last Vital Signs Temp 98.0 F 05/18/22 08:00 Pulse 88 05/18/22 08:00 Resp 16 05/18/22 08:00 BP 105/71 05/18/22 08:00 Pulse Ox 90 05/18/22 08:00 O2 Del Method 05/18/22 08:00 O2 Flow Rate 4 05/18/22 07:51 05/17/22 05/18/22 05/18/22 22:59 06:59 14:59 Intake Total 697.2 / 937.2 147.567 / 1084.767 240 / 240 Output Total 500 / 1800 800 / 2600 Balance 197.2 / -862.8 -652.433 / -1515.233 240 / 240 Weight last 48 hrs Weight 63.588 kg Weight 65.907 kg Weight 63.588 kg Weight 54.431 kg Physical Exam Narrative: General: No acute distress, AO x3 HEENT: PERRLA, pupils bilaterally equal and reactive, pallors not present Chest: Normal vesicular breath sounds, no added sounds, equal good air entry bilaterally CVS: S1-S2 regular, no murmurs, no tachycardia, no gallops, no rubs Abdomen: Soft, nontender, no organomegaly, bowel sounds present Neuro: No focal deficits, no facial deformity, AO x3, power 5/5 in all limbs Extremities: Bilateral lower extremity pitting edema, improved over yesterday. Data : 05/18/22 04:55 05/18/22 04:55 Micro: Microbiology 05/16/22 21:15 Blood Culture - Preliminary Blood NEGATIVE TO DATE 05/16/22 21:20 Blood Culture - Preliminary Blood NEGATIVE TO DATE 05/17/22 03:55 MRSA Culture - Final Nose A&P Assessment and plan (1) Pulmonary embolism: CTA shows right pulmonary embolism with moderate clot burden. Started on heparin infusion. Check echocardiogram to evaluate for right heart strain, echo has been performed, results are currently awaited. Lower extremity edema, concern for right heart failure, current continue Bumex 1 mg p.o. daily. Clinically appears euvolemic. Patient reports allergy to Lasix. Plan for thoracentesis on Thursday, will continue heparin infusion until then and thereafter transition to p.o. Eliquis at discharge. Status: Acute (2) DVT (deep venous thrombosis): Bilateral lower extremity pitting edema. Lower extremity Doppler positive for nonocclusive DVT. On heparin drip as above. Status: Acute (3) Malignant pleural effusion: This has been followed closely as outpatient by Dr. Merrill. Case is discussed with his outpatient stepdown nurse. It appears there was plan for possibility of Pleurx catheter placement., However now patient has initiated his chemotherapy and expected that his effusion will resolve with continuous chemotherapy regimen. Therefore for now we will plan for a therapeutic thoracentesis without Pleurx catheter. Effusion is noted to be loculated, not currently recommended to attempt to break loculations given high chance of hemorrhage. Thoracentesis requested from IR, if they are unable to perform we will contact pulmonology on-call. Status: Acute (4) Acute respiratory failure with hypoxia: Multifactorial, related to PE and known adenocarcinoma of the lung and large pleural effusions. Status: Acute (5) Primary adenocarcinoma of upper lobe of left lung: Status: Acute Plan Plan to continue anticoagulation over the weekend, thoracentesis on Thursday, followed by transition to oral anticoagulation. No evidence of pneumonia on chest imaging, no fever, no leukocytosis. Antibiotics were discontinued on May 17, 2022. Attestations Medical Necessity Statement*: Ongoing heparin infusion today for DVT and PE, plan thoracentesis tomorrow a.m. Coding Level of Care Code Acute Thoracic Medicine Specialist for [facility] Diagnoses Pulmonary embolism I26.99 DVT (deep venous thrombosis) I82.409 Malignant pleural effusion J91.0 Acute respiratory failure with hypoxia J96.01 Primary adenocarcinoma of upper lobe of left lung C34.12
[2022-05-18 11:32] LABS: Partial Thromboplastin Time 54.8 SECONDS (23.9-36.7)
[2022-05-18 17:59] LABS: Partial Thromboplastin Time 59.7 SECONDS (23.9-36.7)
[2022-05-18 23:41] LABS: Partial Thromboplastin Time 54.3 SECONDS (23.9-36.7)
[2022-05-19] VITALS (7 sets, daily range): BP systolic 95–117; BP diastolic 63–71; PULSE 69–90; RESP 16–22; TEMP 36.3–37.2; O2SAT 93–99
[2022-05-19] MEDS: heparin 5,000 unit/mL INJ 1 mL IV ×2 (00:26→17:13)
[2022-05-19 06:26] LABS: Basophils % 0.2 %; Eosinophils # 0.3 10^3/uL (0.0-0.8); Hematocrit 33.4 % (42.0-52.0); Hemoglobin 10.4 g/dL (11.7-16.6); Lymphocytes # 0.6 10^3/uL (0.8-4.8); Lymphocytes % 13.6 %; Mean Corpuscular HGB Conc 31.1 g/dL (30.0-36.0); Mean Platelet Volume 9.9 fL (7.4-10.4); Monocytes # 0.5 10^3/uL (0.2-0.9); Monocytes % 12.3 %; Neutrophils # 2.71 10^3/uL (1.8-7.7); Neutrophils % 65.7 %; Nucleated Red Blood Cells % 0 %; Platelet Count 184 10^3/cmm (130-400); Red Blood Count 3.71 10^6/uL (4.1-5.3); Red Cell Distribution Width 17.7 % (12.1-15.1); White Blood Count 4.1 10^3/uL (4.0-10.0)
[2022-05-19 06:49] LABS: Alanine Aminotransferase 16 U/L (0-41); Albumin Level 2.4 g/dL (3.5-5.2); Alkaline Phosphatase 124 U/L (40-130); Anion Gap 10.2 (5-19); Aspartate Amino Transferase 15 U/L (0-40); Blood Urea Nitrogen 12 mg/dL (8-23); Calcium 8.2 mg/dL (8.5-10.5); Carbon Dioxide 28 mmol/L (22-29); Chloride 104 mmol/L (98-107); Globulin 2.8 g/dL (1.3-4.6); Glomerular Filtration Rate 136.1 mL/min (90-130); Glucose 89 mg/dL (65-115); Osmolality Calculated 285 mOsm/kg (285-295); Potassium 4.2 mmol/L (3.5-5.1); Sodium 138 mmol/L (136-145); Total Bilirubin 0.2 mg/dL (0.15-1.2); Total Protein 5.2 g/dL (6.6-8.7)
[2022-05-19] MEDS: bumetanide 1 mg Tablet PO (08:34)
--- NOTE | 2022-05-19 08:35 | PC.NURSE ---
Patient refused Sennosides-Docusate this am due to loose stool
--- NOTE | 2022-05-19 09:35 | PC.NURSE ---
Verbal orders from Dr. Damian to restart Heparin at same rate stopped at 0110 this am.
--- NOTE | 2022-05-19 12:08 | PC.CHAP ---
x Pastoral Care Encounter/Spiritual Assessment Type of Contact [] Declined clinical data specialist visit [] Patient/Family/Request visit [] Outpatient visit [] Follow-up visit [] Physician referral [] Code/Alert [x] Routine visit [] Staff referral [] Actively dying [x] Patient sleeping [] Family support [] [] Out of room [] Palliative care [] [] Receiving care in room [] Pre-surgical visit [] Trauma [] Long length of stay [] ICU visit [] Other: Relational/Emotional Strength [] Patient feels connected with others/family/visitors/staff [] Distress [] Loneliness/isolation [] Abandonment Spirituality of Patient [] Person of Jamila [] Attends Adventist of their Jamila [] Believes in Prayer [] Reads Bible or Religion materials [] There are Spiritual issues to be addressed Biology Tutor Interventions [] Prayer [] Active listening [] Non-anxious presence [] Spiritual/emotional support [] Crisis/trauma care [] Spiritual counseling [] Bereavement support [] Provided bereavement packet [] Provided Bible/devotional materials [] Provided toy/stuffed animal, coloring book to patient or family member [] Provided Communion [] Anointing/Azalea [] Salvation [] Completed spiritual assessment [] Other: Impact on Illness or Injury [] Angry [] Fearful [] Anxious [] Often cries [] Exhaustion [] Unable to work [] Unable to attend presybeterian [] Unable to walk/stand [] Unable to read [] Unable to drive [] Unable to eat/drink [] Unable to sleep [] Unable to be with family [] Patient intubated [] Other: Summary Time spent with patient x
[2022-05-19 16:34] LABS: INR 0.94 (0.8-1.2)
[2022-05-19 16:35] LABS: Partial Thromboplastin Time 45.5 SECONDS (23.9-36.7)
[2022-05-19] MEDS: heparin drip 25,000 UNIT/500 ML PREMIX 22 UNIT IV (17:14)
--- NOTE | 2022-05-19 18:29 | PM.PN ---
Subjective Subjective: He feels better today. Denies chest pain or pressure. Denies worsening shortness of breath. Has some cough. No nausea or vomiting. He did not used to use nasal cannula oxygen at home. Vitals/I&O/Wt Last Vital Signs Temp 98.1 F 05/19/22 16:00 Pulse 88 05/19/22 16:00 Resp 16 05/19/22 16:00 BP 95/63 05/19/22 16:00 Pulse Ox 97 05/19/22 16:00 O2 Del Method 05/19/22 16:00 O2 Flow Rate 4 05/19/22 08:03 05/19/22 05/19/22 05/19/22 06:59 14:59 22:59 Intake Total 645 / 645 480 / 1125 Output Total 250 / 250 Balance -250 / 565 645 / 645 480 / 1125 Physical Exam Narrative: Sitting up at the side of the bed. Const: COMMON NORMALS: patient oriented x3 and alert GENERAL APPEARANCE: cooperative ORIENTATION/CONSCIOUSNESS: Yes awake HENMT: COMMON NORMALS: oropharynx normal Neck/C-Spine: COMMON NORMALS: no JVD Resp: COMMON NORMALS: normal respiratory effort and clear to auscultation bilaterally AUSCULTATION: clear to auscultation bilaterally and diminished lung sounds on the right in the lower lung quinn Cardio: COMMON NORMALS: no JVD, regular rhythm, S1 normal heart sound present, S2 normal heart sound present and No murmurs present (Cardio) RHYTHM: regular rhythm HEART SOUNDS: S1 normal heart sound present and S2 normal heart sound present GI: COMMON NORMALS: Normal to inspection, nondistended, normoactive bowel sounds present, Soft to palpation and non-tender PALPATION: Yes Soft to palpation Extremity: COMMON NORMALS: no joint enlargement GENERAL: Yes edema (2+) Neuro: COMMON NORMALS: patient oriented x3 and moves all extremities SENSORIUM/ORIENTATION: Yes alert Skin: COMMON NORMALS: no rashes or lesions noted GENERAL SKIN EXAM: no rashes or lesions noted Data : 05/19/22 06:04 05/19/22 06:04 A&P Assessment and plan (1) Malignant pleural effusion: Discussed with pulmonology. Appreciate plans, he has discussed with Dr. Merrill regarding consideration of possible pigtail catheter placement tomorrow. This morning heparin resumed, diet resumed. Plan for n.p.o. after midnight, heparin held tomorrow morning at 5 AM with plans for pigtail catheter placement. Effusion is noted to be loculated, but no loculations were seen at bedside ultrasound, some fibrinous strands. Status: Acute (2) Pulmonary embolism: CTA shows right pulmonary embolism with moderate clot burden. Resumed on heparin infusion. RV normal size and function. Moderate pulmonary hypertension. transition to p.o. Eliquis at discharge. Status: Acute (3) DVT (deep venous thrombosis): Lower extremity edema improving. Bumex. Elevate LE. Patient reports allergy to Lasix. Bilateral lower extremity pitting edema. Lower extremity Doppler positive for nonocclusive DVT. On heparin drip as above. Status: Acute (4) Acute respiratory failure with hypoxia: Multifactorial, related to PE and known adenocarcinoma of the lung and large pleural effusions. Status: Acute (5) Primary adenocarcinoma of upper lobe of left lung: Status: Acute Plan Antibiotics were discontinued on May 17, 2022. Attestations Medical Necessity Statement*: Continue admission for assessment of management of hypoxic respiratory failure, management of right-sided large pleural effusion, pigtail catheter placement. Coding Level of Care Code Acute Process Designer for [facility] Fwd Diagnoses Malignant pleural effusion J91.0 Pulmonary embolism I26.99 DVT (deep venous thrombosis) I82.409 Acute respiratory failure with hypoxia J96.01 Primary adenocarcinoma of upper lobe of left lung C34.12
[2022-05-19 23:33] LABS: Partial Thromboplastin Time 75.8 SECONDS (23.9-36.7)
[2022-05-20] VITALS (9 sets, daily range): BP systolic 96–108; BP diastolic 58–67; PULSE 68–98; RESP 16–24; TEMP 36.6–36.7; O2SAT 92–99
[2022-05-20 04:55] LABS: Basophils % 0.2 %; Eosinophils # 0.3 10^3/uL (0.0-0.8); Eosinophils % 7.7 %; Hematocrit 36.5 % (42.0-52.0); Hemoglobin 11.2 g/dL (11.7-16.6); Lymphocytes # 0.9 10^3/uL (0.8-4.8); Mean Corpuscular HGB Conc 30.7 g/dL (30.0-36.0); Mean Corpuscular Hemoglobin 27.7 pg (28.0-34.0); Mean Corpuscular Volume 90.1 fl (80-94); Mean Platelet Volume 9.7 fL (7.4-10.4); Monocytes # 0.5 10^3/uL (0.2-0.9); Monocytes % 10.8 %; Neutrophils # 2.71 10^3/uL (1.8-7.7); Neutrophils % 61.1 %; Nucleated Red Blood Cells % 0 %; Platelet Count 193 10^3/cmm (130-400); Red Blood Count 4.05 10^6/uL (4.1-5.3); White Blood Count 4.4 10^3/uL (4.0-10.0)
[2022-05-20 05:24] LABS: Anion Gap 14.6 (5-19); Blood Urea Nitrogen 14 mg/dL (8-23); Calcium 8.8 mg/dL (8.5-10.5); Carbon Dioxide 25 mmol/L (22-29); Chloride 101 mmol/L (98-107); Glomerular Filtration Rate 136.1 mL/min (90-130); Glucose 99 mg/dL (65-115); Osmolality Calculated 283 mOsm/kg (285-295); Potassium 4.6 mmol/L (3.5-5.1); Sodium 136 mmol/L (136-145)
[2022-05-20] MEDS: HYDROmorphone 1 mg/mL INJ 1 mL 0.5 MG IVP (09:26)
--- NOTE | 2022-05-20 10:12 | XR_ITS ---
WS: [id number] XR chest 1V portable [id number] REASON FOR EXAM: placement of catheter FINDINGS: There is been reduction in the large right pleural effusion and placement of a chest tube which is re dundant in the lower right chest. Relatively small amount of residual fluid remains. There is a small pneumothorax around the base of the right lung presumably due to failure of the righ t lower lung to reexpand completely. There continues to be coarse reticular interstitial lung opacities throughout the left lung and areas of focal consolidation in the left lower lung No other new finding or interval change. XR/XR chest 1V portable [id number] IMPRESSION: Reduction in right pleural fluid volume with chest tube placement as above. Failure of the right lower lung to completely reexpand as above. Extensive abnormality in the left lung as above. Presumed subacute pneumonitis.
--- NOTE | 2022-05-20 10:33 | P.CONIM_ITS ---
Providers/Reason For Consult Consulting Physician/Specialty*: Ten Merrill MD/Pulmonary Critical Care Reason for Consult*: acute hypoxia in pt with newly diagnosed PE and recurrent malignant right pleural effusion with underlying metastatic adenocarcinoma of lung Requesting Physician: Gt Damian Attending Physician: Gt Damian Primary Care Provider: Igor Howard, DO History of Present Illness History of Present Illness Shahab Ramos is a 62 year old male with stage IV adenocarcinoma of lung diagnosed via left thoracentesis on 11/19/2021 pleural fluid cytology. During that admission on 11/19/2021 I have placed a 14 Mohawk pigtail and drained 2 L dark maroon-colored fluid went to suction bottles and sent for cell block, fluid analysis, cultures.? Connected to underwater seal and collected additional 7.5 L dark red sanguinous blood over the next 2 days.? Repeat chest x-ray showed decreasing volume of left pleural effusion and interstitial densities seen throughout the left lung.Once patient reported a significant improvement in his dyspnea, pigtail was removed-he was discharged home on room air. Pathology from cell block reported adenocarcinoma.? Chest CT post drainage showed showed pleural-based mass anterior medial aspect of left upper lobe.? 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 Denied any fevers, chills, leg swelling. PET/CT showed FDG avid left upper lobe mass, consistent with primary malignancy.? There was associated left pleural involvement, involvement of subcarinal and right hilar lymph nodes, and suspected involvement in 2 left periaortic lymph nodes, thus stage IVB (T2a, N3, M1c).? His pleural fluid cytology was positive for adenocarcinoma.? The? PD-L1 expression was negative with TPS < 1%.? Unfortunately restaging of lung cancer is inoperable and incurable as this pattern will not be amenable to radiation or surgery.? Recommended systemic therapy will depend on results of NexGen ration sequencing which will be done by liquid biopsy.?In the absence of a targetable mutation, the recommended treatment will be combined chemotherapy/immunotherapy with carboplatin/pemetrexed in combination with pembrolizumab.?On 01/02/2022 patient underwent Port-A-Cath placement.? Results of the liquid biopsy subsequently became available, and it did show evidence for an EGFR [id number] mutation and an EGFR [id number] mutation.? With that finding, he was recommended by oncology to begin targeted therapy with osimertinib at a standard dosage of 80 mg daily.? Unfortunately after that her lost follow-up and was apparently admitted at [facility] in [place] and underwent a lung biopsy.- In the meantime, he apparently received his first month supply of osimertinib in the mail and he did start taking it, though he had not informed us of any of this.?He says that he took the osimertinib for about 10 days, but he then had to stop it because it made him feel like he was on a meth high.? He says his whole body felt overstimulated.?-Overall patient functional status has declined in the meantime. -Surveillance CT chest 03/26/2022 showed interval development of increased small to medium right pleural effusion with associated mild right lower lobe atelectasis and multiple new scattered right upper lobe, right middle lobe and right lower lobe 1 to 4 mm nodules.? This may represent interval development of right lung metastatic disease.? Also findings suggestive of worsening intrapulmonary left lung metastatic disease.? Increased to small to medium pericardial effusion.? Overall findings suggestive of worsening lung malignancy.-He has seen oncology on 04/01/2022 and started on trial of therapy with osimertinib with the dose is reduced to 40 Mg daily and patient reported feeling better and tolerating the medication. Also patient developed right pleural effusion - drained 1850 cc on 04/11/22, lymphocyte predominant exudative, cultures negative, cytology positive for adenocarcinoma and again drained 2 L hemorrhagic fluid on 05/06/2022. As he restarted his chemotherapy and reported clinically feeling more energetic-I deferred Pleurx catheter on 05/06/2022 hoping chemotherapy will stop pleural fluid accumulation. Meanwhile on 05/16/2022 patient came to emergency room with hypoxia and worsening shortness of breath. CTA showed Right pulmonary embolism. Moderate clot burden.No sign of right ventricular strain. Subpleural mass in the left upper lung consistent with a malignant neoplasm. . Extensive left pleural thickening with fibrothorax and volume loss. Possible pleural metastases. Large loculated right pleural effusion.Bilateral venous Doppler showed nonocclusive DVT. Patient was started on IV heparin in anticipation for Pleurx catheter. Patient seen at bedside today -Still complaining of bouts of dry cough-for which she was on codeine as needed as outpatient as well as Nahed Canseco -Reported his shortness of breath has improved since ER admission and supplemental oxygen requirement came down from 3 L to 2 L -Other labs and imaging reviewed Review of Systems General: Reports: 10 or more systems reviewed and unremarkable except in HPI and below Medications/Allergies Home Medications Medication Instructions Recorded Confirmed Last Taken Type albuterol sulfate 2.5 mg (3 mL) inhalation Q4H PRN 03/26/22 05/17/22 05/05/22 Rx shortness of breath or wheezing #90 mL albuterol sulfate 90 mcg/actuation 2 inh inhalation Q4H PRN shortness 03/26/22 05/17/22 05/05/22 Rx aerosol inhaler of breath or wheezing #18 grams ondansetron HCl 4 mg tablet 4 mg PO Q6H PRN nausea and 03/26/22 05/17/22 05/05/22 Rx vomiting #20 tabs hydrocodone 7.5 mg-acetaminophen 1 tab PO Q8H PRN pain, severe 10 03/28/22 05/17/22 05/05/22 Rx 325 mg tablet days #30 tabs osimertinib 40 mg tablet (Tagrisso) 40 mg PO DAILY #28 tabs 04/03/22 05/17/22 05/05/22 Rx prednisone 10 mg tablet 10 mg PO DAILY #30 tabs 04/23/22 05/17/22 05/05/22 Rx amoxicillin 500 mg-potassium 1 tab PO BID #20 tabs 05/08/22 05/17/22 Unknown Rx clavulanate 125 mg tablet (Augmentin) benzonatate 100 mg capsule 100 mg PO TID PRN cough #30 caps 05/08/22 05/17/22 Unknown Rx Allergies Allergy/AdvReac Type Severity Reaction Status Date / Time furosemide [From Lasix] Allergy ALGY-Rash Verified 05/06/22 10:26 Current Medications Generic Name Dose Route Start Last Admin Trade Name Freq PRN Reason Stop Dose Admin Albuterol/Ipratropium 3 ml 05/17/22 02:38 05/17/22 08:32 Ipratropium-Albuterol 3 Ml Neb INHALATION 3 ml Q6H PRN Administration SHORTNESS OF BREATH Bumetanide 1 mg 05/17/22 09:00 05/19/22 08:34 Bumetanide 1 Mg Tablet PO 1 mg DAILY MONTSE Administration Heparin Sodium (Porcine) 0 unit 05/17/22 02:38 05/19/22 17:13 Heparin 5,000 Unit/Ml Inj 1 Ml IV 0.26 unit PRN PRN Administration Heparin weight-base protocol Protocol Heparin Sodium/Sodium Chloride 25,000 unit in 500 mls @ 0 mls/hr 05/17/22 02:38 05/19/22 17:14 Heparin Drip IV 17.3 unit/kg/hr .Q0M MONTSE 22 mls/hr Administration Protocol Per Protocol Senna/Docusate Sodium 1 tab 05/17/22 09:00 05/19/22 08:35 Sennosides-Docusate Tablet PO Not Given DAILY MONTSE PFSH Acute PFSH: Medical History Anemia COPD (chronic obstructive pulmonary disease) Non-small cell lung cancer Surgical History History of chest tube placement History of colonoscopy 2013 History of esophagogastroduodenoscopy (EGD) 2014 Port-A-Cath in place (01/02/22) Family History Mother Stroke Diabetes Other CAD (coronary artery disease) Hypertension Denies family history of Clotting disorder Dementia Hyperlipidemia Psychiatric illness Chronic kidney disease (CKD) Suicide Anesthesia complication Bleeding disorder Lung disease Cancer Social History Smoking and tobacco status: never smoked Alcohol intake: never Lives independently: Yes Household members: spouse Marital status: Vitals/I&O/Wt Last Vital Signs Temp 98.1 F 05/20/22 08:00 Pulse 82 05/20/22 08:00 Resp 18 05/20/22 08:00 BP 102/62 05/20/22 08:00 Pulse Ox 92 05/20/22 08:00 O2 Del Method 05/20/22 08:00 O2 Flow Rate 2 05/20/22 07:55 05/19/22 05/20/22 05/20/22 22:59 06:59 14:59 Intake Total 1445 / 2090 120 / 2210 Output Total 800 / 800 500 / 1300 Balance 645 / 1290 -380 / 910 Physical Exam Narrative: General: alert, NAD HEENT: conj clear, EOMI, PERRL, mmm, Neck: supple, no meningismus Heme: no cervical LAP Pulmonary: Reduced breath sounds on right side Cardiovascular: rrr, nl s1s2, no mrg Abdomen: soft, nt, nd, no r/g, bs+ Extremities: pulses +, no edema, no c/c : no CVA tenderness Skin: intact, no rash MSK: no back or neck pain Neurologic: grossly intact Data : 05/20/22 04:45 05/20/22 04:45 Other Labs: Radiology Impressions Chest CTA 05/17/22 00:04 IMPRESSION: 1. Right pulmonary embolism. Moderate clot burden. 2. No sign of right ventricular strain. 3. Subpleural mass in the left upper lung consistent with a malignant neoplasm. 4. Extensive left pleural thickening with fibrothorax and volume loss. Possible pleural metastases. 5. Large loculated right pleural effusion. 6. Ascites. 7. Suspect metastases in the thoracic spine. ADDENDUM: 05/17/22 0130 THIS REPORT CONTAINS FINDINGS THAT MAY BE CRITICAL TO PATIENT CARE. The findings were verbally communicated via telephone conference with FANNY THORNTON at 1:28 AM CDT on 05/17/2022. The findings were acknowledged and understood. Venous Duplex 05/17/22 00:04 IMPRESSION: 1. Nonocclusive deep venous thrombosis of the right common femoral, profundus femoris, femoral vein and popliteal vein regions, as noted above. 2. Nonocclusive deep venous thrombosis of the visualized left peroneal and posterior tibial veins. Chest X-Ray 05/20/22 10:12 IMPRESSION: Reduction in right pleural fluid volume with chest tube placement as above. Failure of the right lower lung to completely reexpand as above. Extensive abnormality in the left lung as above. Presumed subacute pneumonitis. Laboratory Results WBC 4.4 10^3/uL (4.0-10.0) 05/20/22 04:45 RBC 4.05 10^6/uL (4.1-5.3) L 05/20/22 04:45 Hgb 11.2 g/dL (11.7-16.6) L 05/20/22 04:45 Hct 36.5 % (42.0-52.0) L 05/20/22 04:45 MCV 90.1 fl (80-94) 05/20/22 04:45 MCH 27.7 pg (28.0-34.0) L 05/20/22 04:45 MCHC 30.7 g/dL (30.0-36.0) 05/20/22 04:45 RDW 18.0 % (12.1-15.1) H 05/20/22 04:45 Plt Count 193 10^3/cmm (130-400) 05/20/22 04:45 MPV 9.7 fL (7.4-10.4) 05/20/22 04:45 Neut % (Auto) 61.1 % 05/20/22 04:45 Lymph % (Auto) 20.0 % 05/20/22 04:45 Barry % (Auto) 10.8 % 05/20/22 04:45 Eos % (Auto) 7.7 % 05/20/22 04:45 Baso % (Auto) 0.2 % 05/20/22 04:45 Neut # (Auto) 2.71 10^3/uL (1.8-7.7) 05/20/22 04:45 Lymph # (Auto) 0.9 10^3/uL (0.8-4.8) 05/20/22 04:45 Barry # (Auto) 0.5 10^3/uL (0.2-0.9) 05/20/22 04:45 Eos # (Auto) 0.3 10^3/uL (0.0-0.8) 05/20/22 04:45 Baso # (Auto) 0.0 10^3/uL (0.0-0.1) 05/20/22 04:45 Nucleated RBC % (auto) 0 % 05/20/22 04:45 Nucleated RBCs # 0.0 /100WBC 05/20/22 04:45 Differential Comment Yes 05/20/22 10:00 PT 12.90 SECONDS (12.1-14.9) 05/19/22 15:57 INR 0.94 (0.8-1.2) 05/19/22 15:57 APTT 75.8 SECONDS (23.9-36.7) H D 05/19/22 23:02 Specimen Type Arterial 05/17/22 04:49 Sample Site Radial, right 05/17/22 04:49 ABG pH 7.44 (7.35-7.45) 05/17/22 04:49 ABG pCO2 40.7 mmHg (35-45) 05/17/22 04:49 ABG pO2 60.3 mmHg (80.0-100.0) L 05/17/22 04:49 ABG HCO3 27.3 mmol/L (22-26) H 05/17/22 04:49 ABG Base Excess 2.8 mmol/L (-2.0-2.0) H 05/17/22 04:49 Magdaleno Test Pos 05/17/22 04:49 Hematocrit 34.2 % (42-52) L 05/17/22 04:49 O2 Delivery Device Nc 05/17/22 04:49 O2 Liters/Min 5.0 % 05/17/22 04:49 Supervisory It Specialist ID Monro 05/17/22 04:49 Sodium 136 mmol/L (136-145) 05/20/22 04:45 Potassium 4.6 mmol/L (3.5-5.1) 05/20/22 04:45 Chloride 101 mmol/L (98-107) 05/20/22 04:45 Carbon Dioxide 25 mmol/L (22-29) 05/20/22 04:45 Anion Gap 14.6 (5-19) 05/20/22 04:45 BUN 14 mg/dL (8-23) 05/20/22 04:45 Creatinine 0.6 mg/dL (0.7-1.2) L 05/20/22 04:45 GFR Calculation 136.1 mL/min (90-130) H 05/20/22 04:45 Glucose 99 mg/dL (65-115) 05/20/22 04:45 Calculated Osmolality 283 mOsm/kg (285-295) L 05/20/22 04:45 Calcium 8.8 mg/dL (8.5-10.5) 05/20/22 04:45 Magnesium 1.9 mg/dL (1.7-2.3) 05/17/22 02:20 Total Bilirubin 0.2 mg/dL (0.15-1.2) 05/19/22 06:04 AST 15 U/L (0-40) 05/19/22 06:04 ALT 16 U/L (0-41) 05/19/22 06:04 Alkaline Phosphatase 124 U/L (40-130) 05/19/22 06:04 Lactate Dehydrogenase 281 U/L (135-225) H 05/17/22 02:20 Troponin T Baseline 16 ng/L (0-15) H 05/16/22 20:50 Troponin T 120 Minute 16.48 ng/L (0-15) H 05/16/22 22:58 Delta Troponin T 0.48 ABS# (0-10) 05/16/22 22:58 Troponin T Hi Sens 6Hr 17.78 ng/L (0-15) H 05/17/22 02:20 Troponin T Hi Sens 6Hr Delta 1.78 ng/L (0-12) 05/17/22 02:20 C-Reactive Protein 13.1 mg/L (0.0-4.9) H 05/17/22 02:20 NT-Pro-B Natriuret Pep 154 pg/mL (0-125) H 05/16/22 20:50 Total Protein 5.2 g/dL (6.6-8.7) L 05/19/22 06:04 Albumin 2.4 g/dL (3.5-5.2) L 05/19/22 06:04 Globulin 2.8 g/dL (1.3-4.6) 05/19/22 06:04 Procalcitonin 0.07 ng/mL (0-0.5) 05/16/22 22:58 Fluid Color Red 05/20/22 10:00 Fluid Appearance Cloudy 05/20/22 10:00 Fluid WBC 614 /uL 05/20/22 10:00 Fluid RBC 21.000 10^3/uL 05/20/22 10:00 Fld Polynuclear WBCs # 0.026 05/20/22 10:00 Fld Polynuclear WBCs % 4.300 % 05/20/22 10:00 Fl Mononucl WBCs #(Auto) 0.588 05/20/22 10:00 Fl Mononuclear % Auto 95.700 % 05/20/22 10:00 Fluid Albumin 1.8 g/dL 05/20/22 10:00 Fluid Creatinine 0.58 (0.7-1.2) L 05/20/22 10:00 Pleural pH 8.00 (6.5-7.5) H 05/20/22 10:00 Pleural Total Protein 3.3 g/dL 05/20/22 10:00 Pleural LDH 348 U/L 05/20/22 10:00 Pleural Glucose 78.0 mg/dL 05/20/22 10:00 Pleural Amylase 162.0 U/L 05/20/22 10:00 Pleural Triglycerides 20 mg/dL 05/20/22 10:00 A&P Assessment and plan (1) Pulmonary embolism: Status: Acute (2) DVT (deep venous thrombosis): Status: Acute (3) Malignant pleural effusion: Status: Acute (4) Acute respiratory failure with hypoxia: Status: Acute (5) Primary adenocarcinoma of upper lobe of left lung: Status: Acute Plan #acute hypoxia - secondry to moderate right subsegmental PE - No right heart strain - Bilateal venous doppler showed non occlusive DVT - Currently on 2L supplemental O2 - on iV heparin - will switch to oral elliquis after pleurex catheter placement - need alf anticoagulation given underlying malignancy # recurrent right pleural effusion in pt with underlying - Currently following oncology and is on chemotherapy - had right thoracentesis on 04/11/22 and 04/26/22 - CT evidence of recurrent large pleural effusion - I will place pleurex catheter and follow up in clinic in 10 days to remove sutures - need nurse education to teach about pleurex evacuation at home - once in every 3 days - Meanwhile expecting response to chemotherapy to reduce recurrence medical condition, prognosis and plan of management explained to the pt at bedside and his over phone. They both verbalized understanding and agreed with the plan. recommendations conveyed to hosptialist, RN taking care of the patient Consult Attestations Medical Necessity Statement: defer to hospitalist Time Spent in Patient Care: Greater than 35 minutes (>than 50% of time spent in counselling and/or direct pt care on unit) . Coding Level of Care Code New Pt Acute Gyroscopic Instrument Tester for Chg Fwd Patient Type New History Comprehensive Exam Comprehensive Medical Decision Making Moderate Complexity Diagnoses Pulmonary embolism I26.99 DVT (deep venous thrombosis) I82.409 Malignant pleural effusion J91.0 Acute respiratory failure with hypoxia J96.01 Primary adenocarcinoma of upper lobe of left lung C34.12 Time Spent (min) 50
--- NOTE | 2022-05-20 10:33 | P.PCN_ITS ---
Procedure/Consent Time out: Time Out Performed: Yes Consent: Consent for Procedure: Consent obtained from patient, Risks & Benefits reviewed and Agrees to proceed with procedure Procedure Narrative: DATE OF PROCEDURE: PREOPERATIVE DIAGNOSIS: Recurrent Malignant right pleural effusion. POSTOPERATIVE DIAGNOSIS: Recurrent Malignant right pleural effusion. PROCEDURE PERFORMED: Ultrasound-guided right PleurX catheter placement. SURGEON: Ten Merrill MD, [facility] ANESTHESIA: 20 cc 1% local lidocaine and Dilaudid 0.5mg IV push prior to procedure INDICATION FOR PROCEDURE: Recurrent malignant right pleural effusion. In an effort to palliate her respiratory symptoms, PleurX catheter placement was considered for home drainage. The patient and her family understood the risks and possible complications of the procedure and wished to proceed. DESCRIPTION OF PROCEDURE: The patient was placed supine on his bed. Intravenous pain medication was given in and his proximal most was administered without co mplications. The patient was then positioned with the head up and a roll under the right shoulder. The right chest and upper abdomen were prepped and draped in the usual sterile fashion. Lidocaine 1% was used to infiltrate two areas; ; one in the right upper quadrant where the tube would exit and the other in the area marked using ultrasound guidance along the anterior axillary line. A small counterincision was made in the right upper quadrant area. Through the anterior axillary line area, the pleural space was accessed by Seldinger technique. The counterincision was made around the guidewire and then the PleurX catheter was tunneled from the right upper quadrant small incision to the one overlying the ribs. After appropriate dilation a sheath introducer was then passed over the wire and then the PleurX catheter was placed through the sheath introducer. There was good return of fluid. One liters of hemorrhagic fluid was withdrawn slowly as the small counterincision was closed with Monocryl stitch. The catheter was capped off, and sterile dressings were applied. The patient tolerated the procedure well without any complications. The patient vitals remained stable. Sponge and needle count was correct at the end of the case. OPERATIVE FINDINGS: 1 liters of hemorrhagic/serous fluid was withdrawn before clamping the drainage tube. There were overt no bleeding complications. Estimated blood loss: 5 to 10 cc Immediate complications: None Acute Procedures Epistaxis Control: Time out performed: Yes
[2022-05-20 10:50] LABS: Body Fluid Polynuclear #Cells 0.026; Body Fluid WBC 614 /uL; Monocytes # Body Fluid 0.588
[2022-05-20 10:54] LABS: Apprearance, Body Fluid CLOUDY; Color, Body Fluid RED; PATH Referral YES
[2022-05-20 11:31] LABS: Albumin Body Fluid 1.8 g/dL; Creatinine Body Fluid 0.58 (0.7-1.2); LDH Pleural Fluid 348 U/L; Total Protein Pleural Fluid 3.3 g/dL; Triglycerides, Pleural Fluid 20 mg/dL
--- NOTE | 2022-05-20 12:14 | PC.NURSE ---
Lidocain pulled for patient procedure. Dr. Merrill did not use. Returned to pharmacy in bin.
[2022-05-20] MEDS: bumetanide 1 mg Tablet PO (12:20)
[2022-05-20] MEDS: ondansetron 2 mg/ML SDV 2 mL 4 MG IVP ×2 (12:20→18:54)
[2022-05-20] MEDS: predniSONE 20 mg Tablet PO (18:54)
[2022-05-20] MEDS: pantoprazole 40 mg SDV IVP (18:55)
[2022-05-20 20:04] LABS: Partial Thromboplastin Time 62.8 SECONDS (23.9-36.7)
[2022-05-20] MEDS: apixaban 5 mg Tablet 10 MG PO (20:30)
--- NOTE | 2022-05-20 21:55 | P.PN_ITS ---
Subjective Subjective: He is doing well after the procedure, breathing more easily, oxygenation with improvement. Later on in the day having nausea. Vitals/I&O/Wt Last Vital Signs Temp 98.0 F 05/20/22 20:00 Pulse 77 05/20/22 20:37 Resp 16 05/20/22 20:37 BP 98/58 05/20/22 20:00 Pulse Ox 96 05/20/22 20:37 O2 Del Method 05/20/22 20:37 O2 Flow Rate 2 05/20/22 20:37 05/20/22 05/20/22 05/20/22 06:59 14:59 22:59 Intake Total 120 / 2210 1305 / 1305 Output Total 500 / 1300 2380 / 2380 Balance -380 / 910 -1075 / -1075 Physical Exam Const: COMMON NORMALS: patient oriented x3 and alert GENERAL APPEARANCE: cooperative ORIENTATION/CONSCIOUSNESS: Yes awake HENMT: COMMON NORMALS: oropharynx normal Neck/C-Spine: COMMON NORMALS: no JVD Resp: COMMON NORMALS: normal respiratory effort and clear to auscultation bilaterally AUSCULTATION: clear to auscultation bilaterally and diminished lung sounds on the right in the lower lung quinn OTHER: Right chest Pleurx catheter. Cardio: COMMON NORMALS: no JVD, regular rhythm, S1 normal heart sound present, S2 normal heart sound present and No murmurs present (Cardio) RHYTHM: regular rhythm HEART SOUNDS: S1 normal heart sound present and S2 normal heart sound present GI: COMMON NORMALS: Normal to inspection, nondistended, normoactive bowel sounds present, Soft to palpation and non-tender PALPATION: Yes Soft to palpation Extremity: COMMON NORMALS: no joint enlargement and no pedal edema GENERAL: Yes edema (1+) Neuro: COMMON NORMALS: patient oriented x3 and moves all extremities SENSORIUM/ORIENTATION: Yes alert Skin: COMMON NORMALS: no rashes or lesions noted GENERAL SKIN EXAM: no tevin hes or lesions noted Data : 05/20/22 04:45 05/20/22 04:45 Micro: Microbiology 05/20/22 10:00 Gram Stain - Final Pleural Fluid A&P Assessment and plan (1) Malignant pleural effusion: Status post Pleurx catheter today. Resumed on heparin. Start Eliquis tonight. Reassess condition, blood counts in the morning. If doing well discussed with him and his likely will be able to return home. Needs pigtail catheter care teaching. Follow-up with pulmonology in 10 days. Effusion 1 L removed, red, cloudy, not an empyema. Exudative effusion. Effusion was reported to be loculated, but no loculations were seen at bedside ultrasound, some fibrinous strands. Some nausea subsequently, doubt related to thoracentesis. May be related to pain medication discussed with his . He is chronically also on steroid at home, although has not been on it while in the hospital. Started PPI. Resume steroid for concern of developing adrenal insufficiency. Zofran as needed for nausea. Status: Acute (2) Pulmonary embolism: CTA shows right pulmonary embolism with moderate clot burden. Resumed on heparin infusion. Start Eliquis and stop heparin drip tonight. RV normal size and function. Moderate pulmonary hypertension. Status: Acute (3) DVT (deep venous thrombosis): Lower extremity edema improving. Bumex. Elevate LE. Patient reports allergy to Lasix. Bilateral lower extremity pitting edema. Lower extremity Doppler positive for nonocclusive DVT. On anticoagulation as above. Status: Acute (4) Acute respiratory failure with hypoxia: Multifactorial, related to PE and known adenocarcinoma of the lung and large pleural effusions. Status: Acute (5) Primary adenocarcinoma of upper lobe of left lung: Status: Acute Plan Antibiotics were discontinued on May 17, 2022. Attestations Medical Necessity Statement*: Continue admission for reassessment with resumption of anticoagulation after placement of pigtail catheter due to malignant pleural effusion and gentleman require anticoagulation with PE, hypoxia. 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
[2022-05-21] VITALS (10 sets, daily range): BP systolic 92–110; BP diastolic 53–68; PULSE 71–80; RESP 16–24; TEMP 36.4–37; O2SAT 87–98
[2022-05-21 03:25] LABS: Basophils % 0.3 %; Eosinophils % 0.3 %; Hematocrit 36.5 % (42.0-52.0); Hemoglobin 11.1 g/dL (11.7-16.6); Lymphocytes # 0.3 10^3/uL (0.8-4.8); Lymphocytes % 8.4 %; Mean Corpuscular HGB Conc 30.4 g/dL (30.0-36.0); Mean Corpuscular Hemoglobin 27.5 pg (28.0-34.0); Mean Corpuscular Volume 90.3 fl (80-94); Monocytes # 0.1 10^3/uL (0.2-0.9); Monocytes % 3.2 %; Neutrophils # 3.25 10^3/uL (1.8-7.7); Neutrophils % 87.8 %; Nucleated Red Blood Cells % 0 %; Platelet Count 225 10^3/cmm (130-400); Red Blood Count 4.04 10^6/uL (4.1-5.3); Red Cell Distribution Width 17.5 % (12.1-15.1); White Blood Count 3.7 10^3/uL (4.0-10.0)
[2022-05-21 03:50] LABS: Anion Gap 16.1 (5-19); Blood Urea Nitrogen 12 mg/dL (8-23); Calcium 8.9 mg/dL (8.5-10.5); Carbon Dioxide 26 mmol/L (22-29); Chloride 100 mmol/L (98-107); Glomerular Filtration Rate 113.9 mL/min (90-130); Glucose 157 mg/dL (65-115); Osmolality Calculated 287 mOsm/kg (285-295); Potassium 5.1 mmol/L (3.5-5.1); Sodium 137 mmol/L (136-145)
[2022-05-21] MEDS: pantoprazole 40 mg SDV IVP ×2 (06:21→17:42)
--- NOTE | 2022-05-21 07:12 | XR_ITS ---
WS: [id number] XR chest 1V portable [id number] REASON FOR EXAM: RIGHT PLEURAL EFFUSION FINDINGS: Small bore chest tube remains in place in the lower right hemithorax. No definite pneumothorax identified at this time. Residual pleural thickening and/or pleural fluid, small volume. Left lung opacities unchanged. Left lung abnormality could possibly represent lymphangitic tumor. No new findings or other interval change. XR/XR chest 1V portable [id number] IMPRESSION: Stable abnormal chest.
[2022-05-21] MEDS: sennosides-docusate Tablet 1 TAB PO (08:24)
[2022-05-21] MEDS: predniSONE 20 mg Tablet PO ×2 (08:24→17:42)
[2022-05-21] MEDS: bumetanide 1 mg Tablet PO (08:24)
[2022-05-21] MEDS: apixaban 5 mg Tablet 10 MG PO ×2 (08:29→21:07)
--- NOTE | 2022-05-21 09:21 | PM.PN ---
Subjective Subjective: -Patient seen at bedside -Reported improvement in his breathing -Reported his dry cough is somewhat better -No new complaints -Today plan is to switch to oral anticoagulation and do delinquency prevention social worker evaluation for Pleurx drain teaching and plan for discharge Medications: Reviewed: Yes Vitals/I&O/Wt Last Vital Signs Temp 98.0 F 05/21/22 08:28 Pulse 78 05/21/22 08:47 Resp 17 05/21/22 08:47 BP 95/54 05/21/22 08:28 Pulse Ox 92 05/21/22 08:47 O2 Del Method 05/21/22 08:47 O2 Flow Rate 2 05/21/22 08:47 05/20/22 05/21/22 05/21/22 22:59 06:59 14:59 Intake Total 1630 / 1630 Output Total 2580 / 2580 350 / 2930 200 / 200 Balance -950 / -950 -350 / -1300 -200 / -200 Physical Exam Narrative: General: alert, NAD HEENT: conj clear, EOMI, PERRL, mmm, Neck: supple, no meningismus Heme: no cervical LAP Pulmonary: Improved breath sounds on right side Cardiovascular: rrr, nl s1s2, no mrg Abdomen: soft, nt, nd, no r/g, bs+ Extremities: pulses +, no edema, no c/c : no CVA tenderness Skin: intact, no rash MSK: no back or neck pain Neurologic: grossly intact Data : 05/21/22 02:36 05/21/22 02:36 Other Labs: Radiology Impressions Chest CTA 05/17/22 00:04 IMPRESSION: 1. Right pulmonary embolism. Moderate clot burden. 2. No sign of right ventricular strain. 3. Subpleural mass in the left upper lung consistent with a malignant neoplasm. 4. Extensive left pleural thickening with fibrothorax and volume loss. Possible pleural metastases. 5. Large loculated right pleural effusion. 6. Ascites. 7. Suspect metastases in the thoracic spine. ADDENDUM: 05/17/22 0130 THIS REPORT CONTAINS FINDINGS THAT MAY BE CRITICAL TO PATIENT CARE. The findings were verbally communicated via telephone conference with FANNY THORNTON at 1:28 AM CDT on 05/17/2022. The findings were acknowledged and understood. Venous Duplex 05/17/22 00:04 IMPRESSION: 1. Nonocclusive deep venous thrombosis of the right common femoral, profundus femoris, femoral vein and popliteal vein regions, as noted above. 2. Nonocclusive deep venous thrombosis of the visualized left peroneal and posterior tibial veins. Chest X-Ray 05/21/22 07:12 IMPRESSION: Stable abnormal chest. Laboratory Results WBC 3.7 10^3/uL (4.0-10.0) L 05/21/22 02:36 RBC 4.04 10^6/uL (4.1-5.3) L 05/21/22 02:36 Hgb 11.1 g/dL (11.7-16.6) L 05/21/22 02:36 Hct 36.5 % (42.0-52.0) L 05/21/22 02:36 MCV 90.3 fl (80-94) 05/21/22 02:36 MCH 27.5 pg (28.0-34.0) L 05/21/22 02:36 MCHC 30.4 g/dL (30.0-36.0) 05/21/22 02:36 RDW 17.5 % (12.1-15.1) H 05/21/22 02:36 Plt Count 225 10^3/cmm (130-400) 05/21/22 02:36 MPV 10.0 fL (7.4-10.4) 05/21/22 02:36 Neut % (Auto) 87.8 % 05/21/22 02:36 Lymph % (Auto) 8.4 % 05/21/22 02:36 [place] % (Auto) 3.2 % 05/21/22 02:36 Eos % (Auto) 0.3 % 05/21/22 02:36 Baso % (Auto) 0.3 % 05/21/22 02:36 Neut # (Auto) 3.25 10^3/uL (1.8-7.7) 05/21/22 02:36 Lymph # (Auto) 0.3 10^3/uL (0.8-4.8) L 05/21/22 02:36 [place] # (Auto) 0.1 10^3/uL (0.2-0.9) L 05/21/22 02:36 Eos # (Auto) 0.0 10^3/uL (0.0-0.8) 05/21/22 02:36 Baso # (Auto) 0.0 10^3/uL (0.0-0.1) 05/21/22 02:36 Nucleated RBC % (auto) 0 % 05/21/22 02:36 Nucleated RBCs # 0.0 /100WBC 05/21/22 02:36 Differential Comment Yes 05/20/22 10:00 PT 12.90 SECONDS (12.1-14.9) 05/19/22 15:57 INR 0.94 (0.8-1.2) 05/19/22 15:57 APTT 62.8 SECONDS (23.9-36.7) H 05/20/22 19:38 Specimen Type Arterial 05/17/22 04:49 Sample Site Radial, right 05/17/22 04:49 ABG pH 7.44 (7.35-7.45) 05/17/22 04:49 ABG pCO2 40.7 mmHg (35-45) 05/17/22 04:49 ABG pO2 60.3 mmHg (80.0-100.0) L 05/17/22 04:49 ABG HCO3 27.3 mmol/L (22-26) H 05/17/22 04:49 ABG Base Excess 2.8 mmol/L (-2.0-2.0) H 05/17/22 04:49 Magdaleno Test Pos 05/17/22 04:49 Hematocrit 34.2 % (42-52) L 05/17/22 04:49 O2 Delivery Device Nc 05/17/22 04:49 O2 Liters/Min 5.0 % 05/17/22 04:49 Wire Stripping Machine Operator ID Monro 05/17/22 04:49 Sodium 137 mmol/L (136-145) 05/21/22 02:36 Potassium 5.1 mmol/L (3.5-5.1) 05/21/22 02:36 Chloride 100 mmol/L (98-107) 05/21/22 02:36 Carbon Dioxide 26 mmol/L (22-29) 05/21/22 02:36 Anion Gap 16.1 (5-19) 05/21/22 02:36 BUN 12 mg/dL (8-23) 05/21/22 02:36 Creatinine 0.7 mg/dL (0.7-1.2) 05/21/22 02:36 GFR Calculation 113.9 mL/min (90-130) 05/21/22 02:36 Glucose 157 mg/dL (65-115) H 05/21/22 02:36 Calculated Osmolality 287 mOsm/kg (285-295) 05/21/22 02:36 Calcium 8.9 mg/dL (8.5-10.5) 05/21/22 02:36 Magnesium 1.9 mg/dL (1.7-2.3) 05/17/22 02:20 Total Bilirubin 0.2 mg/dL (0.15-1.2) 05/19/22 06:04 AST 15 U/L (0-40) 05/19/22 06:04 ALT 16 U/L (0-41) 05/19/22 06:04 Alkaline Phosphatase 124 U/L (40-130) 05/19/22 06:04 Lactate Dehydrogenase 281 U/L (135-225) H 05/17/22 02:20 Troponin T Baseline 16 ng/L (0-15) H 05/16/22 20:50 Troponin T 120 Minute 16.48 ng/L (0-15) H 05/16/22 22:58 Delta Troponin T 0.48 ABS# (0-10) 05/16/22 22:58 Troponin T Hi Sens 6Hr 17.78 ng/L (0-15) H 05/17/22 02:20 Troponin T Hi Sens 6Hr Delta 1.78 ng/L (0-12) 05/17/22 02:20 C-Reactive Protein 13.1 mg/L (0.0-4.9) H 05/17/22 02:20 NT-Pro-B Natriuret Pep 154 pg/mL (0-125) H 05/16/22 20:50 Total Protein 5.2 g/dL (6.6-8.7) L 05/19/22 06:04 Albumin 2.4 g/dL (3.5-5.2) L 05/19/22 06:04 Globulin 2.8 g/dL (1.3-4.6) 05/19/22 06:04 Procalcitonin 0.07 ng/mL (0-0.5) 05/16/22 22:58 Fluid Color Red 05/20/22 10:00 Fluid Appearance Cloudy 05/20/22 10:00 Fluid WBC 614 /uL 05/20/22 10:00 Fluid RBC 21.000 10^3/uL 05/20/22 10:00 Fld Polynuclear WBCs # 0.026 05/20/22 10:00 Fld Polynuclear WBCs % 4.300 % 05/20/22 10:00 Fl Mononucl WBCs #(Auto) 0.588 05/20/22 10:00 Fl Mononuclear % Auto 95.700 % 05/20/22 10:00 Fluid Albumin 1.8 g/dL 05/20/22 10:00 Fluid Creatinine 0.58 (0.7-1.2) L 05/20/22 10:00 Pleural pH 8.00 (6.5-7.5) H 05/20/22 10:00 Pleural Total Protein 3.3 g/dL 05/20/22 10:00 Pleural LDH 348 U/L 05/20/22 10:00 Pleural Glucose 78.0 mg/dL 05/20/22 10:00 Pleural Amylase 162.0 U/L 05/20/22 10:00 Pleural Triglycerides 20 mg/dL 05/20/22 10:00 Micro: Microbiology 05/20/22 10:00 Gram Stain - Final Pleural Fluid A&P Assessment and plan (1) Pulmonary embolism: Status: Acute (2) DVT (deep venous thrombosis): Status: Acute (3) Malignant pleural effusion: Status: Acute (4) Acute respiratory failure with hypoxia: Status: Acute (5) Primary adenocarcinoma of upper lobe of left lung: Status: Acute Plan #acute hypoxia - secondry to moderate right subsegmental PE - No right heart strain - Bilateal venous doppler showed non occlusive DVT - Currently on 2L supplemental O2 - on iV heparin - will switch to oral elliquis from today - need terminal supervisor anticoagulation given underlying malignancy # recurrent right pleural effusion in pt with underlying - Currently following oncology and is on chemotherapy - had right thoracentesis on 04/11/22 and 04/26/22 -During this admission on 2021 CT evidence of recurrent large pleural effusion -S/p Pleurx catheter placement and drained 1 L hemorrhagic fluid-cultures did not reveal any infection so far - need nurse education to teach about pleurex evacuation at home - once in every 3 days - Meanwhile expecting response to chemotherapy to reduce recurrence medical condition, prognosis and plan of management explained to the pt at bedside and his over phone. They both verbalized understanding and agreed with the plan. recommendations conveyed to hosptialist, RN taking care of the patient I will follow-up with patient in pulmonary clinic for removal of sutures on 05/30/2022 Attestations Medical Necessity Statement*: Deferred to hospitalist Time Spent in Patient Care: 16 - 35 minutes (>than 50% of time spent in counselling and/or direct pt care on unit). 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
--- NOTE | 2022-05-21 21:32 | P.PN_ITS ---
Subjective Subjective: Today he reports he is doing better. Nausea has resolved. Denies chest pain or pressure. Breathing easier. Plans were for return home today, however, supplies not available at the time of discharge for him to be able to continue catheter care at home. Vitals/I&O/Wt Last Vital Signs Temp 98.2 F 05/21/22 16:00 Pulse 72 05/21/22 21:26 Resp 16 05/21/22 21:26 BP 99/60 05/21/22 16:00 Pulse Ox 96 05/21/22 21:26 O2 Del Method 05/21/22 21:26 O2 Flow Rate 2 05/21/22 21:26 05/21/22 05/21/22 05/21/22 06:59 14:59 22:59 Intake Total 600 / 600 240 / 840 Output Total 350 / 2930 200 / 200 180 / 380 Balance -350 / -1300 400 / 400 60 / 460 Physical Exam Narrative: Sitting up Const: COMMON NORMALS: patient oriented x3 and alert GENERAL APPEARANCE: cooperative ORIENTATION/CONSCIOUSNESS: Yes awake HENMT: COMMON NORMALS: oropharynx normal Neck/C-Spine: COMMON NORMALS: no JVD Resp: COMMON NORMALS: normal respiratory effort and clear to auscultation bilaterally AUSCULTATION: clear to auscultation bilaterally and diminished lung sounds on the right in the lower lung quinn OTHER: Right chest Pleurx catheter. Cardio: COMMON NORMALS: no JVD, regular rhythm, S1 normal heart sound present, S2 normal heart sound present and No murmurs present (Cardio) RHYTHM: regular rhythm HEART SOUNDS: S1 normal heart sound present and S2 normal heart sound present GI: COMMON NORMALS: Normal to inspection, nondistended, normoactive bowel sounds present, Soft to palpation and non-tender PALPATION: Yes Soft to palpation Extremity: COMMON NORMALS: no joint enlargement and no pedal edema GENERAL: Yes edema (1+) Neuro: COMMON NORMALS: patient oriented x3 and moves all extremities SENSORIUM/ORIENTATION: Yes alert Skin: COMMON NORMALS: no rashes or lesions noted GENERAL SKIN EXAM: no rashes or lesions noted Data : 05/21/22 02:36 05/21/22 02:36 Micro: Microbiology 05/16/22 21:15 Blood Culture - Final Blood NO GROWTH AFTER 5 DAYS 05/16/22 21:20 Blood Culture - Final Blood NO GROWTH AFTER 5 DAYS 05/20/22 10:00 Gram Stain - Final Pleural Fluid Body Fluid Culture - Preliminary A&P Assessment and plan (1) Malignant pleural effusion: Doing well today, after resumption of anticoagulation, without significant decrease in hemoglobin, breathing overall improved. Nausea has resolved. Unable to return home today as supplies not available for him to continue catheter care at home but have been requested. Status post Pleurx catheter 05/20. Continue catheter care, drain every 3 days, follow-up with pulmonology in 10 days. Effusion 1 L removed 05/20, red, cloudy, not an empyema. Exudative effusion. Effusion was reported to be loculated, but no loculations were seen at bedside ultrasound, some fibrinous strands. Status: Acute (2) Pulmonary embolism: CTA shows right pulmonary embolism with moderate clot burden. Transitioned to Eliquis. RV normal size and function. Moderate pulmonary hypertension. Status: Acute (3) DVT (deep venous thrombosis): Lower extremity edema improving. Elevate LE. Stop diuretic. Bilateral lower extremity pitting edema. Lower extremity Doppler positive for nonocclusive DVT. Transitioned to Eliquis. Status: Acute (4) Acute respiratory failure with hypoxia: Multifactorial, related to PE and known adenocarcinoma of the lung and large pleural effusions. Status: Acute (5) Primary adenocarcinoma of upper lobe of left lung: Status: Acute Plan Antibiotics were discontinued on May 17, 2022. Attestations Medical Necessity Statement*: Continue admission for management of malignant pleural effusion, with resumed anticoagulation, pending discharge arrangements. Coding Level of Care Code Acute Real Estate Administrative Assistant for [facility] Fwd Diagnoses Malignant pleural effusion J91.0 Pulmonary embolism I26.99 DVT (deep venous thrombosis) I82.409 Acute respiratory failure with hypoxia J96.01 Primary adenocarcinoma of upper lobe of left lung C34.12
[2022-05-22] VITALS: BP 105/63; PULSE 84; RESP 16; TEMP 36.8; O2SAT 94
[2022-05-22 02:18] LABS: Basophils % 0.1 %; Eosinophils % 0.1 %; Hemoglobin 11.2 g/dL (11.7-16.6); Lymphocytes # 0.3 10^3/uL (0.8-4.8); Mean Corpuscular HGB Conc 31.1 g/dL (30.0-36.0); Mean Corpuscular Hemoglobin 28.1 pg (28.0-34.0); Mean Corpuscular Volume 90.5 fl (80-94); Mean Platelet Volume 9.6 fL (7.4-10.4); Monocytes # 0.3 10^3/uL (0.2-0.9); Monocytes % 3.7 %; Neutrophils # 7.77 10^3/uL (1.8-7.7); Neutrophils % 91.7 %; Nucleated Red Blood Cells % 0 %; Platelet Count 223 10^3/cmm (130-400); Red Blood Count 3.98 10^6/uL (4.1-5.3); Red Cell Distribution Width 17.7 % (12.1-15.1); White Blood Count 8.5 10^3/uL (4.0-10.0)
[2022-05-22 02:43] LABS: Anion Gap 14.6 (5-19); Blood Urea Nitrogen 13 mg/dL (8-23); Calcium 9.1 mg/dL (8.5-10.5); Carbon Dioxide 28 mmol/L (22-29); Chloride 98 mmol/L (98-107); Glomerular Filtration Rate 113.9 mL/min (90-130); Glucose 190 mg/dL (65-115); Osmolality Calculated 287 mOsm/kg (285-295); Potassium 4.6 mmol/L (3.5-5.1); Sodium 136 mmol/L (136-145)
[2022-05-22 04:00] VITALS: BP 114/48; PULSE 80; RESP 16; TEMP 36.7; O2SAT 97
[2022-05-22] MEDS: pantoprazole 40 mg SDV IVP (06:28)
[2022-05-22 08:00] VITALS: BP 103/57; PULSE 80; RESP 16; TEMP 36.6; O2SAT 93
[2022-05-22 08:55] VITALS: PULSE 78; RESP 16; O2SAT 93
[2022-05-22] MEDS: predniSONE 20 mg Tablet PO (10:18)
[2022-05-22] MEDS: sennosides-docusate Tablet 1 TAB PO (10:19)
[2022-05-22] MEDS: apixaban 5 mg Tablet 10 MG PO (10:19)
--- NOTE | 2022-05-22 11:18 | P.DS_ITS ---
Discharge Providers Date of Admission: 05/18/22 13:03 Date of Discharge: May 22, 2022 Attending Provider at Admission: Fanny Thornton MD Attending Provider at Discharge: Gt Damian Primary Care Provider: Igor Howard DO Diagnoses at Discharge Discharge Diagnosis (1) Malignant pleural effusion: Status: Acute (2) Pulmonary embolism: Status: Acute (3) DVT (deep venous thrombosis): Status: Acute (4) Acute respiratory failure with hypoxia: Status: Acute (5) Primary adenocarcinoma of upper lobe of left lung: Status: Acute Reason for Visit Reason for Visit: sob Hospital Course Hospital Course Pleasant 62-year-old gentleman with adenocarcinoma of the lung, chronic cough, pleural effusions, previously on the left, more recently right side malignant pleural effusion and received thoracentesis initially, presented to the hospital on 05/16 due to severe hypoxia, with acute hypoxic respiratory failure, required up to 4 L nasal cannula oxygen, not previously on oxygen supplementation. Has had worsening lower extremity edema as well, having recently stopped Lasix due to rash. On assessment with CTA chest found to have right PE, moderate clot burden. No sign of ventricular strain. Subpleural mass in the left upper lung consistent with malignant neoplasm, extensive left pleural thickening with fibrothorax and volume loss. Possible pleural meta stasis. Large loculated right pleural effusion. Ascites. Suspected meta stasis in thoracic spine. Venous duplex with nonocclusive DVT of right common femoral, profunda femoris, popliteal, nonocclusive DVT thrombosis of left peroneal and posterior tibial veins. Echocardiogram with normal ejection fraction, grade 1 diastolic dysfunction, mild MVR. Mild TVR. Moderate pulmonary hypertension. Small size pericardial effusion. He was initiated on anticoagulation with heparin drip. On 05/20 had a Pleurx catheter placed with evacuation of red cloudy exudative nonpurulent fluid, resumed on anticoagulation, and has tolerated resumption well. So far hemoglobin remained steady at around 11. Please follow-up blood count at his visit. He was transitioned to Eliquis. Supplies are being arranged for him for continued catheter care at home. He is asked to follow-up with pulmonology in office on 05/30. Acute PE some ongoing hypoxia but has much improved with improvement also after thoracentesis. He is set up with oxygen at discharge. Transiently on Bumex for lower extremity edema which has since improved, diuretic discontinued. He is asked to resume follow-up with oncology. Physical Exam Narrative: He is in good spirits. Feeling much better. Const: COMMON NORMALS: patient oriented x3 and alert GENERAL APPEARANCE: c ooperative ORIENTATION/CONSCIOUSNESS: Yes awake HENMT: COMMON NORMALS: oropharynx normal Neck/C-Spine: COMMON NORMALS: no JVD Resp: COMMON NORMALS: normal respiratory effort and clear to auscultation bilaterally AUSCULTATION: clear to auscultation bilaterally OTHER: Right chest Pleurx catheter. Cardio: COMMON NORMALS: no JVD, regular rhythm, S1 normal heart sound present, S2 normal heart sound present and No murmurs present (Cardio) RHYTHM: regular rhythm HEART SOUNDS: S1 normal heart sound present and S2 normal heart sound present GI: COMMON NORMALS: Normal to inspection, nondistended, normoactive bowel sounds present, Soft to palpation and non-tender PALPATION: Yes Soft to palpation Extremity: COMMON NORMALS: no joint enlargement and no pedal edema GENERAL: Yes edema (1+) Neuro: COMMON NORMALS: patient oriented x3 and moves all extremities SENSORIUM/ORIENTATION: Yes alert Skin: COMMON NORMALS: no rashes or lesions noted GENERAL SKIN EXAM: no rashes or lesions noted Discharge Data Studies Completed and Pending Completed Studies During Hospitalization Category Date Time Status CTA PE [CT angio chest PE protcl [id number]] Stat Cat Scan 05/17/22 00:04 Completed XR chest 1V portable [id number] Routine Exams 05/21/22 07:12 Completed XR chest 1V portable [id number] Stat Exams 05/16/22 21:04 Completed XR chest 1V portable [id number] Stat Exams 05/20/22 10:12 Completed CV. echo complete* [id number] Routine Ultrasound 05/17/22 15:43 Completed US venous duplex lower extremity bilat [CV venous Ultrasound 05/17/22 00:04 [place] [id number]] Stat Pending at discharge Category Date Time Status Body Fluid Culture & GS Routine Lab 05/20/22 10:00 Results Radiology Impressions Chest CTA 05/17/22 00:04 IMPRESSION: 1. Right pulmonary embolism. Moderate clot burden. 2. No sign of right ventricular strain. 3. Subpleural mass in the left upper lung consistent with a malignant neoplasm. 4. Extensive left pleural thickening with fibrothorax and volume loss. Possible pleural metastases. 5. Large loculated right pleural effusion. 6. Ascites. 7. Suspect metastases in the thoracic spine. ADDENDUM: 05/17/22 0130 THIS REPORT CONTAINS FINDINGS THAT MAY BE CRITICAL TO PATIENT CARE. The findings were verbally communicated via telephone conference with FANNY THORNTON at 1:28 AM CDT on 05/17/2022. The findings were acknowledged and understood. Venous Duplex 05/17/22 00:04 IMPRESSION: 1. Nonocclusive deep venous thrombosis of the right common femoral, profundus femoris, femoral vein and popliteal vein regions, as noted above. 2. Nonocclusive deep venous thrombosis of the visualized left peroneal and posterior tibial veins. Chest X-Ray 05/21/22 07:12 IMPRESSION: Stable abnormal chest. Laboratory Results WBC 8.5 10^3/uL (4.0-10.0) 05/22/22 01:57 RBC 3.98 10^6/uL (4.1-5.3) L 05/22/22 01:57 Hgb 11.2 g/dL (11.7-16.6) L 05/22/22 01:57 Hct 36.0 % (42.0-52.0) L 05/22/22 01:57 MCV 90.5 fl (80-94) 05/22/22 01:57 MCH 28.1 pg (28.0-34.0) 05/22/22 01:57 MCHC 31.1 g/dL (30.0-36.0) 05/22/22 01:57 RDW 17.7 % (12.1-15.1) H 05/22/22 01:57 Plt Count 223 10^3/cmm (130-400) 05/22/22 01:57 MPV 9.6 fL (7.4-10.4) 05/22/22 01:57 Neut % (Auto) 91.7 % 05/22/22 01:57 Lymph % (Auto) 4.0 % 05/22/22 01:57 [place] % (Auto) 3.7 % 05/22/22 01:57 Eos % (Auto) 0.1 % 05/22/22 01:57 Baso % (Auto) 0.1 % 05/22/22 01:57 Neut # (Auto) 7.77 10^3/uL (1.8-7.7) H 05/22/22 01:57 Lymph # (Auto) 0.3 10^3/uL (0.8-4.8) L 05/22/22 01:57 [place] # (Auto) 0.3 10^3/uL (0.2-0.9) 05/22/22 01:57 Eos # (Auto) 0.0 10^3/uL (0.0-0.8) 05/22/22 01:57 Baso # (Auto) 0.0 10^3/uL (0.0-0.1) 05/22/22 01:57 Nucleated RBC % (auto) 0 % 05/22/22 01:57 Nucleated RBCs # 0.0 /100WBC 05/22/22 01:57 Differential Comment Yes 05/20/22 10:00 PT 12.90 SECONDS (12.1-14.9) 05/19/22 15:57 INR 0.94 (0.8-1.2) 05/19/22 15:57 APTT 62.8 SECONDS (23.9-36.7) H 05/20/22 19:38 Specimen Type Arterial 05/17/22 04:49 Sample Site Radial, right 05/17/22 04:49 ABG pH 7.44 (7.35-7.45) 05/17/22 04:49 ABG pCO2 40.7 mmHg (35-45) 05/17/22 04:49 ABG pO2 60.3 mmHg (80.0-100.0) L 05/17/22 04:49 ABG HCO3 27.3 mmol/L (22-26) H 05/17/22 04:49 ABG Base Excess 2.8 mmol/L (-2.0-2.0) H 05/17/22 04:49 Magdaleno Test Pos 05/17/22 04:49 Hematocrit 34.2 % (42-52) L 05/17/22 04:49 O2 Delivery Device Nc 05/17/22 04:49 O2 Liters/Min 5.0 % 05/17/22 04:49 Fabric Coating Supervisor ID Monro 05/17/22 04:49 Sodium 136 mmol/L (136-145) 05/22/22 01:57 Potassium 4.6 mmol/L (3.5-5.1) 05/22/22 01:57 Chloride 98 mmol/L (98-107) 05/22/22 01:57 Carbon Dioxide 28 mmol/L (22-29) 05/22/22 01:57 Anion Gap 14.6 (5-19) 05/22/22 01:57 BUN 13 mg/dL (8-23) 05/22/22 01:57 Creatinine 0.7 mg/dL (0.7-1.2) 05/22/22 01:57 GFR Calculation 113.9 mL/min (90-130) 05/22/22 01:57 Glucose 190 mg/dL (65-115) H 05/22/22 01:57 Calculated Osmolality 287 mOsm/kg (285-295) 05/22/22 01:57 Calcium 9.1 mg/dL (8.5-10.5) 05/22/22 01:57 Magnesium 1.9 mg/dL (1.7-2.3) 05/17/22 02:20 Total Bilirubin 0.2 mg/dL (0.15-1.2) 05/19/22 06:04 AST 15 U/L (0-40) 05/19/22 06:04 ALT 16 U/L (0-41) 05/19/22 06:04 Alkaline Phosphatase 124 U/L (40-130) 05/19/22 06:04 Lactate Dehydrogenase 281 U/L (135-225) H 05/17/22 02:20 Troponin T Baseline 16 ng/L (0-15) H 05/16/22 20:50 Troponin T 120 Minute 16.48 ng/L (0-15) H 05/16/22 22:58 Delta Troponin T 0.48 ABS# (0-10) 05/16/22 22:58 Troponin T Hi Sens 6Hr 17.78 ng/L (0-15) H 05/17/22 02:20 Troponin T Hi Sens 6Hr Delta 1.78 ng/L (0-12) 05/17/22 02:20 C-Reactive Protein 13.1 mg/L (0.0-4.9) H 05/17/22 02:20 NT-Pro-B Natriuret Pep 154 pg/mL (0-125) H 05/16/22 20:50 Total Protein 5.2 g/dL (6.6-8.7) L 05/19/22 06:04 Albumin 2.4 g/dL (3.5-5.2) L 05/19/22 06:04 Globulin 2.8 g/dL (1.3-4.6) 05/19/22 06:04 Procalcitonin 0.07 ng/mL (0-0.5) 05/16/22 22:58 Fluid Color Red 05/20/22 10:00 Fluid Appearance Cloudy 05/20/22 10:00 Fluid WBC 614 /uL 05/20/22 10:00 Fluid RBC 21.000 10^3/uL 05/20/22 10:00 Fld Polynuclear WBCs # 0.026 05/20/22 10:00 Fld Polynuclear WBCs % 4.300 % 05/20/22 10:00 Fl Mononucl WBCs #(Auto) 0.588 05/20/22 10:00 Fl Mononuclear % Auto 95.700 % 05/20/22 10:00 Fluid Albumin 1.8 g/dL 05/20/22 10:00 Fluid Creatinine 0.58 (0.7-1.2) L 05/20/22 10:00 Pleural pH 8.00 (6.5-7.5) H 05/20/22 10:00 Pleural Total Protein 3.3 g/dL 05/20/22 10:00 Pleural LDH 348 U/L 05/20/22 10:00 Pleural Glucose 78.0 mg/dL 05/20/22 10:00 Pleural Amylase 162.0 U/L 05/20/22 10:00 Pleural Triglycerides 20 mg/dL 05/20/22 10:00 Vitals Last Vital Signs Temp 97.9 F 05/22/22 08:00 Pulse 80 05/22/22 08:00 Resp 16 05/22/22 08:00 BP 103/57 05/22/22 08:00 Pulse Ox 93 05/22/22 08:00 O2 Del Method 05/22/22 08:00 O2 Flow Rate 2 05/22/22 04:00 Discharge Plan Discharge Patient Disposition: Home Condition: Stable Prescriptions: New pantoprazole 40 mg tablet,delayed release (DR/EC) 40 mg PO DAILY 42 Days Qty: 42 0RF Continued prednisone 10 mg tablet 10 mg PO DAILY Qty: 30 0RF hydrocodone-acetaminophen 7.5-325 mg tablet 1 tab PO Q8H PRN (Reason: pain, severe) 10 Days Qty: 30 0RF Rx Instructions: Follow-up with Dr. Delgado in the next 10 days. Tagrisso 40 mg tablet 40 mg PO DAILY Qty: 28 0RF benzonatate 100 mg capsule 100 mg PO TID PRN (Reason: cough) Qty: 30 0RF amoxicillin-pot clavulanate [Augmentin] 500-125 mg tablet 1 tab PO BID Qty: 20 0RF albuterol sulfate 90 mcg/actuation HFA aerosol inhaler 2 inh INHALATION Q4H PRN (Reason: shortness of breath or wheezing) Qty: 18 0RF albuterol sulfate 2.5 mg /3 mL (0.083 %) solution for nebulization 2.5 mg inhalation Q4H PRN (Reason: shortness of breath or wheezing) Qty: 90 0RF ondansetron HCl 4 mg tablet 4 mg PO Q6H PRN (Reason: nausea and vomiting) Qty: 20 0RF Discharge Orders: Discharge Order (Routine); Ordered 05/22/22 Ordered By: Gt Damian Other Ambulatory Orders: DME: Miscellaneous (Order) Location: None Selected Ordered By: Gt Damian DME: Oxygen (Order) Location: None Selected Ordered By: Gt Damian Referrals: Igor Howard DO [Primary Care Provider] - 05/28/22 8:45 am (please call for appointment) Ten Merrill MD [Physician] - 06/04/22 3:30 pm (appointment please) Discharge Diet: Cardiac Discharge Activity: Increase activity as tolerated and Oxygen as instructed Patient Instructions: Pantoprazole (By mouth), Apixaban (By mouth), Pulmonary Embolism (ED), Using Oxygen at Home (GEN), Hypoxia (GEN), How to Care for Your Chest or Abdominal Catheter (GEN), Opioid Safety Activity Restrictions/Additional Instructions: Please keep catheter free of contamination. Continue care as per instructions. Please follow-up with Dr. Weldon for reassessment in office. Continue oxygen at home. Target oxygen saturation 90-92%. Please follow-up with your primary doctor and lung doctor's regards to blood clot in your lung. Continue blood thinner medication. Please have your primary doctor reassess your blood count at next visit. Please resume follow-up with your cancer doctor. Discharge Attestations Time Spent in Discharge Care*: greater than 30 min Status at Discharge: Cognitive status at discharge: cognitively intact , Behavioral status at discharge: cooperative , Quality Metrics Clinical Quality Measures [ No reported AMI, CVA or VTE this stay] Coding Level of Care Code Acute [facility]g [facility] note Diagnoses Malignant pleural effusion J91.0 Pulmonary embolism I26.99 DVT (deep venous thrombosis) I82.409 Acute respiratory failure with hypoxia J96.01 Primary adenocarcinoma of upper lobe of left lung C34.12
[2022-05-22 11:53] VITALS: BP 101/60; PULSE 78; RESP 16; TEMP 36.8; O2SAT 93
--- NOTE | 2022-05-23 13:03 | PC.NURSE ---
Patient's Ronda called and asked if the patient should have been discharged on Bumex because the Lasix he has at home causes him a rash. This bid writer spoke with Dr. Damian who stated that he did not want the patient to have the Bumex at this time. He wanted the patient to follow up with his primary care provider about his Lasix or Bumex as he did not want the patient to get to dehydrated. This bid writer called the patient's Ronda back and updated her that Dr. Damian wanted the patient to follow up with his primary care doctor regarding his Lasix and Bumex. Ronda verbalized understanding.
== END 2022-05-22 13:51 | disposition home or self-care (01) | DRG 166 ==
LOC: ER 23:33 → MEDSURG 05-17 00:25 → ICU 05-17 01:45 → MEDSURG 05-17 02:01
PROVIDERS: Internal Medicine Pulmonary Disease; Student in an Organized Health Care Education/Training Program; Admitting Provider Internal Medicine; Emergency Provider Emergency Medicine; PCP Family Medicine; Visit Provider Internal Medicine
DX: C34.12 Malignant neoplasm of upper lobe, left bronchus or lung (principal); I26.93 Single subsegmental thrombotic pulmonary embolism without acute cor pulmonale; J96.01 Acute respiratory failure with hypoxia; J91.0 Malignant pleural effusion; C77.8 Secondary and unspecified malignant neoplasm of lymph nodes of multiple regions; R18.8 Other ascites; I82.411 Acute embolism and thrombosis of right femoral vein; I82.431 Acute embolism and thrombosis of right popliteal vein; I82.452 Acute embolism and thrombosis of left peroneal vein; I82.442 Acute embolism and thrombosis of left tibial vein; I31.3 Pericardial effusion (noninflammatory); E46 Unspecified protein-calorie malnutrition; R64 Cachexia; I27.20 Pulmonary hypertension, unspecified; J44.9 Chronic obstructive pulmonary disease, unspecified; Z68.20 Body mass index [BMI] 20.0-20.9, adult; Z79.891 Long term (current) use of opiate analgesic; Z79.52 Long term (current) use of systemic steroids; Z79.899 Other long term (current) drug therapy
CPT/HCPCS: 36415; 36591; 36592; 36600; 71045; 71275; 80048; 80053; 80503; 82042; 82150; 82570; 82803; 82945; 83615; 83735; 83880; 83986; 84145; 84157; 84478; 84484; 85025; 85610; 85730; 86140; 87040; 87070; 87075; 87205; 87641; 89050; 93005; 93306; 93970; 94640; 94760; 99285; C9113; G0378; J0692; J1170; J1644; J2405; J3370; J7050; J7512; Q9967

== ENCOUNTER 2022-06-06 08:55 | Outpatient (RCR) | payer OTHER, SELFPAY ==
[2022-05-30 09:15] VITALS: BP 96/50; PULSE 83; RESP 18; TEMP 36; O2SAT 97
--- NOTE | 2022-05-30 09:30 | PC.NURSE ---
Pt to GI lab for drainage of Pleurx cath. Right flank dressing removed. What appeared to be a nickel sized popped blister noted under tape on dressing. Cath drained of 400 mL yoan liquid. Tolerated well.
[2022-06-03 09:15] VITALS: BP 102/68; PULSE 77; RESP 18; TEMP 36.4; O2SAT 96
--- NOTE | 2022-06-03 10:00 | PC.NURSE ---
Pt to GI lab to have Pleurx cath drained. Pleurx drained of 425 clear yoan fluid. Pt tolerated well. Old blister wound noted from last week healing well. Sutures removed as ordered per Dr. Merrill. Pt tolerated well.
[2022-06-06 09:06] VITALS: BP 99/62; PULSE 75; RESP 18; TEMP 36.4; O2SAT 96
--- NOTE | 2022-06-06 09:20 | PC.NURSE ---
Pt to GI lab for drainage of right Pleurx cath. 350 mL clear yoan fluid drained. Old blister site noted to have new skin and no longer draining. Insertion site slightly reddened with small amount serous drainage noted on bandage. Pt tolerated well.
== END 2022-06-06 23:59 | disposition home or self-care (01) ==
LOC: GILAB 08:55
PROVIDERS: PCP Family Medicine; Visit Provider Internal Medicine Pulmonary Disease
DX: C34.12 Malignant neoplasm of upper lobe, left bronchus or lung (principal); J91.0 Malignant pleural effusion
CPT/HCPCS: 99212

== ENCOUNTER 2022-06-30 09:59 | Outpatient (CLI) | payer OTHER, SELFPAY ==
--- NOTE | 2022-06-30 10:09 | XR_ITS ---
WS: [id number] Exam: XR KUB [id number] Date/Time of Exam: 06/30/2022 10:09 AM Reason For Exam: bloating, abdominal pain. Scattered gas in both large and small bowel loops suggesting mild ileus. 2 mm calcification seen in t he right abdomen that may represent a tiny kidney stone or gallstone. No sign of organ enlargement. B han structures are intact. Opaque tubing superimposing the inferior right lung zone. This might be a chest tube. XR/XR KUB [id number] IMPRESSION: 1. Scattered gas in both large and small bowel loops suggesting mild ileus. Mod erate amount retained stool in the transverse and right colon. 2. No sign of acute bowel obstruction or pneumoperitoneum. 3. 2 mm calcification noted in the mid right abdomen that may represent a tiny a kidney stone or gallstone.
== END 2022-06-30 10:00 | disposition home or self-care (01) ==
PROVIDERS: PCP Family Medicine; Visit Provider Family Medicine
DX: R14.0 Abdominal distension (gaseous) (principal); R93.5 Abnormal findings on diagnostic imaging of other abdominal regions, including retroperitoneum
CPT/HCPCS: 74018; 81003; 87086

== ENCOUNTER 2022-07-02 13:31 | Outpatient (CLI) | payer OTHER, SELFPAY ==
[2022-07-02] MEDS: iohexol 350 mg/mL 100 mL Btl PO (14:51)
[2022-07-02] MEDS: iohexol 350 mg/mL 100 mL Btl IV (14:51)
--- NOTE | 2022-07-02 15:00 | CT_ITS ---
WS: [id number] CT CHEST, ABDOMEN, AND PELVIS TECHNIQUE: Contrast-enhanced CT of the chest, abdomen, and pelvis with coronal and sagittal reformatt ed images. CLINICAL INFORMATION: Restaging COMPARISON: CTA chest May 17, 2022 CT chest abdomen pelvis March 26, 2022 DLP: 1299.[address] scans at [facility] use at least one of these dose optimization techniques: automated e xposure control; mA and/or kV adjustment per patient size (includes targeted exams where dose is matc hed to clinical indication); or iterative reconstruction. CT CHEST: Volume loss LEFT hemithorax. Spiculated mass LEFT upper lobe anteriorly along the mediastinum measuri ng 2.6 x 1.5 cm decrease in size compared to March 26, 2022 and stable compared to May 17, 2022. LEFT lower lobe empyema with thickened pleura similar to the prior examination. Interstitial thicken ing throughout the LEFT lung with traction bronchiectasis. Hyperexpansion RIGHT lung. Small RIGHT ple ural effusion. RIGHT pleural chest tube. Previously described diffuse miliary metastasis RIGHT lung h ave resolved compared to 03/28. Tiny miliary metastasis LEFT lung are persistent but improved. RIGHT to LEFT mediastinal shift. Normal caliber thoracic aorta. Proximal main pulmonary arteries are normal. No axillary lymphadenopathy. Diffuse circumferential pleural thickening throughout the LEFT l vasile with nodularity suspicious for pleural metastasis although improved compared to March 26, 2022. Loculated pleural fluid along the LEFT fissure similar to previous. Mild pericardial thickening with tiny pericardial effusion overlying the LEFT ventricle. No axillary lymphadenopathy. CT ABDOMEN AND PELVIS: Moderate abdominal and pelvic ascites with diffuse peritoneal thickening and e nhancement suspicious for peritonitis. Additional suspected peritoneal carcinomatosis with areas of m esenteric induration and nodularity. This is difficult to further assess and compare due to obscuring ascites. Punctate blastic metastatic lesions throughout the thoracic and lumbar spine progressed sin ce March 26, 2022. Progressed LEFT metastasis involving the sacrum and pelvic bony structures. This in volves both ilium and ischial. Moderate perihepatic and perisplenic ascites.Normal portal vein and splenic vein. Gallbladder is cont racted. Small esophageal hiatal hernia. Adrenal glands are normal. Mild pancreatic parenchymal enhanc ement. Normal caliber abdominal aorta. Enlarged heterogeneous prostate measuring 4.[address]/CT chest abd pel w con* IMPRESSION: 1. Spiculated mass LEFT upper lobe anteriorly along the mediastinum measuring 2.6 x 1.5 cm decrease in size compared to March 26, 2022 and stable compared to May 17, 2022. 2. Circumferential LEFT pleural metastasis improved. 3. Progressed small blastic metastatic lesions in the thoracic and lumbar spin e. These are progressed since March 26, 2022. 4. Previously described diffuse miliary metastasis RIGHT lung have resolved co mpared to 03/28. Tiny miliary metastasis LEFT lung are persistent but improved. 5. Diffuse peritoneal enhancement suspicious for peritonitis. In addition, a f ew areas of nodular mesenteric induration better visualized in the LEFT upper q uadrant compatible with peritoneal carcinomatosis. This is difficult to further evaluate due to ascites obscuring the mesentery. 6. No enhancing hepatic lesions. 7. No hydronephrosis in either kidney. 8. Enlarged prostate measuring 4.4 cm. 9. Small LEFT pleural empyema with loculated fluid along the LEFT fissure unch anged. 10. Small RIGHT pleural effusion with RIGHT pleural drain.
== END 2022-07-02 13:32 | disposition home or self-care (01) ==
PROVIDERS: PCP Family Medicine; Visit Provider Internal Medicine Medical Oncology
DX: C34.12 Malignant neoplasm of upper lobe, left bronchus or lung (principal); C78.2 Secondary malignant neoplasm of pleura; C78.02 Secondary malignant neoplasm of left lung; C79.51 Secondary malignant neoplasm of bone
CPT/HCPCS: 71260; 74177

== ENCOUNTER 2022-07-07 08:05 | Outpatient (RCR) | payer OTHER, SELFPAY ==
[2022-06-10 08:40] VITALS: BP 99/68; PULSE 70; RESP 18; TEMP 36.1; O2SAT 97
--- NOTE | 2022-06-10 08:50 | PC.NURSE ---
Pt to GI lab for drainage of Pleurx cath. 350 mL clear yona fluid drained from catheter. Site with slight redness at insertion site. No drainage noted. Pt tolerated procedure well.
[2022-06-13 08:40] VITALS: BP 101/72; PULSE 80; RESP 18; TEMP 36.2; O2SAT 95
--- NOTE | 2022-06-13 08:40 | PC.NURSE ---
Pt to GI lab for drainage of Pleurx cath. 300 mL clear yoan fluid removed. Pt tolerated well. Small suture like material noted where previous sutures removed. Suture kit used but only scab removed. Old blister site completely healed with new skin noted.
--- NOTE | 2022-06-17 07:20 | XRR_ITS ---
PROCEDURE INFORMATION: Exam: XR Chest Exam date and time: 06/17/2022 8:59 AM Age: 62 years old Clinical indication: Condition or disease; Other: Pleural effusion; Additional info: Pleural effusion, PT coming to gi at 0830 for drainage of pluerx cath on TECHNIQUE: Imaging protocol: Radiologic exam of the chest. Views: 2 views. COMPARISON: CR XR chest 1V portable [id number] 05/21/2022 7:31 AM FINDINGS: Tubes, catheters and devices: Right chest port in the distal SVC. Tunneled right lower pleural drainage catheter position is stable. Lungs: Emphysematous lung disease. Irregular opacities at the left lung base without significant change. Chronic left lung volume loss is unchanged. Pleural spaces: Small volume bilateral pleural effusions are stable to mildly decreased from comparison. Negative for pneumothorax. Heart/Mediastinum: Leftward mediastinal deviation is unchanged. Unremarkable cardiac silhouette. Bones/joints: Unremarkable. XR/XR chest 2V* [id number] IMPRESSION: Small pleural effusions mildly decreased in volume from comparison.
[2022-06-17 08:30] VITALS: BP 110/75; PULSE 79; RESP 18; TEMP 36.3; O2SAT 98
--- NOTE | 2022-06-17 08:40 | PC.NURSE ---
Pt to GI lab for drainage of Pleurx cath to right chest. 300 mL yoan fluid removed. Pt tolerated well. 2 view chest xray ordered per Dr. Merrill for pt c/o occasional sharp pains in chest.
[2022-06-20 08:30] VITALS: BP 93/59; PULSE 72; RESP 18; TEMP 35.9; O2SAT 95
--- NOTE | 2022-06-20 08:30 | PC.NURSE ---
Pt to GI lab for drainage of Pleurx cath. 300 mL clear yoan fluid removed. Pt tolerated well. Pt states chest pain from earlier this week is still persistent. States after drainage of Pleurx, it does seem like pains are better. Pt still able to work outside and stay busy. States chest pain does not worsen with activity. Pt scheduled to see Dr. Merrill next Thursday.
[2022-06-24 08:30] VITALS: BP 109/71; PULSE 82; RESP 18; TEMP 36.3; O2SAT 96
--- NOTE | 2022-06-24 08:35 | PC.NURSE ---
Pt to GI lab for drainage of Pleurx cath. 300 mL yoan drainage removed from cath. Pt tolerated well.
[2022-06-27 10:15] VITALS: BP 107/60; PULSE 80; RESP 18; TEMP 36.6; O2SAT 96
[2022-06-30 08:00] VITALS: BP 109/74; PULSE 79; RESP 18; TEMP 36.4; O2SAT 94
--- NOTE | 2022-06-30 08:00 | PC.NURSE ---
Pluerx cath drained 300 mL clear yoan fluid. Pt tolerated well.
[2022-07-04 08:35] VITALS: BP 98/65; PULSE 82; RESP 18; TEMP 36.4; O2SAT 96
--- NOTE | 2022-07-04 08:35 | PC.NURSE ---
Pt to GI infusions for drainage of Pleurx cath. 300 mL clear yoan fluid removed. Pt tolerated well.
[2022-07-07 08:10] VITALS: BP 99/58; PULSE 84; RESP 18; TEMP 36.4; O2SAT 96
--- NOTE | 2022-07-07 08:10 | PC.NURSE ---
Pt to GI infusions for drainage of Pleurx cath. 250 mL clear yoan fluid removed. Pt tolerated well.
== END 2022-07-07 23:59 | disposition home or self-care (01) ==
LOC: GILAB 08:05
PROVIDERS: PCP Family Medicine; Visit Provider Internal Medicine Pulmonary Disease
DX: J90 Pleural effusion, not elsewhere classified (principal)
CPT/HCPCS: 71046; 99212

== ENCOUNTER 2022-07-07 08:26 | Oncology outpatient (recurring) (ONCR) | payer OTHER, SELFPAY ==
[2022-06-27 08:26] VITALS: BMI 21.0
[2022-06-27 08:43] LABS: Basophils % 0.2 %; Eosinophils # 0.1 10^3/uL (0.0-0.8); Eosinophils % 1.8 %; Hematocrit 36.3 % (42.0-52.0); Hemoglobin 11.5 g/dL (11.7-16.6); Lymphocytes # 0.6 10^3/uL (0.8-4.8); Lymphocytes % 10.6 %; Mean Corpuscular HGB Conc 31.7 g/dL (30.0-36.0); Mean Corpuscular Hemoglobin 29.6 pg (28.0-34.0); Mean Corpuscular Volume 93.6 fl (80-94); Mean Platelet Volume 9.3 fL (7.4-10.4); Monocytes # 0.5 10^3/uL (0.2-0.9); Monocytes % 8.6 %; Neutrophils # 4.39 10^3/uL (1.8-7.7); Neutrophils % 78.6 %; Nucleated Red Blood Cells % 0 %; Platelet Count 238 10^3/cmm (130-400); Red Blood Count 3.88 10^6/uL (4.1-5.3); Red Cell Distribution Width 16.8 % (12.1-15.1); White Blood Count 5.6 10^3/uL (4.0-10.0)
[2022-06-27 09:08] LABS: Alanine Aminotransferase 13 U/L (0-41); Albumin Level 3.3 g/dL (3.5-5.2); Alkaline Phosphatase 91 U/L (40-130); Anion Gap 13.9 (5-19); Aspartate Amino Transferase 9 U/L (0-40); Blood Urea Nitrogen 17 mg/dL (8-23); Calcium 8.6 mg/dL (8.5-10.5); Carbon Dioxide 27 mmol/L (22-29); Chloride 100 mmol/L (98-107); Globulin 2.5 g/dL (1.3-4.6); Glomerular Filtration Rate 97.6 mL/min (90-130); Glucose 136 mg/dL (65-115); Osmolality Calculated 288 mOsm/kg (285-295); Potassium 3.9 mmol/L (3.5-5.1); Sodium 137 mmol/L (136-145); Total Bilirubin 0.2 mg/dL (0.15-1.2); Total Protein 5.8 g/dL (6.6-8.7)
[2022-06-27 10:30] LABS: Thyroid Stimulating Hormone 2.28 uIU/mL (0.27-4.20)
== END 2022-07-07 23:59 | disposition home or self-care (01) ==
PROVIDERS: PCP Family Medicine; Visit Provider Internal Medicine Medical Oncology
DX: C34.12 Malignant neoplasm of upper lobe, left bronchus or lung (principal)
CPT/HCPCS: 36591; 80053; 84443; 85025

== ENCOUNTER 2022-07-22 08:32 | Outpatient (RCR) | payer OTHER, SELFPAY ==
[2022-07-11 08:30] VITALS: BP 104/81; PULSE 78; RESP 18; TEMP 36.2; O2SAT 95
--- NOTE | 2022-07-11 08:30 | PC.NURSE ---
Pt to GI infusions for drainage of Pluerx cath to right chest. 250 mL clear yoan fluid removed without difficulty. Pt tolerated well.
[2022-07-15 08:30] VITALS: BP 107/67; PULSE 86; RESP 18; TEMP 36.5; O2SAT 98
--- NOTE | 2022-07-15 08:30 | PC.NURSE ---
Pt to GI infusions for drainage of Pluerx cath to right chest. 250 mL clear yoan fluid drained. Pt tolerated well.
[2022-07-18 08:30] VITALS: BP 122/81; PULSE 81; RESP 18; TEMP 36.3; O2SAT 94
--- NOTE | 2022-07-18 08:30 | PC.NURSE ---
Pt to GI infusions for drainage of Pleurx cath to right chest. 200 mL clear yoan fluid removed. Pt tolerated well.
[2022-07-22 08:30] VITALS: BP 107/73; PULSE 93; RESP 18; TEMP 36.2; O2SAT 97
--- NOTE | 2022-07-22 08:49 | PC.NURSE ---
Pt to GI Infusions for drainage of Pleurx cath to right chest. 275 mL clear yoan fluid drained. Pt tolerated well.
== END 2022-08-06 23:59 | disposition home or self-care (01) ==
LOC: GILAB 08:32
PROVIDERS: PCP Family Medicine; Visit Provider Internal Medicine Pulmonary Disease
DX: J90 Pleural effusion, not elsewhere classified (principal)
CPT/HCPCS: 99212

== ENCOUNTER 2022-07-25 18:45 | Emergency (ER) | payer OTHER, SELFPAY ==
[2022-07-25 19:26] VITALS: BP 119/81; PULSE 101; RESP 22; TEMP 36.5; O2SAT 94; BMI 19.2
[2022-07-25 19:56] LABS: Basophils % 0.1 %; Eosinophils # 0.1 10^3/uL (0.0-0.8); Eosinophils % 1.2 %; Hematocrit 50.2 % (42.0-52.0); Hemoglobin 16.4 g/dL (11.7-16.6); Lymphocytes # 0.7 10^3/uL (0.8-4.8); Lymphocytes % 9.7 %; Mean Corpuscular HGB Conc 32.7 g/dL (30.0-36.0); Mean Corpuscular Hemoglobin 30.3 pg (28.0-34.0); Mean Corpuscular Volume 92.8 fl (80-94); Mean Platelet Volume 8.9 fL (7.4-10.4); Monocytes # 0.7 10^3/uL (0.2-0.9); Neutrophils # 6.05 10^3/uL (1.8-7.7); Neutrophils % 79.7 %; Nucleated Red Blood Cells % 0 %; Platelet Count 330 10^3/cmm (130-400); Red Blood Count 5.41 10^6/uL (4.1-5.3); Red Cell Distribution Width 13.8 % (12.1-15.1); White Blood Count 7.6 10^3/uL (4.0-10.0)
[2022-07-25 20:20] LABS: Alanine Aminotransferase 10 U/L (0-41); Albumin Level 3.4 g/dL (3.5-5.2); Alkaline Phosphatase 110 U/L (40-130); Anion Gap 15.3 (5-19); Aspartate Amino Transferase 12 U/L (0-40); Blood Urea Nitrogen 31 mg/dL (8-23); Calcium 9.6 mg/dL (8.5-10.5); Carbon Dioxide 29 mmol/L (22-29); Chloride 95 mmol/L (98-107); Creatinine Clr Calc Pharmacy 70.5906; Globulin 3.4 g/dL (1.3-4.6); Glomerular Filtration Rate 75.5 mL/min (90-130); Glucose 121 mg/dL (65-115); Lipase 12 U/L (13-60); Osmolality Calculated 288 mOsm/kg (285-295); Potassium 4.3 mmol/L (3.5-5.1); Sodium 135 mmol/L (136-145); Total Bilirubin 0.4 mg/dL (0.15-1.2); Total Protein 6.8 g/dL (6.6-8.7)
--- NOTE | 2022-07-25 21:08 | W.ED.ABDPA2 ---
Documented by User: LEOPOLDO Noel 07/27/22 02:17 HPI - Abdominal Pain General: Chief Complaint: Abdominal Pain Stated Complaint: N/V Time Seen by Provider: 07/25/22 20:31 History of Present Illness: Patient is a 62-year-old male comes to the ED with abdominal pain. Patient has lung cancer and is currently taking oral Tagrisso. He has been having abdominal pain for the past 3 weeks that has progressed. He says over the past 4 days he is having worsening abdominal pain and constipation. He had normal bowel movement today. Denies any black or bloody stool. He states that he had a little bit of relief with his abdominal pain after his bowel movement. He has some mild nausea but denies any emesis. He is able to keep food and fluids down but just has a decreased appetite. He thinks it had been 3 or more days since his last bowel movement before today. he feels bloated and is nauseous as well. Associated Symptoms: Reports constipation and nausea; Denies chills, diarrhea, dysuria, fever(s), hematochezia, hematuria and vomiting Review of Systems Const: Denies: fever(s), chills or fatigue Eyes: Denies: change in vision or eye discomfort ENMT: Denies: throat pain, odynophagia, nasal discharge or nasal congestion Card: Denies: chest pain, palpitations, edema, swelling of feet/ankles, dyspnea on exertion or orthopnea Resp: Denies: dyspnea, productive cough or non-productive cough GI: Reports: abdominal pain, nausea and constipation; Denies: vomiting, diarrhea or hematochezia : Denies: flank pain, difficulty urinating, dysuria or hematuria Musc: Denies: neck pain, back pain or extremity swelling Skin/Breast: Denies: rash or new lesions Neuro: Denies: headache(s), numbness in extremities or weakness in extremities PFSH ED PFSH: Medical History Anemia COPD (chronic obstructive pulmonary disease) DVT (deep venous thrombosis) Non-small cell lung cancer Pulmonary embolism Surgical History History of chest tube placement History of colonoscopy 2013 History of esophagogastroduodenoscopy (EGD) 2014 Port-A-Cath in place (01/02/22) Family History Mother Stroke Diabetes Other CAD (coronary artery disease) Hypertension Denies family history of Clotting disorder Dementia Hyperlipidemia Psychiatric illness Chronic kidney disease (CKD) Suicide Anesthesia complication Bleeding disorder Lung disease Cancer Social History Smoking and tobacco status: never smoked Alcohol intake: never Lives independently: Yes Household members: spouse Marital status: Physical Exam Const: COMMON NORMALS: patient oriented x3 and alert GENERAL APPEARANCE: cooperative HENMT: COMMON NORMALS: normocephalic HEAD & SCALP: normocephalic MOUTH: Normal oral and palatal mucosa present THROAT: posterior oropharynx normal and uvula midline Neck/C-Spine: COMMON NORMALS: supple GENERAL: Yes normal visual inspection Resp: COMMON NORMALS: normal respiratory effort, No retractions, No use of accessory muscles and clear to auscultation bilaterally AUSCULTATION: clear to auscultation bilaterally Cardio: COMMON NORMALS: regular rate, regular rhythm, S1 normal heart sound present, S2 normal heart sound present, No gallops present (Cardio), No clicks present (Cardio), No murmurs present (Cardio) and Peripheral pulses 2+ throughout RATE: regular rate RHYTHM: regular rhythm HEART SOUNDS: S1 normal heart sound present and S2 normal heart sound present PERIPHERAL PULSES: Peripheral pulses 2+ throughout GI: COMMON NORMALS: Normal to inspection, nondistended, normoactive bowel sounds present, Soft to palpation and no masses AUSCULTATION: Yes Hypoactive bowel sounds present PALPATION: Yes Soft to palpation and Yes Tenderness to palpation present (GI) (Generalized throughout upper abdomen bilaterally) : COMMON NORMALS: Yes no CVA tenderness BLADDER/KIDNEY EXAM: Yes no CVA tenderness Back/Pelvis: COMMON NORMALS: no CVA tenderness Extremity: COMMON NORMALS: normal to inspection Neuro: COMMON NORMALS: patient oriented x3 SENSORIUM/ORIENTATION: Yes alert GAIT: Yes Normal gait present Skin: GENERAL SKIN EXAM: dry skin Course Vital Signs: Vital signs: Vital Signs Temperature 97.7 F 07/25/22 19:26 Pulse Rate 90 07/26/22 01:21 Respiratory Rate 16 07/26/22 01:21 Blood Pressure 126/86 07/26/22 01:21 Pulse Oximetry 96 07/26/22 01:21 Oxygen Delivery Me thod 07/25/22 23:00 MDM - Abdominal Pain Medical Decision Making Patient is a 62-year-old male comes to the ED with abdominal pain. Patient has lung cancer and is currently taking oral Tagrisso. He has been having abdominal pain for the past 3 weeks that has progressed. He says over the past 4 days he is having worsening abdominal pain and constipation. He had normal bowel movement today. Denies any black or bloody stool. Vitals are stable. Patient has some generalized tenderness throughout his upper abdomen bilaterally, but the rest of exam is benign. His lab KUB showed no acute bowel findings but noted some increased ascites. CT of abdomen pelvis showed no focal acute findings. Did note the patient does have some increased abdominal ascites. I told patient about the increased ascites and he is going to contact the oncologist on Thursday morning July 28 to see if any further evaluation/management via draining fluid off abdomen is recommended at this time. He was given some morphine and nausea meds and helped the symptoms. He was diagnosed with abdominal pain and constipation and discharged home with a prescription for some stool softeners. He was told to continue taking MiraLAX to help with symptoms. Strict return to ED precautions given. Dr. Mcgraw reviewed case and agreed with plan. Lab Data I reviewed the patient's lab results. 07/25/22 19:47 07/25/22 19:47 Labs/Radiology: Radiology Impressions KUB X-Ray 07/25/22 21:14 IMPRESSION: 1. No acute bowel findings. 2. Probable increased ascites. 3. Pleural effusions Abdomen/Pelvis CT 07/25/22 21:53 IMPRESSION: 1. Negative for focal acute inflammatory process in the abdomen or pelvis. 2. Trace bilateral pleural effusions. 3. Left lower lung field diffuse irregular pleural thickening, similar to prior exam, perhaps reflecting patient's known lung cancer. 4. Chest tube seen in the right inferior pleural space. 5. Large amount of abdominal ascites. 6. Scattered bony lesions which appear largely sclerotic, similar to prior exam concerning for metastatic disease. 7. Enhancing thickened peritoneum seen in largely the pelvis, similar to prior exam, perhaps reflecting metastatic disease. 8. Prostate gland enlarged. 9. Bilateral punctate non-obstructing calyceal stones. 10. Cardiomegaly. Laboratory Results WBC 7.6 10^3/uL (4.0-10.0) 07/25/22 19:47 RBC 5.41 10^6/uL (4.1-5.3) H 07/25/22 19:47 Hgb 16.4 g/dL (11.7-16.6) 07/25/22 19:47 Hct 50.2 % (42.0-52.0) 07/25/22 19:47 MCV 92.8 fl (80-94) 07/25/22 19:47 MCH 30.3 pg (28.0-34.0) 07/25/22 19:47 MCHC 32.7 g/dL (30.0-36.0) 07/25/22 19:47 RDW 13.8 % (12.1-15.1) 07/25/22 19:47 Plt Count 330 10^3/cmm (130-400) 07/25/22 19:47 MPV 8.9 fL (7.4-10.4) 07/25/22 19:47 Neut % (Auto) 79.7 % 07/25/22 19:47 Lymph % (Auto) 9.7 % 07/25/22 19:47 [place] % (Auto) 9.0 % 07/25/22 19:47 Eos % (Auto) 1.2 % 07/25/22 19:47 Baso % (Auto) 0.1 % 07/25/22 19:47 Neut # (Auto) 6.05 10^3/uL (1.8-7.7) 07/25/22 19:47 Lymph # (Auto) 0.7 10^3/uL (0.8-4.8) L 07/25/22 19:47 [place] # (Auto) 0.7 10^3/uL (0.2-0.9) 07/25/22 19:47 Eos # (Auto) 0.1 10^3/uL (0.0-0.8) 07/25/22 19:47 Baso # (Auto) 0.0 10^3/uL (0.0-0.1) 07/25/22 19:47 Nucleated RBC % (auto) 0 % 07/25/22 19:47 Nucleated RBCs # 0.0 /100WBC 07/25/22 19:47 Sodium 135 mmol/L (136-145) L 07/25/22 19:47 Potassium 4.3 mmol/L (3.5-5.1) 07/25/22 19:47 Chloride 95 mmol/L (98-107) L 07/25/22 19:47 Carbon Dioxide 29 mmol/L (22-29) 07/25/22 19:47 Anion Gap 15.3 (5-19) 07/25/22 19:47 BUN 31 mg/dL (8-23) H 07/25/22 19:47 Creatinine 1.0 mg/dL (0.7-1.2) 07/25/22 19:47 GFR Calculation 75.5 mL/min (90-130) L 07/25/22 19:47 Glucose 121 mg/dL (65-115) H 07/25/22 19:47 Calculated Osmolality 288 mOsm/kg (285-295) 07/25/22 19:47 Calcium 9.6 mg/dL (8.5-10.5) 07/25/22 19:47 Total Bilirubin 0.4 mg/dL (0.15-1.2) 07/25/22 19:47 AST 12 U/L (0-40) 07/25/22 19:47 ALT 10 U/L (0-41) 07/25/22 19:47 Alkaline Phosphatase 110 U/L (40-130) 07/25/22 19:47 Total Protein 6.8 g/dL (6.6-8.7) 07/25/22 19:47 Albumin 3.4 g/dL (3.5-5.2) L 07/25/22 19:47 Globulin 3.4 g/dL (1.3-4.6) 07/25/22 19:47 Lipase 12 U/L (13-60) L 07/25/22 19:47 Urine Color Yellow (Yellow) 07/25/22 23:08 Urine Appearance Clear (CLEAR) 07/25/22 23:08 Urine pH 5 (5-7) 07/25/22 23:08 Ur Specific [place] 1.030 (1.005-1.030) 07/25/22 23:08 Urine Protein 1+ (Negative) H 07/25/22 23:08 Urine Glucose (UA) Norm (Normal) 07/25/22 23:08 Urine Ketones 1+ (Negative) H 07/25/22 23:08 Urine Blood 3+ (Negative) H 07/25/22 23:08 Urine Nitrate Negative (Negative) 07/25/22 23:08 Urine Bilirubin 1+ (Negative) H 07/25/22 23:08 Urine Urobilinogen Neg mg/dL (Negative) 07/25/22 23:08 Ur Leukocyte Esterase Negative (Negative) 07/25/22 23:08 Urine RBC 80-100 /hpf (0-2) H 07/25/22 23:08 Urine WBC 5-10 /hpf (0-5) H 07/25/22 23:08 Ur Squamous Epith Cells None /hpf (0-5) 07/25/22 23:08 Amorphous Sediment Not Reportable 07/25/22 23:08 Urine Bacteria 1+ /hpf (NONE) H 07/25/22 23:08 Discharge Plan Discharge Patient Disposition: Home Clinical Impression: Abdominal pain Qualifiers: Abdominal location: generalized Qualified Code(s): R10.84 - Generalized abdominal pain Constipation Qualifiers: Constipation type: unspecified constipation type Qualified Code(s): K59.00 - Constipation, unspecified Condition: Stable Prescriptions: No Action bumetanide 0.5 mg tablet 0.5 mg PO DAILY PRN (Reason: Edema, Dyspnea) Qty: 30 1RF Rx Instructions: Take if Leg swelling increases or if worsening shortness of breath. metoclopramide HCl [Reglan] 5 mg tablet 5 mg PO QID Qty: 120 2RF Rx Instructions: Take before meals and at bedtime pantoprazole 40 mg tablet,delayed release (DR/EC) 40 mg PO DAILY 30 Days Qty: 30 2RF hydrocodone-acetaminophen 7.5-325 mg tablet 1 tab PO Q8H 30 Days Qty: 60 0RF prednisone 10 mg tablet 10 mg PO DAILY Rx Instructions: 5mg every AM and 10mg every PM benzonatate 100 mg capsule 100 mg PO TID PRN (Reason: cough) Qty: 30 0RF Eliquis 5 mg tablet 5 mg PO BID Qty: 30 3RF Tagrisso 40 mg tablet 40 mg PO DAILY Qty: 28 0RF albuterol sulfate 90 mcg/actuation HFA aerosol inhaler 2 inh INHALATION Q4H PRN (Reason: shortness of breath or wheezing) Qty: 18 0RF albuterol sulfate 2.5 mg /3 mL (0.083 %) solution for nebulization 2.5 mg inhalation Q4H PRN (Reason: shortness of breath or wheezing) Qty: 90 0RF ondansetron HCl 4 mg tablet 4 mg PO Q6H PRN (Reason: nausea and vomiting) Qty: 20 0RF Discharge Orders: Discharge ED (Routine); Ordered 07/26/22 Ordered By: Mitchell Mcclain Referrals: Igor Howard DO [Primary Care Provider] - Discharge Diet: Advance as tolerated Discharge Activity: Increase activity as tolerated Patient Instructions: Constipation (ED), Abdominal Pain (ED) Activity Restrictions/Additional Instructions: Follow-up with medical provider as directed. Contact your oncology office on Thursday morning to discuss symptoms and ascites fluid on abdomen and how they want to proceed in treating that. Continue taking all home medications as previously prescribed. Eat frequent smaller meals throughout the day and make sure you drink fluids and stay hydrated. Continue taking your stool softener and MiraLAX to help with bowel movements return to the ER or your medical provider if condition worsens. Please read and understand discharge instructions. Thank you for choosing [facility] for your healthcare needs today. Please realize this is an emergency room and that we are providing you with a medical screening exam and this may not be complete and all inclusive of all the testing and or work up that you may need to determine your ailment or severity of your illness. It is very important that you follow up as instructed or that you return to the Emergency Department should you have concerns or if your condition changes or worsens in any way. Coding Level of Care Code ED Learning Disabilities Teacher for Chg Fwd Exam Comprehensive Documented by User: Jewel Mcgraw DO 07/27/22 03:15 HPI - Abdominal Pain General: Chief Complaint: Abdominal Pain Stated Complaint: N/V Time Seen by Provider: 07/25/22 20:31 PFSH ED PFSH: Medical History Anemia COPD (chronic obstructive pulmonary disease) DVT (deep venous thrombosis) Non-small cell lung cancer Pulmonary embolism Surgical History History of chest tube placement History of colonoscopy 2013 History of esophagogastroduodenoscopy (EGD) 2013 Port-A-Cath in place (01/02/22) Family History Mother Stroke Diabetes Other CAD (coronary artery disease) Hypertension Denies family history of Clotting disorder Dementia Hyperlipidemia Psychiatric illness Chronic kidney disease (CKD) Suicide Anesthesia complication Bleeding disorder Lung disease Cancer Social History Smoking and tobacco status: never smoked Alcohol intake: never Lives independently: Yes Household members: spouse Marital status: Course Vital Signs: Vital signs: Vital Signs Temperature 97.7 F 07/25/22 19:26 Pulse Rate 90 07/26/22 01:21 Respiratory Rate 16 07/26/22 01:21 Blood Pressure 126/86 07/26/22 01:21 Pulse Oximetry 96 07/26/22 01:21 Oxygen Delivery Me thod 07/25/22 23:00 MDM - Abdominal Pain Medical Decision Making Patient is a 62-year-old male comes to the ED with abdominal pain. Patient has lung cancer and is currently taking oral Tagrisso. He has been having abdominal pain for the past 3 weeks that has progressed. He says over the past 4 days he is having worsening abdominal pain and constipation. He had normal bowel movement today. Denies any black or bloody stool. Vitals are stable. Patient has some generalized tenderness throughout his upper abdomen bilaterally, but the rest of exam is benign. His lab KUB showed no acute bowel findings but noted some increased ascites. CT of abdomen pelvis showed no focal acute findings. Did note the patient does have some increased abdominal ascites. I told patient about the increased ascites and he is going to contact the oncologist on ThursdayJuly 28 to see if any further evaluation/management via draining fluid off abdomen is recommended at this time. He was given some morphine and nausea meds and helped the symptoms. He was diagnosed with abdominal pain and constipation and discharged home with a prescription for some stool softeners. He was told to continue taking MiraLAX to help with symptoms. Strict return to ED precautions given. Dr. Mcgraw reviewed case and agreed with plan. This patient was originally seen by Mr. Johny PA-C.? I agree with his history, evaluation, and treatment. Lab Data 07/25/22 19:47 07/25/22 19:47 Labs/Radiology: Radiology Impressions KUB X-Ray 07/25/22 21:14 IMPRESSION: 1. No acute bowel findings. 2. Probable increased ascites. 3. Pleural effusions Abdomen/Pelvis CT 07/25/22 21:53 IMPRESSION: 1. Negative for focal acute inflammatory process in the abdomen or pelvis. 2. Trace bilateral pleural effusions. 3. Left lower lung field diffuse irregular pleural thickening, similar to prior exam, perhaps reflecting patient's known lung cancer. 4. Chest tube seen in the right inferior pleural space. 5. Large amount of abdominal ascites. 6. Scattered bony lesions which appear largely sclerotic, similar to prior exam concerning for metastatic disease. 7. Enhancing thickened peritoneum seen in largely the pelvis, similar to prior exam, perhaps reflecting metastatic disease. 8. Prostate gland enlarged. 9. Bilateral punctate non-obstructing calyceal stones. 10. Cardiomegaly. Laboratory Results WBC 7.6 10^3/uL (4.0-10.0) 07/25/22 19:47 RBC 5.41 10^6/uL (4.1-5.3) H 07/25/22 19:47 Hgb 16.4 g/dL (11.7-16.6) 07/25/22 19:47 Hct 50.2 % (42.0-52.0) 07/25/22 19:47 MCV 92.8 fl (80-94) 07/25/22 19:47 MCH 30.3 pg (28.0-34.0) 07/25/22 19:47 MCHC 32.7 g/dL (30.0-36.0) 07/25/22 19:47 RDW 13.8 % (12.1-15.1) 07/25/22 19:47 Plt Count 330 10^3/cmm (130-400) 07/25/22 19:47 MPV 8.9 fL (7.4-10.4) 07/25/22 19:47 Neut % (Auto) 79.7 % 07/25/22 19:47 Lymph % (Auto) 9.7 % 07/25/22 19:47 [place] % (Auto) 9.0 % 07/25/22 19:47 Eos % (Auto) 1.2 % 07/25/22 19:47 Baso % (Auto) 0.1 % 07/25/22 19:47 Neut # (Auto) 6.05 10^3/uL (1.8-7.7) 07/25/22 19:47 Lymph # (Auto) 0.7 10^3/uL (0.8-4.8) L 07/25/22 19:47 [place] # (Auto) 0.7 10^3/uL (0.2-0.9) 07/25/22 19:47 Eos # (Auto) 0.1 10^3/uL (0.0-0.8) 07/25/22 19:47 Baso # (Auto) 0.0 10^3/uL (0.0-0.1) 07/25/22 19:47 Nucleated RBC % (auto) 0 % 07/25/22 19:47 Nucleated RBCs # 0.0 /100WBC 07/25/22 19:47 Sodium 135 mmol/L (136-145) L 07/25/22 19:47 Potassium 4.3 mmol/L (3.5-5.1) 07/25/22 19:47 Chloride 95 mmol/L (98-107) L 07/25/22 19:47 Carbon Dioxide 29 mmol/L (22-29) 07/25/22 19:47 Anion Gap 15.3 (5-19) 07/25/22 19:47 BUN 31 mg/dL (8-23) H 07/25/22 19:47 Creatinine 1.0 mg/dL (0.7-1.2) 07/25/22 19:47 GFR Calculation 75.5 mL/min (90-130) L 07/25/22 19:47 Glucose 121 mg/dL (65-115) H 07/25/22 19:47 Calculated Osmolality 288 mOsm/kg (285-295) 07/25/22 19:47 Calcium 9.6 mg/dL (8.5-10.5) 07/25/22 19:47 Total Bilirubin 0.4 mg/dL (0.15-1.2) 07/25/22 19:47 AST 12 U/L (0-40) 07/25/22 19:47 ALT 10 U/L (0-41) 07/25/22 19:47 Alkaline Phosphatase 110 U/L (40-130) 07/25/22 19:47 Total Protein 6.8 g/dL (6.6-8.7) 07/25/22 19:47 Albumin 3.4 g/dL (3.5-5.2) L 07/25/22 19:47 Globulin 3.4 g/dL (1.3-4.6) 07/25/22 19:47 Lipase 12 U/L (13-60) L 07/25/22 19:47 Urine Color Yellow (Yellow) 07/25/22 23:08 Urine Appearance Clear (CLEAR) 07/25/22 23:08 Urine pH 5 (5-7) 07/25/22 23:08 Ur Specific [place] 1.030 (1.005-1.030) 07/25/22 23:08 Urine Protein 1+ (Negative) H 07/25/22 23:08 Urine Glucose (UA) Norm (Normal) 07/25/22 23:08 Urine Ketones 1+ (Negative) H 07/25/22 23:08 Urine Blood 3+ (Negative) H 07/25/22 23:08 Urine Nitrate Negative (Negative) 07/25/22 23:08 Urine Bilirubin 1+ (Negative) H 07/25/22 23:08 Urine Urobilinogen Neg mg/dL (Negative) 07/25/22 23:08 Ur Leukocyte Esterase Negative (Negative) 07/25/22 23:08 Urine RBC 80-100 /hpf (0-2) H 07/25/22 23:08 Urine WBC 5-10 /hpf (0-5) H 07/25/22 23:08 Ur Squamous Epith Cells None /hpf (0-5) 07/25/22 23:08 Amorphous Sediment Not Reportable 07/25/22 23:08 Urine Bacteria 1+ /hpf (NONE) H 07/25/22 23:08 Discharge Plan Discharge Patient Disposition: Home Clinical Impression: Abdominal pain Qualifiers: Abdominal location: generalized Qualified Code(s): R10.84 - Generalized abdominal pain Constipation Qualifiers: Constipation type: unspecified constipation type Qualified Code(s): K59.00 - Constipation, unspecified Condition: Stable Prescriptions: No Action bumetanide 0.5 mg tablet 0.5 mg PO DAILY PRN (Reason: Edema, Dyspnea) Qty: 30 1RF Rx Instructions: Take if Leg swelling increases or if worsening shortness of breath. metoclopramide HCl [Reglan] 5 mg tablet 5 mg PO QID Qty: 120 2RF Rx Instructions: Take before meals and at bedtime pantoprazole 40 mg tablet,delayed release (DR/EC) 40 mg PO DAILY 30 Days Qty: 30 2RF hydrocodone-acetaminophen 7.5-325 mg tablet 1 tab PO Q8H 30 Days Qty: 60 0RF prednisone 10 mg tablet 10 mg PO DAILY Rx Instructions: 5mg every AM and 10mg every PM benzonatate 100 mg capsule 100 mg PO TID PRN (Reason: cough) Qty: 30 0RF Eliquis 5 mg tablet 5 mg PO BID Qty: 30 3RF Tagrisso 40 mg tablet 40 mg PO DAILY Qty: 28 0RF albuterol sulfate 90 mcg/actuation HFA aerosol inhaler 2 inh INHALATION Q4H PRN (Reason: shortness of breath or wheezing) Qty: 18 0RF albuterol sulfate 2.5 mg /3 mL (0.083 %) solution for nebulization 2.5 mg inhalation Q4H PRN (Reason: shortness of breath or wheezing) Qty: 90 0RF ondansetron HCl 4 mg tablet 4 mg PO Q6H PRN (Reason: nausea and vomiting) Qty: 20 0RF Discharge Orders: Discharge ED (Routine); Ordered 07/26/22 Ordered By: Mitchell Mcclain Referrals: Igor Howard DO [Primary Care Provider] - Discharge Diet: Advance as tolerated Discharge Activity: Increase activity as tolerated Patient Instructions: Constipation (ED), Abdominal Pain (ED) Activity Restrictions/Additional Instructions: Follow-up with medical provider as directed. Contact your oncology office on Thursday morning to discuss symptoms and ascites fluid on abdomen and how they want to proceed in treating that. Continue taking all home medications as previously prescribed. Eat frequent smaller meals throughout the day and make sure you drink fluids and stay hydrated. Continue taking your stool softener and MiraLAX to help with bowel movements return to the ER or your medical provider if condition worsens. Please read and understand discharge instructions. Thank you for choosing [facility] for your healthcare needs today. Please realize this is an emergency room and that we are providing you with a medical screening exam and this may not be complete and all inclusive of all the testing and or work up that you may need to determine your ailment or severity of your illness. It is very important that you follow up as instructed or that you return to the Emergency Department should you have concerns or if your condition changes or worsens in any way. Coding Level of Care Code ED Learning Disabilities Teacher for [place]api [place]rios Exam Comprehensive
--- NOTE | 2022-07-25 21:14 | XRR_ITS ---
PROCEDURE INFORMATION: Exam: XR Abdomen Exam date and time: 07/25/2022 10:27 PM Age: 62 years old Clinical indication: Abdominal pain; Acute; Additional info: Abdominal pain and constipation TECHNIQUE: Imaging protocol: Radiologic exam of the abdomen. Views: Frontal supine view of the abdomen. 1 View. COMPARISON: CT chest abd pel w con* 07/02/2022 2:40 PM, abdominal plain films from 06/30/2022 FINDINGS: Tubes, catheters and devices: Small right effusion with a pleural catheter. Pleural spaces: Left pleural effusion. Gastrointestinal tract: Fecal material is now almost completely absent from the colon. There are a few gas filled mid abdominal bowel loops but no generalized obstruction. Intraperitoneal space: There is increased haziness in the abdomen suggesting an increase of the known ascites. Bones/joints: Unremarkable. XR/XR KUB [id number] IMPRESSION: 1. No acute bowel findings. 2. Probable increased ascites. 3. Pleural effusions
--- NOTE | 2022-07-25 21:53 | CTR_ITS ---
PROCEDURE INFORMATION: Exam: CT Abdomen And Pelvis With Contrast Exam date and time: 07/25/2022 10:39 PM Age: 62 years old Clinical indication: Vomiting; Abdominal pain; Generalized; Patient HX: Lung CA patient; Additional info: Abdominal pain, nausea and constipation TECHNIQUE: Imaging protocol: Computed tomography of the abdomen and pelvis with contrast. Radiation optimization: All CT scans at this facility use at least one of these dose optimization techniques: automated exposure control; mA and/or kV adjustment per patient size (includes targeted exams where dose is matched to clinical indication); or iterative reconstruction. Contrast material: OMNI 350; Contrast volume: 100 ml; Contrast route: INTRAVENOUS (IV); COMPARISON: CT chest abd pel w con* 07/02/2022 2:40 PM RADIATION DOSE METRICS: Total DLP (mGy-cm): 393.31 FINDINGS: Tubes, catheters and devices: Chest tube seen in the right inferior pleural space. Lungs: Left lower lung field diffuse irregular pleural thickening, similar to prior exam, perhaps reflecting patient's known lung cancer. Pleural spaces: Trace bilateral pleural effusions. Heart: Cardiomegaly. Liver: Normal. No mass. Gallbladder and bile ducts: Normal. No calcified stones. No ductal dilation. Pancreas: Normal. No ductal dilation. Spleen: Normal. No splenomegaly. Adrenal glands: Normal. No mass. Kidneys and ureters: Normal. No hydronephrosis. Stomach and bowel: Unremarkable. No obstruction. No mucosal thickening. Appendix: No evidence of appendicitis. Intraperitoneal space: Large amount of abdominal ascites. Enhancing thickened peritoneum seen in largely the pelvis, similar to prior exam, perhaps reflecting metastatic disease. Vasculature: Unremarkable. No abdominal aortic aneurysm. Lymph nodes: Unremarkable. No enlarged lymph nodes. Urinary bladder: Unremarkable as visualized. Reproductive: Prostate gland enlarged. Bones/joints: Scattered bony lesions which appear largely sclerotic, similar to prior exam concerning for metastatic disease. Soft tissues: Unremarkable. Other findings: Bilateral punctate non-obstructing calyceal stones. CT/CT abdomen pelvis w con* [id number] IMPRESSION: 1. Negative for focal acute inflammatory process in the abdomen or pelvis. 2. Trace bilateral pleural effusions. 3. Left lower lung field diffuse irregular pleural thickening, similar to prior exam, perhaps reflecting patient's known lung cancer. 4. Chest tube seen in the right inferior pleural space. 5. Large amount of abdominal ascites. 6. Scattered bony lesions which appear largely sclerotic, similar to prior exam concerning for metastatic disease. 7. Enhancing thickened peritoneum seen in largely the pelvis, similar to prior exam, perhaps reflecting metastatic disease. 8. Prostate gland enlarged. 9. Bilateral punctate non-obstructing calyceal stones. 10. Cardiomegaly.
[2022-07-25 22:17] VITALS: BP 124/88; PULSE 88; RESP 16; O2SAT 94
[2022-07-25 22:24] VITALS: RESP 16
[2022-07-25] MEDS: ondansetron 2 mg/ML SDV 2 mL 4 MG IVP (22:24)
[2022-07-25] MEDS: morphine 4 mg/mL SDV 1 mL IVP (22:24)
[2022-07-25] MEDS: iohexol 350 mg/mL 500 mL Btl (per mL) IV (22:43)
[2022-07-25 23:00] VITALS: BP 114/78; PULSE 96; RESP 16; O2SAT 94
[2022-07-25 23:45] LABS: Blood Urine 3+ (Negative); Glucose Urine UA Norm (Normal); Ketones Urine 1+ (Negative); Protein Urine 1+ (Negative); Urine Appearance Clear (CLEAR); Urine Color Yellow (Yellow); pH Urine 5 (5-7)
[2022-07-25 23:46] LABS: Add Urine Microscopic? YES; Leukocyte Esterase Urine Negative (Negative); Nitrate Urine Negative (Negative)
[2022-07-25 23:47] LABS: Bilirubin Urine 1+ (Negative); Urobilinogen Urine Neg (Negative)
[2022-07-25 23:49] LABS: Bacteria Urine 1+ /hpf
[2022-07-25 23:50] LABS: Add Urine Culture? Yes; RBC Urine 80-100 /hpf (0-2)
[2022-07-26] MEDS: metoclopramide 5 mg/mL SDV 2 mL 10 MG IVP (00:30)
[2022-07-26] MEDS: sodium chloride 0.9% 250 ML IV (00:30)
[2022-07-26 01:21] VITALS: BP 126/86; PULSE 90; RESP 16; O2SAT 96
== END 2022-07-26 01:08 | disposition home or self-care (01) ==
PROVIDERS: Emergency Medicine; Emergency Provider Physician Assistant; PCP Family Medicine
DX: R10.84 Generalized abdominal pain (principal); K59.00 Constipation, unspecified; C34.90 Malignant neoplasm of unspecified part of unspecified bronchus or lung; Z79.899 Other long term (current) drug therapy
CPT/HCPCS: 74018; 74177; 80053; 81001; 83690; 85025; 87086; 96361; 96374; 96375; 99285; J2270; J2405; J2765; J7050; Q9967

== ENCOUNTER 2022-07-27 17:08 | Inpatient (IN) | payer OTHER, SELFPAY ==
[2022-07-27 17:34] VITALS: BP 129/83; PULSE 95; RESP 18; TEMP 36.4; O2SAT 95
[2022-07-27 18:47] VITALS: BP 123/93; PULSE 101; RESP 16; O2SAT 96
--- NOTE | 2022-07-27 18:52 | ED_ITS ---
Documented by User: LEOPOLDO Noel 07/27/22 21:41 HPI - Abdominal Pain General: Chief Complaint: Abdominal Pain Stated Complaint: sob Time Seen by Provider: 07/27/22 17:58 History of Present Illness: Patient is a 62-year-old male comes to the ED with abdominal pain and constipation. He was seen here for same complaint 2 days ago back on July 25. Patient has lung cancer and is currently taking oral Tagrisso.? He has been having abdominal pain for the past 3 weeks that has progressed.? After discharge from the ED 2 days ago he tried doing stool so fteners and MiraLAX and his abdominal pain has not gotten any better. He rates his abdominal pain here in the ED and 8 out of 10. He feels very bloated. He endorses having a lot of hiccups over the past couple days. Associated Symptoms: Reports belching (Excessive hiccups), bloating, constipation and nausea; Denies chills, diarrhea, dysuria, fever(s), hematochezia, hematuria and vomiting Review of Systems Const: Reports: change in appetite (Decrease); Denies: fever(s), chills or fatigue Eyes: Denies: change in vision or eye discomfort ENMT: Denies: throat pain, odynophagia, nasal discharge or nasal congestion Card: Denies: chest pain, palpitations, edema, swelling of feet/ankles, dyspn ea on exertion or orthopnea Resp: Denies: dyspnea, productive cough or non-productive cough GI: Reports: abdominal pain, nausea, constipation, bloating and belching (Excessive hiccups); Denies: vomiting, diarrhea or hematochezia : Denies: flank pain, difficulty urinating, dysuria or hematuria Musc: Denies: neck pain, back pain or extremity swelling Skin/Breast: Denies: rash or new lesions Neuro: Denies: headache(s), numbness in extremities or weakness in extremities PFSH ED PFSH: Medical History Anemia COPD (chronic obstructive pulmonary disease) DVT (deep venous thrombosis) Non-small cell lung cancer Pulmonary embolism Surgical History History of chest tube placement History of colonoscopy 2013 History of esophagogastroduodenoscopy (EGD) 2014 Port-A-Cath in place (01/02/22) Family History Mother Stroke Diabetes Other CAD (coronary artery disease) Hypertension Denies family history of Clotting disorder Dementia Hyperlipidemia Psychiatric illness Chronic kidney disease (CKD) Suicide Anesthesia complication Bleeding disorder Lung disease Cancer Social History Smoking and tobacco status: never smoked Alcohol intake: never Lives independently: Yes Household members: spouse Marital status: Physical Exam Const: COMMON NORMALS: patient oriented x3 and alert GENERAL APPEARANCE: cooperative HENMT: COMMON NORMALS: normocephalic HEAD & SCALP: normocephalic MOUTH: Normal oral and palatal mucosa present THROAT: posterior oropharynx normal and uvula midline Neck/C-Spine: COMMON NORMALS: supple GENERAL: Yes normal visual inspection Resp: COMMON NORMALS: normal respiratory effort, No retractions, No use of accessory muscles and clear to auscultation bilaterally AUSCULTATION: clear to auscultation bilaterally Cardio: COMMON NORMALS: regular rate, regular rhythm, S1 normal heart sound present, S2 normal heart sound present, No gallops present (Cardio), No clicks present (Cardio), No murmurs present (Cardio) and Peripheral pulses 2+ thr oughout RATE: regular rate RHYTHM: regular rhythm HEART SOUNDS: S1 normal heart sound present and S2 normal heart sound present PERIPHERAL PULSES: Peripheral pulses 2+ throughout GI: COMMON NORMALS: Normal to inspection, nondistended, normoactive bowel sounds present and no masses INSPECTION: Yes abdominal distension PALPATION: Yes Firmness to palpation present (GI) and Yes Tenderness to palpation present (GI) (Tenderness throughout abdomen) : COMMON NORMALS: Yes no CVA tenderness BLADDER/KIDNEY EXAM: Yes no CVA tenderness Back/Pelvis: COMMON NORMALS: no CVA tenderness Extremity: COMMON NORMALS: normal to inspection Neuro: COMMON NORMALS: patient oriented x3 SENSORIUM/ORIENTATION: Yes alert GAIT: Yes Normal gait present Skin: GENERAL SKIN EXAM: dry skin Course Vital Signs: Vital signs: Vital Signs Temperature 97.5 F L 07/27/22 17:34 Pulse Rate 101 H 07/27/22 18:47 Respiratory Rate 16 07/27/22 18:47 Blood Pressure 123/93 07/27/22 18:47 Pulse Oximetry 96 07/27/22 19:30 MDM - Abdominal Pain Medical Decision Making Patient is a 62-year-old male comes to the ED with abdominal pain. Past medical history of COPD, GERD and Patient has lung cancer and is currently taking oral Tagrisso. he was seen here for same complaint 2 days ago back on July 25.? He has been having abdominal pain for the past 3 weeks that has progressed. He is having worsening abdominal pain that he rates an 8 out of 10. He is having excessive hiccups, nausea and decreased appetite. Vitals are stable. Patient has bloating in the abdomen with generalized tenderness throughout. Abdomen is firm to palpation. CT was done 2 days ago and it showed a large amount of ascites fluid on abdomen. His labs today were unremarkable. I talked with Dr. Mcgarw about patient case and he agreed and plan to admit patient for paracentesis tomorrow. Dr. Mcgraw contacted Dr. Topete the hospitalist they agreed to have patient admitted. Dr. Mcgraw placed the admitting orders. Lab Data I reviewed the patient's lab results. 07/27/22 18:05 07/27/22 18:05 Labs/Radiology: Laboratory Results WBC 8.3 10^3/uL (4.0-10.0) 07/27/22 18:05 RBC 4.89 10^6/uL (4.1-5.3) 07/27/22 18:05 Hgb 15.0 g/dL (11.7-16.6) 07/27/22 18:05 Hct 45.4 % (42.0-52.0) 07/27/22 18:05 MCV 92.8 fl (80-94) 07/27/22 18:05 MCH 30.7 pg (28.0-34.0) 07/27/22 18:05 MCHC 33.0 g/dL (30.0-36.0) 07/27/22 18:05 RDW 13.8 % (12.1-15.1) 07/27/22 18:05 Plt Count 348 10^3/cmm (130-400) 07/27/22 18:05 MPV 9.8 fL (7.4-10.4) 07/27/22 18:05 Neut % (Auto) 81.1 % 07/27/22 18:05 Lymph % (Auto) 7.1 % 07/27/22 18:05 Walker % (Auto) 10.5 % 07/27/22 18:05 Eos % (Auto) 1.0 % 07/27/22 18:05 Baso % (Auto) 0.1 % 07/27/22 18:05 Neut # (Auto) 6.70 10^3/uL (1.8-7.7) 07/27/22 18:05 Lymph # (Auto) 0.6 10^3/uL (0.8-4.8) L 07/27/22 18:05 Walker # (Auto) 0.9 10^3/uL (0.2-0.9) 07/27/22 18:05 Eos # (Auto) 0.1 10^3/uL (0.0-0.8) 07/27/22 18:05 Baso # (Auto) 0.0 10^3/uL (0.0-0.1) 07/27/22 18:05 Nucleated RBC % (auto) 0 % 07/27/22 18:05 Nucleated RBCs # 0.0 /100WBC 07/27/22 18:05 PT 14.10 SECONDS (12.1-14.9) 07/27/22 18:05 INR 1.05 (0.8-1.2) 07/27/22 18:05 Sodium 130 mmol/L (136-145) L 07/27/22 18:05 Potassium 4.6 mmol/L (3.5-5.1) 07/27/22 18:05 Chloride 89 mmol/L (98-107) L 07/27/22 18:05 Carbon Dioxide 32 mmol/L (22-29) H 07/27/22 18:05 Anion Gap 13.6 (5-19) 07/27/22 18:05 BUN 37 mg/dL (8-23) H 07/27/22 18:05 Creatinine 0.9 mg/dL (0.7-1.2) 07/27/22 18:05 GFR Calculation 85.2 mL/min (90-130) L 07/27/22 18:05 Glucose 115 mg/dL (65-115) 07/27/22 18:05 Calculated Osmolality 280 mOsm/kg (285-295) L 07/27/22 18:05 Calcium 9.7 mg/dL (8.5-10.5) 07/27/22 18:05 Total Bilirubin 0.3 mg/dL (0.15-1.2) 07/27/22 18:05 AST 21 U/L (0-40) 07/27/22 18:05 ALT 10 U/L (0-41) 07/27/22 18:05 Alkaline Phosphatase 100 U/L (40-130) 07/27/22 18:05 Total Protein 6.6 g/dL (6.6-8.7) 07/27/22 18:05 Albumin 3.3 g/dL (3.5-5.2) L 07/27/22 18:05 Globulin 3.3 g/dL (1.3-4.6) 07/27/22 18:05 Lipase 13 U/L (13-60) 07/27/22 18:05 Urine Color Yellow (Yellow) 07/27/22 19:28 Urine Appearance Hazy (CLEAR) A 07/27/22: Urine pH 5 (5-7) 07/27/22 19:28 Ur Specific [place] 1.030 (1.005-1.030) 07/27/22 19: Urine Protein 1+ (Negative) H 07/27/22: Urine Glucose (UA) Norm (Normal) 07/27/22 19: Urine Ketones Negative (Negative) 07/27/22 19: Urine Blood 3+ (Negative) H 07/27/22 19: Urine Nitrate Negative (Negative) 07/27/22 19: Urine Bilirubin Neg (Negative) 07/27/22 19: Urine Urobilinogen Neg mg/dL (Negative) 07/27/22 19:28 Ur Leukocyte Esterase Negative (Negative) 07/27/22 19: Urine RBC 50-80 /hpf (0-2) H 07/27/22 19: Urine WBC 15-25 /hpf (0-5) H 07/27/22 19:28 Ur Squamous Epith Cells None /hpf (0-5) 07/27/22 19:28 Calcium Oxalate Crystal 0-4 /hpf H 07/27/22 19:28 Amorphous Sediment Not Reportable 07/27/22 19: Urine Bacteria 2+ /hpf (NONE) H 07/27/22 19:28 Urine Yeast Trace /hpf 07/27/22 19:28 Discharge Plan Discharge Patient Disposition: Admitted As Inpatient Admit Provider: Leanne Topete Clinical Impression: Abdominal ascites, Abdominal pain Condition: Stable Coding Level of Care Code ED Night Coordinator for Chg Fwd Exam Comprehensive Documented by User: Jewel Mcgraw DO 07/27/22 22:00 HPI - Abdominal Pain General: Chief Complaint: Abdominal Pain Stated Complaint: sob Time Seen by Provider: 07/27/22 17:58 PFS ED PFSH: Medical History Anemia COPD (chronic obstructive pulmonary disease) DVT (deep venous thrombosis) Non-small cell lung cancer Pulmonary embolism Surgical History History of chest tube placement History of colonoscopy 2013 History of esophagogastroduodenoscopy (EGD) 2014 Port-A-Cath in place (01/02/22) Family History Mother Stroke Diabetes Other CAD (coronary artery disease) Hypertension Denies family history of Clotting disorder Dementia Hyperlipidemia Psychiatric illness Chronic kidney disease (CKD) Suicide Anesthesia complication Bleeding disorder Lung disease Cancer Social History Smoking and tobacco status: never smoked Alcohol intake: never Lives independently: Yes Household members: spouse Marital status: Course Vital Signs: Vital signs: Vital Signs Temperature 97.5 F L 07/27/22 17:34 Pulse Rate 101 H 07/27/22 18:47 Respiratory Rate 16 07/27/22 18:47 Blood Pressure 123/93 07/27/22 18:47 Pulse Oximetry 96 07/27/22 19:30 MDM - Abdominal Pain Medical Decision Making Patient is a 62-year-old male comes to the ED with abdominal pain. Past medical history of COPD, GERD and Patient has lung cancer and is currently taking oral Tagrisso. he was seen here for same complaint 2 days ago back on July 25.? He has been having abdominal pain for the past 3 weeks that has progressed. He is having worsening abdominal pain that he rates an 8 out of 10. He is having excessive hiccups, nausea and decreased appetite. Vitals are stable. Patient has bloating in the abdomen with generalized tenderness throughout. Abdomen is firm to palpation. CT was done 2 days ago and it showed a large amount of ascites fluid on abdomen. His labs today were unremarkable. I talked with Dr. Mcgraw about patient case and he agreed and plan to admit patient for paracentesis tomorrow. Dr. Mcgraw contacted Dr. Topete the hospitalist they agreed to have patient admitted. Dr. Mcgraw placed the admitting orders. This patient was originally seen by Mr. Johny PA-C.? I agree with his history, evaluation, and treatment. Lab Data 07/27/22 18:05 07/27/22 18:05 Labs/Radiology: Laboratory Results WBC 8.3 10^3/uL (4.0-10.0) 07/27/22 18:05 RBC 4.89 10^6/uL (4.1-5.3) 07/27/22 18:05 Hgb 15.0 g/dL (11.7-16.6) 07/27/22 18:05 Hct 45.4 % (42.0-52.0) 07/27/22 18:05 MCV 92.8 fl (80-94) 07/27/22 18:05 MCH 30.7 pg (28.0-34.0) 07/27/22 18:05 MCHC 33.0 g/dL (30.0-36.0) 07/27/22 18:05 RDW 13.8 % (12.1-15.1) 07/27/22 18:05 Plt Count 348 10^3/cmm (130-400) 07/27/22 18:05 MPV 9.8 fL (7.4-10.4) 07/27/22 18:05 Neut % (Auto) 81.1 % 07/27/22 18:05 Lymph % (Auto) 7.1 % 07/27/22 18:05 Walker % (Auto) 10.5 % 07/27/22 18:05 Eos % (Auto) 1.0 % 07/27/22 18:05 Baso % (Auto) 0.1 % 07/27/22 18:05 Neut # (Auto) 6.70 10^3/uL (1.8-7.7) 07/27/22 18:05 Lymph # (Auto) 0.6 10^3/uL (0.8-4.8) L 07/27/22 18:05 Walker # (Auto) 0.9 10^3/uL (0.2-0.9) 07/27/22 18:05 Eos # (Auto) 0.1 10^3/uL (0.0-0.8) 07/27/22 18:05 Baso # (Auto) 0.0 10^3/uL (0.0-0.1) 07/27/22 18:05 Nucleated RBC % (auto) 0 % 07/27/22 18:05 Nucleated RBCs # 0.0 /100WBC 07/27/22 18:05 PT 14.10 SECONDS (12.1-14.9) 07/27/22 18:05 INR 1.05 (0.8-1.2) 07/27/22 18:05 Sodium 130 mmol/L (136-145) L 07/27/22 18:05 Potassium 4.6 mmol/L (3.5-5.1) 07/27/22 18:05 Chloride 89 mmol/L (98-107) L 07/27/22 18:05 Carbon Dioxide 32 mmol/L (22-29) H 07/27/22 18:05 Anion Gap 13.6 (5-19) 07/27/22 18:05 BUN 37 mg/dL (8-23) H 07/27/22 18:05 Creatinine 0.9 mg/dL (0.7-1.2) 07/27/22 18:05 GFR Calculation 85.2 mL/min (90-130) L 07/27/22 18:05 Glucose 115 mg/dL (65-115) 07/27/22 18:05 Calculated Osmolality 280 mOsm/kg (285-295) L 07/27/22 18:05 Calcium 9.7 mg/dL (8.5-10.5) 07/27/22 18:05 Total Bilirubin 0.3 mg/dL (0.15-1.2) 07/27/22 18:05 AST 21 U/L (0-40) 07/27/22 18:05 ALT 10 U/L (0-41) 07/27/22 18:05 Alkaline Phosphatase 100 U/L (40-130) 07/27/22 18:05 Total Protein 6.6 g/dL (6.6-8.7) 07/27/22 18:05 Albumin 3.3 g/dL (3.5-5.2) L 07/27/22 18:05 Globulin 3.3 g/dL (1.3-4.6) 07/27/22 18:05 Lipase 13 U/L (13-60) 07/27/22 18:05 Urine Color Yellow (Yellow) 07/27/22 19:28 Urine Appearance Hazy (CLEAR) A 07/27/22 19: Urine pH 5 (5-7) 07/27/22 19: Ur Specific [place] 1.030 (1.005-1.030) 07/27/22 19:28 Urine Protein 1+ (Negative) H 07/27/22 19:28 Urine Glucose (UA) Norm (Normal) 07/27/22 19: Urine Ketones Negative (Negative) 07/27/22: Urine Blood 3+ (Negative) H 07/27/22: Urine Nitrate Negative (Negative) 07/27/22 19: Urine Bilirubin Neg (Negative) 07/27/22 19: Urine Urobilinogen Neg mg/dL (Negative) 07/27/22: Ur Leukocyte Esterase Negative (Negative) 07/27/22: Urine RBC 50-80 /hpf (0-2) H 07/27/22 19:28 Urine WBC 15-25 /hpf (0-5) H 07/27/22 19: Ur Squamous Epith Cells None /hpf (0-5) 07/27/22 19: Calcium Oxalate Crystal 0-4 /hpf H 07/27/22 19:28 Amorphous Sediment Not Reportable 07/27/22 19: Urine Bacteria 2+ /hpf (NONE) H 07/27/22 19: Urine Yeast Trace /hpf 07/27/22 19:28 Discharge Plan Discharge Patient Disposition: Admitted As Inpatient Admit Provider: Leanne Topete Clinical Impression: Abdominal ascites, Abdominal pain Condition: Stable Coding Level of Care Code ED Night Coordinator for Chg Fwd Exam Comprehensive
[2022-07-27 19:02] LABS: Basophils % 0.1 %; Eosinophils # 0.1 10^3/uL (0.0-0.8); Hematocrit 45.4 % (42.0-52.0); Lymphocytes # 0.6 10^3/uL (0.8-4.8); Lymphocytes % 7.1 %; Mean Corpuscular Hemoglobin 30.7 pg (28.0-34.0); Mean Corpuscular Volume 92.8 fl (80-94); Mean Platelet Volume 9.8 fL (7.4-10.4); Monocytes # 0.9 10^3/uL (0.2-0.9); Monocytes % 10.5 %; Neutrophils % 81.1 %; Nucleated Red Blood Cells % 0 %; Platelet Count 348 10^3/cmm (130-400); Red Blood Count 4.89 10^6/uL (4.1-5.3); Red Cell Distribution Width 13.8 % (12.1-15.1); White Blood Count 8.3 10^3/uL (4.0-10.0)
[2022-07-27] MEDS: sodium chloride 0.9% 500 ML IV (19:20)
[2022-07-27] MEDS: ondansetron 2 mg/ML SDV 2 mL 4 MG IVP ×2 (19:20→23:46)
[2022-07-27] MEDS: HYDROcodone-acetaminophen 7.5-325 mg Tablet 1 TAB PO (19:20)
[2022-07-27 19:23] LABS: Alanine Aminotransferase 10 U/L (0-41); Albumin Level 3.3 g/dL (3.5-5.2); Alkaline Phosphatase 100 U/L (40-130); Blood Urea Nitrogen 37 mg/dL (8-23); Calcium 9.7 mg/dL (8.5-10.5); Carbon Dioxide 32 mmol/L (22-29); Chloride 89 mmol/L (98-107); Globulin 3.3 g/dL (1.3-4.6); Glomerular Filtration Rate 85.2 mL/min (90-130); Glucose 115 mg/dL (65-115); Lipase 13 U/L (13-60); Osmolality Calculated 280 mOsm/kg (285-295); Sodium 130 mmol/L (136-145); Total Bilirubin 0.3 mg/dL (0.15-1.2); Total Protein 6.6 g/dL (6.6-8.7)
[2022-07-27 19:25] LABS: Anion Gap 13.6 (5-19); Aspartate Amino Transferase 21 U/L (0-40); Potassium 4.6 mmol/L (3.5-5.1)
[2022-07-27 19:30] VITALS: O2SAT 96
[2022-07-27 19:34] LABS: INR 1.05 (0.8-1.2)
[2022-07-27 20:07] LABS: Bilirubin Urine Neg (Negative); Blood Urine 3+ (Negative); Glucose Urine UA Norm (Normal); Ketones Urine Negative (Negative); Leukocyte Esterase Urine Negative (Negative); Nitrate Urine Negative (Negative); Protein Urine 1+ (Negative); Urine Appearance Hazy (CLEAR); Urine Color Yellow (Yellow); Urobilinogen Urine Neg (Negative); pH Urine 5 (5-7)
[2022-07-27 20:08] LABS: Add Urine Microscopic? YES
[2022-07-27 20:10] LABS: Add Urine Culture? Yes; Bacteria Urine 2+ /hpf; Calcium Oxalate Crystals Urine 0-4 /hpf; RBC Urine 50-80 /hpf (0-2); WBC Urine 15-25 /hpf (0-5)
[2022-07-27 22:02] VITALS: BP 117/75; RESP 18; O2SAT 95
[2022-07-27 22:18] VITALS: BP 121/81; PULSE 93; RESP 18; TEMP 36.4; O2SAT 98
[2022-07-27 22:26] VITALS: BMI 19.8
--- NOTE | 2022-07-27 23:22 | XRR_ITS ---
PROCEDURE INFORMATION: Exam: XR Chest Exam date and time: 07/28/2022 12:41 AM Age: 62 years old Clinical indication: Other: Pleural effusion; Prior surgery; Surgery date: 1-6 months; Surgery type: Port; Patient HX: Small cell lung CA; Additional info: Follow up pleural effusion TECHNIQUE: Imaging protocol: Radiologic exam of the chest. Views: 1 view. COMPARISON: CT chest abd pel w con* 07/02/2022 2:40 PM FINDINGS: Tubes, catheters and devices: Right-sided Port-A-Cath. Right pleural catheter seen coiled in the right inferior thorax with a small right pleural effusion. Lungs: Small to moderate left pleural effusion with left lower lobe atelectasis versus infiltrate. Right lung calcified benign granuloma. Left lung volume loss again seen. Pleural spaces: Left lung diffuse mild pleural thickening suspected as seen on comparison chest CT. Heart/Mediastinum: Unremarkable. No cardiomegaly. Bones/joints: Unremarkable. XR/XR chest 1V portable [id number] IMPRESSION: 1. Right pleural catheter seen coiled in the right inferior thorax with a small right pleural effusion. 2. Small to moderate left pleural effusion with left lower lobe atelectasis versus infiltrate. 3. Right lung calcified benign granuloma. 4. Left lung diffuse mild pleural thickening suspected as seen on comparison chest CT. 5. Left lung volume loss again seen.
--- NOTE | 2022-07-27 23:29 | P.HP_ITS ---
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 restaging CT scans on 07/02/2022 showed residual left upper lobe spiculated mass and residual pleural changes in the left lung, but there was interval improvement compared to the March 2022 study. 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 It appears he was being considered for diagno stic laparoscopy as outpatient as per last oncology note from July 07, however this has not happened yet. He recently underwent placement of left- sided Pleurx catheter for worsening left pleural effusion and dyspnea and a single dose of tPA through it. Pathology was consistent with adenocarcinoma. Chest CT postdrainage showed pleural-based mass. He has been visiting the GI Lab twice a week for Pleurx drainage. He presented to the emergency room on July 25, 2021 and then again today wi th chief complaints of increasing abdominal pain and constipation. He feels bloated, has been having significant belching nausea and vomiting. Denies any hematemesis melena. He has noticed hematuria. CT of the abdomen and pelvis performed on July 25, 2022 was negative for any acute inflammatory process in the abdomen or pelvis. There were trace bilateral effusions. Large amount of abdominal ascites was noted and thickened peritoneum suggestive of metastatic disease. It appears paracentesis was recommended, however IR services were not available over the weekend and patient was instructed to return should his symptoms worsen. Review of Systems General: Reports: 10 or more systems reviewed and unremarkable except in HPI and below Const: Denies: fever(s), chills or body aches Eyes: Denies: change in vision, blurry vision or photophobia ENMT: Reports: hoarseness; Denies: throat pain, enlarged tonsils, odynophagia or nasal congestion Card: Denies: chest pain, palpitations, irregular heart rhythm, edema, swelling of feet/ankles, lightheadedness, pre-syncope, dyspnea on exertion or orthopnea Resp: Denies: dyspnea, productive cough, non-productive cough, wheezing, stridor, pain on inspiration, change in phlegm color, hemoptysis or chest congestion GI: Denies: abdominal pain, nausea, vomiting, hematemesis, coffee ground emesis, dysphagia, heartburn, diarrhea, constipation, GI cramping, change in stool character, hematochezia or melena : Denies: flank pain, dysuria, urinary frequency, urinary urgency, urinary hesitancy or hematuria Musc: Denies: neck pain, back pain, extremity pain, joint swelling, joint warmth or deformity Neuro: Denies: headache(s), numbness in extremities, weakness in extremities, sensory changes, difficulty walking, frequent falls, dizziness, vertigo, behavioral changes, Slurred speech present or seizure-like activity Psych: Denies: anxiety, depression, suicidal ideation or homicidal ideation Endo: Denies: polyuria, polydipsia, tired all the time, cold intolerance or hot flashes Roberto/Lymph: Denies: easy bruising or easy bleeding Medications/Allergies Home Medications Medication Instructions Recorded Confirmed Last Taken Type albuterol sulfate 2.5 mg/3 mL 2.5 mg (3 mL) inhalation Q4H PRN 03/26/22 07/11/22 05/05/22 Rx (0.083 %) solution for nebulization shortness of breath or wheezing #90 mL albuterol sulfate 90 mcg/actuation 2 inh inhalation Q4H PRN shortness 03/26/22 07/11/22 05/05/22 Rx aerosol inhaler of breath or wheezing #18 grams ondansetron HCl 4 mg tablet 4 mg PO Q6H PRN nausea and 03/26/22 07/11/22 05/05/22 Rx vomiting #20 tabs benzonatate 100 mg capsule 100 mg PO TID PRN cough #30 caps 05/08/22 07/11/22 Unknown Rx bumetanide 0.5 mg tablet 0.5 mg PO DAILY PRN Edema, Dyspnea 05/28/22 07/11/22 Unknown Rx #30 tabs apixaban 5 mg tablet (Eliquis) 5 mg PO BID #30 tabs 06/18/22 07/27/22 07/27/22 Rx 0900 metoclopramide HCl 5 mg tablet 5 mg PO QID #120 tabs 06/27/22 07/11/22 Unknown Rx (Reglan) pantoprazole 40 mg tablet,delayed 40 mg PO DAILY 30 days #30 tabs 06/27/22 07/11/22 Unknown Rx release hydrocodone 7.5 mg-acetaminophen 1 tab PO Q8H pain, severe 30 days 07/03/22 07/11/22 Unknown Rx 325 mg tablet #60 tabs prednisone 10 mg tablet 10 mg PO DAILY 07/07/22 07/27/22 Unknown History osimertinib 40 mg tablet (Tagrisso) 40 mg PO DAILY #28 tabs 07/21/22 07/27/22 07/26/22 Rx Allergies Allergy/AdvReac Type Severity Reaction Status Date / Time furosemide [From Lasix] Allergy ALGY-Rash Verified 07/11/22 08:51 PFSH Acute PFSH: Medical History Anemia COPD (chronic obstructive pulmonary disease) DVT (deep venous thrombosis) Non-small cell lung cancer Pulmonary embolism Surgical History History of chest tube placement History of colonoscopy 2013 History of esophagogastroduodenoscopy (EGD) 2014 Port-A-Cath in place (01/02/22) Family History Mother Stroke Diabetes Other CAD (coronary artery disease) Hypertension Denies family history of Clotting disorder Dementia Hyperlipidemia Psychiatric illness Chronic kidney disease (CKD) Suicide Anesthesia complication Bleeding disorder Lung disease Cancer Social History Smoking and tobacco status: never smoked Alcohol intake: never Lives independently: Yes Household members: spouse Marital status: Vitals/I&O/Wt Last Vital Signs Temp 97.5 F L 07/27/22 22:18 Pulse 93 07/27/22 22:18 Resp 18 07/27/22 22:18 BP 121/81 07/27/22 22:18 Pulse Ox 98 07/27/22 22:18 O2 Del Method 07/27/22 22:18 07/27/22 07/27/22 07/28/22 14:59 22:59 06:59 Intake Total 500 / 500 Balance 500 / 500 Weight last 48 hrs Weight 61.099 kg Weight 61.235 kg Physical Exam Narrative: General: Appears uncomfortable related to abdominal distention and pain. AO x3 HEENT: PERRLA, pupils bilaterally equal and reactive, pallors not present Chest: Unable to take a deep breath due to distended abdomen, scattered rales to auscultation bilateral infra axillary areas CVS: S1-S2 regular, no murmurs, no tachycardia, no gallops, no rubs Abdomen: Soft, distended, discomfort to palpation Neuro: No focal deficits, no facial deformity, AO x3, power 5/5 in all limbs Data 07/27/22 18:05 07/27/22 18:05 A&P Assessment and plan (1) Abdominal pain: Qualifiers: Abdominal location: generalized Qualified Code(s): R10.84 - Generalized abdominal pain (2) Abdominal ascites: (3) Carcinomatosis peritonei: Plan 62-year-old male with past medical history as noted above presenting today with chief complaints of worsening abdominal pain and distention over the past 2 to 3 weeks. Abdominal imaging notable for peritoneal carcinomatosis, increasing abdominal ascites. Will admit him to [facility] and plan for paracentesis with IR. Holding Eliquis over the next 48 hours in anticipation of procedure. Anticipate that this will be a transient hold on the Eliquis therefore not initiating heparin anticoagulation for now. However if it appears that procedure would be delayed by more than 48 hours will likely need to start heparin GTT. He has a history of moderate burden PE in May 2022 along with bilateral lower extremity DVT. Fluid cytology and cell count to be obtained post paracentesis. Suspect that this would be a malignant effusion. As needed Zofran, Reglan and scopolamine patch for nausea control. Patient takes Bumex 0.5 mg orally at home, will place him on Bumex 1 mg IV every 24 hours in an effort to relieve his symptoms while awaiting paracentesis. Continue home dose of hydrocodone acetaminophen and as needed morphine for pain management. Attestations Medical Necessity Statement*: Anticipate greater than 2 midnight admission for above defined management., Need for IV diuresis, paracentesis with IR. Coding Level of Care Code Acute Embossing Tool Setter for Chg Fwd Diagnoses Abdominal pain R10.84 Abdominal location: generalized Abdominal ascites R18.8 Carcinomatosis peritonei C78.6
[2022-07-27] MEDS: bumetanide 0.25 mg/mL SDV 4 mL 1 MG IVP (23:46)
[2022-07-28] VITALS (7 sets, daily range): BP systolic 90–122; BP diastolic 58–82; PULSE 71–100; RESP 14–18; TEMP 36.3–36.6; O2SAT 94–97
[2022-07-28] MEDS: HYDROcodone-acetaminophen 7.5-325 mg Tablet 1 TAB PO ×4 (00:24→23:29)
[2022-07-28 05:10] LABS: Basophils % 0.1 %; Eosinophils % 0.4 %; Hematocrit 45.5 % (42.0-52.0); Lymphocytes # 0.7 10^3/uL (0.8-4.8); Lymphocytes % 8.6 %; Mean Corpuscular Hemoglobin 30.5 pg (28.0-34.0); Mean Corpuscular Volume 92.5 fl (80-94); Mean Platelet Volume 9.3 fL (7.4-10.4); Monocytes # 0.6 10^3/uL (0.2-0.9); Monocytes % 8.4 %; Neutrophils # 6.25 10^3/uL (1.8-7.7); Neutrophils % 82.2 %; Nucleated Red Blood Cells % 0 %; Platelet Count 324 10^3/cmm (130-400); Red Blood Count 4.92 10^6/uL (4.1-5.3); Red Cell Distribution Width 13.9 % (12.1-15.1); White Blood Count 7.6 10^3/uL (4.0-10.0)
[2022-07-28 05:28] LABS: Alanine Aminotransferase 8 U/L (0-41); Albumin Level 3.3 g/dL (3.5-5.2); Alkaline Phosphatase 97 U/L (40-130); Anion Gap 13.9 (5-19); Aspartate Amino Transferase 12 U/L (0-40); Blood Urea Nitrogen 37 mg/dL (8-23); Calcium 9.5 mg/dL (8.5-10.5); Carbon Dioxide 31 mmol/L (22-29); Chloride 94 mmol/L (98-107); Glomerular Filtration Rate 85.2 mL/min (90-130); Glucose 118 mg/dL (65-115); Magnesium 2.3 mg/dL (1.7-2.3); Osmolality Calculated 288 mOsm/kg (285-295); Potassium 4.9 mmol/L (3.5-5.1); Sodium 134 mmol/L (136-145); Total Bilirubin 0.3 mg/dL (0.15-1.2); Total Protein 6.3 g/dL (6.6-8.7)
[2022-07-28] MEDS: scopolamine 1.5 Patch 1 PATCH TRANSDERMA (06:23)
--- NOTE | 2022-07-28 07:00 | US_ITS ---
WS: [id number] ULTRASOUND-GUIDED PARACENTESIS CLINICAL INFORMATION: abdominal bloating, ascites, likely malignant effusion COMPARISON: None. Procedure Informed consent: The risks, benefits, and alternatives of the procedure were discussed with the willa ent. Verbal and written consent was obtained. Timeout: A timeout was performed to confirm the correct patient, procedure, and site. Preparation: A suitable skin site was identified. The patient was prepped and draped in usual sterile fashion. Lidocaine 1% was used for local anesthesia. Catheter: 4 Dutch One-step [employer] catheter. Side: RIGHT Lower quadrant. Fluid Volume: 5550 ml Color: Mir DISPOSITION: Discarded safely. Complications: None. US/US paracentesis abd w [id number] IMPRESSION: Uncomplicated ultrasound-guided paracentesis. Removal of 5550 cc
[2022-07-28] MEDS: predniSONE 10 mg Tablet PO (09:31)
[2022-07-28] MEDS: pantoprazole DR 40 mg Tablet PO (09:31)
[2022-07-28] MEDS: bumetanide 0.25 mg/mL SDV 4 mL 1 MG IVP (09:32)
[2022-07-28 10:32] LABS: Color, Body Fluid SLIGHT PINK
[2022-07-28 10:33] LABS: Apprearance, Body Fluid CLOUDY
[2022-07-28 10:34] LABS: Cyto Order Verification Order Verified
[2022-07-28 10:38] LABS: Body Fluid Polynuclear #Cells 0.601; Body Fluid WBC 3869 /uL; Monocytes # Body Fluid 3.268
[2022-07-28 11:42] LABS: Albumin Body Fluid 2.6 g/dL; Amylase Body Fluid 239 U/L; Cholesterol Body Fluid 147 mg/dL (0-200); Fluid Alkaline Phos. 66 IU/L; Total Protein Body Fluid 4.6 g/dL; Triglycerides Body Fluid 242 mg/dL (0-150); Uric Acid Body Fluid 8 mg/dL
[2022-07-28 11:58] LABS: LDH Body Fluid 509 U/L
--- NOTE | 2022-07-28 12:39 | PM.PN ---
Subjective Subjective: Patient was seen this morning he sitting up at side of bed he tells me he is in a lot of pain, he feels very nauseous, no fevers, no chills Vitals/I&O/Wt Last Vital Signs Temp 97.9 F 07/28/22 11:54 Pulse 81 07/28/22 11:54 Resp 18 07/28/22 11:54 BP 115/72 07/28/22 11:54 Pulse Ox 96 07/28/22 11:54 O2 Del Method 07/28/22 11:54 07/27/22 07/28/22 07/28/22 22:59 06:59 14:59 Intake Total 500 / 500 100 / 600 0 / 0 Output Total 150 / 150 5450 / 5450 Balance 500 / 500 -50 / 450 -5450 / -5450 Weight last 48 hrs Weight 61.099 kg Weight 61.235 kg Physical Exam Const: COMMON NORMALS: no acute distress and patient oriented x3 Resp: COMMON NORMALS: normal respiratory effort, No retractions, No use of accessory muscles and clear to auscultation bilaterally AUSCULTATION: clear to auscultation bilaterally Cardio: COMMON NORMALS: regular rate, regular rhythm, S1 normal heart sound present and S2 normal heart sound present RATE: regular rate RHYTHM: regular rhythm HEART SOUNDS: S1 normal heart sound present and S2 normal heart sound present GI: OTHER: Abdomen soft, distended, generalized tenderness Extremity: COMMON NORMALS: no pedal edema Neuro: COMMON NORMALS: patient oriented x3 Psych: COMMON NORMALS: mental status grossly normal Data 07/28/22 04:43 07/28/22 04:43 A&P Assessment and plan (1) Abdominal pain: Qualifiers: Abdominal location: generalized Qualified Code(s): R10.84 - Generalized abdominal pain (2) Abdominal ascites: (3) Carcinomatosis peritonei: Plan 62-year-old male with past medical history as noted above presenting today with chief complaints of worsening abdominal pain and distention over the past 2 to 3 weeks. Abdominal imaging notable for peritoneal carcinomatosis, increasing abdominal ascites. Will admit him to [facility] and plan for paracentesis with IR. Anticipate that this will be a transient hold on the Eliquis therefore not initiating heparin anticoagulation for now. However if it appears that procedure would be delayed by more than 48 hours will likely need to start heparin GTT. He has a history of moderate burden PE in May 2022 along with bilateral lower extremity DVT. Fluid cytology and cell count to be obtained post paracentesis. Suspect that this would be a malignant effusion. As needed Zofran, Reglan and scopolamine patch for nausea control. Patient takes Bumex 0.5 mg orally at home, will place him on Bumex 1 mg IV every 24 hours in an effort to relieve his symptoms while awaiting paracentesis. Continue home dose of hydrocodone acetaminophen and as needed morphine for pain management. Reglan, Zofran, promethazine for nausea Attestations Medical Necessity Statement*: Patient requires hospitalization for abdominal ascites Coding Level of Care Code Acute Strategy Analyst for Chg Fwd Diagnoses Abdominal pain R10.84 Abdominal location: generalized Abdominal ascites R18.8 Carcinomatosis peritonei C78.6
[2022-07-28 14:14] LABS: Procalcitonin 0.09 ng/mL (0-0.5)
[2022-07-28 14:24] LABS: C Reactive Protein 30.7 mg/L (0.0-4.9)
[2022-07-28] MEDS: piperacillin-tazobactam 3.375 GM in sodium chloride 0.9% (plus) 50 ML IV ×2 (14:48→23:29)
[2022-07-28] MEDS: midodrine 5 mg TABLET 10 MG PO ×2 (16:12→23:28)
[2022-07-28] MEDS: apixaban 5 mg Tablet PO (18:03)
[2022-07-28] MEDS: metoclopramide 5 mg/mL SDV 2 mL IVP (18:03)
[2022-07-29 04:00] VITALS: BP 94/58; PULSE 73; RESP 17; TEMP 36.8; O2SAT 95
[2022-07-29 05:28] LABS: Basophils % 0.1 %; Eosinophils # 0.1 10^3/uL (0.0-0.8); Eosinophils % 1.9 %; Hematocrit 33.6 % (42.0-52.0); Hemoglobin 10.9 g/dL (11.7-16.6); Lymphocytes # 0.7 10^3/uL (0.8-4.8); Lymphocytes % 9.8 %; Mean Corpuscular HGB Conc 32.4 g/dL (30.0-36.0); Mean Corpuscular Hemoglobin 30.4 pg (28.0-34.0); Mean Corpuscular Volume 93.6 fl (80-94); Mean Platelet Volume 9.2 fL (7.4-10.4); Monocytes # 0.7 10^3/uL (0.2-0.9); Monocytes % 10.4 %; Neutrophils # 5.23 10^3/uL (1.8-7.7); Neutrophils % 77.4 %; Nucleated Red Blood Cells % 0 %; Platelet Count 259 10^3/cmm (130-400); Red Blood Count 3.59 10^6/uL (4.1-5.3); Red Cell Distribution Width 13.5 % (12.1-15.1); White Blood Count 6.8 10^3/uL (4.0-10.0)
[2022-07-29] MEDS: piperacillin-tazobactam 3.375 GM in sodium chloride 0.9% (plus) 50 ML IV ×3 (05:46→22:38)
[2022-07-29 06:00] LABS: Procalcitonin 0.08 ng/mL (0-0.5)
[2022-07-29 06:11] LABS: Alanine Aminotransferase 6 U/L (0-41); Albumin Level 3.2 g/dL (3.5-5.2); Alkaline Phosphatase 61 U/L (40-130); Aspartate Amino Transferase 11 U/L (0-40); Blood Urea Nitrogen 32 mg/dL (8-23); Calcium 8.9 mg/dL (8.5-10.5); Carbon Dioxide 30 mmol/L (22-29); Chloride 94 mmol/L (98-107); Glomerular Filtration Rate 61.1 mL/min (90-130); Glucose 121 mg/dL (65-115); Magnesium 2.2 mg/dL (1.7-2.3); Osmolality Calculated 284 mOsm/kg (285-295); Phosphorus 2.8 mg/dL (2.5-4.5); Sodium 133 mmol/L (136-145); Total Bilirubin 0.3 mg/dL (0.15-1.2); Total Protein 5.2 g/dL (6.6-8.7)
[2022-07-29 08:00] VITALS: BP 91/53; PULSE 72; RESP 16; TEMP 36.3; O2SAT 92
[2022-07-29] MEDS: apixaban 5 mg Tablet PO ×2 (08:45→18:01)
[2022-07-29] MEDS: HYDROcodone-acetaminophen 7.5-325 mg Tablet 1 TAB PO ×3 (08:46→22:38)
[2022-07-29] MEDS: midodrine 5 mg TABLET 10 MG PO ×4 (08:46→22:38)
[2022-07-29] MEDS: pantoprazole DR 40 mg Tablet PO (08:46)
[2022-07-29] MEDS: predniSONE 10 mg Tablet PO (08:46)
[2022-07-29] MEDS: bumetanide 0.25 mg/mL SDV 4 mL 1 MG IVP (08:47)
[2022-07-29] MEDS: sodium chloride 0.9% 1,000 ML 75 ML IV ×2 (10:16→22:38)
[2022-07-29 12:00] VITALS: BP 120/73; PULSE 61; RESP 16; TEMP 36.4; O2SAT 97
--- NOTE | 2022-07-29 13:26 | PM.PN ---
Subjective Subjective: Patient had a paracentesis yesterday, roughly 5 L taken off of it, he felt significantly better, but had low blood pressures throughout the afternoon, this morning alert oriented, his abdominal pain is minimal, no nausea, no vomiting, he feels a lot better, no fevers, no chills, his father members are at bedside Vitals/I&O/Wt Last Vital Signs Temp 97.6 F 07/29/22 12:00 Pulse 61 07/29/22 12:00 Resp 16 07/29/22 12:00 BP 120/73 07/29/22 12:00 Pulse Ox 97 07/29/22 12:00 O2 Del Method 07/29/22 12:00 07/28/22 07/29/22 07/29/22 22:59 06:59 14:59 Intake Total 50 / 410 250 / 660 630 / 630 Output Total 50 / 5500 Balance 50 / -5040 200 / -4840 630 / 630 Weight last 48 hrs Weight 61.099 kg Weight 61.235 kg Physical Exam Const: COMMON NORMALS: no acute distress and patient oriented x3 Resp: COMMON NORMALS: normal respiratory effort, No retractions, No use of accessory muscles and clear to auscultation bilaterally AUSCULTATION: clear to auscultation bilaterally Cardio: COMMON NORMALS: regular rate, regular rhythm, S1 normal heart sound present and S2 normal heart sound present RATE: regular rate RHYTHM: regular rhythm HEART SOUNDS: S1 normal heart sound present and S2 normal heart sound present GI: COMMON NORMALS: Normal to inspection, nondistended, normoactive bowel sounds present and non-tender Extremity: COMMON NORMALS: no pedal edema Neuro: COMMON NORMALS: patient oriented x3 Psych: COMMON NORMALS: mental status grossly normal Data 07/29/22 04:42 07/29/22 04:42 Micro: Microbiology 07/28/22 10:19 Gram Stain - Final Peritoneal Fluid Body Fluid Culture - Preliminary 07/27/22 19:28 Urine Culture - Preliminary Urine,Clean Catch 07/28/22 13:00 Blood Culture - Preliminary Blood SPECIMEN COLLECTED 07/28/22 13:07 Blood Culture - Preliminary Blood SPECIMEN COLLECTED A&P Assessment and plan (1) Abdominal pain: Qualifiers: Abdominal location: generalized Qualified Code(s): R10.84 - Generalized abdominal pain (2) Abdominal ascites: (3) Carcinomatosis peritonei: (4) Hypotension: Plan 62-year-old male with past medical history as noted above presenting today with chief complaints of worsening abdominal pain and distention over the past 2 to 3 weeks. Abdominal imaging notable for peritoneal carcinomatosis, increasing abdominal ascites. -Status post paracentesis, 5 L removed, SAG less than 1.1, however greater than 250 PMN cells concerning for possible SBP -Started on Zosyn yesterday, although so far cultures have been unremarkable we will continue to monitor for 24 hours -If his cultures remain unremarkable will discontinue Zosyn but likely will need antibiotics chronically for SBP prophylaxis -Hypotension after paracentesis he will need albumin in the future before paracentesis -Blood pressures remain still soft, started on midodrine, monitor creatinine up to 1.2*gentle IV hydration -Started on albumin -As her son plans on draining his Pleurx catheter will give a 500 cc bolus in edition with elevated -Monitor creatinine monitor urine output monitor for risk of developing acute renal failure -Eliquis resumed. Fluid cytology and cell count to be obtained post paracentesis. S As needed Zofran, Reglan and scopolamine patch for nausea control. Bumex on hold Continue home dose of hydrocodone acetaminophen and as needed morphine for pain management. Reglan, Zofran, promethazine for nausea Attestations Medical Necessity Statement*: Patient requires hospitalization for hypotension after paracentesis, concerns for possible SBP Coding Level of Care Code Acute Child Welfare Manager for Chg Fwjimena Diagnoses Abdominal pain R10.84 Abdominal location: generalized Abdominal ascites R18.8 Carcinomatosis peritonei C78.6 Hypotension I95.9
[2022-07-29 16:00] VITALS: BP 127/73; PULSE 79; RESP 16; TEMP 36.4; O2SAT 95
[2022-07-29] MEDS: metoclopramide 5 mg/mL SDV 2 mL IVP (18:16)
[2022-07-29 19:06] VITALS: BP 93/58; PULSE 78; RESP 20; TEMP 36.3; O2SAT 95
[2022-07-29] MEDS: ondansetron 2 mg/ML SDV 2 mL 4 MG IVP (23:18)
[2022-07-29 23:34] VITALS: BP 104/64; PULSE 66; RESP 20; TEMP 36.8; O2SAT 93
[2022-07-30] VITALS (7 sets, daily range): BP systolic 91–109; BP diastolic 48–69; PULSE 61–89; RESP 16–18; TEMP 36.3–36.8; O2SAT 92–95
[2022-07-30] MEDS: midodrine 5 mg TABLET 10 MG PO ×2 (03:50→08:16)
[2022-07-30 05:01] LABS: Basophils % 0.1 %; Eosinophils # 0.2 10^3/uL (0.0-0.8); Hematocrit 32.5 % (42.0-52.0); Hemoglobin 10.7 g/dL (11.7-16.6); Lymphocytes # 0.7 10^3/uL (0.8-4.8); Lymphocytes % 9.6 %; Mean Corpuscular HGB Conc 32.9 g/dL (30.0-36.0); Mean Corpuscular Hemoglobin 30.7 pg (28.0-34.0); Mean Corpuscular Volume 93.1 fl (80-94); Mean Platelet Volume 9.4 fL (7.4-10.4); Monocytes # 0.8 10^3/uL (0.2-0.9); Monocytes % 10.9 %; Neutrophils # 5.39 10^3/uL (1.8-7.7); Neutrophils % 76.3 %; Nucleated Red Blood Cells % 0 %; Platelet Count 251 10^3/cmm (130-400); Red Blood Count 3.49 10^6/uL (4.1-5.3); Red Cell Distribution Width 13.6 % (12.1-15.1); White Blood Count 7.1 10^3/uL (4.0-10.0)
[2022-07-30 05:25] LABS: Alanine Aminotransferase < 5 U/L (0-41); Albumin Level 3.5 g/dL (3.5-5.2); Alkaline Phosphatase 56 U/L (40-130); Anion Gap 10.6 (5-19); Aspartate Amino Transferase 9 U/L (0-40); Blood Urea Nitrogen 24 mg/dL (8-23); C Reactive Protein 17.9 mg/L (0.0-4.9); Calcium 8.9 mg/dL (8.5-10.5); Carbon Dioxide 32 mmol/L (22-29); Chloride 95 mmol/L (98-107); Globulin 1.6 g/dL (1.3-4.6); Glomerular Filtration Rate 67.6 mL/min (90-130); Glucose 83 mg/dL (65-115); Osmolality Calculated 281 mOsm/kg (285-295); Potassium 3.6 mmol/L (3.5-5.1); Sodium 134 mmol/L (136-145); Total Bilirubin 0.4 mg/dL (0.15-1.2); Total Protein 5.1 g/dL (6.6-8.7)
[2022-07-30 05:30] LABS: Procalcitonin 0.08 ng/mL (0-0.5)
[2022-07-30] MEDS: apixaban 5 mg Tablet PO ×2 (05:35→17:51)
[2022-07-30] MEDS: piperacillin-tazobactam 3.375 GM in sodium chloride 0.9% (plus) 50 ML IV (05:35)
[2022-07-30] MEDS: predniSONE 10 mg Tablet PO (08:17)
[2022-07-30] MEDS: pantoprazole DR 40 mg Tablet PO (08:17)
[2022-07-30] MEDS: polyethylene glycol 3350 Pkt 17 gm PO (10:40)
--- NOTE | 2022-07-30 10:48 | PM.DCS ---
Discharge Providers Date of Admission: 07/27/22 21:32 Date of Discharge: July 30, 2022 Attending Provider at Admission: Leanne Topete MD Attending Provider at Discharge: Narayan Martinez MD Primary Care Provider: Igor Howard DO Diagnoses at Discharge Discharge Diagnosis (1) Abdominal pain: Status: Acute Qualifiers: Abdominal location: generalized Qualified Code(s): R10.84 - Generalized abdominal pain (2) Abdominal ascites: Status: Acute (3) Carcinomatosis peritonei: Status: Acute (4) Hypotension: Status: Acute Reason for Visit Reason for Visit: sob Hospital Course Hospital Course Shahab Ramos is a 62 year old male with 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 restaging CT scans on 07/02/2022 showed residual left upper lobe spiculated mass and residual pleural changes in the left lung, but there was interval improvement compared to the March 2022 study. There was continued findings of peritoneal carcinomatosis and associated ascites, which appeared to have shown interval worsening and there also appear to be interval progression of blastic metastatic lesions in the thoracic and lumbar spine.? It appears he was being considered for diagnostic laparoscopy as outpatient as per last oncology note from July 07, however this has not happened yet.? He recently underwent placement of left-sided Pleurx catheter for worsening left pleural effusion and dyspnea and a single dose of tPA through it.? Pathology was consistent with adenocarcinoma.? Chest CT postdrainage showed pleural-based mass.? He has been visiting the GI Lab twice a week for Pleurx drainage. He presented to the emergency room on July 25, 2021 and then again today with chief complaints of increasing abdominal pain and constipation.? He feels bloated, has been having significant belching nausea and vomiting.? Denies any hematemesis melena.? He has noticed hematuria.? CT of the abdomen and pelvis performed on July 25, 2022 was negative for any acute inflammatory process in the abdomen or pelvis.? There were trace bilateral effusions.? Large amount of abdominal ascites was noted and thickened peritoneum suggestive of metastatic disease.? It appears paracentesis was recommended, however IR services were not available over the weekend and patient was instructed to return should his symptoms worsen. Presents to [facility] for abdominal ascites, underwent paracentesis, over 5 L removed, SAG is less than 1.1, PMN cells were greater than 250, gram stain was negative, cultures have been negative for 48 hours. However it still very highly suspicious for spontaneous bacterial peritonitis was monitored with broad-spectrum antibiotic therapy. Given the high amount of PMN cells, I am going to discharge him with SBP prophylaxis Cipro 500 once daily, please follow-up with outpatient primary physician. In addition he received albumin therapy during his hospitalization. Patient has a Pleurx catheter that also was drained during his hospitalization for her pleural effusions He chronically has low blood pressures, and he is going to require more paracentesis and drainages of his pleural effusion in the future. This he does carry a high risk of hypotension and acute renal failure and possibly acute tubular necrosis due to fluid shifts. I would highly recommend he receive albumin therapy during and after his paracentesis. During his paracentesis during this hospitalization he did develop hypotensive episodes, creatinine up to 1.2, good urine output. But to prevent this in the future he should receive albumin before and after. For his borderline low blood pressures, I have discharged him on midodrine 10 every 8 hours. Follow-up with outpatient physician for recheck kidney function in 1 week. For his deconditioning, protein calorie malnutrition, he is a difficult living situation he lives in a house with his son, he lives apart from his current , he does not qualify for home health care given his Pleurx drainage, he has declined any [place] [facility] facility stay, and is adamant about going home Patient had urinary retention on discharge, failed voiding trial, Place Smart catheter we will have patient follow-up with Dr. Burris as outpatient for voiding trial The following discussion was made in front of nursing staff, with patient's -Patient's current living situation is that he is living in a different home from his -She has called [facility] multiple times, I have spoke to her in length over an hour -Her concern is him coming home, she tells me that he is not safe to come home, he does not have enough help at home, he is not eating here in the hospital, he is not urinating in the hospital and she is worried about his wellbeing -I apologize greatly however patient is adamant about going home -I examined him multiple times, and examined him in the evening just before his discharge he was eating hamburger, no nausea, no vomiting he is tolerating a broad diet -Throughout the day although his blood pressures have been soft, he is able to ambulate around his room, denies any shortness of breath, denies any weakness, no nausea, no vomiting, no lightheadedness, no fevers -He is able to ambulate without any significant assistance -I advised patient's I have nothing to keep him here in the hospital overall he is clinically getting better I understand her concerns about his generalized weakness but this is due to his underlying lung cancer -And his poor appetite he has deconditioning this is due to his underlying lung cancer, process -Unfortunately cannot qualify for home health care because he gets his Pleurx catheter drained -She is seeking 24-hour assistance for him, -However this is not covered by insurance, and patient's family would have to be [id number] -The other option I offered was for him to go to penitentiary for some short-term rehab however he has adamantly declined -I again reexamined him in the evening, he is doing well, he has been ambulating without significant symptomatology, he has had dinner, he is eating his hamburger, he tells me is feeling well he wants to go home, I offered to keep him another night to appease his family members due to their concerns, however he says that he is ready to go home and he wishes to go home Physical Exam Const: COMMON NORMALS: no acute distress and patient oriented x3 Resp: COMMON NORMALS: normal respiratory effort, No retractions, No use of accessory muscles and clear to auscultation bilaterally AUSCULTATION: clear to auscultation bilaterally Cardio: COMMON NORMALS: regular rate, regular rhythm, S1 normal heart sound present and S2 normal heart sound present RATE: regular rate RHYTHM: regular rhythm HEART SOUNDS: S1 normal heart sound present and S2 normal heart sound present GI: COMMON NORMALS: Normal to inspection, nondistended, normoactive bowel sounds present and non-tender Extremity: COMMON NORMALS: no pedal edema Neuro: COMMON NORMALS: patient oriented x3 Psych: COMMON NORMALS: mental status grossly normal Urinary Catheter Management: Smart: Cath Placed During This Visit: yes, but has since been removed by the nurse Reason for Continuing Indwelling Catheter: Decision to DC Catheter Urinary Catheter Date of Insertion: 07/29/22 Date Urinary Catheter Removed: 07/30/22 Time Urinary Catheter Discontinued: 10:09 Discharge Data Studies Completed and Pending Completed Studies During Hospitalization Category Date Time Status XR chest 1V portable [id number] Routine Exams 07/27/22 23:22 [place]acent[place] abd w [id number] Routine Ultrasound 07/28/22 07:00 Completed Pending at discharge Category Date Time Status Anaerobic Culture Routine Lab 07/28/22 10:19 Results Blood Culture Stat Lab 07/28/22 13:00 Results Body Fluid Culture & GS Routine Lab 07/28/22 10:19 Results C Reactive Protein AM LABS Lab 07/31/22 04:00 Ordered Complete Blood Count w/Auto AM LABS Lab 07/31/22 04:00 Ordered Comprehensive Metabolic Panel AM LABS Lab 07/31/22 04:00 Ordered LDH [Lactate Dehydrogenase] Routine Lab 07/30/22 04:27 Received Magnesium AM LABS Lab 07/31/22 04:00 Ordered Mycobacteria, Culture w/Fluor Routine Lab 07/28/22 10:19 Results Phosphorus AM LABS Lab 07/31/22 04:00 Ordered Procalcitonin AM LABS Lab 07/31/22 04:00 Ordered Urine Culture Stat Lab 07/27/22 19:28 Results Cytology [PTH] Routine Pth 07/28/22 08:34 Received Radiology Impressions Chest X-Ray 07/27/22 23:22 IMPRESSION: 1. Right pleural catheter seen coiled in the right inferior thorax with a small right pleural effusion. 2. Small to moderate left pleural effusion with left lower lobe atelectasis versus infiltrate. 3. Right lung calcified benign granuloma. 4. Left lung diffuse mild pleural thickening suspected as seen on comparison chest CT. 5. Left lung volume loss again seen. Paracentesis Ultrasound 07/28/22 07:00 IMPRESSION: Uncomplicated ultrasound-guided paracentesis. Removal of 5550 cc Laboratory Results WBC 7.1 10^3/uL (4.0-10.0) 07/30/22 04:27 RBC 3.49 10^6/uL (4.1-5.3) L 07/30/22 04:27 Hgb 10.7 g/dL (11.7-16.6) L 07/30/22 04:27 Hct 32.5 % (42.0-52.0) L 07/30/22 04:27 MCV 93.1 fl (80-94) 07/30/22 04:27 MCH 30.7 pg (28.0-34.0) 07/30/22 04:27 MCHC 32.9 g/dL (30.0-36.0) 07/30/22 04:27 RDW 13.6 % (12.1-15.1) 07/30/22 04:27 Plt Count 251 10^3/cmm (130-400) 07/30/22 04:27 MPV 9.4 fL (7.4-10.4) 07/30/22 04:27 Neut % (Auto) 76.3 % 07/30/22 04:27 Lymph % (Auto) 9.6 % 07/30/22 04:27 Levy % (Auto) 10.9 % 07/30/22 04:27 Eos % (Auto) 3.0 % 07/30/22 04:27 Baso % (Auto) 0.1 % 07/30/22 04:27 Neut # (Auto) 5.39 10^3/uL (1.8-7.7) 07/30/22 04:27 Lymph # (Auto) 0.7 10^3/uL (0.8-4.8) L 07/30/22 04:27 Levy # (Auto) 0.8 10^3/uL (0.2-0.9) 07/30/22 04:27 Eos # (Auto) 0.2 10^3/uL (0.0-0.8) 07/30/22 04:27 Baso # (Auto) 0.0 10^3/uL (0.0-0.1) 07/30/22 04:27 Nucleated RBC % (auto) 0 % 07/30/22 04:27 Nucleated RBCs # 0.0 /100WBC 07/30/22 04:27 PT 14.10 SECONDS (12.1-14.9) 07/27/22 18:05 INR 1.05 (0.8-1.2) 07/27/22 18:05 Sodium 134 mmol/L (136-145) L 07/30/22 04:27 Potassium 3.6 mmol/L (3.5-5.1) 07/30/22 04:27 Chloride 95 mmol/L (98-107) L 07/30/22 04:27 Carbon Dioxide 32 mmol/L (22-29) H 07/30/22 04:27 Anion Gap 10.6 (5-19) 07/30/22 04:27 BUN 24 mg/dL (8-23) H 07/30/22 04:27 Creatinine 1.1 mg/dL (0.7-1.2) 07/30/22 04:27 GFR Calculation 67.6 mL/min (90-130) L 07/30/22 04:27 Glucose 83 mg/dL (65-115) 07/30/22 04:27 Calculated Osmolality 281 mOsm/kg (285-295) L 07/30/22 04:27 Calcium 8.9 mg/dL (8.5-10.5) 07/30/22 04:27 Phosphorus 3.0 mg/dL (2.5-4.5) 07/30/22 04:27 Magnesium 2.0 mg/dL (1.7-2.3) 07/30/22 04:27 Total Bilirubin 0.4 mg/dL (0.15-1.2) 07/30/22 04:27 AST 9 U/L (0-40) 07/30/22 04:27 ALT < 5 U/L (0-41) 07/30/22 04:27 Alkaline Phosphatase 56 U/L (40-130) 07/30/22 04:27 C-Reactive Protein 17.9 mg/L (0.0-4.9) H 07/30/22 04:27 Total Protein 5.1 g/dL (6.6-8.7) L 07/30/22 04:27 Albumin 3.5 g/dL (3.5-5.2) 07/30/22 04:27 Globulin 1.6 g/dL (1.3-4.6) 07/30/22 04:27 Lipase 13 U/L (13-60) 07/27/22 18:05 Procalcitonin 0.08 ng/mL (0-0.5) 07/30/22 04:27 Urine Color Yellow (Yellow) 07/27/22 19:28 Urine Appearance Hazy (CLEAR) A 07/27/22 19:28 Urine pH 5 (5-7) 07/27/22 19:28 Ur Specific [place] 1.030 (1.005-1.030) 07/27/22 19:28 Urine Protein 1+ (Negative) H 07/27/22 19:28 Urine Glucose (UA) Norm (Normal) 07/27/22 19:28 Urine Ketones Negative (Negative) 07/27/22 19:28 Urine Blood 3+ (Negative) H 07/27/22 19:28 Urine Nitrate Negative (Negative) 07/27/22 19:28 Urine Bilirubin Neg (Negative) 07/27/22 19:28 Urine Urobilinogen Neg mg/dL (Negative) 07/27/22 19:28 Ur Leukocyte Esterase Negative (Negative) 07/27/22 19:28 Urine RBC 50-80 /hpf (0-2) H 07/27/22 19:28 Urine WBC 15-25 /hpf (0-5) H 07/27/22 19:28 Ur Squamous Epith Cells None /hpf (0-5) 07/27/22 19:28 Calcium Oxalate Crystal 0-4 /hpf H 07/27/22 19:28 Amorphous Sediment Not Reportable 07/27/22 19:28 Urine Bacteria 2+ /hpf (NONE) H 07/27/22 19:28 Urine Yeast Trace /hpf 07/27/22 19:28 Fluid Color Slight pink 07/28/22 10:19 Fluid Appearance Cloudy 07/28/22 10:19 Fluid Specific Grav 1.010 07/28/22 10:19 Fluid pH 8.0 07/28/22 10:19 Fluid WBC 3869 /uL 07/28/22 10:19 Fluid RBC 28.000 10^3/uL 07/28/22 10:19 Fld Polynuclear WBCs # 0.601 07/28/22 10:19 Fld Polynuclear WBCs % 15.500 % 07/28/22 10:19 Fl Mononucl WBCs #(Auto) 3.268 07/28/22 10:19 Fl Mononuclear % Auto 84.500 % 07/28/22 10:19 Fluid Glucose 61.0 mg/dL 07/28/22 10:19 Fluid Total Protein 4.6 g/dL 07/28/22 10:19 Fluid Albumin 2.6 g/dL 07/28/22 10:19 Fluid LDH 509 U/L 07/28/22 10:19 Fluid Amylase 239 U/L 07/28/22 10:19 Fluid Alk Phosphatase 66 IU/L 07/28/22 10:19 Fluid Cholesterol 147 mg/dL (0-200) 07/28/22 10:19 Fluid Triglycerides 242 mg/dL (0-150) H 07/28/22 10:19 Fluid Uric Acid 8 mg/dL 07/28/22 10:19 Peritoneal Color Cancelled 07/28/22 10:00 Peritoneal Appearance Cancelled 07/28/22 10:00 Peritoneal WBC Cancelled 07/28/22 10:00 Peritoneal RBC Cancelled 07/28/22 10:00 Periton Mononu # Auto Cancelled 07/28/22 10:00 Mononuclear WBCs % Cancelled 07/28/22 10:00 Polynuclear WBCs % Cancelled 07/28/22 10:00 Perit Polynuc WBCs # Cancelled 07/28/22 10:00 Peritoneal Diff Commnt Cancelled 07/28/22 10:00 Peritoneal Tot Protein Cancelled 07/28/22 10:00 Peritoneal Albumin Cancelled 07/28/22 10:00 Peritoneal LDH Cancelled 07/28/22 10:00 Peritoneal Glucose Cancelled 07/28/22 10:00 Peritoneal Amylase Cancelled 07/28/22 10:00 Vitals Last Vital Signs Temp 98.0 F 07/30/22 07:33 Pulse 89 07/30/22 09:09 Resp 16 07/30/22 07:33 BP 91/48 07/30/22 07:33 Pulse Ox 94 07/30/22 09:09 O2 Del Method 07/30/22 09:09 Discharge Plan Discharge Patient Disposition: Home Condition: Stable Prescriptions: New midodrine 5 mg Tablet 10 mg PO Q8H 30 Days Qty: 180 0RF Cipro 500 mg tablet 500 mg PO DAILY 30 Days Qty: 30 0RF Flomax 0.4 mg capsule 0.4 mg PO DAILY 30 Days Qty: 30 0RF Continued bumetanide 0.5 mg tablet 0.5 mg PO DAILY PRN (Reason: Edema, Dyspnea) Qty: 30 1RF Rx Instructions: Take if Leg swelling increases or if worsening shortness of breath. prednisone 10 mg tablet See Rx Instructions .ROUTE .COMPLEX Rx Instructions: 5mg every AM and 10mg every PM benzonatate 100 mg capsule 100 mg PO TID PRN (Reason: cough) Qty: 30 0RF Eliquis 5 mg tablet 5 mg PO BID Qty: 30 3RF albuterol sulfate 90 mcg/actuation HFA aerosol inhaler 2 inh INHALATION Q4H PRN (Reason: shortness of breath or wheezing) Qty: 18 0RF albuterol sulfate 2.5 mg /3 mL (0.083 %) solution for nebulization 2.5 mg inhalation Q4H PRN (Reason: shortness of breath or wheezing) Qty: 90 0RF ondansetron HCl 4 mg tablet 4 mg PO Q6H PRN (Reason: nausea and vomiting) Qty: 20 0RF metoclopramide HCl 5 mg tablet 5 mg PO QID PRN (Reason: Gastric Reflux) Rx Instructions: take before meals and hs hydrocodone-acetaminophen 7.5-325 mg tablet 1 tab PO Q8H PRN (Reason: Pain) pantoprazole 40 mg tablet,delayed release (DR/EC) 40 mg PO DAILY PRN (Reason: Heartburn) Tagrisso 40 mg tablet 40 mg PO BEDTIME Discharge Orders: Discharge Order (Routine); Ordered 07/30/22 Ordered By: Narayan Martinez Referrals: Igor Howard DO [Primary Care Provider] - 08/05/22 10:30 am Mulugeta Burris MD [Physician] - 2 weeks Discharge Diet: Regular and Cardiac Discharge Activity: Resume usual activity Patient Instructions: Ciprofloxacin (By mouth), Midodrine (By mouth), Tamsulosin (By mouth), Ascites (GEN), Opioid Safety Activity Restrictions/Additional Instructions: - If you have recurrent fevers, nausea vomiting go to emergency room -For your abdominal ascites, if you develop recurrent ascites please come back to emergency room for drainage Discharge Attestations Time Spent in Discharge Care*: less than 30 min Status at Discharge: Cognitive status at discharge: cognitively intact, Behavioral status at discharge: cooperative, Quality Metrics Clinical Quality Measures [ No reported AMI, CVA or VTE this stay] Coding Level of Care Code Acute Chg FW DC note Exam Detailed Diagnoses Abdominal pain R10.84 Abdominal location: generalized Abdominal ascites R18.8 Carcinomatosis peritonei C78.6 Hypotension I95.9
[2022-07-30 10:53] LABS: Lactate Dehydrogenase 150 U/L (135-225)
--- NOTE | 2022-07-30 11:24 | PC.NURSE ---
PATIENT'S SISTER CALLED AND ASKED IF PATIENT WAS MEDICALLY READY FOR DISCHARGE. I TOLD HER PER DR. ANTONIO THAT YES THE PATIENT WAS READY AND CURRENTLY HAD DISCHARGE ORDERS IN. ALSO THAT DR. ANTONIO HAD BEEN ON THE PHONE WITH PATIENT'S FOR ABOUT 30 MINUTES EXPLAINING HIS CARE AND DISCHARGE PLAN ALONG WITH CASE MANAGEMENT. ALL QUESTIONS ANSWERED AT THIS TIME.
[2022-07-30] MEDS: tamsulosin 0.4 mg Capsule PO (12:14)
[2022-07-30] MEDS: cefTRIAXone 2,000 MG in sodium chloride 0.9% (plus) 50 ML 100 MG IV (12:15)
--- NOTE | 2022-07-30 17:04 | PC.NURSE ---
0504 - Patient states that he would like to d/c home. Pt reports that family is not answering phone calls. Pt prefers sons to be notified of discharge/pick-up. This RN attempts to call Marco A x3, voicemail left to return call. Dileep x2, voicemail left to return call. Tsering, sister, answers. Tsering is trying to text family for pick-up.
[2022-07-30] MEDS: midodrine 5 mg TABLET PO (17:51)
--- NOTE | 2022-07-30 18:58 | PC.NURSE ---
1750 - Pt verbalizes that he is comfortable and happy to d/c home. Arti RN and this RN provide pt teaching on garay care. The pt empties catheter bag by self with supervision of nurses. Extra garay bag sent home to practice emptying mechanisms. Dr. Martinez comes into room to ask if pt feels comfortable discharging home, pt states that he is. He states that he is happy to be home for Thanksgiving tomorrow. Two IVs removed, discharge teaching completed. Paperwork completed. Pt verbalizes understanding. No questions. All pt belongings placed into bags to be sent home. At 1815 pt transported to [facility] with this RN and Arti RN. While being taken to car, pt states my is a difficult neighbor. Pt belongings placed into car.
--- NOTE | 2022-07-30 19:41 | PC.NURSE ---
Patient stated to this nurse, and Anna Ramirez RN that he wanted to return home, and was okay to leave tonight, despite his saying he was confused. Dr. Martinez assessed patient at bedside and ordered to proceed with discharge.
== END 2022-07-30 18:15 | disposition home or self-care (01) | DRG 374 ==
LOC: ER 21:41 → MEDSURG 21:49
PROVIDERS: Emergency Medicine; Admitting Provider Student in an Organized Health Care Education/Training Program; Emergency Provider Physician Assistant; PCP Family Medicine; Visit Provider Family Medicine
DX: C78.6 Secondary malignant neoplasm of retroperitoneum and peritoneum (principal); K65.2 Spontaneous bacterial peritonitis; C34.12 Malignant neoplasm of upper lobe, left bronchus or lung; C79.51 Secondary malignant neoplasm of bone; R18.8 Other ascites; Z79.899 Other long term (current) drug therapy; K59.00 Constipation, unspecified; D64.9 Anemia, unspecified; J44.9 Chronic obstructive pulmonary disease, unspecified; Z86.718 Personal history of other venous thrombosis and embolism; Z86.711 Personal history of pulmonary embolism; I95.9 Hypotension, unspecified; G89.3 Neoplasm related pain (acute) (chronic); Z79.891 Long term (current) use of opiate analgesic; Z79.51 Long term (current) use of inhaled steroids; Z79.01 Long term (current) use of anticoagulants; R33.9 Retention of urine, unspecified
CPT/HCPCS: 36415; 49083; 51702; 51798; 71045; 80053; 81001; 82042; 82150; 82465; 82945; 83615; 83690; 83735; 83986; 84075; 84100; 84145; 84157; 84315; 84478; 84560; 85025; 85610; 86140; 87015; 87040; 87070; 87075; 87086; 87116; 87205; 87206; 87801; 88108; 89050; 96361; 96374; 97161; 97167; 99285; 99291; 99292; J0696; J2405; J2543; J2765; J3490; J7030; J7040; J7512; P9046; P9047

== ENCOUNTER 2022-08-01 08:03 | Emergency (ER) | payer OTHER, SELFPAY ==
[2022-08-01 08:18] VITALS: BP 102/69; PULSE 86; RESP 14; TEMP 36.7; O2SAT 96; BMI 19.2
[2022-08-01 08:56] LABS: Basophils % 0.1 %; Eosinophils # 0.2 10^3/uL (0.0-0.8); Eosinophils % 3.1 %; Hematocrit 41.4 % (42.0-52.0); Hemoglobin 13.8 g/dL (11.7-16.6); Lymphocytes # 0.6 10^3/uL (0.8-4.8); Lymphocytes % 8.2 %; Mean Corpuscular HGB Conc 33.3 g/dL (30.0-36.0); Mean Corpuscular Hemoglobin 31.1 pg (28.0-34.0); Mean Corpuscular Volume 93.2 fl (80-94); Mean Platelet Volume 8.9 fL (7.4-10.4); Monocytes # 0.9 10^3/uL (0.2-0.9); Monocytes % 11.5 %; Neutrophils # 5.72 10^3/uL (1.8-7.7); Neutrophils % 76.8 %; Nucleated Red Blood Cells % 0 %; Platelet Count 300 10^3/cmm (130-400); Red Blood Count 4.44 10^6/uL (4.1-5.3); Red Cell Distribution Width 13.6 % (12.1-15.1); White Blood Count 7.5 10^3/uL (4.0-10.0)
--- NOTE | 2022-08-01 08:57 | US_ITS ---
WS: [id number] RIGHT UPPER QUADRANT ULTRASOUND HISTORY: RUQ, epigastric pain COMPARISON: None available. Liver: 15.7 cm in length. Normal size liver. No bile duct dilatation or mass. Portal Vein: Normal hepatopetal flow with monophasic waveform. Gallbladder: Normally distended gallbladder with no stones or wall thickening. CBD: 0.5 cm Pancreas: Tail is obscured by bowel gas. Otherwise negative. Right kidney: 10.1 cm in length. Normal size and echogenicity. No hydronephrosis or mass. Aorta and IVC: Unremarkable abdominal aorta and IVC. There is a small amount of ascites throughout the peritoneal cavity and RIGHT upper quadrant. US/US abdomen limited 12820 IMPRESSION: 1. Small amount of ascites RIGHT upper quadrant. 2. Negative gallbladder. No bile duct dilatation.
--- NOTE | 2022-08-01 09:01 | ED_ITS ---
Documented by User: Regina Almonte PA-C 08/01/22 11:39 HPI - Abdominal Pain General: Chief Complaint: Abdominal Pain Stated Complaint: abd pain, catheter leak Time Seen by Provider: 08/01/22 08:21 Source: patient Mode of arrival: ambulatory Limitations: no limitations History of Present Illness: 62-year-old male presents to the ER today for penile and suprapubic discomfort since having a catheter inserted on Thursday. Patient reports he was admitted to the hospital earlier this week for ascites and had 6 L drained off and then was released. Patient reports they put the catheter on Thursday before he left and since that time he has had significant pain. Patient reports is also leaking around the catheter. Patient reports he had had a catheter earlier in the week which did not bother him. Patient reports a history of lung cancer with significant complications. Patient also reports upper abdominal pain in the right upper quadrant and epigastric area since he had the ascites drained earlier in the week. Patient reports it is a pain he has not had before. Patient reports he has decreased appetite and nausea. Patient reports overall just not feeling well. Review of Systems General: Reports: 10 or more systems reviewed and unremarkable except in HPI and below PFSH ED PFSH: Medical History Anemia COPD (chronic obstructive pulmonary disease) DVT (deep venous thrombosis) Non-small cell lung cancer Pulmonary embolism Surgical History History of chest tube placement History of colonoscopy 2013 History of esophagogastroduodenoscopy (EGD) 2014 Port-A-Cath in place (01/02/22) Family History Mother Stroke Diabetes Other CAD (coronary artery disease) Hypertension Denies family history of Clotting disorder Dementia Hyperlipidemia Psychiatric illness Chronic kidney disease (CKD) Suicide Anesthesia complication Bleeding disorder Lung disease Cancer Social History Smoking and tobacco status: never smoked Alcohol intake: never Lives independently: Yes Household members: spouse Marital status: Physical Exam Const: OTHER: Alert and oriented, cachectic appearing, chronically ill-appearing Resp: COMMON NORMALS: normal respiratory effort, No retractions and clear to auscultation bilaterally AUSCULTATION: clear to auscultation bilaterally Cardio: COMMON NORMALS: regular rate, regular rhythm and No murmurs present (Cardio) RATE: regular rate RHYTHM: regular rhythm GI: COMMON NORMALS: Normal to inspection, nondistended, normoactive bowel sounds present and Soft to palpation PALPATION: Yes Soft to palpation and Yes Tenderness to palpation present (GI) (RUQ and epigastric) : OTHER: catheter in place with some urine noted to be coming from around the catheter Extremity: COMMON NORMALS: normal to inspection and full ROM Psych: COMMON NORMALS: mental status grossly normal, Normal thought process present and cooperative THOUGHT PROCESS: Normal thought process present Skin: COMMON NORMALS: no rashes or lesions noted and no wounds GENERAL SKIN EXAM: no rashes or lesions noted Course ED course: Patient has a history of lung cancer and ascites of the abdomen. Patient was recently hospitalized earlier this week for ascites and to be tapped. Patient reports he was then sent home on Thursday after removing 6 L from his abdomen. Patient reports he was sent home with a catheter and since that time his had severe pain in the penis and suprapubic area. Patient reports there is also urine leaking around the catheter. We will go ahead and remove the catheter today. We will see if patient is able to urinate on his own before inserting another 1. We will do routine labs today. We will also do an abdominal ultrasound given the worsened abdominal pain following paracentesis. Reevaluation(s): Reevaluation #1: She was given a liter of fluids and is able to urinate at this time. We will get a UA from the urine and send patient home without a catheter. Time: 11:24 Vital Signs: Vital signs: Vital Signs Temperature 98.1 F 08/01/22 11:49 Pulse Rate 76 08/01/22 11:49 Respiratory Rate 16 08/01/22 11:49 Blood Pressure 110/72 08/01/22 11:49 Pulse Oximetry 97 08/01/22 11:49 Oxygen Delivery Me thod 08/01/22 11:18 MDM - Abdominal Pain Medical Decision Making Patient's catheter was removed and patient's pain was significantly relieved with that. Patient was given some fluids and was able to urinate on his own. Patient reports the urinating was not painful after the catheter was removed. Patient is noted to have blood on UA which would be expected after catheter complications. He has some leukocytes however appears contaminated likely. Patient is not symptomatic for UTI. Patient's catheter was not placed due to UTI either. Patient's ultrasound of the right upper quadrant and epigastric area was normal. Likely patient's abdominal pain is related to the recent paracentesis. I would recommend patient follow-up with PCP in 2 to 3 days. Return to the ER with any new or worsening symptoms. Patient verbalized underst anding and was in agreement with the treatment plan. Lab Data 08/01/22 08:50 08/01/22 08:50 Labs/Radiology: Radiology Impressions Abdomen Ultrasound 08/01/22 08:57 IMPRESSION: 1. Small amount of ascites RIGHT upper quadrant. 2. Negative gallbladder. No bile duct dilatation. Laboratory Results WBC 7.5 10^3/uL (4.0-10.0) 08/01/22 08:50 RBC 4.44 10^6/uL (4.1-5.3) 08/01/22 08:50 Hgb 13.8 g/dL (11.7-16.6) 08/01/22 08:50 Hct 41.4 % (42.0-52.0) L 08/01/22 08:50 MCV 93.2 fl (80-94) 08/01/22 08:50 MCH 31.1 pg (28.0-34.0) 08/01/22 08:50 MCHC 33.3 g/dL (30.0-36.0) 08/01/22 08:50 RDW 13.6 % (12.1-15.1) 08/01/22 08:50 Plt Count 300 10^3/cmm (130-400) 08/01/22 08:50 MPV 8.9 fL (7.4-10.4) 08/01/22 08:50 Neut % (Auto) 76.8 % 08/01/22 08:50 Lymph % (Auto) 8.2 % 08/01/22 08:50 [place] % (Auto) 11.5 % 08/01/22 08:50 Eos % (Auto) 3.1 % 08/01/22 08:50 Baso % (Auto) 0.1 % 08/01/22 08:50 Neut # (Auto) 5.72 10^3/uL (1.8-7.7) 08/01/22 08:50 Lymph # (Auto) 0.6 10^3/uL (0.8-4.8) L 08/01/22 08:50 [place] # (Auto) 0.9 10^3/uL (0.2-0.9) 08/01/22 08:50 Eos # (Auto) 0.2 10^3/uL (0.0-0.8) 08/01/22 08:50 Baso # (Auto) 0.0 10^3/uL (0.0-0.1) 08/01/22 08:50 Nucleated RBC % (auto) 0 % 08/01/22 08:50 Nucleated RBCs # 0.0 /100WBC 08/01/22 08:50 Sodium 136 mmol/L (136-145) 08/01/22 08:50 Potassium 3.8 mmol/L (3.5-5.1) 08/01/22 08:50 Chloride 97 mmol/L (98-107) L 08/01/22 08:50 Carbon Dioxide 29 mmol/L (22-29) 08/01/22 08:50 Anion Gap 13.8 (5-19) 08/01/22 08:50 BUN 19 mg/dL (8-23) 08/01/22 08:50 Creatinine 1.0 mg/dL (0.7-1.2) 08/01/22 08:50 GFR Calculation 75.5 mL/min (90-130) L 08/01/22 08:50 Glucose 121 mg/dL (65-115) H 08/01/22 08:50 Calculated Osmolality 286 mOsm/kg (285-295) 08/01/22 08:50 Lactic Acid 2.1 mmol/L (0.5-2.2) 08/01/22 08:50 Lactic Acid (Sepsis) 1.1 mmol/L (0.5-2.2) 08/01/22 11:10 Calcium 9.2 mg/dL (8.5-10.5) 08/01/22 08:50 Total Bilirubin 0.4 mg/dL (0.15-1.2) 08/01/22 08:50 AST 12 U/L (0-40) 08/01/22 08:50 ALT 8 U/L (0-41) 08/01/22 08:50 Alkaline Phosphatase 85 U/L (40-130) 08/01/22 08:50 Total Protein 6.0 g/dL (6.6-8.7) L 08/01/22 08:50 Albumin 3.5 g/dL (3.5-5.2) 08/01/22 08:50 Globulin 2.5 g/dL (1.3-4.6) 08/01/22 08:50 Urine Color Dark yellow (Yellow) 08/01/22 11:20 Urine Appearance Hazy (CLEAR) A 08/01/22 11:20 Urine pH 5 (5-7) 08/01/22 11:20 Ur Specific [place] 1.025 (1.005-1.030) 08/01/22 11:20 Urine Protein 3+ (Negative) H 08/01/22 11:20 Urine Glucose (UA) Norm (Normal) 08/01/22 11:20 Urine Ketones Negative (Negative) 08/01/22 11:20 Urine Blood 3+ (Negative) H 08/01/22 11:20 Urine Nitrate Negative (Negative) 08/01/22 11:20 Urine Bilirubin 1+ (Negative) H 08/01/22 11:20 Urine Urobilinogen Norm mg/dL (Negative) 08/01/22 11:20 Ur Leukocyte Esterase 2+ (Negative) H 08/01/22 11:20 Urine RBC Too numerous to cnt /hpf (0-2) H 08/01/22 11:20 Urine WBC 0-4 /hpf (0-5) H 08/01/22 11:20 Ur Squamous Epith Cells 0-4 /hpf (0-5) H 08/01/22 11:20 Amorphous Sediment Not Reportable 08/01/22 11:20 Urine Bacteria Trace /hpf (NONE) 08/01/22 11:20 Critical Care Time Critical Care Time: Critical Care Time: No Discharge Plan Discharge Patient Disposition: Home Clinical Impression: Complication of Smart catheter Qualifiers: Encounter type: initial encounter Qualified Code(s): T83.9XXA - Unspecified complication of genitourinary prosthetic device, implant and graft, initial encounter Abdominal pain Qualifiers: Abdominal location: right upper quadrant Qualified Code(s): R10.11 - Right upper quadrant pain Condition: Stable Prescriptions: No Action Eliquis 5 mg tablet 5 mg PO BID Qty: 30 3RF albuterol sulfate 90 mcg/actuation HFA aerosol inhaler 2 inh INHALATION Q4H PRN (Reason: shortness of breath or wheezing) Qty: 18 0RF albuterol sulfate 2.5 mg /3 mL (0.083 %) solution for nebulization 2.5 mg inhalation Q4H PRN (Reason: shortness of breath or wheezing) Qty: 90 0RF metoclopramide HCl 5 mg tablet 5 mg PO QID PRN (Reason: Gastric Reflux) Rx Instructions: take before meals and hs hydrocodone-acetaminophen 7.5-325 mg tablet 1 tab PO Q8H PRN (Reason: Pain) Tagrisso 40 mg tablet 40 mg PO BEDTIME midodrine 5 mg Tablet 10 mg PO Q8H 30 Days Qty: 180 0RF ciprofloxacin HCl [Cipro] 500 mg tablet 500 mg PO DAILY 30 Days Qty: 30 0RF tamsulosin [Flomax] 0.4 mg capsule 0.4 mg PO DAILY 30 Days Qty: 30 0RF prednisone 20 mg tablet 20 mg PO DAILY Discharge Orders: Discharge ED (Routine); Ordered 08/01/22 Ordered By: Regina Almonte Referrals: Igor Howard DO [Primary Care Provider] - Discharge Diet: Usual diet Discharge Activity: Increase activity as tolerated Patient Instructions: Abdominal Pain (ED), Opioid Safety, Pain Management Activity Restrictions/Additional Instructions: Push fluids. Follow-up with PCP in 2 to 3 days. Return to the ER with any new or worsening symptoms. Continue all home medications. Coding Level of Care Code ED Senior It Specialist for Chg Fwd Exam Detailed Documented by User: Allen Booth DO 08/01/22 13:55 HPI - Abdominal Pain General: Chief Complaint: Abdominal Pain Stated Complaint: abd pain, catheter leak Time Seen by Provider: 08/01/22 08:21 PFSH ED PFSH: Medical History Anemia COPD (chronic obstructive pulmonary disease) DVT (deep venous thrombosis) Non-small cell lung cancer Pulmonary embolism Surgical History History of chest tube placement History of colonoscopy 2013 History of esophagogastroduodenoscopy (EGD) 2013 Port-A-Cath in place (01/02/22) Family History Mother Stroke Diabetes Other CAD (coronary artery disease) Hypertension Denies family history of Clotting disorder Dementia Hyperlipidemia Psychiatric illness Chronic kidney disease (CKD) Suicide Anesthesia complication Bleeding disorder Lung disease Cancer Social History Smoking and tobacco status: never smoked Alcohol intake: never Lives independently: Yes Household members: spouse Marital status: Course Vital Signs: Vital signs: Vital Signs Temperature 98.1 F 08/01/22 11:49 Pulse Rate 76 08/01/22 11:49 Respiratory Rate 16 08/01/22 11:49 Blood Pressure 110/72 08/01/22 11:49 Pulse Oximetry 97 08/01/22 11:49 Oxygen Delivery Me thod 08/01/22 11:18 MDM - Abdominal Pain Medical Decision Making Patient's catheter was removed and patient's pain was significantly relieved with that. Patient was given some fluids and was able to urinate on his own. Patient reports the urinating was not painful after the catheter was removed. Patient is noted to have blood on UA which would be expected after catheter complications. He has some leukocytes however appears contaminated likely. Patient is not symptomatic for UTI. Patient's catheter was not placed due to UTI either. Patient's ultrasound of the right upper quadrant and epigastric area was normal. Likely patient's abdominal pain is related to the recent paracentesis. I would recommend patient follow-up with PCP in 2 to 3 days. Return to the ER with any new or worsening symptoms. Patient verbalized understanding and was in agreement with the treatment plan. Chart reviewed and patient discussed with midlevel. Agree with assessment and plan. Lab Data 08/01/22 08:50 08/01/22 08:50 Labs/Radiology: Radiology Impressions Abdomen Ultrasound 08/01/22 08:57 IMPRESSION: 1. Small amount of ascites RIGHT upper quadrant. 2. Negative gallbladder. No bile duct dilatation. Laboratory Results WBC 7.5 10^3/uL (4.0-10.0) 08/01/22 08:50 RBC 4.44 10^6/uL (4.1-5.3) 08/01/22 08:50 Hgb 13.8 g/dL (11.7-16.6) 08/01/22 08:50 Hct 41.4 % (42.0-52.0) L 08/01/22 08:50 MCV 93.2 fl (80-94) 08/01/22 08:50 MCH 31.1 pg (28.0-34.0) 08/01/22 08:50 MCHC 33.3 g/dL (30.0-36.0) 08/01/22 08:50 RDW 13.6 % (12.1-15.1) 08/01/22 08:50 Plt Count 300 10^3/cmm (130-400) 08/01/22 08:50 MPV 8.9 fL (7.4-10.4) 08/01/22 08:50 Neut % (Auto) 76.8 % 08/01/22 08:50 Lymph % (Auto) 8.2 % 08/01/22 08:50 [place] % (Auto) 11.5 % 08/01/22 08:50 Eos % (Auto) 3.1 % 08/01/22 08:50 Baso % (Auto) 0.1 % 08/01/22 08:50 Neut # (Auto) 5.72 10^3/uL (1.8-7.7) 08/01/22 08:50 Lymph # (Auto) 0.6 10^3/uL (0.8-4.8) L 08/01/22 08:50 [place] # (Auto) 0.9 10^3/uL (0.2-0.9) 08/01/22 08:50 Eos # (Auto) 0.2 10^3/uL (0.0-0.8) 08/01/22 08:50 Baso # (Auto) 0.0 10^3/uL (0.0-0.1) 08/01/22 08:50 Nucleated RBC % (auto) 0 % 08/01/22 08:50 Nucleated RBCs # 0.0 /100WBC 08/01/22 08:50 Sodium 136 mmol/L (136-145) 08/01/22 08:50 Potassium 3.8 mmol/L (3.5-5.1) 08/01/22 08:50 Chloride 97 mmol/L (98-107) L 08/01/22 08:50 Carbon Dioxide 29 mmol/L (22-29) 08/01/22 08:50 Anion Gap 13.8 (5-19) 08/01/22 08:50 BUN 19 mg/dL (8-23) 08/01/22 08:50 Creatinine 1.0 mg/dL (0.7-1.2) 08/01/22 08:50 GFR Calculation 75.5 mL/min (90-130) L 08/01/22 08:50 Glucose 121 mg/dL (65-115) H 08/01/22 08:50 Calculated Osmolality 286 mOsm/kg (285-295) 08/01/22 08:50 Lactic Acid 2.1 mmol/L (0.5-2.2) 08/01/22 08:50 Lactic Acid (Sepsis) 1.1 mmol/L (0.5-2.2) 08/01/22 11:10 Calcium 9.2 mg/dL (8.5-10.5) 08/01/22 08:50 Total Bilirubin 0.4 mg/dL (0.15-1.2) 08/01/22 08:50 AST 12 U/L (0-40) 08/01/22 08:50 ALT 8 U/L (0-41) 08/01/22 08:50 Alkaline Phosphatase 85 U/L (40-130) 08/01/22 08:50 Total Protein 6.0 g/dL (6.6-8.7) L 08/01/22 08:50 Albumin 3.5 g/dL (3.5-5.2) 08/01/22 08:50 Globulin 2.5 g/dL (1.3-4.6) 08/01/22 08:50 Urine Color Dark yellow (Yellow) 08/01/22 11:20 Urine Appearance Hazy (CLEAR) A 08/01/22 11:20 Urine pH 5 (5-7) 08/01/22 11:20 Ur Specific [place] 1.025 (1.005-1.030) 08/01/22 11:20 Urine Protein 3+ (Negative) H 08/01/22 11:20 Urine Glucose (UA) Norm (Normal) 08/01/22 11:20 Urine Ketones Negative (Negative) 08/01/22 11:20 Urine Blood 3+ (Negative) H 08/01/22 11:20 Urine Nitrate Negative (Negative) 08/01/22 11:20 Urine Bilirubin 1+ (Negative) H 08/01/22 11:20 Urine Urobilinogen Norm mg/dL (Negative) 08/01/22 11:20 Ur Leukocyte Esterase 2+ (Negative) H 08/01/22 11:20 Urine RBC Too numerous to cnt /hpf (0-2) H 08/01/22 11:20 Urine WBC 0-4 /hpf (0-5) H 08/01/22 11:20 Ur Squamous Epith Cells 0-4 /hpf (0-5) H 08/01/22 11:20 Amorphous Sediment Not Reportable 08/01/22 11:20 Urine Bacteria Trace /hpf (NONE) 08/01/22 11:20 Discharge Plan Discharge Patient Disposition: Home Clinical Impression: Complication of Smart catheter Qualifiers: Encounter type: initial encounter Qualified Code(s): T83.9XXA - Unspecified complication of genitourinary prosthetic device, implant and graft, initial encounter Abdominal pain Qualifiers: Abdominal location: right upper quadrant Qualified Code(s): R10.11 - Right upper quadrant pain Condition: Stable Prescriptions: No Action Eliquis 5 mg tablet 5 mg PO BID Qty: 30 3RF albuterol sulfate 90 mcg/actuation HFA aerosol inhaler 2 inh INHALATION Q4H PRN (Reason: shortness of breath or wheezing) Qty: 18 0RF albuterol sulfate 2.5 mg /3 mL (0.083 %) solution for nebulization 2.5 mg inhalation Q4H PRN (Reason: shortness of breath or wheezing) Qty: 90 0RF metoclopramide HCl 5 mg tablet 5 mg PO QID PRN (Reason: Gastric Reflux) Rx Instructions: take before meals and hs hydrocodone-acetaminophen 7.5-325 mg tablet 1 tab PO Q8H PRN (Reason: Pain) Tagrisso 40 mg tablet 40 mg PO BEDTIME midodrine 5 mg Tablet 10 mg PO Q8H 30 Days Qty: 180 0RF ciprofloxacin HCl [Cipro] 500 mg tablet 500 mg PO DAILY 30 Days Qty: 30 0RF tamsulosin [Flomax] 0.4 mg capsule 0.4 mg PO DAILY 30 Days Qty: 30 0RF prednisone 20 mg tablet 20 mg PO DAILY Discharge Orders: Discharge ED (Routine); Ordered 08/01/22 Ordered By: Regina Almonte Referrals: Igor Howard DO [Primary Care Provider] - Discharge Diet: Usual diet Discharge Activity: Increase activity as tolerated Patient Instructions: Abdominal Pain (ED), Opioid Safety, Pain Management Activity Restrictions/Additional Instructions: Push fluids. Follow-up with PCP in 2 to 3 days. Return to the ER with any new or worsening symptoms. Continue all home medications. Coding Level of Care Code ED Senior It Specialist for Janelg Fwd Exam Detailed
[2022-08-01 09:13] VITALS: BP 102/69; PULSE 86; RESP 14; TEMP 36.7; O2SAT 96
[2022-08-01 09:34] LABS: Lactic Sepsis W/Reflex 2.1 mmol/L (0.5-2.2)
[2022-08-01 09:35] LABS: Alanine Aminotransferase 8 U/L (0-41); Albumin Level 3.5 g/dL (3.5-5.2); Alkaline Phosphatase 85 U/L (40-130); Anion Gap 13.8 (5-19); Aspartate Amino Transferase 12 U/L (0-40); Blood Urea Nitrogen 19 mg/dL (8-23); Calcium 9.2 mg/dL (8.5-10.5); Carbon Dioxide 29 mmol/L (22-29); Chloride 97 mmol/L (98-107); Creatinine Clr Calc Pharmacy 70.5906; Globulin 2.5 g/dL (1.3-4.6); Glomerular Filtration Rate 75.5 mL/min (90-130); Glucose 121 mg/dL (65-115); Osmolality Calculated 286 mOsm/kg (285-295); Potassium 3.8 mmol/L (3.5-5.1); Sodium 136 mmol/L (136-145); Total Bilirubin 0.4 mg/dL (0.15-1.2)
[2022-08-01] MEDS: sodium chloride 0.9% 1,000 ML 999 ML IV (09:55)
[2022-08-01 10:41] LABS: Reflex Lactate Order REFLEX LACTIC ORDERD
[2022-08-01 11:18] VITALS: BP 102/69; PULSE 86; RESP 14; TEMP 36.7; O2SAT 96
[2022-08-01 11:30] LABS: Add Urine Microscopic? YES; Bilirubin Urine 1+ (Negative); Blood Urine 3+ (Negative); Glucose Urine UA Norm (Normal); Ketones Urine Negative (Negative); Leukocyte Esterase Urine 2+ (Negative); Nitrate Urine Negative (Negative); Protein Urine 3+ (Negative); Specific Gravity, Urine 1.025 (1.005-1.030); Urine Appearance Hazy (CLEAR); Urine Color Dark Yellow (Yellow); Urobilinogen Urine Norm (Negative); pH Urine 5 (5-7)
[2022-08-01 11:35] LABS: Add Urine Culture? Yes; Bacteria Urine TRACE /hpf; RBC Urine TOO NUMEROUS TO CNT /hpf (0-2); Squamous Epithelial Cell Urine 0-4 /hpf (0-5); WBC Urine 0-4 /hpf (0-5)
[2022-08-01 11:40] LABS: Lactic Acid level (Lactate) 1.1 mmol/L (0.5-2.2)
[2022-08-01 11:49] VITALS: BP 110/72; PULSE 76; RESP 16; TEMP 36.7; O2SAT 97
== END 2022-08-01 11:50 | disposition home or self-care (01) ==
PROVIDERS: Family Medicine; Emergency Provider Physician Assistant; PCP Family Medicine
DX: T83.9XXA Unspecified complication of genitourinary prosthetic device, implant and graft, initial encounter (principal); R10.11 Right upper quadrant pain; Z79.01 Long term (current) use of anticoagulants; J44.9 Chronic obstructive pulmonary disease, unspecified; Z85.118 Personal history of other malignant neoplasm of bronchus and lung
CPT/HCPCS: 36415; 76705; 80053; 81001; 83605; 85025; 87086; 96360; 99285; J7030

== ENCOUNTER 2022-08-04 09:29 | Observation (INO) | payer OTHER, SELFPAY ==
[2022-08-04] VITALS (18 sets, daily range): BP systolic 92–107; BP diastolic 53–73; PULSE 84–102; RESP 13–18; TEMP 36.5–36.6; O2SAT 94–98; BMI 19.2
--- NOTE | 2022-08-04 13:33 | ED_ITS ---
HPI - Abdominal Pain General: Chief Complaint: Abdominal Pain Stated Complaint: abd bloating/pain Time Seen by Provider: 08/04/22 13:33 History of Present Illness: Mr. Ramos is a 62-year-old gentleman with significant past medical history of metastatic lung cancer, PE on Eliquis, recent hospitalization for abdominal ascites requiring paracentesis presenting to the emergency department due to abdominal discomfort. He reports noticing symptoms starting last night. He had gradual increased fullness however had more discomfort last night. Denies change in bowel habits or urinary habits. No nausea or vomiting. Symptoms are worse with palpation and movement as well as laying flat. Moderate in intensity. Unsure if this feels similar or different to prior fluid accumulation. No other specific changes in health, exacerbating, or alleviating factors identified. Onset (ago): hour(s) Pain Consistency: constant Location: Diffuse Severity: moderate Quality: cramping and fullness Radiation: none Exacerbating factors: movement Relieving factors: nothing Context: other Associated Symptoms: Reports anorexia; Denies change in bowel habits, diarrhea, dysuria and vomiting Review of Systems General: Reports: 10 or more systems reviewed and unremarkable except in HPI and below GI: Denies: vomiting, diarrhea or change in bowel habits : Denies: dysuria PFSH ED PFSH: Medical History Anemia Chronic hypotension COPD (chronic obstructive pulmonary disease) DVT (deep venous thrombosis) Non-small cell lung cancer Primary adenocarcinoma of upper lobe of left lung Pulmonary embolism Surgical History History of chest tube placement History of colonoscopy 2013 History of esophagogastroduodenoscopy (EGD) 2014 Port-A-Cath in place (01/02/22) Family History Mother Stroke Diabetes Other CAD (coronary artery disease) Hypertension Denies family history of Clotting disorder Dementia Hyperlipidemia Psychiatric illness Chronic kidney disease (CKD) Suicide Anesthesia complication Bleeding disorder Lung disease Cancer Social History Smoking and tobacco status: never smoked Alcohol intake: never Lives independently: Yes Household members: spouse Marital status: Physical Exam Const: COMMON NORMALS: alert GENERAL APPEARANCE: cooperative, well developed and ill appearing (chronically) HENMT: COMMON NORMALS: normocephalic and atraumatic HEAD & SCALP: n ormocephalic and atraumatic Eye: COMMON NORMALS: conjunctivae normal CONJUNCTIVA: Yes conjunctivae normal SCLERA: sclerae normal Neck/C-Spine: COMMON NORMALS: supple GENERAL: Yes trachea midline Resp: COMMON NORMALS: clear to auscultation bilaterally EFFORT & INSPECTION: Yes able to speak in complete sentences AUSCULTATION: clear to auscultation bilaterally Cardio: COMMON NORMALS: regular rate and regular rhythm RATE: regular rate RHYTHM: regular rhythm GI: COMMON NORMALS: Soft to palpation PALPATION: Yes Soft to palpation, Yes Tenderness to palpation present (GI), No Guarding due to palpation present (GI) and No Rigid due to palpation Extremity: GENERAL: Yes normal exam except as noted and No edema Neuro: COMMON NORMALS: moves all extremities SENSORIUM/ORIENTATION: Yes alert and No Orientation impaired Psych: COMMON NORMALS: mental status grossly normal and Normal thought process present THOUGHT PROCESS: Normal thought process present Course Vital Signs: Vital signs: Vital Signs Temperature 97.4 F L 08/05/22 16:28 Pulse Rate 82 08/05/22 16:28 Respiratory Rate 16 08/05/22 16:28 Blood Pressure 93/53 08/05/22 16:28 Pulse Oximetry 95 08/05/22 16:28 Oxygen Delivery Me thod 08/05/22 11:52 MDM - Abdominal Pain Medical Decision Making 62-year-old gentleman with complex history presenting with abdominal pressure with history of paracentesis and reaccumulation. He has associated symptoms of abdominal ascites. Exam otherwise as above. Labs with no leukocytosis, hemoglobin is normal. Metabolic panel with mild hyponatremia and hypochloremia. CT abdomen and pelvis identifies increased loculated right pleural effusion and stable left pleural effusion. There is moderate abdominal ascites as well as o ther unchanged findings. Given that patient has been taking Eliquis I do not believe that he is a good candidate for a therapeutic paracentesis and requires further inpatient treatment. Most likely cause of patient symptoms is recurrent ascites with associated symptoms related to underlying malignancy. The results of ED evaluation were discussed with the patient including plan for admission due to requirement for level of care not available if discharged to prevent significant worsening/deterioration. Patient agreeable with plan. Discussed with hospitalist service who was agreeable to admit patient. Medical Records I reviewed the patient's medical records. Lab Data I reviewed the patient's lab results. 08/05/22 06:12 08/05/22 06:12 Labs/Radiology: Radiology Impressions Abdomen/Pelvis CT 08/04/22 13:45 IMPRESSION: 1. Loculated small RIGHT pleural effusion has increased compared to July 25, 2022. Chest tube in place. Stable tiny LEFT pleural effusion with interstitial thickening/edema in the LEFT lower lobe. 2. Moderate diffuse abdominal ascites appears similar to July 25, 2022. 3. No subcutaneous hematoma or fluid collection in the RIGHT lower quadrant that would correspond to the paracentesis site. 4. Diffuse thickening and enhancement of the peritoneum worse in the pelvis is unchanged from previous. 5. No hydronephrosis in either kidney. 6. Diffuse small blastic metastasis appear unchanged. 7. Enhancing enlarged prostate appears unchanged. Paracentesis Ultrasound 08/05/22 06:00 IMPRESSION: Uncomplicated paracentesis yielding 2850 ml of peritoneal fluid. Laboratory Results WBC 4.4 10^3/uL (4.0-10.0) 08/04/22 14:15 RBC 4.33 10^6/uL (4.1-5.3) 08/04/22 14:15 Hgb 13.2 g/dL (11.7-16.6) 08/04/22 14:15 Hct 40.6 % (42.0-52.0) L 08/04/22 14:15 MCV 93.8 fl (80-94) 08/04/22 14:15 MCH 30.5 pg (28.0-34.0) 08/04/22 14:15 MCHC 32.5 g/dL (30.0-36.0) 08/04/22 14:15 RDW 13.2 % (12.1-15.1) 08/04/22 14:15 Plt Count 382 10^3/cmm (130-400) 08/04/22 14:15 MPV 9.1 fL (7.4-10.4) 08/04/22 14:15 Neut % (Auto) 70.9 % 08/04/22 14:15 Lymph % (Auto) 12.4 % 08/04/22 14:15 [place] % (Auto) 13.5 % 08/04/22 14:15 Eos % (Auto) 2.5 % 08/04/22 14:15 Baso % (Auto) 0.2 % 08/04/22 14:15 Neut # (Auto) 3.14 10^3/uL (1.8-7.7) 08/04/22 14:15 Lymph # (Auto) 0.6 10^3/uL (0.8-4.8) L 08/04/22 14:15 [place] # (Auto) 0.6 10^3/uL (0.2-0.9) 08/04/22 14:15 Eos # (Auto) 0.1 10^3/uL (0.0-0.8) 08/04/22 14:15 Baso # (Auto) 0.0 10^3/uL (0.0-0.1) 08/04/22 14:15 Nucleated RBC % (auto) 0 % 08/04/22 14:15 Nucleated RBCs # 0.0 /100WBC 08/04/22 14:15 PT 16.80 SECONDS (12.1-14.9) H 08/04/22 14:15 INR 1.33 (0.8-1.2) H 08/04/22 14:15 Sodium 132 mmol/L (136-145) L 08/04/22 14:15 Potassium 3.8 mmol/L (3.5-5.1) 08/04/22 14:15 Chloride 90 mmol/L (98-107) L 08/04/22 14:15 Carbon Dioxide 32 mmol/L (22-29) H 08/04/22 14:15 Anion Gap 13.8 (5-19) 08/04/22 14:15 BUN 20 mg/dL (8-23) 08/04/22 14:15 Creatinine 0.8 mg/dL (0.7-1.2) 08/04/22 14:15 GFR Calculation 97.6 mL/min (90-130) 08/04/22 14:15 Glucose 105 mg/dL (65-115) 08/04/22 14:15 Calculated Osmolality 277 mOsm/kg (285-295) L 08/04/22 14:15 Calcium 8.9 mg/dL (8.5-10.5) 08/04/22 14:15 Total Bilirubin 0.4 mg/dL (0.15-1.2) 08/04/22 14:15 AST 11 U/L (0-40) 08/04/22 14:15 ALT 7 U/L (0-41) 08/04/22 14:15 Alkaline Phosphatase 92 U/L (40-130) 08/04/22 14:15 Total Protein 5.7 g/dL (6.6-8.7) L 08/04/22 14:15 Albumin 3.2 g/dL (3.5-5.2) L 08/04/22 14:15 Globulin 2.5 g/dL (1.3-4.6) 08/04/22 14:15 Lipase 11 U/L (13-60) L 08/04/22 14:15 Vitamin B12 399 pg/mL (232-1245) 08/04/22 14:15 Folate 16.8 ng/mL (4.5-32.2) 08/04/22 14:15 Procalcitonin 0.08 ng/mL (0-0.5) 08/04/22 14:15 Discharge Plan Discharge Patient Disposition: Placed in Observation Admit Provider: Chuy Tello Clinical Impression: Ascites, malignant, Abdominal pain Discharge Diet: Low Salt Discharge Activity: Resume usual activity and Increase activity as tolerated Coding Level of Care Code ED Body Builder Apprentice for Chg Fwd Exam Comprehensive
--- NOTE | 2022-08-04 13:45 | CT_ITS ---
WS: [id number] CT ABDOMEN PELVIS TECHNIQUE: Contrast-enhanced CT of the abdomen and pelvis with coronal and sagittal reformatted image s. CLINICAL INFORMATION: abd pain, bloating, hx cancer COMPARISON: CT July 25, 2022 DLP: 375.[address] scans at [facility] use at least one of these dose optimization techniques: automated e xposure control; mA and/or kV adjustment per patient size (includes targeted exams where dose is matc hed to clinical indication); or iterative reconstruction. FINDINGS: Diffuse moderate abdominal ascites similar to July 25, 2022. Increased slightly loculated pleural effusion RIGHT lower lobe. Chest tube in place. Interstitial thickening/fibrosis in the LEFT lung is unchanged from previous. Small LEFT pleural effusion. Thickened enhancing pleura in the lung bases i s unchanged. Enhancing thickened peritoneum more prominent in the pelvis similar to the prior examina tions. Liver appears normal. Normal portal vein and splenic vein. Normal spleen. Normal GE junction. Gallbladder appears normal. Adrenal glands are normal. No hydronephrosis in either kidney. Normal silvino iber abdominal aorta. No evidence of high-grade small or large bowel obstruction. Mild fecal retention in the colon. Diffus e sclerotic bony metastasis similar to the prior examinations. CT/CT abdomen pelvis w con* [id number] IMPRESSION: 1. Loculated small RIGHT pleural effusion has increased compared to July 082021. Chest tube in place. Stable tiny LEFT pleural effusion with interstiti al thickening/edema in the LEFT lower lobe. 2. Moderate diffuse abdominal ascites appears similar to July 25, 2022. 3. No subcutaneous hematoma or fluid collection in the RIGHT lower quadrant th at would correspond to the paracentesis site. 4. Diffuse thickening and enhancement of the peritoneum worse in the pelvis is unchanged from previous. 5. No hydronephrosis in either kidney. 6. Diffuse small blastic metastasis appear unchanged. 7. Enhancing enlarged prostate appears unchanged.
[2022-08-04] MEDS: iohexol 350 mg/mL 500 mL Btl (per mL) IV (14:05)
[2022-08-04 14:39] LABS: Basophils % 0.2 %; Eosinophils # 0.1 10^3/uL (0.0-0.8); Eosinophils % 2.5 %; Hematocrit 40.6 % (42.0-52.0); Hemoglobin 13.2 g/dL (11.7-16.6); Lymphocytes # 0.6 10^3/uL (0.8-4.8); Lymphocytes % 12.4 %; Mean Corpuscular HGB Conc 32.5 g/dL (30.0-36.0); Mean Corpuscular Hemoglobin 30.5 pg (28.0-34.0); Mean Corpuscular Volume 93.8 fl (80-94); Mean Platelet Volume 9.1 fL (7.4-10.4); Monocytes # 0.6 10^3/uL (0.2-0.9); Monocytes % 13.5 %; Neutrophils # 3.14 10^3/uL (1.8-7.7); Neutrophils % 70.9 %; Nucleated Red Blood Cells % 0 %; Platelet Count 382 10^3/cmm (130-400); Red Blood Count 4.33 10^6/uL (4.1-5.3); Red Cell Distribution Width 13.2 % (12.1-15.1); White Blood Count 4.4 10^3/uL (4.0-10.0)
[2022-08-04 14:54] LABS: Alanine Aminotransferase 7 U/L (0-41); Albumin Level 3.2 g/dL (3.5-5.2); Alkaline Phosphatase 92 U/L (40-130); Anion Gap 13.8 (5-19); Aspartate Amino Transferase 11 U/L (0-40); Blood Urea Nitrogen 20 mg/dL (8-23); Calcium 8.9 mg/dL (8.5-10.5); Carbon Dioxide 32 mmol/L (22-29); Chloride 90 mmol/L (98-107); Globulin 2.5 g/dL (1.3-4.6); Glomerular Filtration Rate 97.6 mL/min (90-130); Glucose 105 mg/dL (65-115); Lipase 11 U/L (13-60); Osmolality Calculated 277 mOsm/kg (285-295); Potassium 3.8 mmol/L (3.5-5.1); Sodium 132 mmol/L (136-145); Total Bilirubin 0.4 mg/dL (0.15-1.2); Total Protein 5.7 g/dL (6.6-8.7)
[2022-08-04 16:27] LABS: INR 1.33 (0.8-1.2)
--- NOTE | 2022-08-04 17:02 | P.HP_ITS ---
Providers/Chief Complaint Primary Care Provider: Igor Howard DO Chief Complaint: abd bloating/pain History of Present Illness Shahab Ramos is a 62 year old male with past medical history of adenocarcinoma of upper left lung on chemotherapy, Pleurx in place for recurrent pleural effusion, chronic hypotension, malnourishment, iron deficiency anemia, lower limb DVT on Eliquis with recurrent ascites requiring paracentesis with last done on 07/29. He presents to the ER today because of distention of the abdomen along with difficulty in breathing and decrease in appetite for last 2 to 3 days. Symptoms are associated with abdominal pain. Review of Systems General: Reports: 10 or more systems reviewed and unremarkable except in HPI and below Const: Denies: fever(s), chills, body aches, change in appetite, change in weight, malaise, night sweats, diaphoresis, change in sleep pattern, daytime sleepiness or snoring Eyes: Denies: change in vision, blurry vision, photophobia, eye discomfort or eye discharge ENMT: Denies: throat pain, enlarged tonsils, hoarseness, mouth pain, oral sores, dry mouth, tinnitus, nasal congestion or post nasal drip Card: Denies: chest pain, palpitations, irregular heart rhythm, edema, swel ling of feet/ankles, lightheadedness, syncope, pre-syncope, dyspnea on exertion, orthopnea, leg pain with exertion or acrocyanosis Resp: Denies: dyspnea, productive cough, non-productive cough, wheezing, stridor, pain on inspiration, change in phlegm color, hemoptysis or chest congestion GI: Denies: abdominal pain, nausea, vomiting, hematemesis, coffee ground emesis, dysphagia, heartburn, diarrhea, constipation, bloating, GI cramping, c hange in bowel habits, pain on defecation, hematochezia or melena : Denies: flank pain, difficulty urinating, dysuria, urinary frequency, urinary urgency, urinary hesitancy, urinary dribbling, difficulty starting urination, change in urine stream, nocturia or hematuria Musc: Denies: neck pain, back pain, extremity pain, joint pain, joint swelling, joint redness, joint stiffness or limited range of motion Neuro: Denies: headache(s), numbness in extremities, weakness in extremities, sensory changes, lack of coordination, difficulty walking, frequent falls, dizziness, vertigo, confusion, Slurred speech present, difficulty communicating thoughts or seizure-like activity Psych: Denies: anxiety, depression, mood swings, panic attacks, hopelessness or irritability Endo: Denies: polyuria, polydipsia, tired all the time, cold intolerance, excessive sweating, flushing or heat intolerance Roberto/Lymph: Denies: easy bruising or easy bleeding All/Imm: Denies: tongue swelling, facial swelling or acute wheezing Medications/Allergies Home Medications Medication Instructions Recorded Confirmed Last Taken Type albuterol sulfate 2.5 mg/3 mL 2.5 mg (3 mL) inhalation Q4H PRN 03/26/22 08/04/22 05/05/22 Rx (0.083 %) solution for nebulization shortness of breath or wheezing #90 mL albuterol sulfate 90 mcg/actuation 2 inh inhalation Q4H PRN shortness 03/26/22 08/04/22 05/05/22 Rx aerosol inhaler of breath or wheezing #18 grams apixaban 5 mg tablet (Eliquis) 5 mg PO BID #30 tabs 06/18/22 08/04/22 08/04/22 Rx osimertinib 40 mg tablet (Tagrisso) 40 mg PO BEDTIME 07/28/22 08/04/22 08/03/22 History ciprofloxacin HCl 500 mg tablet 500 mg PO DAILY 30 days #30 tabs 07/30/22 08/04/22 08/04/22 Rx (Cipro) midodrine 5 mg tablet 10 mg PO Q8H 30 days #180 tabs 07/30/22 08/04/22 08/04/22 Rx tamsulosin 0.4 mg capsule (Flomax) 0.4 mg PO DAILY 30 days #30 caps 07/30/22 08/04/22 08/04/22 Rx polyethylene glycol 3350 17 4 g PO DAILY PRN Constipation 08/04/22 08/04/22 Unknown History gram/dose oral powder (Miralax) Allergies Allergy/AdvReac Type Severity Reaction Status Date / Time furosemide [From Lasix] Allergy ALGY-Rash Verified 08/04/22 15:38 PFSH Acute PFSH: Medical History (Updated 08/04/22 @ 17:08 by Chuy Tello MD) Anemia Chronic hypotension COPD (chronic obstructive pulmonary disease) DVT (deep venous thrombosis) Non-small cell lung cancer Primary adenocarcinoma of upper lobe of left lung Pulmonary embolism Surgical History (Updated 08/04/22 @ 17:07 by Chuy Tello MD) History of chest tube placement History of colonoscopy 2013 History of esophagogastroduodenoscopy (EGD) 2013 Port-A-Cath in place (01/02/22) Family History Mother Stroke Diabetes Other CAD (coronary artery disease) Hypertension Denies family history of Clotting disorder Dementia Hyperlipidemia Psychiatric illness Chronic kidney disease (CKD) Suicide Anesthesia complication Bleeding disorder Lung disease Cancer Social History Smoking and tobacco status: never smoked Alcohol intake: never Lives independently: Yes Household members: spouse Marital status: Vitals/I&O/Wt Last Vital Signs Temp 97.8 F 08/04/22 10:14 Pulse 84 08/04/22 10:14 Resp 18 08/04/22 10:14 BP 105/68 08/04/22 10:14 Pulse Ox 96 08/04/22 10:14 O2 Del Method 08/04/22 10:14 Weight last 48 hrs Weight 58.967 kg Physical Exam Narrative: EXAM NARRATIVE: General: No acute distress, AO x3,, cachectic HEENT: PERRLA, pupils bilaterally equal and reactive Chest: Bilateral normal vesicular breath sounds, decreased air entry in left side CVS: S1-S2 regular, no murmurs, no tachycardia, no gallops, no rubs Abdomen: Soft, distended, generalized tenderness, no organomegaly, bowel sounds present, morbidly obese Neuro: No focal deficits, no facial deformity, AO x3, power 5/5 in all limbs Data 08/04/22 14:15 08/04/22 14:15 Micro: Microbiology 08/04/22 14:25 Blood Culture - Preliminary Blood SPECIMEN COLLECTED 08/04/22 14:15 Blood Culture - Preliminary Blood SPECIMEN COLLECTED A&P Assessment and plan (1) Ascites, malignant: Patient will need paracentesis. Took last Eliquis on 08/03. Last paracentesis on 07/29. Pathology studies negative for any signs of malignancy at that time. Fluid studies were negative for SBP though had elevated PMNs. Culture results were negative. Ultrasound guided paracentesis requested. Will await fluid for fluid studies. High-protein diet with protein shakes. Oral Lasix 20 mg daily. No concerns for SBP currently. Continue with empiric ciprofloxacin. Patient continues to have recurrent ascites then he will most likely will need Pleurx catheter placement (2) Abdominal pain: Qualifiers: Abdominal location: right upper quadrant Qualified Code(s): R10.11 - Right upper quadrant pain (3) DVT (deep venous thrombosis): Takes Eliquis at home. On hold for now given need for paracentesis. (4) Carcinomatosis peritonei: (5) Malignant pleural effusion: (6) Protein-energy malnutrition: Protein shakes with each meal (7) Chronic hypotension: Continue home dose of midodrine 10 mg 3 times a day. Plan CODE STATUS: Discussed in detail with the patient. He would like to remain full code. He has a Sister Rosa as DPOA. Cardiac diet with fluid restriction up to 1500 cc. Heparin 5000 every 12 hourly for DVT prophylaxis Protonix OPD prophylaxis Attestations 2 Medical Necessity Statement*: Admission under observation for less than 2 midnights for management of abdominal distention secondary to malignant ascites Time Spent in Patient Care: Greater than 35 minutes Coding Level of Care Code Acute Car Rental Manager for Chg Fwd Diagnoses Ascites, malignant R18.0 Abdominal pain R10.11 Abdominal location: right upper quadrant DVT (deep venous thrombosis) I82.409 Carcinomatosis peritonei C78.6 Malignant pleural effusion J91.0 Protein-energy malnutrition E46 Chronic hypotension I95.89
--- NOTE | 2022-08-04 17:42 | PC.NURSE ---
Report called to TERESA Gaines on Med Surg
[2022-08-04 20:04] LABS: Folate Level 16.8 ng/mL (4.5-32.2); Procalcitonin 0.08 ng/mL (0-0.5); Vitamin B12 399 pg/mL (232-1245)
[2022-08-04] MEDS: heparin 5,000 unit/mL INJ 1 mL 5000 UNIT SUBCUT (21:22)
[2022-08-04] MEDS: docusate sodium 100 mg Capsule PO (21:22)
[2022-08-04] MEDS: midodrine 5 mg TABLET 10 MG PO (21:22)
[2022-08-05] VITALS: BP 99/59; PULSE 98; RESP 13; TEMP 36.7; O2SAT 92
--- NOTE | 2022-08-05 01:17 | PC.NURSE ---
PATIENT'S CALLED CONCERNING STATUS UPDATE ON PATIENT. THIS NURSE INFORMED PATIENT'S SPOUSE THAT PATIENT WAS RESTING IN BED AND HAD RECEIVED MEDS PREVIOUSLY DISCUSSED. STATED NO FURTHER NEEDS OR QUESTIONS AT THIS TIME.
[2022-08-05] MEDS: gabapentin 300 mg Capsule PO (01:26)
[2022-08-05] MEDS: midodrine 5 mg TABLET 10 MG PO ×2 (03:45→10:08)
[2022-08-05 04:00] VITALS: BP 102/64; PULSE 94; RESP 13; TEMP 36.6; O2SAT 92
[2022-08-05 05:12] VITALS: PULSE 80
--- NOTE | 2022-08-05 06:00 | US_ITS ---
WS: [id number] ULTRASOUND-GUIDED THERAPEUTIC PARACENTESIS Procedure, risks, and complications have been explained to the patient. Consent is obtained. Utilizing aseptic technique and 1% buffered lidocaine, a small dermatome was made through which a 5 F rench Yueh catheter was inserted. Approximately 2850 ml of clear peritoneal fluid was obtained witho ut difficulty. No complications encountered. US/US paracentesis abd w [id number] IMPRESSION: Uncomplicated paracentesis yielding 2850 ml of peritoneal fluid.
[2022-08-05] MEDS: heparin 5,000 unit/mL INJ 1 mL 5000 UNIT SUBCUT (06:22)
[2022-08-05 06:32] LABS: Basophils % 0.2 %; Eosinophils # 0.2 10^3/uL (0.0-0.8); Eosinophils % 3.7 %; Hematocrit 35.8 % (42.0-52.0); Hemoglobin 11.7 g/dL (11.7-16.6); Lymphocytes # 0.6 10^3/uL (0.8-4.8); Lymphocytes % 13.5 %; Mean Corpuscular HGB Conc 32.7 g/dL (30.0-36.0); Mean Corpuscular Hemoglobin 30.5 pg (28.0-34.0); Mean Corpuscular Volume 93.2 fl (80-94); Mean Platelet Volume 8.9 fL (7.4-10.4); Monocytes # 0.5 10^3/uL (0.2-0.9); Monocytes % 13.3 %; Neutrophils # 2.81 10^3/uL (1.8-7.7); Neutrophils % 69.3 %; Nucleated Red Blood Cells % 0 %; Platelet Count 334 10^3/cmm (130-400); Red Blood Count 3.84 10^6/uL (4.1-5.3); Red Cell Distribution Width 13.4 % (12.1-15.1); White Blood Count 4.1 10^3/uL (4.0-10.0)
[2022-08-05 06:46] LABS: Estmated Average Glucose 103; Hemoglobin A1C 5.2 % (4.0-6.0)
[2022-08-05 06:56] LABS: Alanine Aminotransferase 7 U/L (0-41); Albumin Level 2.6 g/dL (3.5-5.2); Alkaline Phosphatase 78 U/L (40-130); Anion Gap 11.8 (5-19); Aspartate Amino Transferase 10 U/L (0-40); Blood Urea Nitrogen 20 mg/dL (8-23); Calcium 8.7 mg/dL (8.5-10.5); Carbon Dioxide 31 mmol/L (22-29); Chloride 96 mmol/L (98-107); Cholesterol 133 mg/dL (0-200); Globulin 2.2 g/dL (1.3-4.6); Glomerular Filtration Rate 97.6 mL/min (90-130); Glucose 93 mg/dL (65-115); HDL Cholesterol 35 mg/dL (60-100); LDL Cholesterol Calculated 79 mg/dL (50-129); Magnesium 2.1 mg/dL (1.7-2.3); Osmolality Calculated 282 mOsm/kg (285-295); Phosphorus 3.3 mg/dL (2.5-4.5); Potassium 3.8 mmol/L (3.5-5.1); Sodium 135 mmol/L (136-145); Total Bilirubin 0.2 mg/dL (0.15-1.2); Total Protein 4.8 g/dL (6.6-8.7); Triglycerides 93 mg/dL (0-150); VLDL Cholestrol Calculation 19 mg/dL (0-30)
[2022-08-05 08:00] VITALS: BP 92/50; PULSE 76; RESP 18; TEMP 36.5; O2SAT 92
--- NOTE | 2022-08-05 09:12 | PC.NURSE ---
Notified Dr. Tello for labs on patient for Paracentesis. He will order labs but gave verbal order for 50ml of Albumin one time.
--- NOTE | 2022-08-05 09:16 | PC.NURSE ---
Dr. Tello verbally ordered 200ml, 50mg of albumin one time. Dr. Tello will place orders for lab
[2022-08-05 09:35] LABS: Add Urine Microscopic? YES; Bilirubin Urine Neg (Negative); Blood Urine 3+ (Negative); Glucose Urine UA Norm (Normal); Ketones Urine Negative (Negative); Leukocyte Esterase Urine Negative (Negative); Nitrate Urine Negative (Negative); Protein Urine Trace (Negative); Specific Gravity, Urine 1.015 (1.005-1.030); Urine Appearance Clear (CLEAR); Urine Color Yellow (Yellow); Urobilinogen Urine Norm (Negative); pH Urine 6 (5-7)
[2022-08-05 09:36] LABS: Add Urine Culture? Yes; Bacteria Urine 3+ /hpf; Calcium Oxalate Crystals Urine 15-25 /hpf; Hyaline Casts Urine 0-4 /lpf; Mucus Urine 1+ /hpf; RBC Urine 50-80 /hpf (0-2); Squamous Epithelial Cell Urine 0-4 /hpf (0-5)
[2022-08-05] MEDS: docusate sodium 100 mg Capsule PO (09:59)
[2022-08-05] MEDS: tamsulosin 0.4 mg Capsule PO (09:59)
[2022-08-05] MEDS: ciprofloxacin 500 mg Tablet PO (09:59)
[2022-08-05] MEDS: pantoprazole DR 40 mg Tablet PO (09:59)
[2022-08-05 10:14] LABS: Cyto Order Verification Order Verified
[2022-08-05 10:15] LABS: Apprearance, Body Fluid BLOODY; Color, Body Fluid RED
[2022-08-05 10:34] LABS: Body Fluid Polynuclear #Cells 0.111; Body Fluid WBC 853 /uL; Monocytes # Body Fluid 0.742
[2022-08-05 10:42] LABS: PATH Referral YES
[2022-08-05 10:47] LABS: Albumin Body Fluid 2.4 g/dL; Amylase Body Fluid 182 U/L; Cholesterol Body Fluid 78 mg/dL (0-200); Fluid Alkaline Phos. 49 IU/L; LDH Body Fluid 408 U/L; Total Protein Body Fluid 3.5 g/dL; Triglycerides Body Fluid 40 mg/dL (0-150); Uric Acid Body Fluid 6 mg/dL
[2022-08-05 11:52] VITALS: BP 93/53; PULSE 82; RESP 16; TEMP 36.3; O2SAT 95
--- NOTE | 2022-08-05 12:26 | P.DS_ITS ---
Discharge Providers Date of Admission: 08/04/22 17:24 Date of Discharge: August 05, 2022 Attending Provider at Admission: Chuy Tello MD Attending Provider at Discharge: Chuy Tello MD Primary Care Provider: Igor Howard DO Diagnoses at Discharge Discharge Diagnosis (1) Ascites, malignant: Status: Acute (2) Abdominal pain: Status: Acute Qualifiers: Abdominal location: right upper quadrant Qualified Code(s): R10.11 - Right upper quadrant pain (3) DVT (deep venous thrombosis): Status: Acute (4) Carcinomatosis peritonei: Status: Acute (5) Malignant pleural effusion: Status: Acute (6) Protein-energy malnutrition: Status: Acute (7) Chronic hypotension: Status: Acute Reason for Visit Reason for Visit: abd bloating/pain Hospital Course Hospital Course Shahab Ramos is a 62 year old male with past medical history of adenocarcinoma of upper left lung on chemotherapy, Pleurx in place for recurrent pleural effusion, chronic hypotension, malnourishment, iron deficiency anemia, lower limb DVT on Eliquis with recurrent ascites requiring paracentesis with last done on 07/29.? He presents to the ER today because of distention of the abdomen along with difficulty in breathing and decrease in appetite for last 2 to 3 days.? Symptoms are associated with abdominal pain. Patient's hospitalization was unremarkable. He underwent paracentesis on 08/05 and 2.8 L of serosanguineous fluid was drained. Fluid studies were negative for SBP as PMNs were only 13 though SAAG was 0.2. He tolerated procedure well. Periprocedural he received 1 dose of IV albumin. Patient also gets his Pleurx drain on Tuesdays and at [facility] but as his paracentesis drain today an d he has propensity of having hypotension and as he was doing well on room air decision was made to hold off on draining Pleurx today. He is advised to drain his Pleurx tomorrow at home as before and then to follow-up at GI Lab as per his normal schedule. Patient is to follow-up with oncology later this week to discuss long-term plan for recurrent ascites with possible placement of Pleurx catheter as an outpatient. He has been discharged on low-dose daily Lasix. He is advised to keep his fluid intake less than 1.5 to 2 L along with less than 2 g of salt intake. He is to repeat his BMP at oncology clinic on his subsequent follow-up. Physical Exam Narrative: EXAM NARRATIVE: General: No acute distress, AO x3, cachectic HEENT: PERRLA, pupils bilaterally equal and reactive Chest: Bilateral normal vesicular breath sounds, decreased air entry in left side CVS: S1-S2 regular, no murmurs, no tachycardia, no gallops, no rubs Abdomen: Soft, less distended, generalized tenderness, no organomegaly, bowel sounds present, morbidly obese Neuro: No focal deficits, no facial deformity, AO x3, power 5/5 in all limbs Discharge Data Studies Completed and Pending Completed Studies During Hospitalization Category Date Time Status CT abdomen pelvis w con* [id number] Stat Cat Scan 08/04/22 13:45 Completed Pending at discharge Category Date Time Status Anaerobic Culture Routine Lab 08/05/22 Received Bacterial Antigen Stat Lab 08/04/22 16:08 Ordered Blood Culture Stat Lab 08/04/22 14:25 Results Body Fluid Culture & GS Routine Lab 08/05/22 Received Drug Screen, Urine Stat Lab 08/05/22 09:40 Ordered Legionella Antigen STAT Routine Lab 08/05/22 08:00 Results Mycobacteria, Culture w/Fluor Routine Lab 08/05/22 Received Urine Culture Routine Lab 08/05/22 08:00 Results Cytology [PTH] Routine Pth 08/05/22 09:39 Ordered [place] abd w [id number] Stat Ultrasound 08/05/22 06:00 Taken Radiology Impressions Abdomen/Pelvis CT 08/04/22 13:45 IMPRESSION: 1. Loculated small RIGHT pleural effusion has increased compared to July 25, 2022. Chest tube in place. Stable tiny LEFT pleural effusion with interstitial thickening/edema in the LEFT lower lobe. 2. Moderate diffuse abdominal ascites appears similar to July 25, 2022. 3. No subcutaneous hematoma or fluid collection in the RIGHT lower quadrant that would correspond to the paracentesis site. 4. Diffuse thickening and enhancement of the peritoneum worse in the pelvis is unchanged from previous. 5. No hydronephrosis in either kidney. 6. Diffuse small blastic metastasis appear unchanged. 7. Enhancing enlarged prostate appears unchanged. Laboratory Results WBC 4.1 10^3/uL (4.0-10.0) 08/05/22 06:12 RBC 3.84 10^6/uL (4.1-5.3) L 11/29/22 06:12 Hgb 11.7 g/dL (11.7-16.6) 08/05/22 06:12 Hct 35.8 % (42.0-52.0) L 08/05/22 06:12 MCV 93.2 fl (80-94) 08/05/22 06:12 MCH 30.5 pg (28.0-34.0) 08/05/22 06:12 MCHC 32.7 g/dL (30.0-36.0) 08/05/22 06:12 RDW 13.4 % (12.1-15.1) 08/05/22 06:12 Plt Count 334 10^3/cmm (130-400) 08/05/22 06:12 MPV 8.9 fL (7.4-10.4) 08/05/22 06:12 Neut % (Auto) 69.3 % 08/05/22 06:12 Lymph % (Auto) 13.5 % 08/05/22 06:12 [place] % (Auto) 13.3 % 08/05/22 06:12 Eos % (Auto) 3.7 % 08/05/22 06:12 Baso % (Auto) 0.2 % 08/05/22 06:12 Neut # (Auto) 2.81 10^3/uL (1.8-7.7) 08/05/22 06:12 Lymph # (Auto) 0.6 10^3/uL (0.8-4.8) L 08/05/22 06:12 [place] # (Auto) 0.5 10^3/uL (0.2-0.9) 08/05/22 06:12 Eos # (Auto) 0.2 10^3/uL (0.0-0.8) 08/05/22 06:12 Baso # (Auto) 0.0 10^3/uL (0.0-0.1) 08/05/22 06:12 Nucleated RBC % (auto) 0 % 08/05/22 06:12 Nucleated RBCs # 0.0 /100WBC 08/05/22 06:12 Differential Comment Yes 08/05/22 Unknown PT 16.80 SECONDS (12.1-14.9) H 08/04/22 14:15 INR 1.33 (0.8-1.2) H 08/04/22 14:15 Sodium 135 mmol/L (136-145) L 08/05/22 06:12 Potassium 3.8 mmol/L (3.5-5.1) 08/05/22 06:12 Chloride 96 mmol/L (98-107) L 08/05/22 06:12 Carbon Dioxide 31 mmol/L (22-29) H 08/05/22 06:12 Anion Gap 11.8 (5-19) 08/05/22 06:12 BUN 20 mg/dL (8-23) 08/05/22 06:12 Creatinine 0.8 mg/dL (0.7-1.2) 08/05/22 06:12 GFR Calculation 97.6 mL/min (90-130) 08/05/22 06:12 Glucose 93 mg/dL (65-115) 08/05/22 06:12 Estimat Average Glucose 103 08/05/22 06:12 Hemoglobin A1c 5.2 % (4.0-6.0) 08/05/22 06:12 Calculated Osmolality 282 mOsm/kg (285-295) L 08/05/22 06:12 Calcium 8.7 mg/dL (8.5-10.5) 08/05/22 06:12 Phosphorus 3.3 mg/dL (2.5-4.5) 08/05/22 06:12 Magnesium 2.1 mg/dL (1.7-2.3) 08/05/22 06:12 Total Bilirubin 0.2 mg/dL (0.15-1.2) 08/05/22 06:12 AST 10 U/L (0-40) 08/05/22 06:12 ALT 7 U/L (0-41) 08/05/22 06:12 Alkaline Phosphatase 78 U/L (40-130) 08/05/22 06:12 Total Protein 4.8 g/dL (6.6-8.7) L 08/05/22 06:12 Albumin 2.6 g/dL (3.5-5.2) L 08/05/22 06:12 Globulin 2.2 g/dL (1.3-4.6) 08/05/22 06:12 Triglycerides 93 mg/dL (0-150) 08/05/22 06:12 Cholesterol 133 mg/dL (0-200) 08/05/22 06:12 LDL Cholesterol, Calc 79 mg/dL (50-129) 08/05/22 06:12 Total VLDL Cholesterol 19 mg/dL (0-30) 08/05/22 06:12 HDL Cholesterol 35 mg/dL (60-100) L 08/05/22 06:12 Cholesterol/HDL Ratio 3.80 mg/dL (1.0-5.00) 08/05/22 06:12 Lipase 11 U/L (13-60) L 08/04/22 14:15 Vitamin B12 399 pg/mL (232-1245) 08/04/22 14:15 Folate 16.8 ng/mL (4.5-32.2) 08/04/22 14:15 Procalcitonin 0.08 ng/mL (0-0.5) 08/04/22 14:15 Urine Color Yellow (Yellow) 08/05/22 08:00 Urine Appearance Clear (CLEAR) 08/05/22 08:00 Urine pH 6 (5-7) 08/05/22 08:00 Ur Specific [place] 1.015 (1.005-1.030) 08/05/22 08:00 Urine Protein Trace (Negative) 08/05/22 08:00 Urine Glucose (UA) Norm (Normal) 08/05/22 08:00 Urine Ketones Negative (Negative) 08/05/22 08:00 Urine Blood 3+ (Negative) H 08/05/22 08:00 Urine Nitrate Negative (Negative) 08/05/22 08:00 Urine Bilirubin Neg (Negative) 08/05/22 08:00 Urine Urobilinogen Norm mg/dL (Negative) 08/05/22 08:00 Ur Leukocyte Esterase Negative (Negative) 08/05/22 08:00 Urine RBC 50-80 /hpf (0-2) H 08/05/22 08:00 Urine WBC 5-10 /hpf (0-5) H 08/05/22 08:00 Ur Squamous Epith Cells 0-4 /hpf (0-5) H 08/05/22 08:00 Calcium Oxalate Crystal 15-25 /hpf H 08/05/22 08:00 Amorphous Sediment Not Reportable 08/05/22 08:00 Urine Bacteria 3+ /hpf (NONE) H 08/05/22 08:00 Hyaline Casts 0-4 /lpf H 08/05/22 08:00 Urine Mucus 1+ /hpf 08/05/22 08:00 Fluid Color Red 08/05/22 Unknown Fluid Appearance Bloody 08/05/22 Unknown Fluid Specific Grav 1.010 08/05/22 Unknown Fluid pH 8.0 08/05/22 Unknown Fluid WBC 853 /uL 08/05/22 Unknown Fluid RBC 12.000 10^3/uL 08/05/22 Unknown Fld Polynuclear WBCs # 0.111 08/05/22 Unknown Fld Polynuclear WBCs % 13.000 % 08/05/22 Unknown Fl Mononucl WBCs #(Auto) 0.742 08/05/22 Unknown Fl Mononuclear % Auto 87.000 % 08/05/22 Unknown Fluid Glucose 74.0 mg/dL 08/05/22 Unknown Fluid Total Protein 3.5 g/dL 08/05/22 Unknown Fluid Albumin 2.4 g/dL 08/05/22 Unknown Fluid LDH 408 U/L 08/05/22 Unknown Fluid Amylase 182 U/L 08/05/22 Unknown Fluid Alk Phosphatase 49 IU/L 08/05/22 Unknown Fluid Cholesterol 78 mg/dL (0-200) 08/05/22 Unknown Fluid Triglycerides 40 mg/dL (0-150) 08/05/22 Unknown Fluid Uric Acid 6 mg/dL 08/05/22 Unknown Vitals Last Vital Signs Temp 97.4 F L 08/05/22 11:52 Pulse 82 08/05/22 11:52 Resp 16 08/05/22 11:52 BP 93/53 08/05/22 11:52 Pulse Ox 95 08/05/22 11:52 O2 Del Method 08/05/22 11:52 Discharge Plan Discharge Patient Disposition: Home Condition: Stable Prescriptions: Continued Eliquis 5 mg tablet 5 mg PO BID Qty: 30 3RF albuterol sulfate 90 mcg/actuation HFA aerosol inhaler 2 inh INHALATION Q4H PRN (Reason: shortness of breath or wheezing) Qty: 18 0RF albuterol sulfate 2.5 mg /3 mL (0.083 %) solution for nebulization 2.5 mg inhalation Q4H PRN (Reason: shortness of breath or wheezing) Qty: 90 0RF Tagrisso 40 mg tablet 40 mg PO BEDTIME midodrine 5 mg Tablet 10 mg PO Q8H 30 Days Qty: 180 0RF ciprofloxacin HCl [Cipro] 500 mg tablet 500 mg PO DAILY 30 Days Qty: 30 0RF tamsulosin [Flomax] 0.4 mg capsule 0.4 mg PO DAILY 30 Days Qty: 30 0RF Miralax 17 gram/dose Powder 4 g PO DAILY PRN (Reason: Constipation) Discharge Orders: Discharge Order (Routine); Ordered 08/05/22 Ordered By: Chuy Tello Referrals: Igor Howard DO [Primary Care Provider] - 7-10 days Enio Kang MD [Hospitalist] - 1-3 days (f/u for drain placement for paracentesis if appropriate. ) Discharge Diet: Low Salt Discharge Activity: Resume usual activity and Increase activity as tolerated Patient Instructions: Hypotension (DC), Ascites (DC), Paracentesis (DC), Opioid Safety Activity Restrictions/Additional Instructions: follow-up with oncology later this week to discuss long-term plan for recurrent ascites with possible placement of Pleurx catheter as an outpatient. He is advised to keep his fluid intake less than 1.5 to 2 L along with less than 2 g of salt intake. High-protein diet He is to repeat his BMP at oncology clinic on his subsequent follow-up. Please drain your Pleurx catheter tomorrow on 08/06 and then subsequently follow-up at [facility] for Pleurx catheter drainage as per your prior schedule. Discharge Attestations Time Spent in Discharge Care*: greater than 30 min Specific Discharge Activities: educating and/or supporting family/caregiver, discussing with case specialist/social workers/dc planners, documenting/other paperwork and evaluating patient/reviewing data Status at Discharge: Cognitive status at discharge: cognitively intact , Behavioral status at discharge: cooperative , Functional status at discharge: independent ambulation , Overall status at discharge: patient is back to baseline Quality Metrics Clinical Quality Measures [ No reported AMI, CVA or VTE this stay] Coding Level of Care Code Acute Chg FW DC note Diagnoses Ascites, malignant R18.0 Abdominal pain R10.11 Abdominal location: right upper quadrant DVT (deep venous thrombosis) I82.409 Carcinomatosis peritonei C78.6 Malignant pleural effusion J91.0 Protein-energy malnutrition E46 Chronic hypotension I95.89
--- NOTE | 2022-08-05 13:21 | PC.CHAP ---
Pastoral Care Encounter/Spiritual Assessment Type of Contact [] Declined plush cutter visit [] Patient/Family/Request visit [] Outpatient visit [] Follow-up visit [] Physician referral [] Code/Alert [x] Routine visit [] Staff referral [] Actively dying [] Patient sleeping [] Family support [] [] Out of room [] Palliative care [] [] Receiving care in room [] Pre-surgical visit [] Trauma [] Long length of stay [] ICU visit [] Other: Relational/Emotional Strength [x] Patient feels connected with others/family/visitors/staff [] Distress [] Loneliness/isolation [] Abandonment Spirituality of Patient [xx] Person of Jamila [x] Attends Alevism of their Jamila [x] Believes in Prayer [] Reads Bible or Amish materials [] There are Spiritual issues to be addressed Hearing Impaired Teacher Interventions [x] Prayer [x] Active listening [] Non-anxious presence [] Spiritual/emotional support [] Crisis/trauma care [] Spiritual counseling [] Bereavement support [] Provided bereavement packet [x] Provided Bible/devotional materials [] Provided toy/stuffed animal, coloring book to patient or family member [] Provided Communion [] Anointing/[place] [] Salvation [x] Completed spiritual assessment [] Other: Impact on Illness or Injury [] Angry [] Fearful [] Anxious [] Often cries [] Exhaustion [] Unable to work [] Unable to attend rastafarian [] Unable to walk/stand [] Unable to read [] Unable to drive [] Unable to eat/drink [] Unable to sleep [] Unable to be with family [] Patient intubated [] Other: Summary Time spent with patient 20 min
--- NOTE | 2022-08-05 16:21 | PC.NURSE ---
Discussed discharge instructions, follow up appointments and continued medication with patient and spouse. Verbalized understanding of instructions.
[2022-08-05 16:28] VITALS: BP 93/53; PULSE 82; RESP 16; TEMP 36.3; O2SAT 95
[2022-08-05 21:19] LABS: Amphetamines Screen Urine Negative (Negative); Barbiturates Screen Urine Negative (Negative); Benzodiazepines Screen Urine Negative (Negative); Cocaine Screen Urine Negative (Negative); Opiate Screen Urine Negative (Negative); PCP Screen Urine Negative (Negative); THC Screen Urine Negative (Negative)
== END 2022-08-05 13:55 | disposition home or self-care (01) ==
LOC: ER 15:39 → MEDSURG 17:24
PROVIDERS: Admitting Provider Student in an Organized Health Care Education/Training Program; Emergency Provider Emergency Medicine; PCP Family Medicine; Visit Provider Student in an Organized Health Care Education/Training Program
DX: C78.6 Secondary malignant neoplasm of retroperitoneum and peritoneum (principal); R18.0 Malignant ascites; R10.11 Right upper quadrant pain; I82.409 Acute embolism and thrombosis of unspecified deep veins of unspecified lower extremity; J91.0 Malignant pleural effusion; E46 Unspecified protein-calorie malnutrition; I95.89 Other hypotension; J44.9 Chronic obstructive pulmonary disease, unspecified; Z86.718 Personal history of other venous thrombosis and embolism; Z86.711 Personal history of pulmonary embolism; Z79.01 Long term (current) use of anticoagulants
CPT/HCPCS: 36415; 49083; 74177; 80053; 80061; 80306; 80503; 81001; 82042; 82150; 82465; 82607; 82746; 82945; 83036; 83615; 83690; 83735; 83986; 84075; 84100; 84145; 84157; 84315; 84478; 84560; 85025; 85610; 86403; 87015; 87040; 87070; 87075; 87086; 87116; 87205; 87206; 87449; 87801; 88108; 89050; 94664; 96365; 96372; 99285; G0378; J1644; P9046; Q9967

== ENCOUNTER 2022-08-11 12:35 | Day surgery (SDC) | payer OTHER, SELFPAY ==
[2022-08-08 09:02] VITALS: BMI 19.9
--- NOTE | 2022-08-11 12:46 | US_ITS ---
WS: [id number] ULTRASOUND-GUIDED PARACENTESIS CLINICAL INFORMATION: malignant ascities COMPARISON: None. Procedure Informed consent: The risks, benefits, and alternatives of the procedure were discussed with the willa ent. Verbal and written consent was obtained. Timeout: A timeout was performed to confirm the correct patient, procedure, and site. Preparation: A suitable skin site was identified. The patient was prepped and draped in usual sterile fashion. Lidocaine 1% was used for local anesthesia. Catheter: 4 [place] One-step Yueh catheter. Side: RIGHT Lower quadrant. Fluid Volume: 2600 ml Color: Mir DISPOSITION: Discarded safely. Complications: None. Patient disposition: Discharged from the department in stable condition. US/US paracentesis abd w [id number] IMPRESSION: Uncomplicated ultrasound-guided paracentesis. Removal of 2600ml
[2022-08-11 12:47] VITALS: BP 108/80; PULSE 112; RESP 18; TEMP 36.4; O2SAT 94
== END 2022-08-11 13:55 | disposition home or self-care (01) ==
PROVIDERS: Radiology Neuroradiology; PCP Family Medicine; Visit Provider Internal Medicine Medical Oncology
PROC: (CPT 49082; principal; 2022-08-11 13:30)
DX: C80.1 Malignant (primary) neoplasm, unspecified (principal); R18.0 Malignant ascites
CPT/HCPCS: 49083

== ENCOUNTER 2022-08-15 08:28 | Outpatient (RCR) | payer OTHER, SELFPAY ==
[2022-08-12 13:00] VITALS: BP 98/64; PULSE 106; RESP 18; TEMP 36.4; O2SAT 94
--- NOTE | 2022-08-12 13:00 | PC.NURSE ---
Pt to GI infusions for drainage of right chest Pleurx cath. 450 clear yoan fluid removed. Pt tolerated well.
[2022-08-15 08:40] VITALS: BP 87/53; PULSE 102; RESP 18; TEMP 37.1; O2SAT 94
--- NOTE | 2022-08-15 08:40 | PC.NURSE ---
Pt to GI Infusions for drainage of Pleurx cath to right chest. 300 mL clear yoan fluid removed. Pt condition appears to be deteriorating from previous visits. Family states pt will be going on hospice soon. Pt scheduled next Thursday for drain to be placed in abdomen for recurrent ascites. Pt placed on scheduled for next Thursday to have Pleurx drained.
[2022-08-18] MEDS: dexamethasone 10 mg/mL INJ IVP (09:25)
[2022-08-18] MEDS: sodium chloride 0.9% 1,000 ML 999 ML IV (09:26)
[2022-08-18] MEDS: ondansetron 2 mg/ML SDV 2 mL 8 MG IVP (09:26)
[2022-08-18] MEDS: sodium chloride 0.9% (100 ml) 100 ML 300 ML (09:26)
[2022-08-18 09:35] LABS: Basophils % 0.2 %; Eosinophils # 0.1 10^3/uL (0.0-0.8); Eosinophils % 0.8 %; Hematocrit 40.5 % (42.0-52.0); Hemoglobin 13.6 g/dL (11.7-16.6); Lymphocytes # 0.3 10^3/uL (0.8-4.8); Lymphocytes % 2.8 %; Mean Corpuscular HGB Conc 33.6 g/dL (30.0-36.0); Mean Corpuscular Hemoglobin 30.7 pg (28.0-34.0); Mean Corpuscular Volume 91.4 fl (80-94); Mean Platelet Volume 9.2 fL (7.4-10.4); Monocytes % 8.2 %; Neutrophils # 10.33 10^3/uL (1.8-7.7); Neutrophils % 87.7 %; Nucleated Red Blood Cells % 0 %; Platelet Count 509 10^3/cmm (130-400); Red Blood Count 4.43 10^6/uL (4.1-5.3); Red Cell Distribution Width 12.8 % (12.1-15.1); White Blood Count 11.8 10^3/uL (4.0-10.0)
[2022-08-18 10:02] LABS: Alanine Aminotransferase 7 U/L (0-41); Albumin Level 2.8 g/dL (3.5-5.2); Alkaline Phosphatase 103 U/L (40-130); Anion Gap 11.6 (5-19); Aspartate Amino Transferase 11 U/L (0-40); Blood Urea Nitrogen 40 mg/dL (8-23); Calcium 9.9 mg/dL (8.5-10.5); Carbon Dioxide 26 mmol/L (22-29); Chloride 93 mmol/L (98-107); Globulin 2.7 g/dL (1.3-4.6); Glomerular Filtration Rate 97.6 mL/min (90-130); Glucose 128 mg/dL (65-115); Osmolality Calculated 273 mOsm/kg (285-295); Potassium 4.6 mmol/L (3.5-5.1); Sodium 126 mmol/L (136-145); Total Bilirubin 0.3 mg/dL (0.15-1.2); Total Protein 5.5 g/dL (6.6-8.7)
--- NOTE | 2022-08-21 09:59 | PC.NURSE ---
Pt informed staff that patient has gone on Hospice and will not be coming in for twice weekly drainage of Pleurx cath to right chest. Hospice to manage drain from this point.
== END 2022-08-22 23:59 | disposition home or self-care (01) ==
LOC: GILAB 08:28
PROVIDERS: Internal Medicine Medical Oncology; PCP Family Medicine; Visit Provider Internal Medicine Pulmonary Disease
DX: J90 Pleural effusion, not elsewhere classified (principal)
CPT/HCPCS: 80053; 85025; 99212; J1100; J2405; J7030

== ENCOUNTER 2022-08-18 09:08 | Oncology outpatient (recurring) (ONCR) | payer OTHER, SELFPAY ==
[2022-08-13] MEDS: ondansetron 2 mg/ML SDV 2 mL 8 MG IVP (10:20)
[2022-08-13] MEDS: sodium chloride 0.9% 500 ML 100 ML IV (10:21)
[2022-08-13 10:33] LABS: Basophils % 0.1 %; Eosinophils # 0.1 10^3/uL (0.0-0.8); Eosinophils % 2.1 %; Hematocrit 39.2 % (42.0-52.0); Hemoglobin 12.8 g/dL (11.7-16.6); Lymphocytes # 0.4 10^3/uL (0.8-4.8); Lymphocytes % 6.4 %; Mean Corpuscular HGB Conc 32.7 g/dL (30.0-36.0); Mean Corpuscular Hemoglobin 30.8 pg (28.0-34.0); Mean Corpuscular Volume 94.5 fl (80-94); Monocytes # 0.6 10^3/uL (0.2-0.9); Monocytes % 9.4 %; Neutrophils # 5.45 10^3/uL (1.8-7.7); Neutrophils % 81.6 %; Nucleated Red Blood Cells % 0 %; Platelet Count 331 10^3/cmm (130-400); Red Blood Count 4.15 10^6/uL (4.1-5.3); Red Cell Distribution Width 13.2 % (12.1-15.1); White Blood Count 6.7 10^3/uL (4.0-10.0)
[2022-08-13 10:54] LABS: Alanine Aminotransferase 11 U/L (0-41); Albumin Level 2.7 g/dL (3.5-5.2); Alkaline Phosphatase 97 U/L (40-130); Anion Gap 11.5 (5-19); Aspartate Amino Transferase 10 U/L (0-40); Blood Urea Nitrogen 18 mg/dL (8-23); Calcium 9.2 mg/dL (8.5-10.5); Carbon Dioxide 28 mmol/L (22-29); Chloride 99 mmol/L (98-107); Globulin 2.7 g/dL (1.3-4.6); Glomerular Filtration Rate 97.6 mL/min (90-130); Glucose 100 mg/dL (65-115); Osmolality Calculated 280 mOsm/kg (285-295); Potassium 4.5 mmol/L (3.5-5.1); Sodium 134 mmol/L (136-145); Total Bilirubin 0.4 mg/dL (0.15-1.2); Total Protein 5.4 g/dL (6.6-8.7)
[2022-08-13 11:15] VITALS: BP 110/65; PULSE 78; RESP 18; TEMP 36.6; O2SAT 98
--- NOTE | 2022-08-13 15:16 | PC.NURSE ---
patient came into the infusion suite after Dr visit. IV started via the port a cath access with IV fluids for hydration and nausea via the Dr orders. He tolerated it well with no issues or concerns. Less nausea complained of prior to discharge.Patient was referred to hospice with the explaination of the service.[email or web address]
[2022-08-18] MEDS: LORazepam 2 mg/mL INJ 1 mL 0.5 MG IVP (11:27)
[2022-08-18 13:30] VITALS: BP 94/60; PULSE 106; RESP 16; TEMP 36.4; O2SAT 98
== END 2022-08-27 17:56 | disposition home or self-care (01) ==
PROVIDERS: PCP Family Medicine; Visit Provider Internal Medicine Medical Oncology
DX: C34.12 Malignant neoplasm of upper lobe, left bronchus or lung (principal); C78.6 Secondary malignant neoplasm of retroperitoneum and peritoneum; Z79.899 Other long term (current) drug therapy
CPT/HCPCS: 80053; 85025; 96365; 96375; J1100; J2060; J2405; J7040

== ENCOUNTER 2022-08-18 19:18 | Emergency (ER) | payer OTHER, SELFPAY ==
[2022-08-18] VITALS (11 sets, daily range): BP systolic 114–145; BP diastolic 73–99; PULSE 123–140; RESP 16–20; TEMP 36.4; O2SAT 93–99; BMI 22.1
--- NOTE | 2022-08-18 19:26 | ED_ITS ---
HPI - SOB/Dyspnea General: Chief Complaint: Nausea/Vomiting/Diarrhea Stated Complaint: SOB, coffee ground emesis Time Seen by Provider: 08/18/22 19:26 Limitations: altered mental status History of Present Illness: HPI Narrative: Mr. Ramos is a 62-year-old gentleman with history of metastatic lung cancer presenting to the emergency department for increased shortness of breath and coffee-ground emesis. The patient himself is significantly ill appearing and at times very difficult to understand, possibly encephalopathic which significantly limits history. Collateral information provided by ex- is that patient's mental status seems to be significantly worse. He at times appears to be hallucinating which is atypical for him. He was seen in clinic earlier today and given a prescription for Zofran, which he has had before without complication, and also olanzapine which he has not had before for severe nausea and vomiting. Plan is to have drain placed operatively for recurrent ascites and then have hospice consult tomorrow afterwards at home. Review of Systems General: Reports: ROS unobtainable due to mental status PFSH ED PFSH: Medical History Anemia Chronic hypotension COPD (chronic obstructive pulmonary disease) DVT (deep venous thrombosis) Non-small cell lung cancer Primary adenocarcinoma of upper lobe of left lung Pulmonary embolism Surgical History History of chest tube placement History of colonoscopy 2013 History of esophagogastroduodenoscopy (EGD) 2014 Port-A-Cath in place (01/02/22) Family History Mother Stroke Diabetes Other CAD (coronary artery disease) Hypertension Denies family history of Clotting disorder Dementia Hyperlipidemia Psychiatric illness Chronic kidney disease (CKD) Suicide Anesthesia complication Bleeding disorder Lung disease Cancer Social History Smoking and tobacco status: never smoked Alcohol intake: never Lives independently: Yes Household members: spouse Marital status: Physical Exam Const: COMMON NORMALS: alert GENERAL APPEARANCE: cooperative, well develop ed and ill appearing HENMT: COMMON NORMALS: normocephalic and atraumatic HEAD & SCALP: normocephalic and atraumatic Eye: COMMON NORMALS: conjunctivae normal CONJUNCTIVA: Yes conjunctivae normal SCLERA: sclerae normal Neck/C-Spine: COMMON NORMALS: supple GENERAL: Yes trachea midline Resp: EFFORT & INSPECTION: Yes able to speak in complete sentences AUSCULTATION: diminished lung sounds bilateral in the lower lung quinn Cardio: COMMON NORMALS: regular rhythm RATE: tachycardic RHYTHM: regular rhythm GI: COMMON NORMALS: Soft to palpation PALPATION: Yes Soft to palpation and No Tenderness to palpation present (GI) Extremity: GENERAL: Yes normal exam except as noted and No edema Neuro: COMMON NORMALS: moves all extremities SENSORIUM/ORIENTATION: Yes alert and Yes fluctuating sensorium Psych: MEMORY/COGNITION: Yes memory grossly impaired Course Vital Signs: Vital signs: Vital Signs Temperature 97.5 F L 08/18/22 19:19 Pulse Rate 128 H 08/18/22 23:15 Respiratory Rate 16 08/18/22 23:15 Blood Pressure 131/85 08/18/22 23:15 Pulse Oximetry 97 08/18/22 23:15 Oxygen Delivery Me thod 08/18/22 19:19 Oxygen Flow Rate 4 08/18/22 19:19 MDM - SOB/Dyspnea Medical Decision Making 62-year-old gentleman presenting with possible GI bleed and shortness of breath. He is quite difficult to understand and ill-appearing. EKG notable for sinus tachycardia and frequent ectopy. No STEMI. Labs including hemoglobin similar to prior. Coags normal. No significant ABG abnormality on is on oxygen. Metabolic panel with hyponatremia and mild hypokalemia. Ammonia is mildly elevated. Chest x-ray demonstrating chronic pleural effusions. Upon obtaining collateral information additional imaging is felt to be warranted. CT head negative for acute intracranial pathology. CT chest abdomen pelvis with many chronic findings which were discussed with patient and family member. Given complexity including loculation of ascites I do not feel that the patient is amenable to ED therapeutic paracentesis. Very challenging situation. I had extensive discussion with patient's . Unfortunately I believe that the patient is in the process of dying though more likely days/weeks as opposed to hours. The procedure that he has scheduled for tomorrow is ultimately the best option going forward and cannot be done in the inpatient setting per hospitalist. The results of ED evaluation were discussed with the patient and his ex- including prescriptions and/or symptomatic cares (if applicable) including appropriate and responsible use, followup plan, and return precautions. The patient and ex- verbalized understanding. Medical Records I reviewed the patient's medical records. Lab Data I reviewed the patient's lab results. 08/18/22 19:56 08/18/22 19:56 Labs/Radiology: Radiology Impressions Chest X-Ray 08/18/22 19:27 IMPRESSION: 1. Chronic pleural effusions. 2. No definite focal acute pulmonary disease identified. Chest/Abdomen/Pelvis CT 08/18/22 21:02 IMPRESSION: 1. The PE have essentially resolved from 05/17/2022. No acute PE seen today. 2. A right-sided PleurX has been placed, and the right-sided effusion is smaller. 3. Findings of stage IV cancer are again noted with left-sided pleural masses and thickening, left apical apparent mass, and severe uazv-sedoapk-ngrz-right lung infiltrates. 4. There is mildly progressive mediastinal and hilar lymphadenopathy. 5. Tsen-mmcbjer-fuis-right lung infiltrates are again seen, which may be due to combination of aspiration, infection, and metastatic disease. Lymphangitic carcinomatosis is certainly possible. 6. Osseous metastases are again seen. 7. COPD, atherosclerosis, and numerous chronic findings above. Concerning and ominous findings. IMPRESSION: 1. Severe findings of stage IV cancer again noted. Diffuse large volume complex/loculated ascites again seen with widespread omental/peritoneal metastases likely. 2. Widespread osseous metastases. 3. No small bowel obstruction, abscess or free air. Constipation. 4. The findings are unimproved from 08/04/2022. Head CT 08/18/22 21:02 IMPRESSION: No acute intracranial abnormality. Laboratory Results WBC 11.8 10^3/uL (4.0-10.0) H 08/18/22 19:56 RBC 4.59 10^6/uL (4.1-5.3) 08/18/22 19:56 Hgb 13.9 g/dL (11.7-16.6) 08/18/22 19:56 Hct 42.4 % (42.0-52.0) 08/18/22 19:56 MCV 92.4 fl (80-94) 08/18/22 19:56 MCH 30.3 pg (28.0-34.0) 08/18/22 19:56 MCHC 32.8 g/dL (30.0-36.0) 08/18/22 19:56 RDW 12.9 % (12.1-15.1) 08/18/22 19:56 Plt Count 490 10^3/cmm (130-400) H 08/18/22 19:56 MPV 8.9 fL (7.4-10.4) 08/18/22 19:56 Neut % (Auto) 87.4 % 08/18/22 19:56 Lymph % (Auto) 1.9 % 08/18/22 19:56 [place] % (Auto) 10.0 % 08/18/22 19:56 Eos % (Auto) 0.2 % 08/18/22 19:56 Baso % (Auto) 0.1 % 08/18/22 19:56 Neut # (Auto) 10.29 10^3/uL (1.8-7.7) H 08/18/22 19:56 Lymph # (Auto) 0.2 10^3/uL (0.8-4.8) L 08/18/22 19:56 [place] # (Auto) 1.2 10^3/uL (0.2-0.9) H 08/18/22 19:56 Eos # (Auto) 0.0 10^3/uL (0.0-0.8) 08/18/22 19:56 Baso # (Auto) 0.0 10^3/uL (0.0-0.1) 08/18/22 19:56 Nucleated RBC % (auto) 0 % 08/18/22 19:56 Nucleated RBCs # 0.0 /100WBC 08/18/22 19:56 PT 14.80 SECONDS (12.1-14.9) 08/18/22 19:56 INR 1.12 (0.8-1.2) 08/18/22 19:56 APTT 30.8 SECONDS (23.9-36.7) 08/18/22 19:56 Specimen Type Arterial 08/18/22 20:15 Sample Site Radial, right 08/18/22 20:15 ABG pH 7.44 (7.35-7.45) 08/18/22 20:15 ABG pCO2 39.8 mmHg (35-45) 08/18/22 20:15 ABG pO2 97.5 mmHg (80.0-100.0) 08/18/22 20:15 ABG HCO3 26.9 mmol/L (22-26) H 08/18/22 20:15 ABG Base Excess 2.6 mmol/L (-2.0-2.0) H 08/18/22 20:15 [place] Test Pos 08/18/22 20:15 Hematocrit 42.2 % (42-52) 08/18/22 20:15 O2 Delivery Device Nc 08/18/22 20:15 O2 Liters/Min 4.0 % 08/18/22 20:15 Button And Buckle Maker ID [id number] 08/18/22 20:15 Sodium 126 mmol/L (136-145) L 08/18/22 19:56 Potassium 5.4 mmol/L (3.5-5.1) H 08/18/22 19:56 Chloride 90 mmol/L (98-107) L 08/18/22 19:56 Carbon Dioxide 27 mmol/L (22-29) 08/18/22 19:56 Anion Gap 14.4 (5-19) 08/18/22 19:56 BUN 46 mg/dL (8-23) H 08/18/22 19:56 Creatinine 1.0 mg/dL (0.7-1.2) 08/18/22 19:56 GFR Calculation 75.5 mL/min (90-130) L 08/18/22 19:56 Glucose 130 mg/dL (65-115) H 08/18/22 19:56 Calculated Osmolality 276 mOsm/kg (285-295) L 08/18/22 19:56 Lactate 2.1 mmol/L (0.5-2.2) 08/18/22 19:56 Calcium 10.7 mg/dL (8.5-10.5) H 08/18/22 19:56 Total Bilirubin 0.4 mg/dL (0.15-1.2) 08/18/22 19:56 AST 12 U/L (0-40) 08/18/22 19:56 ALT 7 U/L (0-41) 08/18/22 19:56 Alkaline Phosphatase 108 U/L (40-130) 08/18/22 19:56 Ammonia 73 umol/L (16-60) H 08/18/22 20:35 Troponin T Baseline 15 ng/L (0-15) 08/18/22 19:56 Troponin T 120 Minute 15.15 ng/L (0-15) H 08/18/22 22:22 Delta Troponin T 0.15 ABS# (0-10) 08/18/22 22:22 NT-Pro-B Natriuret Pep 163 pg/mL (0-125) H 08/18/22 19:56 Total Protein 5.5 g/dL (6.6-8.7) L 08/18/22 19:56 Albumin 3.2 g/dL (3.5-5.2) L 08/18/22 19:56 Globulin 2.3 g/dL (1.3-4.6) 08/18/22 19:56 Blood Type O Positive 08/18/22 19:56 Rho(D) Type Positive 08/18/22 19:56 Antibody Screen Negative 08/18/22 19:56 Discharge Plan Discharge Patient Disposition: Home Clinical Impression: Nausea and vomiting, Dehydration, Tachycardia, Metastatic cancer to lung, Respiratory failure with hypoxia Condition: Stable Prescriptions: New metoclopramide HCl 5 mg/5 mL solution 10 mg PO Q6H PRN (Reason: nausea and vomiting) Qty: 280 0RF No Action Eliquis 5 mg tablet 5 mg PO BID Qty: 30 3RF Hold Instructions: Resume on 08/21/22. bisacodyl 10 mg suppository 10 mg WA DAILY PRN (Reason: constipation) Qty: 5 0RF Rx Instructions: 1 suppository per rectum every day PRN for constipation. morphine concentrate 100 mg/5 mL (20 mg/mL) solution 20 mg sublingual DIRECTED PRN (Reason: pain) 14 Days Qty: 30 0RF Rx Instructions: 0.25-1ml q4H PRN Start 0.25ml, may repeat 0.25ml to max of 1ml q4H ondansetron 8 mg tablet,disintegrating 8 mg PO Q4H PRN (Reason: nausea and vomiting) Qty: 60 0RF olanzapine 5 mg tablet 5 mg PO Q6H PRN (Reason: uncontrolled nausea/vomiting) Qty: 30 0RF lorazepam 2 mg/mL concentrate 2 mg sublingual Q6H PRN (Reason: anxiety) Qty: 30 0RF Rx Instructions: 0.25-1ml q4H PRN. Start 0.25ml, may repeat 0.25ml to max of 1ml q4H morphine concentrate 100 mg/5 mL (20 mg/mL) solution 20 mg sublingual DIRECTED PRN (Reason: pain) 14 Days Qty: 30 0RF Rx Instructions: 0.25-1ml q4H PRN Start 0.25ml, may repeat 0.25ml to max of 1ml q4H bisacodyl 10 mg suppository 10 mg WA DAILY PRN (Reason: constipation) Qty: 5 0RF Rx Instructions: 1 suppository per rectum every day PRN for constipation. atropine 1 % drops 4 drp sublingual Q4-5H PRN (Reason: secretions) Qty: 5 0RF Rx Instructions: 4 drops SL q 4 hours PRN for terminal congestion/excessive secretions. ondansetron 4 mg tablet,disintegrating 4 mg translingual Q4-5H PRN (Reason: nausea) Qty: 5 0RF Rx Instructions: Dissolve 1 tablet under tongue every 4 hours PRN for nausea lorazepam 2 mg/mL concentrate 2 mg sublingual Q6H PRN (Reason: anxiety) Qty: 30 0RF Rx Instructions: 0.25-1ml q4H PRN. Start 0.25ml, may repeat 0.25ml to max of 1ml q4H haloperidol lactate 2 mg/mL concentrate 2 mg PO Q4-5H PRN (Reason: agitation) Qty: 15 0RF Rx Instructions: Start at 0.5ml, if continued after 1 hour, give additional 0.5ml Q4H albuterol sulfate 90 mcg/actuation HFA aerosol inhaler 2 inh INHALATION Q4H PRN (Reason: shortness of breath or wheezing) Qty: 18 0RF albuterol sulfate 2.5 mg /3 mL (0.083 %) solution for nebulization 2.5 mg inhalation Q4H PRN (Reason: shortness of breath or wheezing) Qty: 90 0RF Senna-S 8.6-50 mg Tablet 2 tab PO DAILY midodrine 5 mg Tablet 10 mg PO Q8H 30 Days Qty: 180 0RF ciprofloxacin HCl [Cipro] 500 mg tablet 500 mg PO DAILY 30 Days Qty: 30 0RF tamsulosin [Flomax] 0.4 mg capsule 0.4 mg PO DAILY 30 Days Qty: 30 0RF polyethylene glycol 3350 [Miralax] 17 gram/dose Powder 4 g PO DAILY PRN (Reason: Constipation) hydrocodone-acetaminophen 7.5-325 mg tablet 1.5 tab PO Q6H PRN (Reason: Pain) Discharge Orders: Discharge ED (Routine); Ordered 08/18/22 Ordered By: Edi Everett Other Ambulatory Orders: DME: Oxygen (Order) Location: None Selected Ordered By: Edi Everett Referrals: Igor Howard DO [Primary Care Provider] - Discharge Diet: As Directed Discharge Activity: Increase activity as tolerated Patient Instructions: Acute Nausea and Vomiting (ED), Altered Mental Status (ED), Pain Management Activity Restrictions/Additional Instructions: Thank you for visiting the emergency department. You were seen and evaluated for nausea, vomiting, and mental status change. The exact cause of your symptoms is unclear though likely related to underlying metastatic cancer. Please attend your scheduled appointment/surgery tomorrow. Please follow-up with your oncologist and primary care provider. Return to the emergency department for anything that you are concerned about a feel needs emergency department evaluation. Coding Level of Care Code ED Well Drill Operator for Papi Barrios
--- NOTE | 2022-08-18 19:27 | XRR_ITS ---
PROCEDURE INFORMATION: Exam: XR Chest Exam date and time: 08/18/2022 7:51 PM Age: 62 years old Clinical indication: Patient HX: C/O shortness of breath, hematemesis. ; Additional info: Hematemesis, SOB TECHNIQUE: Imaging protocol: Radiologic exam of the chest. Views: 1 view. COMPARISON: CR (CHEST, ) 07/28/2022 12:41 AM FINDINGS: Tubes, catheters and devices: Right-sided chest port terminates cavoatrial junction. Right chest tunneled pleural drainage catheter with unremarkable position. Lungs: Chronic left lung volume loss coarse irregular interstitial changes at the left lung base. No definite superimposed acute pulmonary consolidation. Pleural spaces: Moderate volume bilateral pleural effusions. Negative for pneumothorax. Heart/Mediastinum: Unremarkable. No cardiomegaly. Bones/joints: Unremarkable. XR/XR chest 1V portable [id number] IMPRESSION: 1. Chronic pleural effusions. 2. No definite focal acute pulmonary disease identified.
--- NOTE | 2022-08-18 20:01 | ECG_ITS ---
[facility] Test Date: 2022-08-18 Pat Name: Shahab Ramos Department: Room: Gender: Male Pay Per Click Strategist: : 1960 Requested By: Edi Everett Order Number: [id number] Jean MD: Carol Juarez M.D. Measurements Intervals [place] Rate: 131 P: 99 AK: 129 QRS: 93 QRSD: 93 T: 63 QT: 288 QTc: 426 Interpretive Statements SINUS TACHYCARDIA WITH FREQUENT SUPRAVENTRICULAR PREMATURE COMPLEXES BORDERLINE RIGHT AXIS DEVIATION [QRS AXIS > 90] ABNORMAL RHYTHM ECG Compared to ECG 05/17/2022 04:27:35 Sinus rhythm no longer present Electronically Signed On 08-20-2022 0:00:28 FLAT LOCK OPERATOR by Carol Juarez M.D. [id number]
[2022-08-18 20:04] LABS: Basophils % 0.1 %; Eosinophils % 0.2 %; Hematocrit 42.4 % (42.0-52.0); Hemoglobin 13.9 g/dL (11.7-16.6); Lymphocytes # 0.2 10^3/uL (0.8-4.8); Lymphocytes % 1.9 %; Mean Corpuscular HGB Conc 32.8 g/dL (30.0-36.0); Mean Corpuscular Hemoglobin 30.3 pg (28.0-34.0); Mean Corpuscular Volume 92.4 fl (80-94); Mean Platelet Volume 8.9 fL (7.4-10.4); Monocytes # 1.2 10^3/uL (0.2-0.9); Neutrophils # 10.29 10^3/uL (1.8-7.7); Neutrophils % 87.4 %; Nucleated Red Blood Cells % 0 %; Platelet Count 490 10^3/cmm (130-400); Red Blood Count 4.59 10^6/uL (4.1-5.3); Red Cell Distribution Width 12.9 % (12.1-15.1); White Blood Count 11.8 10^3/uL (4.0-10.0)
[2022-08-18] MEDS: pantoprazole 40 mg SDV 80 MG IVP (20:14)
[2022-08-18] MEDS: sodium chloride 0.9% 500 ML IV (20:14)
[2022-08-18] MEDS: ondansetron 2 mg/ML SDV 2 mL 4 MG IVP (20:14)
[2022-08-18 20:19] LABS: INR 1.12 (0.8-1.2)
[2022-08-18 20:20] LABS: Partial Thromboplastin Time 30.8 SECONDS (23.9-36.7)
[2022-08-18 20:24] LABS: Lactate (Lactic Acid level) 2.1 mmol/L (0.5-2.2)
[2022-08-18 20:27] LABS: ABG PCO2 39.8 mmHg (35-45); ABG PH Result 7.44 (7.35-7.45); Arterial Blood Gas Hematocrit 42.2 % (42-52); Base Excess ABG 2.6 mmol/L (-2.0-2.0); Blood Gas Allen Test Pos; Blood Gas Sample Type Arterial; HCO3 ABG 26.9 mmol/L (22-26); PO2 ABG 97.5 mmHg (80.0-100.0)
[2022-08-18 20:28] LABS: Blood Gas Sample Site Radial, right; Oxygen Device NC
[2022-08-18 20:30] LABS: Troponin(5th) Baseline 15 ng/L (0-15)
[2022-08-18 20:37] LABS: Alanine Aminotransferase 7 U/L (0-41); Albumin Level 3.2 g/dL (3.5-5.2); Alkaline Phosphatase 108 U/L (40-130); Aspartate Amino Transferase 12 U/L (0-40); Blood Urea Nitrogen 46 mg/dL (8-23); Calcium 10.7 mg/dL (8.5-10.5); Carbon Dioxide 27 mmol/L (22-29); Chloride 90 mmol/L (98-107); Globulin 2.3 g/dL (1.3-4.6); Glomerular Filtration Rate 75.5 mL/min (90-130); Glucose 130 mg/dL (65-115); NT Pro B Type Natriuretic Pept 163 pg/mL (0-125); Osmolality Calculated 276 mOsm/kg (285-295); Sodium 126 mmol/L (136-145); Total Bilirubin 0.4 mg/dL (0.15-1.2); Total Protein 5.5 g/dL (6.6-8.7)
[2022-08-18 20:41] LABS: Anion Gap 14.4 (5-19); Potassium 5.4 mmol/L (3.5-5.1)
--- NOTE | 2022-08-18 21:02 | CTR_ITS ---
PROCEDURE INFORMATION: Exam: CT Head Without Contrast Exam date and time: 08/18/2022 9:46 PM Age: 62 years old Clinical indication: Altered mental status/memory loss; Patient HX: Confusion with lethargy. ; Additional info: AMS TECHNIQUE: Imaging protocol: Computed tomography of the head without contrast. Radiation optimization: All CT scans at this facility use at least one of these dose optimization techniques: automated exposure control; mA and/or kV adjustment per patient size (includes targeted exams where dose is matched to clinical indication); or iterative reconstruction. COMPARISON: No relevant prior studies available. RADIATION DOSE METRICS: Total DLP (mGy-cm): 602.88 FINDINGS: Brain: Unremarkable. Mild cortical volume loss. No hemorrhage. Unremarkable white matter. No mass effect. Cerebral ventricles: No ventriculomegaly. Paranasal sinuses: Visualized sinuses are unremarkable. No fluid levels. Mastoid air cells: Visualized mastoid air cells are well aerated. Bones/joints: Unremarkable. No acute fracture. Soft tissues: Unremarkable. CT/CT head wo con* [id number] IMPRESSION: No acute intracranial abnormality.
--- NOTE | 2022-08-18 21:02 | CTR_ITS ---
PROCEDURE INFORMATION: Exam: CTA Chest With Contrast Exam date and time: 08/18/2022 9:52 PM Age: 62 years old Clinical indication: Vomiting; Shortness of breath and tachypnea; Prior surgery; Surgery type: Chest port. Chest tube. Peritoneal drain. Patient HX: Patient very SOB with hematemesis. History of stage 4 lung cancer. ; Additional info: SOB, off eliquis for procedure, ? hematemesis TECHNIQUE: Imaging protocol: Computed tomographic angiography of the chest with contrast. 3D rendering (Not supervised by radiologist): MIP and/or 3D reconstructed images were created by the technologist. Radiation optimization: All CT scans at this facility use at least one of these dose optimization techniques: automated exposure control; mA and/or kV adjustment per patient size (includes targeted exams where dose is matched to clinical indication); or iterative reconstruction. Contrast material: OMNI 350; Contrast volume: 100 ml; Contrast route: INTRAVENOUS (IV); COMPARISON: CT angio chest PE protcl [id number] 05/17/2022 12:40 AM RADIATION DOSE METRICS: Total DLP (mGy-cm): 755.96 FINDINGS: Tubes, catheters and devices: A right-sided PleurX drain is noted. A small, complex and loculated right effusion is considerably smaller from the prior. Pleural masses are likely. Left apical mass is similar. Stage IV cancer very likely present. A right-sided port is visualized. Pulmonary arteries: No evidence of main, lobar, or segmental occlusive PE. Compared to the exam from 05/17/2022, the bilateral PE have virtually resolved. Certainly no acute PE seen today. Aorta: Unremarkable. No aortic aneurysm. No aortic dissection. Lungs: Scattered small calcified lung nodules are visualized. Pleural spaces: Moderate chronic appearing left-sided pleural thickening seen with a small complex effusion at left apex posteriorly on series 7, image 136. Patchy left lung infiltrates and scarring. Left lung findings are very similar to the prior. No pneumothorax has developed. There are multiple areas of bronchial wall thickening and possible LLL aspiration. Heart: The heart is not enlarged. No pericardial effusion is noted. Mediastinal space: The esophagus is dilated throughout. There is some lower esophageal debris and fluid. Lymph nodes: Unchanged mild mediastinal and eziv-mntvlfg-ycqs-right hilar lymphadenopathy. Bones/joints: Small scattered diffuse blastic osseous lesions are visualized. Diffuse osteopenia. No compression fractures noted. Soft tissues: Unremarkable. Other findings: Extensive diffuse vascular calcification. PROCEDURE INFORMATION: Exam: CT Abdomen And Pelvis With Contrast Exam date and time: 08/18/2022 9:52 PM Age: 62 years old Clinical indication: Vomiting; Shortness of breath and tachypnea; Prior surgery; Surgery type: Chest port. Chest tube. Peritoneal drain. Patient HX: Patient very SOB with hematemesis. History of stage 4 lung cancer. ; Additional info: SOB, off eliquis for procedure, ? hematemesis TECHNIQUE: Imaging protocol: Computed tomography of the abdomen and pelvis with contrast. Radiation optimization: All CT scans at this facility use at least one of these dose optimization techniques: automated exposure control; mA and/or kV adjustment per patient size (includes targeted exams where dose is matched to clinical indication); or iterative reconstruction. Contrast material: OMNI 350; Contrast volume: 100 ml; Contrast route: INTRAVENOUS (IV); COMPARISON: CT abdomen pelvis w con* [id number] 08/04/2022 2:53 PM RADIATION DOSE METRICS: Total DLP (mGy-cm): 755.96 FINDINGS: Lungs: See the same-day chest CT report. Liver: Unremarkable. No enhancing mass. Gallbladder and bile ducts: No calcified gallstones or biliary dilation identified. Pancreas: Unremarkable with no suspicious mass. No ductal dilation. Spleen: The spleen is not enlarged. No suspicious enhancing mass is noted. Adrenal glands: Normal. No mass. Kidneys and ureters: Tiny bilateral kidney stones are likely. Mild bilateral renal atrophy. No hydronephrosis. Stomach and bowel: The colon is very fecal filled. Appendix: No evidence of appendicitis. Intraperitoneal space: There is large complex ascites seen throughout the abdomen. Widespread peritoneal metastases are again noted. Vasculature: No AAA or acute vascular lesion identified. Lymph nodes: No enlarged lymph nodes. Urinary bladder: Unremarkable as visualized. Reproductive: Very large prostate. Bones/joints: Blastic bone metastases are again noted. Soft tissues: Diffuse emaciation. CT/CT angio chest w abd pel w con IMPRESSION: 1. The PE have essentially resolved from 05/17/2022. No acute PE seen today. 2. A right-sided PleurX has been placed, and the right-sided effusion is smaller. 3. Findings of stage IV cancer are again noted with left-sided pleural masses and thickening, left apical apparent mass, and severe vwan-gblvlcd-dlsu-right lung infiltrates. 4. There is mildly progressive mediastinal and hilar lymphadenopathy. 5. Jees-otizykg-zjnp-right lung infiltrates are again seen, which may be due to combination of aspiration, infection, and metastatic disease. Lymphangitic carcinomatosis is certainly possible. 6. Osseous metastases are again seen. 7. COPD, atherosclerosis, and numerous chronic findings above. Concerning and ominous findings. IMPRESSION: 1. Severe findings of stage IV cancer again noted. Diffuse large volume complex/loculated ascites again seen with widespread omental/peritoneal metastases likely. 2. Widespread osseous metastases. 3. No small bowel obstruction, abscess or free air. Constipation. 4. The findings are unimproved from 08/04/2022.
[2022-08-18] MEDS: sodium chloride 0.9% 500 ML 999 ML IV (21:15)
[2022-08-18 21:20] LABS: Ammonia 73 umol/L (16-60)
[2022-08-18] MEDS: iohexol 350 mg/mL 500 mL Btl (per mL) IV (22:05)
[2022-08-18 23:29] LABS: Troponin 5 2HR 15.15 ng/L (0-15)
[2022-08-18 23:36] LABS: Troponin 5 2HR Delta 0.15 ABS# (0-10)
[2022-08-18] MEDS: metoclopramide 10 mg Tablet 20 MG PO (23:43)
[2022-08-18] MEDS: metoclopramide 5 mg/mL SDV 2 mL 10 MG IVP (23:43)
== END 2022-08-19 02:38 | disposition home or self-care (01) ==
PROVIDERS: Emergency Provider Emergency Medicine; PCP Family Medicine
DX: R11.2 Nausea with vomiting, unspecified (principal); E86.0 Dehydration; R00.0 Tachycardia, unspecified; C80.1 Malignant (primary) neoplasm, unspecified; C78.02 Secondary malignant neoplasm of left lung; J96.91 Respiratory failure, unspecified with hypoxia; Z79.01 Long term (current) use of anticoagulants; J44.9 Chronic obstructive pulmonary disease, unspecified
CPT/HCPCS: 36600; 70450; 71045; 71275; 74177; 80053; 82140; 82803; 83605; 83880; 84484; 85025; 85610; 85730; 86850; 86900; 93005; 96361; 96374; 96375; 99285; C9113; J2405; J2765; J7040; J8597; Q9967

== ENCOUNTER → 2022-08-19 09:39 | Day surgery (SDC) | payer OTHER, SELFPAY ==
[2022-08-19] VITALS (11 sets, daily range): BP systolic 113–129; BP diastolic 71–89; PULSE 102–119; RESP 18–23; TEMP 36.1–37.3; O2SAT 91–100; BMI 19.2
[2022-08-19] MEDS: sodium chloride 0.9% 1,000 ML 30 ML IV (10:28)
[2022-08-19] MEDS: heparin 5,000 unit/mL INJ 1 mL 2000 UNIT SUBCUT (10:29)
--- NOTE | 2022-08-19 10:31 | P.HPUD_ITS ---
Surgery/Procedure H&P Update DATE OF PROCEDURE: August 19, 2022 DATE H&P PERFORMED: 08/13/22 H&P UPDATE INFORMATION: I have reviewed H&P completed within last 30 days, I have examined patient prior to procedure and Changes to prior documentation as noted here (CT chest abdomen and pelvis1. Severe findings of stage IV cancer again noted. Diffuse large volume complex/loculated ascites again seen with widespread omental/peritoneal metastases likely. 2. Widespread osseous m etastases. 3. No small bowel obstruction, abscess or free air. Constipation. 4. The fi) PREOP DIAGNOSIS: Abdominal ascites PRIMARY INDICATION FOR PROCEDURE: The same PLANNED PROCEDURE: Operation Date: 08/19/22 11:05 Proposed Procedures p [place] Drain Insertion(Not Applicable) - Turner Duarte MD Operation Date: 08/19/22 11:00 Proposed Procedures p placement of [place] drain 55799,R18.0(Not Applicable) - Turner Duarte MD
[2022-08-19] MEDS: ampicillin-sulbactam 3 GM in sodium chloride 0.9% (plus) 50 ML IV (11:08)
--- NOTE | 2022-08-19 11:19 | ANES.PREANE2 ---
Pre-Anesthetic Assessment Height/Weight: Height 1.75 m Weight 58.967 kg Temp Pulse Resp BP Pulse Ox O2 Del Method O2 Flow Rate 99.1 F 116 H 18 128/85 96 4 08/19/22 10:08 08/19/22 10:08 08/19/22 10:08 08/19/22 10:08 08/19/22 10:08 08/19/22 10:08 08/19/22 10:08 Preop Diagnosis: Abdominal ascites Operation Date: 08/19/22 11:05 Proposed Procedures p [place] Drain Insertion(Not Applicable) - Turner Duarte MD Operation Date: 08/19/22 11:00 Proposed Procedures p placement of [place] drain 87910,R18.0(Not Applicable) - Turner Duarte MD Familial anesthetic complications: None Was Beta Wayne taken within 24 hours: N/A Was Clonidine taken within 24 hours: N/A Last intake: Intake Last Liquid Date 08/18/22 Last Liquid Time 22:00 Last Solid Date 08/12/22 Last Solid Time 12:00 Social No alcohol and No tobacco Exam alert, oriented x 3 and regular rate & rhythm coarse breath sounds b/l Airway Mallampati: Class II Dentition: full Pulmonary Chronic Obstructive Pulmonary Disease PE lung cancer, Nasal canula, pleural effusion, pneumonia CV/HEM Anemia Hepatic ascites, malignant GI Gastroesophageal Reflux Disease N/V Anesthetic Plan ASA status: 4 Anesthesia: General Other: RSI for full stomach d/t asicites Risk of > 500 ml blood loss (7ml/kg in children): No Other Pertinent Information spoke with surgeon regarding need for intubation d/t ascites if unable to perform the procedure under local only. Surgeon requesting to proceed with procedure under general anesthesia. Will RSI Medications/Allergies Home Medications Medication Instructions Recorded Confirmed Last Taken Type albuterol sulfate 2.5 mg/3 mL 2.5 mg (3 mL) inhalation Q4H PRN 03/26/22 08/18/22 08/12/22 Rx (0.083 %) solution for nebulization shortness of breath or wheezing #90 mL albuterol sulfate 90 mcg/actuation 2 inh inhalation Q4H PRN shortness 03/26/22 08/18/22 08/12/22 Rx aerosol inhaler of breath or wheezing #18 grams apixaban 5 mg tablet (Eliquis) 5 mg PO BID #30 tabs 06/18/22 08/18/22 08/17/22 Rx ciprofloxacin HCl 500 mg tablet 500 mg PO DAILY 30 days #30 tabs 07/30/22 08/18/22 08/18/22 Rx (Cipro) midodrine 5 mg tablet 10 mg PO Q8H 30 days #180 tabs 07/30/22 08/18/22 08/18/22 14:30 Rx tamsulosin 0.4 mg capsule (Flomax) 0.4 mg PO DAILY 30 days #30 caps 07/30/22 08/18/22 08/18/22 Rx polyethylene glycol 3350 17 4 g PO DAILY PRN Constipation 08/04/22 08/18/22 08/17/22 History gram/dose oral powder (Miralax) hydrocodone 7.5 mg-acetaminophen 1.5 tab PO Q6H PRN Pain 08/08/22 08/18/22 08/12/22 History 325 mg tablet bisacodyl 10 mg rectal suppository [address] DAILY PRN constipation #5 08/13/22 08/15/22 Unknown Rx ea morphine concentrate 100 mg/5 mL 20 mg sublingual DIRECTED PRN 08/13/22 08/15/22 Unknown Rx (20 mg/mL) oral solution pain 14 days #30 mL lorazepam 2 mg/mL oral concentrate 2 mg sublingual Q6H PRN anxiety 08/18/22 08/18/22 Unknown Rx #30 mL metoclopramide HCl 5 mg/5 mL oral 10 mg (10 mL) PO Q6H PRN nausea 08/18/22 Unknown Rx solution and vomiting #280 mL olanzapine 5 mg tablet 5 mg PO Q6H PRN uncontrolled 08/18/22 08/18/22 Unknown Rx nausea/vomiting #30 tabs ondansetron 8 mg disintegrating 8 mg PO Q4H PRN nausea and 08/18/22 08/18/22 08/18/22 Rx tablet vomiting #60 tabs sennosides 8.6 mg-docusate sodium 2 tab PO DAILY 08/18/22 08/18/22 Unknown History 50 mg tablet (Senna-S) Allergies Allergy/AdvReac Type Severity Reaction Status Date / Time furosemide [From Lasix] Allergy ALGY-Rash Verified 08/18/22 16:30 Current Medications Generic Name Dose Route Start Last Admin Trade Name Freq PRN Reason Stop Dose Admin Sodium Chloride 1,000 mls @ 30 mls/hr 08/19/22 09:45 08/19/22 10:28 Sodium Chloride 0.9% IV 08/20/22 09:44 30 mls/hr .Q24H MONTSE Administration PFSH Anesthesia Medical History Anemia Chronic hypotension COPD (chronic obstructive pulmonary disease) DVT (deep venous thrombosis) Non-small cell lung cancer Primary adenocarcinoma of upper lobe of left lung Pulmonary embolism Surgical History History of chest tube placement History of colonoscopy 2013 History of esophagogastroduodenoscopy (EGD) 2013 Port-A-Cath in place (01/02/22) Family History Mother Stroke Diabetes Other CAD (coronary artery disease) Hypertension Denies family history of Clotting disorder Dementia Hyperlipidemia Psychiatric illness Chronic kidney disease (CKD) Suicide Anesthesia complication Bleeding disorder Lung disease Cancer Social History Smoking and tobacco status: never smoked Alcohol intake: never Lives independently: Yes Household members: spouse Marital status: Data Anesthesia Cardiac Studies: Echocardiogram 05/17/22
[2022-08-19] MEDS: lidocaine 1% INJ 20 mL INJECTION (11:36)
[2022-08-19] MEDS: neomycin-poly-bacitracin oint 28 gm 1 APPLIC TOPICAL (12:22)
--- NOTE | 2022-08-19 12:25 | P.OP_ITS ---
Operative Report Date of procedure: August 19, 2022 Pre-op diagnosis: Preop Diagnosis Abdominal ascites Procedure done: 1-Placement of abdominal [place] drain 2-Ultrasound guided placement of [place] drain. Surgeon: Turner Duarte MD [employer] Appraiser: medtronics technician Lesli Circulating nurse Erica Anesthesia: General (YANG Govea) Estimated blood loss (mL): 20 IV fluids: Albumin 25% 250 ml Findings: Drainage of serosanguineous 2300 ml Ascitic fluid Procedure: Patient was identified in the holding area and taken to the operative room and placed in supine position ,both arms were tucked,Time-out was done verifying the patient's name/date of /planned procedure and destination after the procedure, all were in agreement.SCDs confirmed to be functioning, patient was given prophylactic antibiotics administered per protocol, and beta modesto protocol was confirmed, appropriate positioning of the patient was done by me. Prep& drape was done under the usual sterile technique of lower chest and the entire abdomen, lidocaine 2% was injected at the site of the stick, started by right lower quadrant stick that retrieved serous fluid activities assistant with ascitic fluid was obtained from the first stick under U/S guidance with my personal interpretation, a guidewire was then threaded, at that point the guidewire was secured to the drapes with a hemostat and the needle was taken out, attention was then deviated towards creation of an insert for the [place] drain pump at the right lower chest, were lidocaine 2% was injected using an 15 blade knife 2 inches skin incision was created dissection using a hemostat to create an entrance for the [place] drain pump to be inserted were it was tubing system from both ends a short one connected to a tunneler, and the tunneler was used to accommodate the catheter of the draining catheter to be delivered through the incision first created at the site of the stick, ,at that point,serial dilators were done that come in the in the KIT, followed by that a dilator with the sheath introduced onto the guidewire ,the dilator and the wire were retrieved and the catheter was introduced via the sheath where it was peeled off and the catheter maintained, to be in good position in the right lower quadrant The longer tubing system connected to the other part of the [place] pump, was connected to the tunneler, and brought out from a different stab incision, cephalad to the pump site, pump was then tested and it was working fine by setting the fluid for drainage outside the abdominal cavity, 2.3 L serosanguineous as expected with malignant ascites was drained to give the patient some relief. All incisions were closed by vicryl and 2-0 nylon suture as multiple figure of 8 to prevent ascitic fistula 2/0 nylon was used to secure the longer catheter/tubing system onto the upper anterior chest wall. Patient tolerated the procedure well was taken to the recovery area after being extubated Count was correct at the end of the procedure I was present for the whole entire procedure
--- NOTE | 2022-08-19 13:27 | ANE.PACU2 ---
Inpatient post-anesthesia follow up: Airway intact: Yes Vital signs: Temperature 97.2 F Pulse Rate 116 Respiratory Rate 20 Blood Pressure 123/79 Pulse Oximetry 99 Oxygen Delivery Me thod Nasal Cannula Oxygen Flow Rate 4 Fraction of Inspir ed Oxygen Hydration adequate: Yes Nausea and vomiting: No Pain level: 1 Mental status: Baseline
== END | disposition home or self-care (01) ==
PROVIDERS: PCP Family Medicine; Visit Provider Surgery
PROC: (CPT 49418; principal; 2022-08-19 10:55)
DX: R18.8 Other ascites (principal); J44.9 Chronic obstructive pulmonary disease, unspecified; Z85.118 Personal history of other malignant neoplasm of bronchus and lung; K21.9 Gastro-esophageal reflux disease without esophagitis; Z86.718 Personal history of other venous thrombosis and embolism; Z86.711 Personal history of pulmonary embolism
CPT/HCPCS: 49418; J0295; J1644; J2704; J3010; J3490; J7030; P9047